=== PATIENT | female | born 1940 | race Caucasian/White ===

== ENCOUNTER → 2018-12-05 18:00 | Outpatient (REF) | payer MEDICARE, SELFPAY ==
[2018-12-05 18:22] LABS: Hematocrit 47.4 % (37-47); Hemoglobin 15.3 g/dL (12.0-15.0); Mean Corp Hgb Conc 32.3 g/dL (32-36); Mean Corpuscular Hgb 28.2 pg (27.0-32.0); Mean Corpuscular Volume 87.5 fL (81-99); Mean Platelet Vol. 11.1 fl (6.2-12.0); Platelet Count 320 K/mm3 (150-450); RBC Distribution Width CV 12.8 % (11.6-14.6); RBC Distribution Width SD 41.1 fl (35.1-43.9); Red Blood Count 5.42 M/mm3 (4.2-5.4); White Blood Count 11.7 K/mm3 (4.4-11.0)
[2018-12-05 18:39] LABS: ALB/GLOB Ratio 0.6 RATIO (0.9-2.4); AST(SGOT) 14 U/L (15-37); Alanine Aminotransfer ALT/SGPT 14 U/L (13-56); Albumin, Serum 3.1 g/dL (3.2-5.0); Alkaline Phosphatase 92 U/L (45-117); Anion Gap 7 (5-15); BUN 12 mg/dL (7-18); BUN/Creat Ratio 14.2 RATIO (10-20); Calcium,Total 9.2 mg/dL (8.5-10.1); Chloride 107 mmol/L (98-107); Creatinine, Serum 0.85 mg/dL (0.55-1.02); EST Glomerular Filtration Rate 69 mL/min (>60); Est Glom Filt Rate - Afr Amer 84 mL/min (>60); Glucose 133 mg/dL (74-106); Potassium 3.6 mmol/L (3.5-5.1); Protein, Total 8.1 g/dL (6.4-8.2); Sodium Level 139 mmol/L (136-145)
[2018-12-11 11:59] VITALS: BMI 29.3
== END ==
LOC: OLS.BROOKB 18:00
PROVIDERS: Visit Provider Family Medicine
DX: I10 Essential (primary) hypertension (principal); E78.5 Hyperlipidemia, unspecified; T14.8XXA Other injury of unspecified body region, initial encounter; E46 Unspecified protein-calorie malnutrition; Z79.899 Other long term (current) drug therapy
CPT/HCPCS: 36415; 80053; 85027

== ENCOUNTER → 2018-12-06 06:50 | Outpatient (REF) | payer MEDICARE, SELFPAY ==
[2018-12-11 11:59] VITALS: BMI 29.3
== END ==
PROVIDERS: Visit Provider Family Medicine
DX: I10 Essential (primary) hypertension (principal); E78.5 Hyperlipidemia, unspecified; T14.8XXA Other injury of unspecified body region, initial encounter; E46 Unspecified protein-calorie malnutrition; Z79.899 Other long term (current) drug therapy
CPT/HCPCS: 87070; 87077; 87186; 87205

== ENCOUNTER 2018-12-11 11:55 | Emergency (ER) | payer MEDICARE, SELFPAY ==
[2018-12-11] VITALS (7 sets, daily range): BP systolic 95–134; BP diastolic 45–113; PULSE 68–94; RESP 16–20; TEMP 36.7–37.2; O2SAT 95–99; BMI 29.3
--- NOTE | 2018-12-11 12:27 | ED.DCSUM_ITS ---
- ER Visit Summary Date of Service: 12/11/18 Chief Complaint: Bilateral lower extremity swelling and redness History of Present Illness: The patient is a 78 F currently resides in a local [facility]. Reportedly was sent in today due to redness swelling of her lower extremities bilaterally. She herself has dementia and is a poor informant. She denies having any fever or chills. She denies nausea or vomiting. Physical Examination: Elderly female no acute distress. Vital signs are stable afebrile. HEENT exam unremarkable. Neck nontender no lymphadenopathy. Lungs clear to auscultation bilaterally. Heart regular rhythm no murmur. Abdomen soft nontender normal bowel sounds no peritoneal signs. Extremities moves all 4. She has mild swelling of the lower extremities there is redness and warmth consistent with cellulitis or venous stasis. The redness is over her mid lower legs. She is awake and alert. Test Results: CBC shows shows no acute abnormality. Chemistries are unremarkable. Normal creatinine and gap. Emergency Department Course and Treatment: Patient reportedly had an anaphylactic reaction to penicillin so treated her with a dose of IV clindamycin. Treatment Plan: I spoke the patient's assisted living facility. They cannot provide IV antibiotics and requested patient be admitted. I have the hospitalist on page. Disposition: admission Impression: Bilateral lower extremity cellulitis This note was generated with [employer] dictation software. It may contain incorrect words, spelling, and punctuation that were not noted in review of the chart prior to signing ED Disposition - Plan for ED Patient: Referrals: Cary Bill MD [Primary Care Provider] -
--- NOTE | 2018-12-11 14:31 | ED.RN ---
THIS RN ATTEMPTED TO CALL SON-PAULINA AT 1430, SON HAD VOICEMAIL BOX NOT SET UP YET. ATTEMPTED TO CALL BROTHER-ANDREAS, WENT TO A [facility] OF A [facility] SO NO MESSAGE WAS LEFT DUE TO THE DIFFERENCE IN NAME
[2018-12-11 15:57] LABS: Absolute Lymphocyte Count 0.85 X10^3/uL (0.83-4.51); Basophil# 0.03 X10^3/uL; Basophil% 0.3 % (0-1); Eosinophil# 0.34 X10^3/uL; Eosinophils% 3.9 % (0-5); Hematocrit 44.1 % (37-47); Hemoglobin 14.6 g/dL (12.0-15.0); Lymphocyte # 0.85 X10^3/ul (4.0); Lymphocyte % 9.7 % (19-41); Mean Corp Hgb Conc 33.1 g/dL (32-36); Mean Corpuscular Hgb 28.5 pg (27.0-32.0); Mean Corpuscular Volume 86.1 fL (81-99); Mean Platelet Vol. 10.7 fl (6.2-12.0); Monocyte# 0.39 X10^3/uL; Monocyte% 4.5 % (0-10); NRBC Flagged by Analyzer 0 % (0-5); Neutrophil # 7.01 X10^3/uL (2.7-7.7); Neutrophil % 80.3 % (47-70); Platelet Count 206 K/mm3 (150-450); RBC Distribution Width CV 13.6 % (11.6-14.6); RBC Distribution Width SD 42.8 fl (35.1-43.9); Red Blood Count 5.12 M/mm3 (4.2-5.4); White Blood Count 8.7 K/mm3 (4.4-11.0)
[2018-12-11 16:16] LABS: Anion Gap 7 (5-15); BUN 15 mg/dL (7-18); BUN/Creat Ratio 18.2 RATIO (10-20); Calcium,Total 8.4 mg/dL (8.5-10.1); Chloride 105 mmol/L (98-107); Creatinine, Serum 0.82 mg/dL (0.55-1.02); EST Glomerular Filtration Rate 72 mL/min (>60); Est Glom Filt Rate - Afr Amer 87 mL/min (>60); Estimated Creatinine Clearance 54.64 ml/min; Glucose 132 mg/dL (74-106); Potassium 4.4 mmol/L (3.5-5.1); Sodium Level 135 mmol/L (136-145)
--- NOTE | 2018-12-11 16:33 | HP.PCM_ITS ---
History of Present Illness Date of Admission: 12/11/18 Chief Complaint: bilateral LE redness and swelling The patient is a 78 year old F with a past medical history as outlined. She was admitted through the ED on 12/11/2018 with a complaint of bilateral lower extremity redness and swelling which have been going on for a few days. Patient denied any trauma to her lower extremities though she admits to falling. She denied any scratching of her lower extremities. She denied any fever or chills, any nausea vomiting or diarrhea. Review of systems otherwise negative. She is never had cellulitis of her lower extremities before. Vitals were significant for respiratory rate of 20 but was otherwise normal. Chemistry showed sodium of 135 and CBC showed white cell count of 8.7 but was otherwise normal. She has been admitted to be managed for cellulitis of the lower extremities bilaterally. Patient was resistant to admission and stated that she did not see where she should be admitted when she knew of other people in her assisted living facility who had similar redness and swelling and one oral antibiotics. Patient was counseled that ED doctor had called assisted-living facility to see if they would be comfortable taking her while she was receiving antibiotics IV. As the living facility stated they were not comfortable accepting her if she was on IV antibiotics hence the need for her to be admitted. Patient was counseled that it was within her rights to refuse admission though from the appearance of her lower extremities, hospitalist's prudent medical decision was that she would benefit from IV antibiotics. Patient says she is waiting for her son to help her decide. 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 history Lives: - - assisted living facility Smoking Status: Former smoker Tobacco Use: Non-smoker Drugs: None - *Family History Sibling History Items: Diabetes Maternal History Items: No pertinent history Paternal History Items: No pertinent history Review of Systems Constitutional: Denies: Chills, Fever, Malaise, Weakness, Weight Change Eyes: Denies: Blurred vision HEENT: Denies: Head Aches, Sinus Congestion, Sinus Drainage Cardiovascular: Denies: Chest Pain, Palpitations Respiratory: Denies: Cough, Shortness of Breath, Shortness of breath at rest, Shortness of breath upon exertion, Sputum production Gastrointestinal: Denies: Abdominal Pain, Nausea, Vomiting Genitourinary: Denies: Dysuria Musculoskeletal: Denies: Joint Pain, Joint Tenderness Skin: Reports: - - redness and swelling of LEs Neurological: Denies: Numbness, Tingling, Focal weakness Psychiatric: Denies: Anxiety, Depression, Homicidal Ideations, Suicidal Ideations Hematologic/ Lymphatic: Denies: Easy Bruising, Easy Bleeding VTE Information - Inpt Only VTE Present on Admission: No VTE Pharm Prophylaxis ordered?: Yes Patient Problems: Active and Suspected Problems Cellulitis (Acute) - Physical Exam Vitals/I&O's: Vital Signs Temp Pulse Resp BP Pulse Ox 98.8 F 83 20 H 134/113 H 96 12/11/18 15:00 12/11/18 15:00 12/11/18 15:00 12/11/18 15:00 12/11/18 15:00 Oxygen Delivery Method Room Air Weight: 181 lb 14.102 oz Body Mass Index (BMI) 29.3 Intake and Output for Last 24 Hours 12/09/18 12/10/18 12/11/18 23:59 23:59 23:59 Intake Total 106 / 106 Balance 106 / 106 General: Alert, Oriented x3, Cooperative, No apparent distress HEENT: Atraumatic, PERRLA, EOMI, Normocephalic Oral: Moist Mucosa Neck: Supple, No JVD, Negative Carotid Bruits Lungs: Clear to auscultation, Normal air movement Cardiovascular: Regular rate, Regular Rhythm, Normal S1, Normal S2, No murmurs Abdomen: Bowel Sounds Present, Soft, Non Tender, Non-Distended, No Hepato- splenomegaly Extremities: No clubbing, No cyanosis, No edema, Capillary Refill Less than 3 Seconds Skin: - - erythema and mild swelling of LEs bilaterally, up to midshin. Skin is also shinya and hairless. Toenails are very overgrown, and left 4th toenail appears broken, with dried blood at base. Webbed spaces between toenails appear macerated Musculoskeletal: No Tenderness to Palpation of Joints or Extremities Lymphatic: No Cervical, Supraclavicular, or Inguinal Adenopathy Neurological: Cranial nerves II-XII grossly intact, Neuro grossly intact, Motor Exam 5/5 strength throughout Psych/Mental Status: Normal Affect, Appropriate, Alert and oriented to time, place, person, mood and affect Laboratory Results 12/11/18 12:40: WBC Cancelled, Corrected WBC Cancelled, RBC Cancelled, Hgb Cancelled, Hct Cancelled, MCV Cancelled, MCH Cancelled, MCHC Cancelled, RDW Std Deviation Cancelled, RDW Coeff of Ricardo Cancelled, Plt Count Cancelled, MPV Cancelled, Immature Gran % (Auto) Cancelled, Neut % (Auto) Cancelled, Lymph % (Auto) Cancelled, [place] % (Auto) Cancelled, Eos % (Auto) Cancelled, Baso % (Auto) Cancelled, Absolute Neuts (auto) Cancelled, Absolute Lymphs (auto) Cancelled, Total Counted Cancelled, Neutrophils % (Manual) Cancelled, Band Neutrophils % Cancelled, Lymphocytes % (Manual) Cancelled, Monocytes % (Manual) Cancelled, Eosinophils % (Manual) Cancelled, Basophils % (Manual) Cancelled, Metamyelocytes % Cancelled, Myelocytes % Cancelled, Promyelocytes % Cancelled, Blast Cells % Cancelled, Plasma Cell % (Manual) Cancelled, Other Cells % Cancelled, Nucleated RBC % Cancelled, Nucleated RBCs/100 WBC Cancelled, Differential Comment Cancelled, Diff Path Review Cancelled, Hypersegmented Neuts Cancelled, Atypical Lymphocytes Cancelled, Reactive Lymphocytes Cancelled, Smudge Cells Cancelled, Toxic Granulation Cancelled, Toxic Vacuolation Cancelled, Dohle Bodies Cancelled, Will Rods Cancelled, Platelet Estimate Cancelled, Plt Morphology Comment Cancelled, RBC Morphology Cancelled, Polychromasia Cancelled, Hypochromasia Cancelled, Poikilocytosis Cancelled, Basophilic Stippling Cancelled, Anisocytosis Cancelled, Microcytosis Cancelled, Macrocytosis Cancelled, Spherocytes Cancelled, Sickle Cells Cancelled, Target Cells Cancelled, Tear Drop Cells Cancelled, Ovalocytes Cancelled, Stomatocytes Cancelled, Crane-[place] Bodies Cancelled, Danyelle Cells Cancelled, Bite Cells Cancelled, Crenated Cell Cancelled, Acanthocytes (Spur) Cancelled, Rouleaux Cancelled, Schistocytes Cancelled 12/11/18 12:40: Sodium Cancelled, Potassium Cancelled, Chloride Cancelled, Carbon Dioxide Cancelled, Anion Gap Cancelled, BUN Cancelled, Creatinine Cancelled, Estim Creat Clear Calc Cancelled, Est GFR (MDRD) Af Amer Cancelled, Est GFR (MDRD) Non-Af Cancelled, BUN/Creatinine Ratio Cancelled, Glucose Cancelled, Calcium Cancelled 12/11/18 14:25: Sodium Cancelled, Potassium Cancelled, Chloride Cancelled, Carbon Dioxide Cancelled, Anion Gap Cancelled, BUN Cancelled, Creatinine Cancelled, Estim Creat Clear Calc Cancelled, Est GFR (MDRD) Af Amer Cancelled, Est GFR (MDRD) Non-Af Cancelled, BUN/Creatinine Ratio Cancelled, Glucose Cancelled, Calcium Cancelled 12/11/18 14:25: WBC Cancelled, Corrected WBC Cancelled, RBC Cancelled, Hgb Cancelled, Hct Cancelled, MCV Cancelled, MCH Cancelled, MCHC Cancelled, RDW Std Deviation Cancelled, RDW Coeff of Ricardo Cancelled, Plt Count Cancelled, MPV Canc elled, Immature Gran % (Auto) Cancelled, Neut % (Auto) Cancelled, Lymph % (Auto) Cancelled, [place] % (Auto) Cancelled, Eos % (Auto) Cancelled, Baso % (Auto) Cancelled, Absolute Neuts (auto) Cancelled, Absolute Lymphs (auto) Cancelled, Total Counted Cancelled, Neutrophils % (Manual) Cancelled, Band Neutrophils % Cancelled, Lymphocytes % (Manual) Cancelled, Monocytes % (Manual) Cancelled, Eosinophils % (Manual) Cancelled, Basophils % (Manual) Cancelled, Metamyelocytes % Cancelled, Myelocytes % Cancelled, Promyelocytes % Cancelled, Blast Cells % Cancelled, Plasma Cell % (Manual) Cancelled, Other Cells % Cancelled, Nucleated RBC % Cancelled, Nucleated RBCs/100 WBC Cancelled, Differential Comment Cancelled, Diff Path Review Cancelled, Hypersegmented Neuts Cancelled, Atypical Lymphocytes Cancelled, Reactive Lymphocytes Cancelled, Smudge Cells Cancelled, Toxic Granulation Cancelled, Toxic Vacuolation Cancelled, Dohle Bodies Cancelled, Will Rods Cancelled, Platelet Estimate Cancelled, Plt Morphology Comment Cancelled, RBC Morphology Cancelled, Polychromasia Cancelled, Hypochromasia Cancelled, Poikilocytosis Cancelled, Basophilic Stippling Cancelled, Anisocytosis Cancelled, Microcytosis Cancelled, Macrocytosis Cancelled, Spherocytes Cancelled, Sickle Cells Cancelled, Target Cells Cancelled, Tear Drop Cells Cancelled, Ovalocytes Cancelled, Stomatocytes Cancelled, Crane-[place] Bodies Cancelled, [place] Cells Cancelled, Bite Cells Cancelled, Crenated Cell Cancelled, Acanthocytes (Spur) Cancelled, Rouleaux Cancelled, Schistocytes Cancelled 12/11/18 15:30: WBC 8.7, RBC 5.12, Hgb 14.6, Hct 44.1, MCV 86.1, MCH 28.5, MCHC 33.1, RDW Std Deviation 42.8, RDW Coeff of Ricardo 13.6, Plt Count 206, MPV 10.7, Immature Gran % (Auto) 1.300 H, Neut % (Auto) 80.3 H, Lymph % (Auto) 9.7 L, [place] % (Auto) 4.5, Eos % (Auto) 3.9, Baso % (Auto) 0.3, Absolute Neuts (auto) 7.0, Absolute Lymphs (auto) 0.85, Nucleated RBC % 0 12/11/18 15:30: Sodium 135 L, Potassium 4.4, Chloride 105, Carbon Dioxide 23.0, Anion Gap 7, BUN 15, Creatinine 0.82, Estim Creat Clear Calc 54.64, Est GFR (MDRD) Af Amer 87, Est GFR (MDRD) Non-Af 72, BUN/Creatinine Ratio 18.2, Glucose 132 H, Calcium 8.4 L Assessment/Plan All Active Problems Cellulitis (Acute) 78 y/o admitted with a complaint of bilateral LE redness and swelling 1. Bilateral LE cellulitis * Admit to [facility] * Started on IV clindamycin. Will continue. Patient is allergic to penicillins. * Has normal white cell count * Cellulitic area demarcated with body marker to assess for progression or resolution of erythema. * Order blood cultures. * Consult podiatry on account of overgrown and broken toenails as this could be source of infection. * VT prophylaxis: Lovenox Code Visit OBSV E&M: [id number] Initial observation care L2
--- NOTE | 2018-12-11 17:17 | ED.RN ---
ATTEMPTED TO CONTACT SON -PAULINA AGAIN. WENT STRAIGHT TO VOICEMAIL WITH A VOICEMAIL BOX THAT IS FULL. NOTIFIED. PATIENT STATES THAT SHE IS UNWILLING TO BE ADMITTED UNTIL SHE IS ABLE TO SPEAK TO SON. SHE WAS INFORMED THAT HER SON WAS NOT ABLE TO BE REACHED. SHE STATES SHE WANTS TO GO BACK TO [place] AND NOT GET ADMITTED
--- NOTE | 2018-12-11 17:38 | ED.DEP ---
ED Disposition - Plan for ED Patient: Disposition: Home or Assisted Living Diagnosis: Cellulitis Instructions: Cellulitis Prescriptions: Clindamycin [Cleocin] 300 mg PO 4X/DAY #80 capsule Referrals: Cary Bill MD [Primary Care Provider] - As soon as possible Additional Instructions: Stop Bactrim - take Clindamycin instead
--- NOTE | 2018-12-11 17:51 | ED.RN ---
SPOKE WITH LATRICE RALPH AT [facility] AND GAVE REPORT. RN VERBALIZED UNDERSTANDING. NO FURTHER QUESTIONS
--- NOTE | 2018-12-11 18:52 | ED.RN ---
SON PAULINA ARRIVES TO ED. THIS RN SPOKE TO SON. SON STATES HIS MOTHER WOULD GET TOO WORKED UP STAYING IN THE HOSPITAL AND WOULD LIKE TO SEE HER RETURN TO [place] WITH THE UNDERSTANDING THAT THE PATIENT AGREES TO TAKE HER ORAL ANTIBIOTICS. THIS RN ALONG WITH SON PAULINA SPOKE WITH PATIENT AND PATIENT AGREED TO DO SO.
== END 2018-12-11 19:38 | disposition home or self-care (01) ==
PROVIDERS: Emergency Provider Emergency Medicine; Family Provider Family Medicine; PCP Family Medicine; Referring Provider Student in an Organized Health Care Education/Training Program
DX: L03.115 Cellulitis of right lower limb (principal); L03.116 Cellulitis of left lower limb; F03.90 Unspecified dementia, unspecified severity, without behavioral disturbance, psychotic disturbance, mood disturbance, and anxiety; Z88.0 Allergy status to penicillin; Z79.899 Other long term (current) drug therapy; Z87.891 Personal history of nicotine dependence; Z90.49 Acquired absence of other specified parts of digestive tract
CPT/HCPCS: 36415; 80048; 85025; 96365; 96366; 99285; J7030; A4216

== ENCOUNTER → 2019-01-23 12:30 | Outpatient (REF) | payer MEDICARE, SELFPAY ==
[2018-12-11 11:59] VITALS: BMI 29.3
[2019-01-23 13:02] LABS: Absolute Lymphocyte Count 2.11 X10^3/uL (0.83-4.51); Absolute Neutrophil Count 6.2 X10^3/uL (2.0-7.7); Basophil# 0.07 X10^3/uL; Basophil% 0.7 % (0-1); Eosinophil# 0.39 X10^3/uL; Hematocrit 44.9 % (37-47); Hemoglobin 14.2 g/dL (12.0-15.0); Lymphocyte # 2.11 X10^3/ul (4.0); Lymphocyte % 21.8 % (19-41); Mean Corp Hgb Conc 31.6 g/dL (32-36); Mean Corpuscular Volume 88.6 fL (81-99); Mean Platelet Vol. 11.2 fl (6.2-12.0); Monocyte# 0.85 X10^3/uL; Monocyte% 8.8 % (0-10); NRBC Flagged by Analyzer 0 % (0-5); Neutrophil # 6.22 X10^3/uL (2.7-7.7); Neutrophil % 64.2 % (47-70); Platelet Count 237 K/mm3 (150-450); RBC Distribution Width CV 14.5 % (11.6-14.6); RBC Distribution Width SD 46.2 fl (35.1-43.9); Red Blood Count 5.07 M/mm3 (4.2-5.4); White Blood Count 9.7 K/mm3 (4.4-11.0)
[2019-01-23 13:09] LABS: Anion Gap 3 (5-15); BUN 11 mg/dL (7-18); BUN/Creat Ratio 15.1 RATIO (10-20); Chloride 107 mmol/L (98-107); Creatinine, Serum 0.73 mg/dL (0.55-1.02); EST Glomerular Filtration Rate 83 mL/min (>60); Est Glom Filt Rate - Afr Amer 100 mL/min (>60); Glucose 112 mg/dL (74-106); Potassium 3.9 mmol/L (3.5-5.1); Sodium Level 139 mmol/L (136-145)
== END ==
LOC: OLS.BROOKB 12:30
PROVIDERS: Visit Provider Family Medicine
DX: R60.0 Localized edema (principal); Z79.899 Other long term (current) drug therapy
CPT/HCPCS: 36415; 80048; 85025

== ENCOUNTER → 2019-02-24 05:00 | Outpatient (REF) | payer MEDICARE, SELFPAY ==
[2018-12-11 11:59] VITALS: BMI 29.3
[2019-02-24 07:52] LABS: Hematocrit 38.5 % (37-47); Hemoglobin 12.3 g/dL (12.0-15.0); Mean Corp Hgb Conc 31.9 g/dL (32-36); Mean Corpuscular Hgb 27.5 pg (27.0-32.0); Mean Corpuscular Volume 85.9 fL (81-99); Mean Platelet Vol. 11.1 fl (6.2-12.0); Platelet Count 218 K/mm3 (150-450); RBC Distribution Width CV 14.2 % (11.6-14.6); RBC Distribution Width SD 44.2 fl (35.1-43.9); Red Blood Count 4.48 M/mm3 (4.2-5.4); White Blood Count 9.6 K/mm3 (4.4-11.0)
[2019-02-24 08:12] LABS: ALB/GLOB Ratio 0.7 RATIO (0.9-2.4); AST(SGOT) 10 U/L (15-37); Alanine Aminotransfer ALT/SGPT 14 U/L (13-56); Albumin, Serum 2.8 g/dL (3.2-5.0); Alkaline Phosphatase 78 U/L (45-117); Anion Gap 6 (5-15); BUN 12 mg/dL (7-18); BUN/Creat Ratio 17.8 RATIO (10-20); Calcium,Total 8.4 mg/dL (8.5-10.1); Chloride 108 mmol/L (98-107); Creatinine, Serum 0.67 mg/dL (0.55-1.02); EST Glomerular Filtration Rate 90 mL/min (>60); Est Glom Filt Rate - Afr Amer 109 mL/min (>60); Globulin 4.2 g/dL (2.2-4.2); Glucose 98 mg/dL (74-106); Potassium 3.4 mmol/L (3.5-5.1); Sodium Level 142 mmol/L (136-145); Thyroid Stim Hormone (TSH) 2.43 uIU/mL (0.358-3.74)
== END ==
LOC: OLS.BROOKB 05:00
PROVIDERS: Family Provider Family Medicine; PCP Family Medicine; Visit Provider Family Medicine
DX: R60.9 Edema, unspecified (principal)
CPT/HCPCS: 36415; 80053; 84443; 85027

== ENCOUNTER 2020-06-17 10:04 | Inpatient (IN) | payer MEDICARE, MEDICAID, SELFPAY ==
[2018-12-11 11:59] VITALS: BMI 29.3
[2020-06-17] VITALS (8 sets, daily range): BP systolic 92–110; BP diastolic 39–78; PULSE 64–88; RESP 16–19; TEMP 36.1–37.2; O2SAT 94–97; BMI 34.0; BMI 33.2
--- NOTE | 2020-06-17 10:16 | EKG12_ITS ---
Test Reason : ALT LOC Blood Pressure : / mmHG Vent. Rate : 074 BPM Atrial Rate : 074 BPM P-R Int : 162 ms QRS Dur : 082 ms QT Int : 372 ms P-R-T Axes : 061 049 020 degrees QTc Int : 412 ms Sinus rhythm with Premature atrial complexes Nonspecific T wave abnormality Abnormal ECG Confirmed by GOSIA DOUGLAS, ANNEMARIE ([id number]), dictionary editor RAFAELA CHONG ([id number]) on 06/20/2020 11:12:04 AM Referred By: [email or web address] Confirmed By:ANNEMARIE ELISE MD
--- NOTE | 2020-06-17 10:18 | CT_ITS ---
STUDY: CT BRAIN WITHOUT CONTRAST REASON FOR EXAM: Female, 79 years old. Confusion RADIATION DOSAGE (If Supplied By Facility): CTDIvol = ( 38.43 ) mGy, DLP = ( 727.10 ) mGycm TECHNIQUE: Transaxial CT imaging of the brain was performed without administration of intravenous contrast material. Individualized dose optimization techniques were used for this CT. COMPARISON: 04/02/2013 FINDINGS: Normal soft tissue structures. Normal calvarium. There is mild cerebral atrophy with widening of the extra-axial spaces and ventricular dilatation. There are areas of decreased attenuation within the white matter tracts of the supratentorial brain, consistent with microvascular disease changes. Normal basal ganglia and thalami. Normal brainstem. Normal cerebellum. There is no intracranial hemorrhage. There are no findings of an acute ischemic infarction. Normal visualized paranasal sinuses. CT/Brain/Head without Contrast IMPRESSION: 1. No acute intracranial hemorrhage or mass effect. 2. Central parenchymal volume loss. White matter changes that are nonspecific but most commonly associated with chronic small vessel ischemic disease. Electronically Signed: Martin St MD (Bro[place]) at 12:17 EDT , Service support ,
--- NOTE | 2020-06-17 10:32 | RAD_ITS ---
STUDY: X-RAY CHEST REASON FOR EXAM: Female, 79 years old. Weakness TECHNIQUE: AP COMPARISON: 04/02/2013 FINDINGS: 1.5 cm nodule in the right mid lung is overall similar since 2013. No airspace consolidation. There is no demonstrated pleural abnormality. Normal size heart. Normal mediastinum and eh. Normal visualized pulmonary arteries. There is atherosclerotic tortuosity of the aortic arch and descending thoracic aorta. There are diffuse degenerative changes of the visualized thoracic spine. Normal visualized ribs, clavicles, and shoulders. There is no demonstrated abnormality of the visualized soft tissue structures of the upper abdomen. RAD/Chest 1 View (Portable) IMPRESSION: Stable, nonacute portable x-ray examination of the chest. Electronically Signed: Martin St MD ([place]) at 10:46 EDT , Service support ,
[2020-06-17] MEDS: 0.9% Normal Saline 1,000 ML 999 ML IV (11:00)
[2020-06-17 11:05] LABS: Bacteria 0 SEEN /hpf (None Seen); Mucous, Urine 0 SEEN /hpf (<or=2+); Squamous Epithelial Cells - UA 0 SEEN /hpf (5-10)
[2020-06-17 11:12] LABS: Color, Urine Yellow (Yellow); Glucose, Dipstick 50 mg/dl (Normal); Ketone-Dipstick 5 mg/dl (Negative); Leukocyte Esterase-Dipstick 500 /ul (Negative); Nitrite-Dipstick Negative (Negative); Occult Blood-Urine 250 /ul (Negative); Protein-Dipstick 100 mg/dl (Negative); Urine Bilirubin Dipstick Negative (Negative); Urine Clarity Cloudy (Clear); Urine Urobilinogen Normal (Normal)
[2020-06-17 11:23] LABS: Absolute Lymphocyte Count 2.08 X10^3/uL (0.83-4.51); Absolute Neutrophil Count 10.2 X10^3/uL (2.0-7.7); Basophil# 0.15 X10^3/uL; Basophil% 1.1 % (0-1); Eosinophil# 0.17 X10^3/uL; Eosinophils% 1.2 % (0-5); Hematocrit 42.3 % (37-47); Hemoglobin 13.2 g/dL (12.0-15.0); Lymphocyte # 2.08 X10^3/ul (0.83-4.51); Mean Corp Hgb Conc 31.2 g/dL (32-36); Mean Corpuscular Hgb 27.4 pg (27.0-32.0); Mean Corpuscular Volume 87.8 fL (81-99); Mean Platelet Vol. 11.1 fl (6.2-12.0); Monocyte# 1.24 X10^3/uL; Monocyte% 8.9 % (0-10); NRBC Flagged by Analyzer 0 % (0-5); Neutrophil # 10.16 X10^3/uL (2.7-7.7); Neutrophil % 73.2 % (47-70); Platelet Count 216 K/mm3 (150-450); RBC Distribution Width CV 13.7 % (11.6-14.6); Red Blood Count 4.82 M/mm3 (4.2-5.4); White Blood Count 13.9 K/mm3 (4.4-11.0)
[2020-06-17 11:24] LABS: Red Blood Cells-Urine > 100 SEEN /hpf (0-5); White Blood Cells >100 SEEN /hpf (0-5)
[2020-06-17 11:25] LABS: Uric Acid Crystals Ur 2+ /hpf (<or=1+)
[2020-06-17 11:33] LABS: International Normalized Ratio 1.3; Partial Thromboplast Time 22.2 Seconds (24.1-36.2); Prothrombin Time (Protime)PT. 15.4 SECONDS (11.7-14.9)
[2020-06-17 11:41] LABS: ALB/GLOB Ratio 0.5 RATIO (0.9-2.4); AST(SGOT) 19 U/L (15-37); Alanine Aminotransfer ALT/SGPT 11 U/L (13-56); Albumin, Serum 2.4 g/dL (3.2-5.0); Alkaline Phosphatase 74 U/L (45-117); Anion Gap 6 (5-15); BUN 19 mg/dL (7-18); BUN/Creat Ratio 16.7 RATIO (10-20); Calcium,Total 8.6 mg/dL (8.5-10.1); Chloride 107 mmol/L (98-107); Creatinine, Serum 1.14 mg/dL (0.55-1.02); EST Glomerular Filtration Rate 49 mL/min (>60); Est Glom Filt Rate - Afr Amer 59 mL/min (>60); Estimated Creatinine Clearance 32.69 ml/min; Globulin 4.8 g/dL (2.2-4.2); Glucose 292 mg/dL (74-106); Potassium 3.8 mmol/L (3.5-5.1); Protein, Total 7.2 g/dL (6.4-8.2); Sodium Level 144 mmol/L (136-145)
[2020-06-17 12:00] LABS: Lactic Acid 1.8 mmol/L (0.4-1.9)
--- NOTE | 2020-06-17 12:22 | EX.ED.DYSGE1 ---
HPI History of Present Illness Chief Complaint: Alt LOC Narrative Narrative: Patient typically is oriented x3. Per the [place] [facility] the patient is oriented x1 today. They state that she had a steady decline for the past 3 days and that her blood pressure was low this morning as well. Patient is not able to contribute any useful history or review of systems as she is very confused and answering minimal questions at this time. [facility] Medical History (Updated 06/17/20 @ 13:[address] Benjamin Rodriguez MD) Chronic indwelling Zapata catheter COPD (chronic obstructive pulmonary disease) Decubitus ulcer of buttock, stage 3 Dementia Depression Failure to thrive Hypertension Hypotension Insomnia Lymphedema Mood disorder Spondylosis of lumbar spine Wound cellulitis Home Medications clindamycin HCl 300 mg PO 4X/DAY #80 cap 12/11/18 [Rx Last Taken Unknown] fluconazole 100 mg PO DAILY 12/11/18 [History Last Taken 12/11/18] nystatin 1 applic TOPICAL BID 12/11/18 [History Last Taken 12/11/18] sulfamethoxazole-trimethoprim 2 tab PO BID 12/11/18 [History Last Taken 12/11/18] albuterol sulfate [ProAir HFA] 90 mcg INHALATION Q4H PRN PRN 06/17/20 [History Last Taken Unknown] furosemide 40 mg PO BID 06/17/20 [History Last Taken Unknown] insulin glargine [Lantus Solostar U-100 Insulin] 10 unit SUBCUT QHS 06/17/20 [History Last Taken Unknown] insulin lispro [Humalog KwikPen Insulin] 0 - 100 unit SUBCUT TID 06/17/20 [History Last Taken Unknown] nystatin 1 applic TOPICAL BID 06/17/20 [History Last Taken Unknown] potassium chloride 40 meq PO DAILY 06/17/20 [History Last Taken Unknown] Allergy/AdvReac Type Severity Reaction Status Date / Time amoxicillin Allergy Unknown Verified 12/11/18 11:58 Penicillins Allergy Anaphylaxis Verified 12/11/18 11:57 MUSHROOMS Allergy Unknown Uncoded 12/11/18 11:57 Social History Smoking Status: Unknown if ever smoked ROS ROS ED Review of Systems ROS Unobtainable: due to mental status EXAM Physical Exam Const Vital Signs: 06/17/20 10:05 06/17/20 10:16 06/17/20 11:16 Temperature 99.0 F Temperature Source Oral Pulse Rate 88 65 Respiratory Rate 17 18 Blood Pressure 92/78 96/57 L Blood Pressure Mean 82 70 Pulse Ox 94 94 Oxygen Delivery Method Nasal Cannula Nasal Cannula Nasal Cannula Oxygen Flow Rate (L/min) 2 2 2 06/17/20 12:24 06/17/20 12:28 Temperature 98.4 F 98.4 F Temperature Source Oral Oral Pulse Rate 69 Respiratory Rate 19 H Blood Pressure 94/44 L Blood Pressure Mean 60 Pulse Ox 97 Oxygen Delivery Method Nasal Cannula Oxygen Flow Rate (L/min) 2 Positive well nourished and well developed General Appearance ED: well developed HEENT Reports normocephalic and head/scalp atraumatic Eyes PERRL Neck no lymphadenopathy, supple and no JVD General: Negative for tenderness Resp normal respiratory effort and clear to auscultation bilaterally Cardio regular rate and regular rhythm Heart Sounds: murmur GI normal to inspection, nondistended, normoactive bowel sounds and non-tender GI Narrative: No guarding, rebound, or peritoneal signs. Palpation: soft Back/Spine no CVA tenderness Back/Spine Narrative: Nontender. Extremity Extremity Narrative: Right great toe has approximately 1.5 cm ulcer on the top of it with a large amount of purulent drainage. There is surrounding erythema. She also has skin breakdown to the proximal inner thighs bilaterally. General Extremety ED: Yes tenderness; Negative for edema General Extremity: Negative for edema Neuro CN's II-XII intact bilaterally and no sensory deficits noted Neuro Narrative: Oriented x1. Sensorium / Orientation: alert Motor Exam: strength 5/5 throughout Psych mental status grossly normal Skin Skin Narrative: Superficial ulcer to buttocks bilaterally. Minimal surrounding erythema. There is also skin breakdown to the inner thighs bilaterally. MDM MDM MDM Narrative Medical decision making narrative: Emergency department course: Patient had an IV placed. She was given a liter normal saline. She has a penicillin allergy so was given meropenem and vancomycin IV. Treatment plan: Patient be discussed with the hospitalist and will be admitted for further evaluation and treatment. She also be discussed with Dr. Alanis. Lab Data Labs: Laboratory Results - last 24 hr 06/17/20 06/17/20 06/17/20 11:00 11:06 11:06 WBC 13.9 H RBC 4.82 Hgb 13.2 Hct 42.3 MCV 87.8 MCH 27.4 MCHC 31.2 L RDW Std Deviation 44.0 H RDW Coeff of Ricardo 13.7 Plt Count 216 MPV 11.1 Immature Gran % (Auto) 0.600 Neut % (Auto) 73.2 H Lymph % (Auto) 15.0 L [place] % (Auto) 8.9 Eos % (Auto) 1.2 Baso % (Auto) 1.1 H Absolute Neuts (auto) 10.2 H Absolute Lymphs (auto) 2.08 Nucleated RBC % 0 ESR PT 15.4 H INR 1.3 APTT 22.2 L Sodium Potassium Chloride Carbon Dioxide Anion Gap BUN Creatinine Estim Creat Clear Calc Est GFR (MDRD) Af Amer Est GFR (MDRD) Non-Af BUN/Creatinine Ratio Glucose Lactic Acid Calcium Total Bilirubin AST ALT Alkaline Phosphatase C-React Prot Ext Range Total Protein Albumin Globulin Albumin/Globulin Ratio Urine Color Yellow Urine Clarity Cloudy Urine pH 5.0 Ur Specific Gans 1.020 Urine Protein 100 H Urine Glucose (UA) 50 H Urine Ketones 5 H Urine Occult Blood 250 H Urine Nitrite Negative Urine Bilirubin Negative Urine Urobilinogen Normal Ur Leukocyte Esterase 500 H Urine RBC > 100 SEEN Urine WBC >100 SEEN Ur Squamous Epith Cells 0 SEEN Uric Acid Crystals 2+ Urine Bacteria 0 SEEN Urine Mucus 0 SEEN 06/17/20 06/17/20 06/17/20 11:06 11:06 11:06 WBC RBC Hgb Hct MCV MCH MCHC RDW Std Deviation RDW Coeff of Ricardo Plt Count MPV Immature Gran % (Auto) Neut % (Auto) Lymph % (Auto) [place] % (Auto) Eos % (Auto) Baso % (Auto) Absolute Neuts (auto) Absolute Lymphs (auto) Nucleated RBC % ESR 65 H PT INR APTT Sodium 144 Potassium 3.8 Chloride 107 Carbon Dioxide 31.0 Anion Gap 6 BUN 19 H Creatinine 1.14 H Estim Creat Clear Calc 32.69 Est GFR (MDRD) Af Amer 59 L Est GFR (MDRD) Non-Af 49 L BUN/Creatinine Ratio 16.7 Glucose 292 H Lactic Acid 1.8 Calcium 8.6 Total Bilirubin 0.60 AST 19 ALT 11 L Alkaline Phosphatase 74 C-React Prot Ext Range Total Protein 7.2 Albumin 2.4 L Globulin 4.8 H Albumin/Globulin Ratio 0.5 L Urine Color Urine Clarity Urine pH Ur Specific Gans Urine Protein Urine Glucose (UA) Urine Ketones Urine Occult Blood Urine Nitrite Urine Bilirubin Urine Urobilinogen Ur Leukocyte Esterase Urine RBC Urine WBC Ur Squamous Epith Cells Uric Acid Crystals Urine Bacteria Urine Mucus 06/17/20 11:06 WBC RBC Hgb Hct MCV MCH MCHC RDW Std Deviation RDW Coeff of Ricardo Plt Count MPV Immature Gran % (Auto) Neut % (Auto) Lymph % (Auto) [place] % (Auto) Eos % (Auto) Baso % (Auto) Absolute Neuts (auto) Absolute Lymphs (auto) Nucleated RBC % ESR PT INR APTT Sodium Potassium Chloride Carbon Dioxide Anion Gap BUN Creatinine Estim Creat Clear Calc Est GFR (MDRD) Af Amer Est GFR (MDRD) Non-Af BUN/Creatinine Ratio Glucose Lactic Acid Calcium Total Bilirubin AST ALT Alkaline Phosphatase C-React Prot Ext Range 51.60 H Total Protein Albumin Globulin Albumin/Globulin Ratio Urine Color Urine Clarity Urine pH Ur Specific Gans Urine Protein Urine Glucose (UA) Urine Ketones Urine Occult Blood Urine Nitrite Urine Bilirubin Urine Urobilinogen Ur Leukocyte Esterase Urine RBC Urine WBC Ur Squamous Epith Cells Uric Acid Crystals Urine Bacteria Urine Mucus Radiography Diagnostic Testing: Radiology Impression Brain CT 06/17/20 10:18 IMPRESSION: 1. No acute intracranial hemorrhage or mass effect. 2. Central parenchymal volume loss. White matter changes that are nonspecific but most commonly associated with chronic small vessel ischemic disease. Electronically Signed: Martin St MD (Brooks) at 12:17 EDT , Service support , Chest X-Ray 06/17/20 10:32 IMPRESSION: Stable, nonacute portable x-ray examination of the chest. Electronically Signed: Martin St MD (Brooks) at 10:46 EDT , Service support , Foot X-Ray 06/17/20 12:28 IMPRESSION: 1. First digit soft tissue swelling with early erosive features of the first proximal and distal phalanges could suggest osteomyelitis in the setting of cellulitis/ulcer. Electronically Signed: Martin St MD (Brooks) at 12:58 EDT , Service support , EKG Initial EKG: Attestation: I personally reviewed and interpreted this EKG as follows: Interpretation: Sinus Rhythm and Non-Specific ST Changes Comments: 74 Discharge Plan Triage Chief Complaint: Alt LOC ED Provider: Benjamin Rodriguez Dx/Rx/DC Orders Clinical Impression: Diabetic foot ulcer, Delirium due to another medical condition, Sepsis Prescriptions: No Action fluconazole 100 MG tablet 100 mg PO DAILY RF: 0 sulfamethoxazole-trimethoprim 1 TABLET tablet 2 tab PO BID RF: 0 nystatin 1 APPLIC bottle 1 applic topical BID RF: 0 clindamycin HCl 150 MG capsule 300 mg PO 4X/DAY Qty: 80 RF: 0 furosemide 40 mg Tablet 40 mg PO BID RF: 0 potassium chloride 40 mEq/15 mL Liquid 40 meq PO DAILY RF: 0 nystatin 100,000 unit/gram Powder 1 applic TOPICAL BID RF: 0 albuterol sulfate [ProAir HFA] 90 mcg/actuation HFA aerosol inhaler 90 mcg INHALATION Q4H PRN PRN (Reason: Shortness Of Breath) RF: 0 insulin lispro [Humalog KwikPen Insulin] 100 unit/mL Insulin Pen 0 - 100 unit SUBCUT TID RF: 0 Lantus Solostar U-100 Insulin 100 unit/mL (3 mL) Insulin Pen 10 unit SUBCUT QHS RF: 0 Primary Care Provider: Cary Bill Referrals: Cary Bill MD [Primary Care Provider] -
--- NOTE | 2020-06-17 12:28 | RAD_ITS ---
STUDY: X-RAY - RIGHT FOOT CLINICAL: Female, 79 years old. Ulcer great toe TECHNIQUE: 3 view(s) of the foot. COMPARISON: None. FINDINGS: There is a plantar calcaneal spur. Normal visualized subtalar, talonavicular, calcaneocuboid, tarsal and tarsometatarsal articulations. Normal metatarsi. There is diffuse osteopenia. Normal metatarsophalangeal joint of the great toe. Normal tibial and fibular sesamoid bones. Diffuse soft tissue swelling of the first digit. Heterogeneous utilization of the proximal and distal phalanges (adjacent to the IP joint) with indistinct cortical margin along the medial aspect. Normal second through fifth metatarsophalangeal joints. Normal interphalangeal joints and phalanges of the lesser toes. The soft tissue structures are otherwise unremarkable. RAD/Foot min 3 Views IMPRESSION: 1. First digit soft tissue swelling with early erosive features of the first proximal and distal phalanges could suggest osteomyelitis in the setting of cellulitis/ulcer. Electronically Signed: Martin St MD (Brooks) at 12:58 EDT , Service support ,
[2020-06-17 13:04] LABS: Erythrocyte Sedimentation Rate 65 mm/hr (0-30)
--- NOTE | 2020-06-17 13:14 | ED.RN ---
pt incon large amt liq stool again and attends placed. pt very painful with wiping. coccyx drsg remmoved d/t large fecal contamination. open areas b/l coccyx and bleeding.
--- NOTE | 2020-06-17 15:14 | PCM.RX.CS ---
Consult Pharmacy has been consulted to manage selected antiobiotic: Vancomycin Type of Consult: New start Suspected Infection: Skin/Soft tissue - DIABETIC FOOT ULCER Labs: Sodium 144 mmol/L (136-145) 06/17/20 11:06 Potassium 3.8 mmol/L (3.5-5.1) 06/17/20 11:06 Chloride 107 mmol/L (98-107) 06/17/20 11:06 Carbon Dioxide 31.0 mmol/L (21.0-32.0) 06/17/20 11:06 Anion Gap 6 (5-15) 06/17/20 11:06 BUN 19 mg/dL (7-18) H 06/17/20 11:06 Creatinine 1.14 mg/dL (0.55-1.02) H 06/17/20 11:06 Est GFR (MDRD) Af Amer 59 mL/min (>60) L 06/17/20 11:06 Est GFR (MDRD) Non-Af 49 mL/min (>60) L 06/17/20 11:06 BUN/Creatinine Ratio 16.7 RATIO (10-20) 06/17/20 11:06 Glucose 292 mg/dL (74-106) H 06/17/20 11:06 Goal Trough: 15-20 mcg/mL Pharmacy Plan for Drug Dosing: NEW START IV VANCOMYCIN Consulting Physician: SKINNY Indication: DIABETIC FOOT ULCER Goal Trough: 15-20 SrCr: 1.14 CrCl: 41.6 ML/MIN (USING ADJ BW OF 63.7KG) Comments: PT RECEIVED ER DOSE OF 1250MG 06/17 @ 1410 Vancomycin Dose: START 500MG Q12H 06/18 @ 0200. TROUGH PRIOR TO 4TH TOTAL DOSE. Pending Level: 06/19 @ 0130 Pharmacy Service will continue to monitor and adjust dosing as required.
[2020-06-17 16:25] LABS: Bedside Glucose 199 mg/dL (70-110)
[2020-06-17] MEDS: 0.9% Normal Saline 1,000 ML 100 ML IV (16:52)
[2020-06-17] MEDS: Insulin Lispro 100 UNIT/ML INSULN.PEN SC ×2 (16:55→21:22)
--- NOTE | 2020-06-17 18:06 | PCM.CONS.GEN ---
Assessment & Plan Assessment/Plan (1) Ulcer of right foot with fat layer exposed: Status: Acute Code(s): L97.512 - Non-pressure chronic ulcer of other part of right foot with fat layer exposed (2) Pressure ulcer of right heel, stage 1: Status: Acute Code(s): L89.611 - Pressure ulcer of right heel, stage 1 (3) Pressure ulcer of left heel, stage 1: Status: Acute Code(s): L89.621 - Pressure ulcer of left heel, stage 1 (4) Cellulitis of right lower extremity: Status: Acute Code(s): L03.115 - Cellulitis of right lower limb (5) Ulcer of right lower extremity with fat layer exposed: Status: Acute Code(s): L97.912 - Non-pressure chronic ulcer of unspecified part of right lower leg with fat layer exposed (6) Venous insufficiency: Status: Acute Code(s): I87.2 - Venous insufficiency (chronic) (peripheral) (7) Edema, lower extremity: Status: Acute Code(s): R60.0 - Localized edema Plan: I reviewed her case; understanding is not likely due to her confusion. She is afebrile at this time with leukocytosis (WBC 13.9), elevated esr (65), lactic acid 1.8, and crp (51.6). She has clinical signs of both cellulitis and stasis changes to the lower extremity with hallux ulcer. No purulence, jenna necrosis, odor, or deep tissue exposure is noted. Right foot x-rays were reviewed with degenerative joint changes at the hallux interphalangeal joint. Report suggests osteomyelitis is possible. There is erosive bone changes at the proximal phalanx head and adjacent distal phalanx. These findings are also noted to the adjacent lesser toes as well. There is no soft tissue emphysema, foreign body, fracture or dislocations noted. Small vessel calcification is noted. Debridement selective performed with 15 blade to remove biofilm, rinsed with saline, and aerobic, anaerobic, and mrsa pcr culture was obtained. She tolerated this brief procedure and was stopped due to pain response. Pressure was applied to control hemostasis and this occurred immediately. Betadine gauze dressing was applied to right hallux and adaptic betadine to proximal lateral right leg, covered with gauze and susan wrap. She was started on meropenem and vancomycin. Wound cultures pending. Blood cultures pending. PCN allergy per chart review noted. I do not anticipate surgery at this time. I recommend wound care and IV antibiotics. Will monitor for clinical stability tomorrow. To offload by avoid shoe contact to dorsal hallux. To also offload bilateral heels by hanging heels over a pillow while in bed to prevent direct contact. No wound or infection is noted at either heel site. Her feet are warm to touch and I do not suspect critical limb ischemia. Vessel calcificiation noted on xrays. I recommend non invasive vascular studies when this service is available to assess for perfusion and healing capabilities. Ok to apply florinda wraps bilateral. Medical management, DVT prophylaxis and confusion work up per hospitalist. I also recommend nutritional supplementation to optimize healing. Thank you for the consultation. Please call if questions. Elaine Alanis DPM, [facility] [phone] HPI Consult Data Date of Consult: 06/17/20 HPI Narrative HPI Narrative: MAIKEL DANIEL, is a 79 F with multiple comorbidities who presents to the ER earlier today for confusion and altered mental status. [facility] was [facility]. Upon right lower extremity dressing removal it is noted she has a great toe ulcer and discoloration of the lower extremity. She is only able to participate in a minimal manner during the exam. She agrees her ulcerative toe has pain. [facility] Medical History Chronic indwelling Zapata catheter COPD (chronic obstructive pulmonary disease) Decubitus ulcer of buttock, stage 3 Dementia Depression Failure to thrive Hypertension Hypotension Insomnia Lymphedema Mood disorder Spondylosis of lumbar spine Wound cellulitis Home Medications clindamycin HCl 300 mg PO 4X/DAY #80 cap 12/11/18 [Rx Last Taken Unknown] fluconazole 100 mg PO DAILY 12/11/18 [History Last Taken 12/11/18] nystatin 1 applic TOPICAL BID 12/11/18 [History Last Taken 12/11/18] sulfamethoxazole-trimethoprim 2 tab PO BID 12/11/18 [History Last Taken 12/11/18] albuterol sulfate [ProAir HFA] 90 mcg INHALATION Q4H PRN PRN 06/17/20 [History Last Taken Unknown] furosemide 40 mg PO BID 06/17/20 [History Last Taken Unknown] insulin glargine [Lantus Solostar U-100 Insulin] 10 unit SUBCUT QHS 06/17/20 [History Last Taken Unknown] insulin lispro [Humalog KwikPen Insulin] 0 - 100 unit SUBCUT TID 06/17/20 [History Last Taken Unknown] nystatin 1 applic TOPICAL BID 06/17/20 [History Last Taken Unknown] potassium chloride 40 meq PO DAILY 06/17/20 [History Last Taken Unknown] Allergy/AdvReac Type Severity Reaction Status Date / Time amoxicillin Allergy Unknown Verified 12/11/18 11:58 Penicillins Allergy Anaphylaxis Verified 12/11/18 11:57 MUSHROOMS Allergy Unknown Uncoded 12/11/18 11:57 Social History Smoking Status: Unknown if ever smoked ROS ROS Narrative unable to obtain from patient Physical Exam Const Constitutional Narrative: General Appearance: cooperative and lethargic Orientation / Consciousness: awake and confused Exam Limitations: altered mental status HEENT normocephalic Cardio Cardio Narrative: capillary fill time less than 3 seconds to all digits. feet are warm to touch bilateral lower extremities Extremity Extremity Narrative: No calf tenderness Diminished pulses Muscle wasting noted bilateral lower extremity edema with hyperpigmentation to distal 1/2 of legs AROM all digits bilateral feet compartments remain soft to palpate bilateral lower extremities General Extremity: edema and no tenderness to palpation of joints or extremities; Negative for cyanosis Skin Skin Narrative: pain to palpate hallux ulcer without fluctuance, bogginess, or crepitus. ulcer dorsal right hallux 1.2 x 1.8 x 0.1 cm granular base without deep tissue exposure or necrosis. Skin discontinuity to lateral proximal leg w/ subhemorrhagic and fibrous tissue 3.0 x 2.0 x < 0.1 cm. faint erythema / hyperpigmenation more notable right mid and lower leg. no erythema to foot or toe. no streaking noted. non blanchable skin to posterior lateral heel, right and posterior medial left heel. bilateral lower limbs have atrophic skin without hair. She has skin peeling and maceration to webspaces consistent with stasis changes and poor hygiene General Skin Exam: Negative for erythema Neuro Neuro Narrative: She responds to touch to bilateral feet and it appears her epicritic sensation is intact Psych cooperative Lab / Micro Data Result Diagrams: 06/17/20 11:06 06/17/20 11:06 Labs: Laboratory Results - last 24 hr 06/17/20 06/17/20 06/17/20 11:00 11:06 11:06 WBC 13.9 H RBC 4.82 Hgb 13.2 Hct 42.3 MCV 87.8 MCH 27.4 MCHC 31.2 L RDW Std Deviation 44.0 H RDW Coeff of Ricardo 13.7 Plt Count 216 MPV 11.1 Immature Gran % (Auto) 0.600 Neut % (Auto) 73.2 H Lymph % (Auto) 15.0 L Adams % (Auto) 8.9 Eos % (Auto) 1.2 Baso % (Auto) 1.1 H Absolute Neuts (auto) 10.2 H Absolute Lymphs (auto) 2.08 Nucleated RBC % 0 ESR PT 15.4 H INR 1.3 APTT 22.2 L Sodium Potassium Chloride Carbon Dioxide Anion Gap BUN Creatinine Estim Creat Clear Calc Est GFR (MDRD) Af Amer Est GFR (MDRD) Non-Af BUN/Creatinine Ratio Glucose Lactic Acid Calcium Total Bilirubin AST ALT Alkaline Phosphatase C-React Prot Ext Range Total Protein Albumin Globulin Albumin/Globulin Ratio Urine Color Yellow Urine Clarity Cloudy Urine pH 5.0 Ur Specific [place] 1.020 Urine Protein 100 H Urine Glucose (UA) 50 H Urine Ketones 5 H Urine Occult Blood 250 H Urine Nitrite Negative Urine Bilirubin Negative Urine Urobilinogen Normal Ur Leukocyte Esterase 500 H Urine RBC > 100 SEEN Urine WBC >100 SEEN Ur Squamous Epith Cells 0 SEEN Uric Acid Crystals 2+ Urine Bacteria 0 SEEN Urine Mucus 0 SEEN POC Glucose 06/17/20 06/17/20 06/17/20 11:06 11:06 11:06 WBC RBC Hgb Hct MCV MCH MCHC RDW Std Deviation RDW Coeff of Ricardo Plt Count MPV Immature Gran % (Auto) Neut % (Auto) Lymph % (Auto) Adams % (Auto) Eos % (Auto) Baso % (Auto) Absolute Neuts (auto) Absolute Lymphs (auto) Nucleated RBC % ESR 65 H PT INR APTT Sodium 144 Potassium 3.8 Chloride 107 Carbon Dioxide 31.0 Anion Gap 6 BUN 19 H Creatinine 1.14 H Estim Creat Clear Calc 32.69 Est GFR (MDRD) Af Amer 59 L Est GFR (MDRD) Non-Af 49 L BUN/Creatinine Ratio 16.7 Glucose 292 H Lactic Acid 1.8 Calcium 8.6 Total Bilirubin 0.60 AST 19 ALT 11 L Alkaline Phosphatase 74 C-React Prot Ext Range Total Protein 7.2 Albumin 2.4 L Globulin 4.8 H Albumin/Globulin Ratio 0.5 L Urine Color Urine Clarity Urine pH Ur Specific [place] Urine Protein Urine Glucose (UA) Urine Ketones Urine Occult Blood Urine Nitrite Urine Bilirubin Urine Urobilinogen Ur Leukocyte Esterase Urine RBC Urine WBC Ur Squamous Epith Cells Uric Acid Crystals Urine Bacteria Urine Mucus POC Glucose 06/17/20 06/17/20 11:06 16:12 WBC RBC Hgb Hct MCV MCH MCHC RDW Std Deviation RDW Coeff of Ricardo Plt Count MPV Immature Gran % (Auto) Neut % (Auto) Lymph % (Auto) Adams % (Auto) Eos % (Auto) Baso % (Auto) Absolute Neuts (auto) Absolute Lymphs (auto) Nucleated RBC % ESR PT INR APTT Sodium Potassium Chloride Carbon Dioxide Anion Gap BUN Creatinine Estim Creat Clear Calc Est GFR (MDRD) Af Amer Est GFR (MDRD) Non-Af BUN/Creatinine Ratio Glucose Lactic Acid Calcium Total Bilirubin AST ALT Alkaline Phosphatase C-React Prot Ext Range 51.60 H Total Protein Albumin Globulin Albumin/Globulin Ratio Urine Color Urine Clarity Urine pH Ur Specific [place] Urine Protein Urine Glucose (UA) Urine Ketones Urine Occult Blood Urine Nitrite Urine Bilirubin Urine Urobilinogen Ur Leukocyte Esterase Urine RBC Urine WBC Ur Squamous Epith Cells Uric Acid Crystals Urine Bacteria Urine Mucus POC Glucose 199 H Radiology Impression Brain CT 06/17/20 10:18 IMPRESSION: 1. No acute intracranial hemorrhage or mass effect. 2. Central parenchymal volume loss. White matter changes that are nonspecific but most commonly associated with chronic small vessel ischemic disease. Electronically Signed: Martin St MD (Brooks) at 12:17 EDT , Service support , Chest X-Ray 06/17/20 10:32 IMPRESSION: Stable, nonacute portable x-ray examination of the chest. Electronically Signed: Martin St MD (Brooks) at 10:46 EDT , Service support , Foot X-Ray 06/17/20 12:28 IMPRESSION: 1. First digit soft tissue swelling with early erosive features of the first proximal and distal phalanges could suggest osteomyelitis in the setting of cellulitis/ulcer. Electronically Signed: Martin St MD (Brooks) at 12:58 EDT , Service support ,
[2020-06-17] MEDS: Menthol/Lanolin/Calamine/Znox 113 GM Tube 1 APPLIC TOPICAL ×2 (18:43→21:16)
--- NOTE | 2020-06-17 21:06 | PCM.HP.STD ---
HPI - General General Date of Admission: 06/17/20 HPI Narrative MAIKEL DANIEL, is a 79 F who presents with altered mental status. [facility] the [facility] she is normally oriented x3 however today she was only oriented x1. They have noticed that she has been having a steady decline for the past 3 days and that her blood pressure was dropping as well. They sent her into the hospital and it was found that she has a potential UTI as well as right lower extremity cellulitis with an ulcer over her right great toe. A foot x-ray was obtained which demonstrates possible bony destruction and osteomyelitis. She was started on vancomycin and meropenem secondary to anaphylactic allergy to penicillin. She is unfortunately a poor historian so most of the history was obtained from the medical record and discussions with the ED physician and podiatry. [facility] Medical History Chronic indwelling Zapata catheter COPD (chronic obstructive pulmonary disease) Decubitus ulcer of buttock, stage 3 Dementia Depression Failure to thrive Hypertension Hypotension Insomnia Lymphedema Mood disorder Spondylosis of lumbar spine Wound cellulitis Home Medications clindamycin HCl 300 mg PO 4X/DAY #80 cap 12/11/18 [Rx Last Taken Unknown] fluconazole 100 mg PO DAILY 12/11/18 [History Last Taken 12/11/18] nystatin 1 applic TOPICAL BID 12/11/18 [History Last Taken 12/11/18] sulfamethoxazole-trimethoprim 2 tab PO BID 12/11/18 [History Last Taken 12/11/18] albuterol sulfate [ProAir HFA] 90 mcg INHALATION Q4H PRN PRN 06/17/20 [History Last Taken Unknown] furosemide 40 mg PO BID 06/17/20 [History Last Taken Unknown] insulin glargine [Lantus Solostar U-100 Insulin] 10 unit SUBCUT QHS 06/17/20 [History Last Taken Unknown] insulin lispro [Humalog KwikPen Insulin] 0 - 100 unit SUBCUT TID 06/17/20 [History Last Taken Unknown] nystatin 1 applic TOPICAL BID 06/17/20 [History Last Taken Unknown] potassium chloride 40 meq PO DAILY 06/17/20 [History Last Taken Unknown] Allergy/AdvReac Type Severity Reaction Status Date / Time amoxicillin Allergy Unknown Verified 12/11/18 11:58 Penicillins Allergy Anaphylaxis Verified 12/11/18 11:57 MUSHROOMS Allergy Unknown Uncoded 12/11/18 11:57 Social History Smoking Status: Unknown if ever smoked ROS Review of Systems ROS Unobtainable: due to mental status Vital Signs Vital Signs Vital Signs: 06/17/20 10:05 06/17/20 10:16 06/17/20 11:16 Temperature 99.0 F Temperature Source Oral Pulse Rate 88 65 Respiratory Rate 17 18 Blood Pressure 92/78 96/57 L Blood Pressure Mean 82 70 Blood Pressure Source Blood Pressure Position Blood Pressure Location Pulse Ox 94 94 Oxygen Delivery Method Nasal Cannula Nasal Cannula Nasal Cannula Oxygen Flow Rate (L/min) 2 2 2 06/17/20 12:24 06/17/20 12:28 06/17/20 14:03 Temperature 98.4 F 98.4 F 96.9 F L Temperature Source Oral Oral Temporal Pulse Rate 69 68 Respiratory Rate 19 H 19 H Blood Pressure 94/44 L 96/39 L Blood Pressure Mean 60 58 Blood Pressure Source Blood Pressure Position Blood Pressure Location Pulse Ox 97 97 Oxygen Delivery Method Nasal Cannula Nasal Cannula Oxygen Flow Rate (L/min) 2 2 06/17/20 14:05 06/17/20 15:00 06/17/20 20:39 Temperature 96.9 F L 98.1 F 97.9 F Temperature Source Temporal Temporal Oral Pulse Rate 64 70 73 Respiratory Rate 16 18 16 Blood Pressure 96/39 L 108/60 110/50 L Blood Pressure Mean 58 76 70 Blood Pressure Source Monitor Monitor Blood Pressure Position Semi-Fowlers Semi-Fowlers Blood Pressure Location Right Arm Right Arm Pulse Ox 97 96 95 Oxygen Delivery Method Nasal Cannula Room Air Room Air Oxygen Flow Rate (L/min) 2 Physical Exam Const Orientation / Consciousness: confused and disoriented HEENT normocephalic and moist oral mucous membranes Eyes PERRL and conjunctivae normal Neck no lymphadenopathy, supple and no JVD Resp normal respiratory effort and no retractions Auscultation: Negative for crackles, rales, rhonchi or wheezes Cardio regular rate, regular rhythm, S1 normal heart sound, S2 normal heart sound and no murmurs GI soft to palpation, non-tender and non-distended; Negative for hepatosplenomegaly Extremity no clubbing, cyanosis or edema Skin General Skin Exam: venous stasis and dermatitis Wounds: wounds noted size Size: 2 cm and surrounding erythema Neuro moves all extremities Sensorium / Orientation: confused Psych Negative for mental status grossly normal Appearance: appropriate Lab / Micro Data Result Diagrams: 06/18/20 06:07 06/18/20 06:07 Labs: Laboratory Results - last 24 hr 06/17/20 06/17/20 06/17/20 11:00 11:06 11:06 WBC 13.9 H RBC 4.82 Hgb 13.2 Hct 42.3 MCV 87.8 MCH 27.4 MCHC 31.2 L RDW Std Deviation 44.0 H RDW Coeff of Ricardo 13.7 Plt Count 216 MPV 11.1 Immature Gran % (Auto) 0.600 Neut % (Auto) 73.2 H Lymph % (Auto) 15.0 L [place] % (Auto) 8.9 Eos % (Auto) 1.2 Baso % (Auto) 1.1 H Absolute Neuts (auto) 10.2 H Absolute Lymphs (auto) 2.08 Nucleated RBC % 0 ESR PT 15.4 H INR 1.3 APTT 22.2 L Sodium Potassium Chloride Carbon Dioxide Anion Gap BUN Creatinine Estim Creat Clear Calc Est GFR (MDRD) Af Amer Est GFR (MDRD) Non-Af BUN/Creatinine Ratio Glucose Lactic Acid Calcium Total Bilirubin AST ALT Alkaline Phosphatase C-React Prot Ext Range Total Protein Albumin Globulin Albumin/Globulin Ratio Urine Color Yellow Urine Clarity Cloudy Urine pH 5.0 Ur Specific Hunters 1.020 Urine Protein 100 H Urine Glucose (UA) 50 H Urine Ketones 5 H Urine Occult Blood 250 H Urine Nitrite Negative Urine Bilirubin Negative Urine Urobilinogen Normal Ur Leukocyte Esterase 500 H Urine RBC > 100 SEEN Urine WBC >100 SEEN Ur Squamous Epith Cells 0 SEEN Uric Acid Crystals 2+ Urine Bacteria 0 SEEN Urine Mucus 0 SEEN POC Glucose 06/17/20 06/17/20 06/17/20 11:06 11:06 11:06 WBC RBC Hgb Hct MCV MCH MCHC RDW Std Deviation RDW Coeff of Ricardo Plt Count MPV Immature Gran % (Auto) Neut % (Auto) Lymph % (Auto) [place] % (Auto) Eos % (Auto) Baso % (Auto) Absolute Neuts (auto) Absolute Lymphs (auto) Nucleated RBC % ESR 65 H PT INR APTT Sodium 144 Potassium 3.8 Chloride 107 Carbon Dioxide 31.0 Anion Gap 6 BUN 19 H Creatinine 1.14 H Estim Creat Clear Calc 32.69 Est GFR (MDRD) Af Amer 59 L Est GFR (MDRD) Non-Af 49 L BUN/Creatinine Ratio 16.7 Glucose 292 H Lactic Acid 1.8 Calcium 8.6 Total Bilirubin 0.60 AST 19 ALT 11 L Alkaline Phosphatase 74 C-React Prot Ext Range Total Protein 7.2 Albumin 2.4 L Globulin 4.8 H Albumin/Globulin Ratio 0.5 L Urine Color Urine Clarity Urine pH Ur Specific Hunters Urine Protein Urine Glucose (UA) Urine Ketones Urine Occult Blood Urine Nitrite Urine Bilirubin Urine Urobilinogen Ur Leukocyte Esterase Urine RBC Urine WBC Ur Squamous Epith Cells Uric Acid Crystals Urine Bacteria Urine Mucus POC Glucose 06/17/20 06/17/20 11:06 16:12 WBC RBC Hgb Hct MCV MCH MCHC RDW Std Deviation RDW Coeff of Ricardo Plt Count MPV Immature Gran % (Auto) Neut % (Auto) Lymph % (Auto) [place] % (Auto) Eos % (Auto) Baso % (Auto) Absolute Neuts (auto) Absolute Lymphs (auto) Nucleated RBC % ESR PT INR APTT Sodium Potassium Chloride Carbon Dioxide Anion Gap BUN Creatinine Estim Creat Clear Calc Est GFR (MDRD) Af Amer Est GFR (MDRD) Non-Af BUN/Creatinine Ratio Glucose Lactic Acid Calcium Total Bilirubin AST ALT Alkaline Phosphatase C-React Prot Ext Range 51.60 H Total Protein Albumin Globulin Albumin/Globulin Ratio Urine Color Urine Clarity Urine pH Ur Specific Hunters Urine Protein Urine Glucose (UA) Urine Ketones Urine Occult Blood Urine Nitrite Urine Bilirubin Urine Urobilinogen Ur Leukocyte Esterase Urine RBC Urine WBC Ur Squamous Epith Cells Uric Acid Crystals Urine Bacteria Urine Mucus POC Glucose 199 H Micro: Microbiology 06/17/20 12:50 Gram Stain - Final Interface Orders 06/17/20 15:50 Enteric Bacteriology - Final Stool Radiology Impression Brain CT 06/17/20 10:18 IMPRESSION: 1. No acute intracranial hemorrhage or mass effect. 2. Central parenchymal volume loss. White matter changes that are nonspecific but most commonly associated with chronic small vessel ischemic disease. Electronically Signed: Martin St MD (Brooks) at 12:17 EDT , Service support , Chest X-Ray 06/17/20 10:32 IMPRESSION: Stable, nonacute portable x-ray examination of the chest. Electronically Signed: Martin St MD (Bro[place]) at 10:46 EDT , Service support , Foot X-Ray 06/17/20 12:28 IMPRESSION: 1. First digit soft tissue swelling with early erosive features of the first proximal and distal phalanges could suggest osteomyelitis in the setting of cellulitis/ulcer. Electronically Signed: Martin St MD ([place]) at 12:58 EDT , Service support , Assessment & Plan Assessment/Plan (1) Cellulitis of right lower extremity: Status: Acute Code(s): L03.115 - Cellulitis of right lower limb (2) Ulcer of right foot with fat layer exposed: Status: Acute Code(s): L97.512 - Non-pressure chronic ulcer of other part of right foot with fat layer exposed (3) Pressure ulcer of left heel, stage 1: Status: Acute Code(s): L89.621 - Pressure ulcer of left heel, stage 1 (4) Pressure ulcer of right heel, stage 1: Status: Acute Code(s): L89.611 - Pressure ulcer of right heel, stage 1 (5) Diabetic foot ulcer: Status: Acute Code(s): E11.621 - Type 2 diabetes mellitus with foot ulcer; L97.509 - Non-pressure chronic ulcer of other part of unspecified foot with unspecified severity Qualifiers: Diabetes mellitus type: type 2 Diabetic foot ulcer location: toe Laterality: right Non-pressure ulcer stage: with bone involvement without evidence of necrosis Qualified Code(s): E11.621 - Type 2 diabetes mellitus with foot ulcer; L97.516 - Non-pressure chronic ulcer of other part of right foot with bone involvement without evidence of necrosis (6) Encephalopathy due to infection: Status: Acute Code(s): G93.49 - Other encephalopathy; B99.9 - Unspecified infectious disease (7) Diabetes mellitus, type 2: Status: Acute Code(s): E11.9 - Type 2 diabetes mellitus without complications Qualifiers: Diabetes mellitus complication detail: with foot ulcer Diabetes mellitus complication status: with skin complications Diabetes mellitus group home insulin use: with exterminator termite use Qualified Code(s): E11.621 - Type 2 diabetes mellitus with foot ulcer; L97.509 - Non-pressure chronic ulcer of other part of unspecified foot with unspecified severity; Z79.4 - correction (current) use of insulin Plan: Still altered, urine cultures pending as are blood cultures Continue with IV fluids Continue with meropenem and vancomycin Per discussions with podiatry, there does not appear to be a need for amputation at this time therefore may need to elect for a prolonged course of antibiotics assuming that the source and the cause of her encephalopathy is secondary to her toe and not a urinary tract infection. Podiatry does not feel that there is a significant infection in the ulcer Continue with insulin and adjust as necessary. COPD, hypertension, hyperlipidemia, her chronic medical conditions which complicate her care. Her home medications were continued where appropriate Visit Charges Inpatient E&M: 25761 Init Hosp L3
[2020-06-17] MEDS: Nystatin Powder 15gm Bottle 1 APPLIC TOPICAL (21:15)
[2020-06-17] MEDS: Insulin NPH Human 100 UNITS/ML PEN 10 UNITS SC (21:23)
[2020-06-17 21:50] LABS: Bedside Glucose 187 mg/dL (70-110)
[2020-06-17 22:12] LABS: M R Staph aureus DNA By PCR Negative (Negative); Probe Check PASS; Specimen Processing Control PASS; Staph aureus DNA By PCR NEGATIVE (Negative)
[2020-06-18] MEDS: Vancomycin IV 500 MG/100 ML BAG 100 MG IV ×2 (02:09→13:43)
[2020-06-18 02:36] VITALS: BP 118/56; PULSE 71; RESP 16; TEMP 36.6; O2SAT 95
[2020-06-18] MEDS: 0.9% Normal Saline 1,000 ML 100 ML IV ×3 (05:24→15:24)
[2020-06-18 06:31] LABS: Absolute Lymphocyte Count 2.22 X10^3/uL (0.83-4.51); Absolute Neutrophil Count 5.9 X10^3/uL (2.0-7.7); Basophil# 0.15 X10^3/uL; Basophil% 1.5 % (0-1); Hematocrit 36.8 % (37-47); Hemoglobin 11.6 g/dL (12.0-15.0); Lymphocyte # 2.22 X10^3/ul (0.83-4.51); Lymphocyte % 22.3 % (19-41); Mean Corp Hgb Conc 31.5 g/dL (32-36); Mean Corpuscular Hgb 28.4 pg (27.0-32.0); Mean Platelet Vol. 11.1 fl (6.2-12.0); Monocyte# 0.76 X10^3/uL; Monocyte% 7.6 % (0-10); NRBC Flagged by Analyzer 0 % (0-5); Neutrophil # 5.94 X10^3/uL (2.7-7.7); Neutrophil % 59.9 % (47-70); Platelet Count 176 K/mm3 (150-450); RBC Distribution Width CV 13.9 % (11.6-14.6); RBC Distribution Width SD 45.5 fl (35.1-43.9); Red Blood Count 4.09 M/mm3 (4.2-5.4); White Blood Count 9.9 K/mm3 (4.4-11.0)
[2020-06-18 06:41] LABS: Bedside Glucose 138 mg/dL (70-110)
[2020-06-18 07:00] LABS: Anion Gap 5 (5-15); BUN 10 mg/dL (7-18); BUN/Creat Ratio 15.1 RATIO (10-20); Calcium,Total 7.4 mg/dL (8.5-10.1); Chloride 116 mmol/L (98-107); Creatinine, Serum 0.66 mg/dL (0.55-1.02); EST Glomerular Filtration Rate 92 mL/min (>60); Est Glom Filt Rate - Afr Amer 111 mL/min (>60); Estimated Creatinine Clearance 35.55 ml/min; Glucose 139 mg/dL (74-106); Potassium 3.1 mmol/L (3.5-5.1); Sodium Level 148 mmol/L (136-145)
[2020-06-18 09:00] VITALS: BP 111/56; PULSE 70; RESP 18; TEMP 36.6; O2SAT 94
--- NOTE | 2020-06-18 09:19 | PN.PCM_ITS ---
History of Present Illness Date of Service: 06/18/20 Objective Data Objective Data Vital Signs: Vital Signs Temp Pulse Resp BP Pulse Ox 98 F 71 16 118/56 L 95 06/18/20 02:36 06/18/20 02:36 06/18/20 02:36 06/18/20 02:36 06/18/20 02:36 Oxygen Flow Rate (L/min) 2 Oxygen Delivery Method Room Air Weight: 180 lb 7 oz Body Mass Index (BMI) 33.2 Intake & Output: Intake and Output for Last 24 Hours 06/16/20 06/17/20 06/18/20 23:59 23:59 23:59 Intake Total 2338.33 / 2338.33 730 / 730 Output Total 450 / 700 500 / 500 Balance 1888.33 / 1638.33 230 / 230 Lab / Micro Data Result Diagrams: 06/18/20 06:07 06/18/20 06:07 Labs: Laboratory Results - last 24 hr 06/17/20 06/17/20 06/17/20 11:00 11:06 11:06 WBC 13.9 H RBC 4.82 Hgb 13.2 Hct 42.3 MCV 87.8 MCH 27.4 MCHC 31.2 L RDW Std Deviation 44.0 H RDW Coeff of Ricardo 13.7 Plt Count 216 MPV 11.1 Immature Gran % (Auto) 0.600 Neut % (Auto) 73.2 H Lymph % (Auto) 15.0 L [place] % (Auto) 8.9 Eos % (Auto) 1.2 Baso % (Auto) 1.1 H Absolute Neuts (auto) 10.2 H Absolute Lymphs (auto) 2.08 Nucleated RBC % 0 ESR PT 15.4 H INR 1.3 APTT 22.2 L Sodium Potassium Chloride Carbon Dioxide Anion Gap BUN Creatinine Estim Creat Clear Calc Est GFR (MDRD) Af Amer Est GFR (MDRD) Non-Af BUN/Creatinine Ratio Glucose Lactic Acid Calcium Total Bilirubin AST ALT Alkaline Phosphatase C-React Prot Ext Range Total Protein Albumin Globulin Albumin/Globulin Ratio Urine Color Yellow Urine Clarity Cloudy Urine pH 5.0 Ur Specific Clarissa 1.020 Urine Protein 100 H Urine Glucose (UA) 50 H Urine Ketones 5 H Urine Occult Blood 250 H Urine Nitrite Negative Urine Bilirubin Negative Urine Urobilinogen Normal Ur Leukocyte Esterase 500 H Urine RBC > 100 SEEN Urine WBC >100 SEEN Ur Squamous Epith Cells 0 SEEN Uric Acid Crystals 2+ Urine Bacteria 0 SEEN Urine Mucus 0 SEEN S.aureus Protein A PCR MRSA (PCR) POC Glucose 06/17/20 06/17/20 06/17/20 11:06 11:06 11:06 WBC RBC Hgb Hct MCV MCH MCHC RDW Std Deviation RDW Coeff of Ricardo Plt Count MPV Immature Gran % (Auto) Neut % (Auto) Lymph % (Auto) [place] % (Auto) Eos % (Auto) Baso % (Auto) Absolute Neuts (auto) Absolute Lymphs (auto) Nucleated RBC % ESR 65 H PT INR APTT Sodium 144 Potassium 3.8 Chloride 107 Carbon Dioxide 31.0 Anion Gap 6 BUN 19 H Creatinine 1.14 H Estim Creat Clear Calc 32.69 Est GFR (MDRD) Af Amer 59 L Est GFR (MDRD) Non-Af 49 L BUN/Creatinine Ratio 16.7 Glucose 292 H Lactic Acid 1.8 Calcium 8.6 Total Bilirubin 0.60 AST 19 ALT 11 L Alkaline Phosphatase 74 C-React Prot Ext Range Total Protein 7.2 Albumin 2.4 L Globulin 4.8 H Albumin/Globulin Ratio 0.5 L Urine Color Urine Clarity Urine pH Ur Specific Clarissa Urine Protein Urine Glucose (UA) Urine Ketones Urine Occult Blood Urine Nitrite Urine Bilirubin Urine Urobilinogen Ur Leukocyte Esterase Urine RBC Urine WBC Ur Squamous Epith Cells Uric Acid Crystals Urine Bacteria Urine Mucus S.aureus Protein A PCR MRSA (PCR) POC Glucose 06/17/20 06/17/20 06/17/20 11:06 16:12 19:30 WBC RBC Hgb Hct MCV MCH MCHC RDW Std Deviation RDW Coeff of Ricardo Plt Count MPV Immature Gran % (Auto) Neut % (Auto) Lymph % (Auto) [place] % (Auto) Eos % (Auto) Baso % (Auto) Absolute Neuts (auto) Absolute Lymphs (auto) Nucleated RBC % ESR PT INR APTT Sodium Potassium Chloride Carbon Dioxide Anion Gap BUN Creatinine Estim Creat Clear Calc Est GFR (MDRD) Af Amer Est GFR (MDRD) Non-Af BUN/Creatinine Ratio Glucose Lactic Acid Calcium Total Bilirubin AST ALT Alkaline Phosphatase C-React Prot Ext Range 51.60 H Total Protein Albumin Globulin Albumin/Globulin Ratio Urine Color Urine Clarity Urine pH Ur Specific [place]issa Urine Protein Urine Glucose (UA) Urine Ketones Urine Occult Blood Urine Nitrite Urine Bilirubin Urine Urobilinogen Ur Leukocyte Esterase Urine RBC Urine WBC Ur Squamous Epith Cells Uric Acid Crystals Urine Bacteria Urine Mucus S.aureus Protein A PCR NEGATIVE MRSA (PCR) Negative POC Glucose 199 H 06/17/20 06/18/20 06/18/20 21:21 06:07 06:07 WBC 9.9 RBC 4.09 L Hgb 11.6 L Hct 36.8 L MCV 90.0 MCH 28.4 MCHC 31.5 L RDW Std Deviation 45.5 H RDW Coeff of Ricardo 13.9 Plt Count 176 MPV 11.1 Immature Gran % (Auto) 0.700 Neut % (Auto) 59.9 Lymph % (Auto) 22.3 [place] % (Auto) 7.6 Eos % (Auto) 8.0 H Baso % (Auto) 1.5 H Absolute Neuts (auto) 5.9 Absolute Lymphs (auto) 2.22 Nucleated RBC % 0 ESR PT INR APTT Sodium 148 H Potassium 3.1 L Chloride 116 H Carbon Dioxide 27.0 Anion Gap 5 BUN 10 Creatinine 0.66 Estim Creat Clear Calc 35.55 Est GFR (MDRD) Af Amer 111 Est GFR (MDRD) Non-Af 92 BUN/Creatinine Ratio 15.1 Glucose 139 H Lactic Acid Calcium 7.4 L Total Bilirubin AST ALT Alkaline Phosphatase C-React Prot Ext Range Total Protein Albumin Globulin Albumin/Globulin Ratio Urine Color Urine Clarity Urine pH Ur Specific Clarissa Urine Protein Urine Glucose (UA) Urine Ketones Urine Occult Blood Urine Nitrite Urine Bilirubin Urine Urobilinogen Ur Leukocyte Esterase Urine RBC Urine WBC Ur Squamous Epith Cells Uric Acid Crystals Urine Bacteria Urine Mucus S.aureus Protein A PCR MRSA (PCR) POC Glucose 187 H 06/18/20 06:24 WBC RBC Hgb Hct MCV MCH MCHC RDW Std Deviation RDW Coeff of Ricardo Plt Count MPV Immature Gran % (Auto) Neut % (Auto) Lymph % (Auto) [place] % (Auto) Eos % (Auto) Baso % (Auto) Absolute Neuts (auto) Absolute Lymphs (auto) Nucleated RBC % ESR PT INR APTT Sodium Potassium Chloride Carbon Dioxide Anion Gap BUN Creatinine Estim Creat Clear Calc Est GFR (MDRD) Af Amer Est GFR (MDRD) Non-Af BUN/Creatinine Ratio Glucose Lactic Acid Calcium Total Bilirubin AST ALT Alkaline Phosphatase C-React Prot Ext Range Total Protein Albumin Globulin Albumin/Globulin Ratio Urine Color Urine Clarity Urine pH Ur Specific Clarissa Urine Protein Urine Glucose (UA) Urine Ketones Urine Occult Blood Urine Nitrite Urine Bilirubin Urine Urobilinogen Ur Leukocyte Esterase Urine RBC Urine WBC Ur Squamous Epith Cells Uric Acid Crystals Urine Bacteria Urine Mucus S.aureus Protein A PCR MRSA (PCR) POC Glucose 138 H Micro: Microbiology 06/17/20 12:50 Interface Orders Gram Stain - Final 06/17/20 15:50 Stool Enteric Bacteriology - Final Radiography Diagnostic Testing: Radiology Impression Brain CT 06/17/20 10:18 IMPRESSION: 1. No acute intracranial hemorrhage or mass effect. 2. Central parenchymal volume loss. White matter changes that are nonspecific but most commonly associated with chronic small vessel ischemic disease. Electronically Signed: Martin St MD ([place]) at 12:17 EDT , Service support , Chest X-Ray 06/17/20 10:32 IMPRESSION: Stable, nonacute portable x-ray examination of the chest. Electronically Signed: Martin St MD (Bro[place]) at 10:46 EDT , Service support , Foot X-Ray 06/17/20 12:28 IMPRESSION: 1. First digit soft tissue swelling with early erosive features of the first proximal and distal phalanges could suggest osteomyelitis in the setting of cellulitis/ulcer. Electronically Signed: Martin St MD ([place]) at 12:58 EDT , Service support ,
[2020-06-18] MEDS: Potassium Chloride Oral Tablet 20 MEQ 60 MEQ PO (09:47)
[2020-06-18] MEDS: Menthol/Lanolin/Calamine/Znox 113 GM Tube 1 APPLIC TOPICAL ×4 (09:48→21:01)
[2020-06-18] MEDS: Enoxaparin 40 MG/0.4 ML Syringe SC (09:48)
[2020-06-18] MEDS: Nystatin Powder 15gm Bottle 1 APPLIC TOPICAL ×2 (09:49→21:01)
--- NOTE | 2020-06-18 10:02 | PN_ITS ---
Subjective Subjective: This 79 year old female was seen bedside this morning for right hallux ulcer and cellulitis. She is more alert this morning and relates she just [facility] to [facility] to [facility] so she can be with her friend Cecilia. She denies foot pain, fever, chills, nausea, vomiting, calf pain. Objective Data Objective Data Vital Signs: Vital Signs Temp Pulse Resp BP Pulse Ox 98 F 71 16 118/56 L 95 06/18/20 02:36 06/18/20 02:36 06/18/20 02:36 06/18/20 02:36 06/18/20 02:36 Oxygen Flow Rate (L/min) 2 Oxygen Delivery Method Room Air Weight: 180 lb 7 oz Body Mass Index (BMI) 33.2 Intake & Output: Intake and Output for Last 24 Hours 06/16/20 06/17/20 06/18/20 23:59 23:59 23:59 Intake Total 2338.33 / 2338.33 730 / 730 Output Total 450 / 700 500 / 500 Balance 1888.33 / 1638.33 230 / 230 Lab / Micro Data Result Diagrams: 06/18/20 06:07 06/18/20 06:07 Labs: Laboratory Results - last 24 hr 06/17/20 06/17/20 06/17/20 11:00 11:06 11:06 WBC 13.9 H RBC 4.82 Hgb 13.2 Hct 42.3 MCV 87.8 MCH 27.4 MCHC 31.2 L RDW Std Deviation 44.0 H RDW Coeff of Ricardo 13.7 Plt Count 216 MPV 11.1 Immature Gran % (Auto) 0.600 Neut % (Auto) 73.2 H Lymph % (Auto) 15.0 L [place] % (Auto) 8.9 Eos % (Auto) 1.2 Baso % (Auto) 1.1 H Absolute Neuts (auto) 10.2 H Absolute Lymphs (auto) 2.08 Nucleated RBC % 0 ESR PT 15.4 H INR 1.3 APTT 22.2 L Sodium Potassium Chloride Carbon Dioxide Anion Gap BUN Creatinine Estim Creat Clear Calc Est GFR (MDRD) Af Amer Est GFR (MDRD) Non-Af BUN/Creatinine Ratio Glucose Lactic Acid Calcium Total Bilirubin AST ALT Alkaline Phosphatase C-React Prot Ext Range Total Protein Albumin Globulin Albumin/Globulin Ratio Urine Color Yellow Urine Clarity Cloudy Urine pH 5.0 Ur Specific Clark 1.020 Urine Protein 100 H Urine Glucose (UA) 50 H Urine Ketones 5 H Urine Occult Blood 250 H Urine Nitrite Negative Urine Bilirubin Negative Urine Urobilinogen Normal Ur Leukocyte Esterase 500 H Urine RBC > 100 SEEN Urine WBC >100 SEEN Ur Squamous Epith Cells 0 SEEN Uric Acid Crystals 2+ Urine Bacteria 0 SEEN Urine Mucus 0 SEEN S.aureus Protein A PCR MRSA (PCR) POC Glucose 06/17/20 06/17/20 06/17/20 11:06 11:06 11:06 WBC RBC Hgb Hct MCV MCH MCHC RDW Std Deviation RDW Coeff of Ricardo Plt Count MPV Immature Gran % (Auto) Neut % (Auto) Lymph % (Auto) [place] % (Auto) Eos % (Auto) Baso % (Auto) Absolute Neuts (auto) Absolute Lymphs (auto) Nucleated RBC % ESR 65 H PT INR APTT Sodium 144 Potassium 3.8 Chloride 107 Carbon Dioxide 31.0 Anion Gap 6 BUN 19 H Creatinine 1.14 H Estim Creat Clear Calc 32.69 Est GFR (MDRD) Af Amer 59 L Est GFR (MDRD) Non-Af 49 L BUN/Creatinine Ratio 16.7 Glucose 292 H Lactic Acid 1.8 Calcium 8.6 Total Bilirubin 0.60 AST 19 ALT 11 L Alkaline Phosphatase 74 C-React Prot Ext Range Total Protein 7.2 Albumin 2.4 L Globulin 4.8 H Albumin/Globulin Ratio 0.5 L Urine Color Urine Clarity Urine pH Ur Specific [place] Urine Protein Urine Glucose (UA) Urine Ketones Urine Occult Blood Urine Nitrite Urine Bilirubin Urine Urobilinogen Ur Leukocyte Esterase Urine RBC Urine WBC Ur Squamous Epith Cells Uric Acid Crystals Urine Bacteria Urine Mucus S.aureus Protein A PCR MRSA (PCR) POC Glucose 06/17/20 06/17/20 06/17/20 11:06 16:12 19:30 WBC RBC Hgb Hct MCV MCH MCHC RDW Std Deviation RDW Coeff of Ricardo Plt Count MPV Immature Gran % (Auto) Neut % (Auto) Lymph % (Auto) [place] % (Auto) Eos % (Auto) Baso % (Auto) Absolute Neuts (auto) Absolute Lymphs (auto) Nucleated RBC % ESR PT INR APTT Sodium Potassium Chloride Carbon Dioxide Anion Gap BUN Creatinine Estim Creat Clear Calc Est GFR (MDRD) Af Amer Est GFR (MDRD) Non-Af BUN/Creatinine Ratio Glucose Lactic Acid Calcium Total Bilirubin AST ALT Alkaline Phosphatase C-React Prot Ext Range 51.60 H Total Protein Albumin Globulin Albumin/Globulin Ratio Urine Color Urine Clarity Urine pH Ur Specific [place] Urine Protein Urine Glucose (UA) Urine Ketones Urine Occult Blood Urine Nitrite Urine Bilirubin Urine Urobilinogen Ur Leukocyte Esterase Urine RBC Urine WBC Ur Squamous Epith Cells Uric Acid Crystals Urine Bacteria Urine Mucus S.aureus Protein A PCR NEGATIVE MRSA (PCR) Negative POC Glucose 199 H 06/17/20 06/18/20 06/18/20 21:21 06:07 06:07 WBC 9.9 RBC 4.09 L Hgb 11.6 L Hct 36.8 L MCV 90.0 MCH 28.4 MCHC 31.5 L RDW Std Deviation 45.5 H RDW Coeff of Ricardo 13.9 Plt Count 176 MPV 11.1 Immature Gran % (Auto) 0.700 Neut % (Auto) 59.9 Lymph % (Auto) 22.3 [place] % (Auto) 7.6 Eos % (Auto) 8.0 H Baso % (Auto) 1.5 H Absolute Neuts (auto) 5.9 Absolute Lymphs (auto) 2.22 Nucleated RBC % 0 ESR PT INR APTT Sodium 148 H Potassium 3.1 L Chloride 116 H Carbon Dioxide 27.0 Anion Gap 5 BUN 10 Creatinine 0.66 Estim Creat Clear Calc 35.55 Est GFR (MDRD) Af Amer 111 Est GFR (MDRD) Non-Af 92 BUN/Creatinine Ratio 15.1 Glucose 139 H Lactic Acid Calcium 7.4 L Total Bilirubin AST ALT Alkaline Phosphatase C-React Prot Ext Range Total Protein Albumin Globulin Albumin/Globulin Ratio Urine Color Urine Clarity Urine pH Ur Specific Clark Urine Protein Urine Glucose (UA) Urine Ketones Urine Occult Blood Urine Nitrite Urine Bilirubin Urine Urobilinogen Ur Leukocyte Esterase Urine RBC Urine WBC Ur Squamous Epith Cells Uric Acid Crystals Urine Bacteria Urine Mucus S.aureus Protein A PCR MRSA (PCR) POC Glucose 187 H 06/18/20 06:24 WBC RBC Hgb Hct MCV MCH MCHC RDW Std Deviation RDW Coeff of Ricardo Plt Count MPV Immature Gran % (Auto) Neut % (Auto) Lymph % (Auto) [place] % (Auto) Eos % (Auto) Baso % (Auto) Absolute Neuts (auto) Absolute Lymphs (auto) Nucleated RBC % ESR PT INR APTT Sodium Potassium Chloride Carbon Dioxide Anion Gap BUN Creatinine Estim Creat Clear Calc Est GFR (MDRD) Af Amer Est GFR (MDRD) Non-Af BUN/Creatinine Ratio Glucose Lactic Acid Calcium Total Bilirubin AST ALT Alkaline Phosphatase C-React Prot Ext Range Total Protein Albumin Globulin Albumin/Globulin Ratio Urine Color Urine Clarity Urine pH Ur Specific Clark Urine Protein Urine Glucose (UA) Urine Ketones Urine Occult Blood Urine Nitrite Urine Bilirubin Urine Urobilinogen Ur Leukocyte Esterase Urine RBC Urine WBC Ur Squamous Epith Cells Uric Acid Crystals Urine Bacteria Urine Mucus S.aureus Protein A PCR MRSA (PCR) POC Glucose 138 H Micro: Microbiology 06/17/20 12:50 Interface Orders Gram Stain - Final 06/17/20 15:50 Stool Enteric Bacteriology - Final Radiography Diagnostic Testing: Radiology Impression Brain CT 06/17/20 10:18 IMPRESSION: 1. No acute intracranial hemorrhage or mass effect. 2. Central parenchymal volume loss. White matter changes that are nonspecific but most commonly associated with chronic small vessel ischemic disease. Electronically Signed: Martin St MD (Brooks) at 12:17 EDT , Service support , Chest X-Ray 06/17/20 10:32 IMPRESSION: Stable, nonacute portable x-ray examination of the chest. Electronically Signed: Martin St MD (Bro[facility]) at 10:46 EDT , Service support , Foot X-Ray 06/17/20 12:28 IMPRESSION: 1. First digit soft tissue swelling with early erosive features of the first proximal and distal phalanges could suggest osteomyelitis in the setting of cellulitis/ulcer. Electronically Signed: Martin St MD ([place]) at 12:58 EDT , Service support , Physical Exam Const General Appearance: cooperative Orientation / Consciousness: awake and confused HEENT normocephalic Extremity General Extremity: edema and no tenderness to palpation of joints or extremities; Negative for cyanosis Skin Skin Narrative: superficial skin discontinuity to lateral right proximal leg w/ decreased drainage and no erythema or infection signs. Dorsal hallux ulcer is also superficial with 100% healthy granular base and no erythema, purulence, odor or necrosis. Adjacent skin is atrophic and hairless. There is no limb erythema, exposed deeper tissue, streaking, bogginess or fluctuance noted. Leg and foot skin is dry with hyperpigmentation that is consistent with the contralateral left lower extremity General Skin Exam: Negative for erythema Neuro moves all extremities Neuro Narrative: epicritic sensation is intact via light touch bilateral lower extremities Psych cooperative Assessment & Plan Assessment/Plan (1) Ulcer of right foot with fat layer exposed: Status: Acute Code(s): L97.512 - Non-pressure chronic ulcer of other part of right foot with fat layer exposed (2) Pressure ulcer of right heel, stage 1: Status: Acute Code(s): L89.611 - Pressure ulcer of right heel, stage 1 (3) Pressure ulcer of left heel, stage 1: Status: Acute Code(s): L89.621 - Pressure ulcer of left heel, stage 1 (4) Cellulitis of right lower extremity: Status: Acute Code(s): L03.115 - Cellulitis of right lower limb (5) Ulcer of right lower extremity with fat layer exposed: Status: Acute Code(s): L97.912 - Non-pressure chronic ulcer of unspecified part of right lower leg with fat layer exposed (6) Venous insufficiency: Status: Acute Code(s): I87.2 - Venous insufficiency (chronic) (peripheral) (7) Edema, lower extremity: Status: Acute Code(s): R60.0 - Localized edema Plan: I reviewed and discussed her case. She participate more today in the exam. She remains afebrile and her leukocytosis has resolved; WBC 9.9. There is no purulence, jenna necrosis, odor, or deep tissue exposure noted. Right foot x- rays were reviewed with degenerative joint changes at the hallux interphalangeal joint. Report suggests osteomyelitis is possible. Per report there is erosive bone changes at the proximal phalanx head and adjacent distal phalanx. These findings are also noted to the adjacent lesser toes as well with increased visualization of primary trabecular patterns consistent with bone density reduction likely related to age and disuse. Contraction of all toes is also noted. There is no soft tissue emphysema, foreign body, fracture or dislocations noted. Small vessel calcification is noted. She was started on meropenem and vancomycin. Toe wound cultures pending with no gram stain growth identified so far. MRSA PCR negative. Blood cultures pending. Urine cultures pending. Her limb and wound are not very impressive. The onset of this ulcer is also unknown. I do not recommend surgery at this time. Her wound and foot look very stable. If there is not a separate clear source of infection this open wound could certainly be the nidus of infection. There is not clear evidence of osteo. 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 If there is another clear focal point of infection, I recommend proceeding with local foot wound care, improved hygiene, and edema management. To offload by avoid shoe contact to dorsal hallux. To also offload bilateral h eels by hanging heels over a pillow while in bed to prevent direct contact. No wound or infection is noted at either heel site. Her feet are warm to touch and I do not suspect critical limb ischemia. Vessel calcificiation noted on xrays. I recommend non invasive vascular studies when this service is available to assess for perfusion and healing capabilities. Ok to apply florinda wraps bilateral. Lotion ordered to improve adjacent skin integrity. Medical management, DVT prophylaxis, and confusion work up per hospitalist. I also recommend nutritional supplementation to optimize healing. Please call if questions. Elaine Alanis DPM, [facility] [phone]
[2020-06-18] MEDS: Insulin Lispro 100 UNIT/ML INSULN.PEN SC ×3 (11:25→21:26)
[2020-06-18 11:40] LABS: Bedside Glucose 189 mg/dL (70-110)
--- NOTE | 2020-06-18 11:51 | PCM.PN.HOSP ---
Subjective Subjective: Seems little bit more alert today but still confused and disoriented. No issues overnight. Objective Data Objective Data Vital Signs: Vital Signs Temp Pulse Resp BP Pulse Ox 97.9 F 70 18 111/56 L 94 06/18/20 09:00 06/18/20 09:00 06/18/20 09:00 06/18/20 09:00 06/18/20 09:00 Oxygen Flow Rate (L/min) 2 Oxygen Delivery Method Room Air Weight: 180 lb 7 oz Body Mass Index (BMI) 33.2 Intake & Output: Intake and Output for Last 24 Hours 06/17/20 06/18/20 06/19/20 03:59 03:59 03:59 Intake Total 2558.33 / 2558.33 510 / 510 Output Total 700 / 700 250 / 250 Balance 1858.33 / 1858.33 260 / 260 Lab / Micro Data Result Diagrams: 06/18/20 06:07 06/18/20 06:07 Labs: Laboratory Results - last 24 hr 06/17/20 06/17/20 06/17/20 11:06 11:06 11:06 WBC RBC Hgb Hct MCV MCH MCHC RDW Std Deviation RDW Coeff of Ricardo Plt Count MPV Immature Gran % (Auto) Neut % (Auto) Lymph % (Auto) [place] % (Auto) Eos % (Auto) Baso % (Auto) Absolute Neuts (auto) Absolute Lymphs (auto) Nucleated RBC % ESR 65 H Sodium Potassium Chloride Carbon Dioxide Anion Gap BUN Creatinine Estim Creat Clear Calc Est GFR (MDRD) Af Amer Est GFR (MDRD) Non-Af BUN/Creatinine Ratio Glucose Lactic Acid 1.8 Calcium C-React Prot Ext Range 51.60 H S.aureus Protein A PCR MRSA (PCR) POC Glucose 06/17/20 06/17/20 06/17/20 16:12 19:30 21:21 WBC RBC Hgb Hct MCV MCH MCHC RDW Std Deviation RDW Coeff of Ricardo Plt Count MPV Immature Gran % (Auto) Neut % (Auto) Lymph % (Auto) [place] % (Auto) Eos % (Auto) Baso % (Auto) Absolute Neuts (auto) Absolute Lymphs (auto) Nucleated RBC % ESR Sodium Potassium Chloride Carbon Dioxide Anion Gap BUN Creatinine Estim Creat Clear Calc Est GFR (MDRD) Af Amer Est GFR (MDRD) Non-Af BUN/Creatinine Ratio Glucose Lactic Acid Calcium C-React Prot Ext Range S.aureus Protein A PCR NEGATIVE MRSA (PCR) Negative POC Glucose 199 H 187 H 06/18/20 06/18/20 06/18/20 06:07 06:07 06:24 WBC 9.9 RBC 4.09 L Hgb 11.6 L Hct 36.8 L MCV 90.0 MCH 28.4 MCHC 31.5 L RDW Std Deviation 45.5 H RDW Coeff of Ricardo 13.9 Plt Count 176 MPV 11.1 Immature Gran % (Auto) 0.700 Neut % (Auto) 59.9 Lymph % (Auto) 22.3 [place] % (Auto) 7.6 Eos % (Auto) 8.0 H Baso % (Auto) 1.5 H Absolute Neuts (auto) 5.9 Absolute Lymphs (auto) 2.22 Nucleated RBC % 0 ESR Sodium 148 H Potassium 3.1 L Chloride 116 H Carbon Dioxide 27.0 Anion Gap 5 BUN 10 Creatinine 0.66 Estim Creat Clear Calc 35.55 Est GFR (MDRD) Af Amer 111 Est GFR (MDRD) Non-Af 92 BUN/Creatinine Ratio 15.1 Glucose 139 H Lactic Acid Calcium 7.4 L C-React Prot Ext Range S.aureus Protein A PCR MRSA (PCR) POC Glucose 138 H 06/18/20 11:23 WBC RBC Hgb Hct MCV MCH MCHC RDW Std Deviation RDW Coeff of Ricardo Plt Count MPV Immature Gran % (Auto) Neut % (Auto) Lymph % (Auto) [place] % (Auto) Eos % (Auto) Baso % (Auto) Absolute Neuts (auto) Absolute Lymphs (auto) Nucleated RBC % ESR Sodium Potassium Chloride Carbon Dioxide Anion Gap BUN Creatinine Estim Creat Clear Calc Est GFR (MDRD) Af Amer Est GFR (MDRD) Non-Af BUN/Creatinine Ratio Glucose Lactic Acid Calcium C-React Prot Ext Range S.aureus Protein A PCR MRSA (PCR) POC Glucose 189 H Micro: Microbiology 06/17/20 15:50 Stool C. difficile DNA Amplification - Final 06/17/20 12:50 Interface Orders Gram Stain - Final 06/17/20 15:50 Stool Enteric Bacteriology - Final Radiography Diagnostic Testing: Radiology Impression Brain CT 06/17/20 10:18 IMPRESSION: 1. No acute intracranial hemorrhage or mass effect. 2. Central parenchymal volume loss. White matter changes that are nonspecific but most commonly associated with chronic small vessel ischemic disease. Electronically Signed: Martin St MD (Bro[facility]) at 12:17 EDT , Service support , Foot X-Ray 06/17/20 12:28 IMPRESSION: 1. First digit soft tissue swelling with early erosive features of the first proximal and distal phalanges could suggest osteomyelitis in the setting of cellulitis/ulcer. Electronically Signed: Martin St MD ([place]) at 12:58 EDT , Service support , Physical Exam Const alert Orientation / Consciousness: confused and disoriented HEENT normocephalic and moist oral mucous membranes Eyes PERRL and conjunctivae normal Neck no lymphadenopathy, supple and no JVD Resp normal respiratory effort and no retractions Auscultation: Negative for crackles, rales, rhonchi or wheezes Cardio regular rate, regular rhythm, S1 normal heart sound, S2 normal heart sound and no murmurs GI soft to palpation, non-tender and non-distended; Negative for hepatosplenomegaly Extremity no clubbing, cyanosis or edema Skin General Skin Exam: venous stasis and dermatitis Wounds: wounds noted size Size: 2 cm and surrounding erythema Neuro moves all extremities Sensorium / Orientation: confused Psych Negative for mental status grossly normal Appearance: appropriate Assessment & Plan Assessment/Plan (1) Cellulitis of right lower extremity: Status: Acute Code(s): L03.115 - Cellulitis of right lower limb (2) Ulcer of right foot with fat layer exposed: Status: Acute Code(s): L97.512 - Non-pressure chronic ulcer of other part of right foot with fat layer exposed (3) Pressure ulcer of left heel, stage 1: Status: Acute Code(s): L89.621 - Pressure ulcer of left heel, stage 1 (4) Pressure ulcer of right heel, stage 1: Status: Acute Code(s): L89.611 - Pressure ulcer of right heel, stage 1 (5) Diabetic foot ulcer: Status: Acute Code(s): E11.621 - Type 2 diabetes mellitus with foot ulcer; L97.509 - Non-pressure chronic ulcer of other part of unspecified foot with unspecified severity Qualifiers: Diabetic foot ulcer location: toe Diabetes mellitus type: type 2 Laterality: right Non-pressure ulcer stage: with bone involvement without evidence of necrosis Qualified Code(s): E11.621 - Type 2 diabetes mellitus with foot ulcer; L97.516 - Non-pressure chronic ulcer of other part of right foot with bone involvement without evidence of necrosis (6) Encephalopathy due to infection: Status: Acute Code(s): G93.49 - Other encephalopathy; B99.9 - Unspecified infectious disease (7) Diabetes mellitus, type 2: Status: Acute Code(s): E11.9 - Type 2 diabetes mellitus without complications Qualifiers: Diabetes mellitus shelter insulin use: with shelter use Diabetes mellitus complication status: with skin complications Diabetes mellitus complication detail: with foot ulcer Qualified Code(s): E11.621 - Type 2 diabetes mellitus with foot ulcer; L97.509 - Non-pressure chronic ulcer of other part of unspecified foot with unspecified severity; 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 Podiatry does not feel that there is a significant infection in the ulcer Wound cultures are pending Continue with insulin and adjust as necessary. COPD, hypertension, hyperlipidemia, her chronic medical conditions which complicate her care. Her home medications were continued where appropriate Visit Charges Inpatient E&M: 37665 Subs Hosp L2
[2020-06-18] MEDS: Ammonium Lactate 225 gm Bottle 1 APPLIC TOPICAL (13:42)
[2020-06-18 15:24] VITALS: BP 123/42; PULSE 72; RESP 18; TEMP 36.6; O2SAT 95
[2020-06-18 16:41] LABS: Bedside Glucose 169 mg/dL (70-110)
[2020-06-18 20:57] VITALS: BP 108/49; PULSE 73; RESP 16; TEMP 36.9; O2SAT 95
[2020-06-18] MEDS: Insulin NPH Human 100 UNITS/ML PEN 10 UNITS SC (21:27)
[2020-06-18 21:35] LABS: Bedside Glucose 246 mg/dL (70-110)
[2020-06-19 01:37] LABS: Absolute Neutrophil Count 5.9 X10^3/uL (2.0-7.7); Basophil# 0.14 X10^3/uL; Basophil% 1.4 % (0-1); Eosinophil# 0.83 X10^3/uL; Eosinophils% 8.1 % (0-5); Hematocrit 36.4 % (37-47); Hemoglobin 11.5 g/dL (12.0-15.0); Lymphocyte % 23.5 % (19-41); Mean Corp Hgb Conc 31.6 g/dL (32-36); Mean Corpuscular Hgb 28.5 pg (27.0-32.0); Mean Corpuscular Volume 90.3 fL (81-99); Monocyte# 0.87 X10^3/uL; Monocyte% 8.5 % (0-10); NRBC Flagged by Analyzer 0 % (0-5); Neutrophil # 5.93 X10^3/uL (2.7-7.7); Neutrophil % 57.9 % (47-70); Platelet Count 177 K/mm3 (150-450); RBC Distribution Width CV 13.9 % (11.6-14.6); RBC Distribution Width SD 45.5 fl (35.1-43.9); Red Blood Count 4.03 M/mm3 (4.2-5.4); White Blood Count 10.2 K/mm3 (4.4-11.0)
[2020-06-19] MEDS: 0.9% Normal Saline 1,000 ML 100 ML IV ×3 (01:41→22:10)
[2020-06-19 02:33] LABS: Anion Gap 5 (5-15); BUN 9 mg/dL (7-18); BUN/Creat Ratio 13.6 RATIO (10-20); Calcium,Total 7.2 mg/dL (8.5-10.1); Chloride 117 mmol/L (98-107); Creatinine, Serum 0.66 mg/dL (0.55-1.02); EST Glomerular Filtration Rate 92 mL/min (>60); Est Glom Filt Rate - Afr Amer 111 mL/min (>60); Estimated Creatinine Clearance 35.55 ml/min; Glucose 149 mg/dL (74-106); Potassium 3.1 mmol/L (3.5-5.1); Sodium Level 147 mmol/L (136-145)
[2020-06-19] MEDS: Vancomycin IV 500 MG/100 ML BAG 100 MG IV (02:38)
--- NOTE | 2020-06-19 02:46 | PCM.RX.CS ---
Consult Pharmacy has been consulted to manage selected antiobiotic: Vancomycin Type of Consult: Follow-up Suspected Infection: Skin/Soft tissue Prior Doses of Antibiotics Received/Current Regimen: Medications Vancomycin HCl 750 mg/ Sodium (Chloride) 265 mls @ 250 mls/hr IV Q12H MARY Vancomycin HCl () 500 mg in 100 mls @ 100 mls/hr IV Q12H MARY Stop: 06/19/20 04:00 Last Admin: 06/19/20 02:38 Dose: 100 mls/hr Labs: Sodium 147 mmol/L (136-145) H 06/19/20 01:27 Potassium 3.1 mmol/L (3.5-5.1) L 06/19/20 01:27 Chloride 117 mmol/L (98-107) H 06/19/20 01:27 Carbon Dioxide 25.0 mmol/L (21.0-32.0) 06/19/20 01:27 Anion Gap 5 (5-15) 06/19/20 01:27 BUN 9 mg/dL (7-18) 06/19/20 01:27 Creatinine 0.66 mg/dL (0.55-1.02) 06/19/20 01:27 Est GFR (MDRD) Af Amer 111 mL/min (>60) 06/19/20 01:27 Est GFR (MDRD) Non-Af 92 mL/min (>60) 06/19/20 01:27 BUN/Creatinine Ratio 13.6 RATIO (10-20) 06/19/20 01:27 Glucose 149 mg/dL (74-106) H 06/19/20 01:27 Vancomycin Trough 11.0 ug/mL (5.0-15.0) 06/19/20 01:27 Microbiology: Microbiology 06/17/20 19:30 Wound - Left Foot Gram Stain - Final 06/17/20 19:30 Wound - Left Foot Wound Culture - Preliminary No growth-Final to follow 06/17/20 12:50 Interface Orders Gram Stain - Final 06/17/20 12:50 Interface Orders Wound Culture - Preliminary Staphylococcus species 06/17/20 11:00 Urine, Random Urine Culture - Preliminary Mixed Gram Positive Organisms 06/17/20 15:50 Stool C. difficile DNA Amplification - Final 06/17/20 15:50 Stool Enteric Bacteriology - Final Weight used for dosin lb 10.067 oz Estimated Creatinine Clearance: 35.6 Goal Trough: 15-20 mcg/mL Pharmacy Plan for Drug Dosing: Vancomycin trough level of 11.0 was below the target range of 15-20. Will increase dose to 750mg q12h, and re-draw trough prior to 4th dose of new regimen. Pharmacy Service will continue to monitor and adjust dosing as required. Follow-Up Labs: Trough Vancomycin Labs to be done on [date and time ordered]: 06/21/20 @0209
[2020-06-19 03:00] VITALS: BP 105/48; PULSE 68; RESP 16; TEMP 36.6; O2SAT 94
--- NOTE | 2020-06-19 07:26 | PCM.PROGNOTE ---
Subjective Subjective: Patient seen and examined resting comfortably. Patient denies any new pedal complaints. Patient denies any nausea, fever, chills, chest pain, shortness of breath, cough, streaking, purulence, vomiting. Objective Data Objective Data Vital Signs: Vital Signs Temp Pulse Resp BP Pulse Ox 98 F 68 16 105/48 L 94 06/19/20 03:00 06/19/20 03:00 06/19/20 03:00 06/19/20 03:00 06/19/20 03:00 Oxygen Flow Rate (L/min) 2 Oxygen Delivery Method Room Air Weight: 180 lb 7 oz Body Mass Index (BMI) 33.2 Intake & Output: Intake and Output for Last 24 Hours 06/17/20 06/18/20 06/19/20 23:59 23:59 23:59 Intake Total 2338.33 / 2338.33 3850 / 3850 1220 / 1220 Output Total 450 / 700 1100 / 1350 500 / 500 Balance 1888.33 / 1638.33 2750 / 2500 720 / 720 Lab / Micro Data Result Diagrams: 06/19/20 01:27 06/19/20 01:27 Labs: Laboratory Results - last 24 hr 06/18/20 06/18/20 06/18/20 11:23 16:35 21:26 WBC RBC Hgb Hct MCV MCH MCHC RDW Std Deviation RDW Coeff of Ricardo Plt Count MPV Immature Gran % (Auto) Neut % (Auto) Lymph % (Auto) [place] % (Auto) Eos % (Auto) Baso % (Auto) Absolute Neuts (auto) Absolute Lymphs (auto) Nucleated RBC % Sodium Potassium Chloride Carbon Dioxide Anion Gap BUN Creatinine Estim Creat Clear Calc Est GFR (MDRD) Af Amer Est GFR (MDRD) Non-Af BUN/Creatinine Ratio Glucose Calcium Vancomycin Trough POC Glucose 189 H 169 H 246 H 06/19/20 06/19/20 06/19/20 01:27 01:27 01:27 WBC 10.2 RBC 4.03 L Hgb 11.5 L Hct 36.4 L MCV 90.3 MCH 28.5 MCHC 31.6 L RDW Std Deviation 45.5 H RDW Coeff of Ricardo 13.9 Plt Count 177 MPV 11.0 Immature Gran % (Auto) 0.600 Neut % (Auto) 57.9 Lymph % (Auto) 23.5 [place] % (Auto) 8.5 Eos % (Auto) 8.1 H Baso % (Auto) 1.4 H Absolute Neuts (auto) 5.9 Absolute Lymphs (auto) 2.40 Nucleated RBC % 0 Sodium 147 H Potassium 3.1 L Chloride 117 H Carbon Dioxide 25.0 Anion Gap 5 BUN 9 Creatinine 0.66 Estim Creat Clear Calc 35.55 Est GFR (MDRD) Af Amer 111 Est GFR (MDRD) Non-Af 92 BUN/Creatinine Ratio 13.6 Glucose 149 H Calcium 7.2 L Vancomycin Trough 11.0 POC Glucose Micro: Microbiology 06/17/20 19:30 Wound - Left Foot Gram Stain - Final 06/17/20 19:30 Wound - Left Foot Wound Culture - Preliminary No growth-Final to follow 06/17/20 12:50 Interface Orders Gram Stain - Final 06/17/20 12:50 Interface Orders Wound Culture - Preliminary Staphylococcus species 06/17/20 11:00 Urine, Random Urine Culture - Preliminary Mixed Gram Positive Organisms 06/17/20 15:50 Stool C. difficile DNA Amplification - Final 06/17/20 15:50 Stool Enteric Bacteriology - Final Physical Exam Const alert and no apparent distress General Appearance: cooperative and comfortable HEENT Head and Scalp: atraumatic Resp normal respiratory effort Extremity normal capillary refill and no calf tenderness General Extremity: edema bilateral lower extremity and no tenderness to palpation of joints or extremities; Negative for clubbing or cyanosis Peripheral Pulses: Yes posterior tibial pulses present bilateral diminished and dorsalis pedis pulses present bilateral (nonpalpable) Skin General Skin Exam: dry skin; Negative for ecchymosis, erythema, eschar, pallor or dermatitis Rashes: no rashes Wounds: wounds noted Wound Narrative: ulcers noted to right dorsal hallux No malodor, erythema, purulence, probing to bone, streaking, fluctuation, crepitus, or other signs of infection. Skin is atrophic and hairless. Granular base 100%. This is superficial. There are pressure ulcers noted to left and right posterior plantar heel with left being worse than right. There is no open wound at this time these are stage I. Right lateral proximal lower leg wound site is noted to have healed Dry flaky skin remains. Leg and foot skin is overall dry with some hyperpigmentation bilaterally Neuro Sensory Exam: extremities light-touch: normal Motor Exam: strength 5/5 throughout Psych Appearance: appropriate Attitude: calm Assessment & Plan Assessment/Plan (1) Ulcer of right foot with fat layer exposed: Status: Acute Code(s): L97.512 - Non-pressure chronic ulcer of other part of right foot with fat layer exposed (2) Pressure ulcer of left heel, stage 1: Status: Acute Code(s): L89.621 - Pressure ulcer of left heel, stage 1 (3) Pressure ulcer of right heel, stage 1: Status: Acute Code(s): L89.611 - Pressure ulcer of right heel, stage 1 (4) Diabetes mellitus, type 2: Status: Acute Code(s): E11.9 - Type 2 diabetes mellitus without complications Qualifiers: Diabetes mellitus penitentiary insulin use: with penitentiary use Diabetes mellitus complication status: with skin complications Diabetes mellitus complication detail: with foot ulcer Qualified Code(s): E11.621 - Type 2 diabetes mellitus with foot ulcer; L97.509 - Non-pressure chronic ulcer of other part of unspecified foot with unspecified severity; Z79.4 - salvage determiner (current) use of insulin (5) Cellulitis of right lower extremity: Status: Acute Code(s): L03.115 - Cellulitis of right lower limb (6) Venous insufficiency: Status: Acute Code(s): I87.2 - Venous insufficiency (chronic) (peripheral) (7) Edema, lower extremity: Status: Acute Code(s): R60.0 - Localized edema Plan: Patient seen and examined bedside. I reviewed and discussed her case. She remains afebrile and her leukocytosis has resolved; WBC 10.2. There is no purulence, jenna necrosis, odor, or deep tissue exposure noted. Right proximal lateral lower extremity ulcerations noted to have healed. Right foot x-rays were reviewed with degenerative joint changes at the hallux interphalangeal joint. Report suggests osteomyelitis is possible. Per report there is erosive bone changes at the proximal phalanx head and adjacent distal phalanx. These findings are also noted to the adjacent lesser toes as well with increased visualization of primary trabecular patterns consistent with bone density reduction likely related to age and disuse. Contraction of all toes is also noted. There is no soft tissue emphysema, foreign body, fracture or dislocations noted. Small vessel calcification is noted. She was started on meropenem and vancomycin. Toe wound cultures pending with no gram stain growth identified so far. MRSA PCR negative. Blood cultures pending. Urine cultures pending. Her limb and wound are not very impressive. The onset of this ulcer is also unknown. I do not recommend surgery at this time. Her wound and foot look very stable. If there is not a separate clear source of infection this open wound could certainly be the nidus of infection. There is not clear evidence of osteo. If long term acute care registered nurse antibiotics are considered for toe osteo, an MRI would be helpful to see if this is necessary given the benefits vs risks of penitentiary antibiotics. If there is another clear focal point of infection, I recommend proceeding with local foot wound care, improved hygiene, and edema management. To offload by avoid shoe contact to dorsal hallux. To also offload bilateral heels by hanging heels over a pillow while in bed to prevent direct contact. This can also be accomplished with offloading boots. No wound or infection is noted at either heel site. Her feet are warm to touch and I do not suspect critical limb ischemia. Vessel calcificiation noted on xrays. I recommend non invasive vascular studies when this service is available to assess for perfusion and healing capabilities. These were orders. Will follow results. Ok to apply florinda wraps bilateral. Lotion ordered to improve adjacent skin integrity. Medical management, DVT prophylaxis, and confusion work up per hospitalist. I also recommend nutritional supplementation to optimize healing. Please call if questions. Patient is also noted to have elongated thickened toenails. These will be trimmed tomorrow. Please contact if any questions or concerns Isabel Gil DPM [facility] [phone]
--- NOTE | 2020-06-19 08:05 | ART_ITS ---
Reason For Study: ULCER Procedure A bilateral lower extremity continuous wave Doppler with analog waveform analysis,segmental pressures,and ankle brachial indexes without exercise. Technically difficult study due to body habitus and thickened, callus skin at ankles/feet. Left Segmental Pressures Left brachial= NOT TAKEN DUE TO IV LOCATION.mmHg. Left posterior tibial artery = 182mmHg. Left dorsalis pedis artery = 173mmHg. Left digit = 79 mmHg. Right Segmental Pressures Right brachial= 110mmHg. Right posterior tibial artery = 185mmHg. Right dorsalis pedis artery = 177mmHg. Right digit = 152 mmHg. The right dorsalis pedis waveforms are triphasic. The right posterior tibial artery waveforms are monophasic. Indices The right ankle brachial index by the dorsalis pedis is 1.61. The right ankle brachial index by the posterior tibial artery is 1.68. The left ankle brachial index by the dorsalis pedis is 1.57. The left ankle brachial index by the posterior tibial artery is 1.65. The left digital-brachial index is 0.72. VL/Lower Ext Art Exam w/o Exercis Interpretation Summary Monophasic and triphasic Doppler waveforms are noted at ankle level on the righ t. Triphasic Doppler waveforms are noted at ankle level on the left. Pulse-volume recordings appear satisfactory at all levels bilaterally, including low-thigh, calf, ankle, and digital levels. Resti ng ankle-brachial indices are supra-normal bilaterally. The right digital-brachial index is supra -normal. The left digital-brachial index is normal. There is evidence of arterial calcification at ankle level bilaterally, and at digital level on the right. There is no evidence of significant arterial occlusive disease in the lo wer extremities bilaterally. Ordering Physician: Elaine Alanis Referring Physician: Cary Bill Performed By: Ting Silverman RVT, RDCS
--- NOTE | 2020-06-19 08:25 | NURSING ---
wound photo: left heel
--- NOTE | 2020-06-19 08:26 | NURSING ---
wound photo: right great toe
--- NOTE | 2020-06-19 08:27 | NURSING ---
wound photo: right lateral foot/heel
--- NOTE | 2020-06-19 08:27 | NURSING ---
wound photo: bilateral buttocks
--- NOTE | 2020-06-19 10:30 | PCM.PN.HOSP ---
Subjective Subjective: Patient is a 79-year-old lady resident of an [facility] presented with cellulitis involving the right lower extremity. Imaging studies obtained on admission demonstrated First digit soft tissue swelling with early erosive features of the first proximal and distal phalanges could suggest osteomyelitis in the setting of cellulitis/ulcer. Subsequently admitted to regular nursing for further management Objective Data Objective Data Vital Signs: Vital Signs Temp Pulse Resp BP Pulse Ox 98 F 68 16 105/48 L 94 06/19/20 03:00 06/19/20 03:00 06/19/20 03:00 06/19/20 03:00 06/19/20 03:00 Oxygen Flow Rate (L/min) 2 Oxygen Delivery Method Room Air Weight: 180 lb 7 oz Body Mass Index (BMI) 33.2 Intake & Output: Intake and Output for Last 24 Hours 06/17/20 06/18/20 06/19/20 23:59 23:59 23:59 Intake Total 2338.33 / 2338.33 3850 / 3850 1220 / 1220 Output Total 450 / 700 1100 / 1350 500 / 500 Balance 1888.33 / 1638.33 2750 / 2500 720 / 720 Lab / Micro Data Result Diagrams: 06/19/20 01:27 06/19/20 01:27 Labs: Laboratory Results - last 24 hr 06/18/20 06/18/20 06/18/20 11:23 16:35 21:26 WBC RBC Hgb Hct MCV MCH MCHC RDW Std Deviation RDW Coeff of Ricardo Plt Count MPV Immature Gran % (Auto) Neut % (Auto) Lymph % (Auto) [place] % (Auto) Eos % (Auto) Baso % (Auto) Absolute Neuts (auto) Absolute Lymphs (auto) Nucleated RBC % Sodium Potassium Chloride Carbon Dioxide Anion Gap BUN Creatinine Estim Creat Clear Calc Est GFR (MDRD) Af Amer Est GFR (MDRD) Non-Af BUN/Creatinine Ratio Glucose Calcium Vancomycin Trough POC Glucose 189 H 169 H 246 H 06/19/20 06/19/20 06/19/20 01:27 01:27 01:27 WBC 10.2 RBC 4.03 L Hgb 11.5 L Hct 36.4 L MCV 90.3 MCH 28.5 MCHC 31.6 L RDW Std Deviation 45.5 H RDW Coeff of Ricardo 13.9 Plt Count 177 MPV 11.0 Immature Gran % (Auto) 0.600 Neut % (Auto) 57.9 Lymph % (Auto) 23.5 [place] % (Auto) 8.5 Eos % (Auto) 8.1 H Baso % (Auto) 1.4 H Absolute Neuts (auto) 5.9 Absolute Lymphs (auto) 2.40 Nucleated RBC % 0 Sodium 147 H Potassium 3.1 L Chloride 117 H Carbon Dioxide 25.0 Anion Gap 5 BUN 9 Creatinine 0.66 Estim Creat Clear Calc 35.55 Est GFR (MDRD) Af Amer 111 Est GFR (MDRD) Non-Af 92 BUN/Creatinine Ratio 13.6 Glucose 149 H Calcium 7.2 L Vancomycin Trough 11.0 POC Glucose Micro: Microbiology 06/17/20 11:00 Urine, Random Urine Culture - Final Mixed Gram Positive Organisms 06/17/20 19:30 Wound - Left Foot Gram Stain - Final 06/17/20 19:30 Wound - Left Foot Wound Culture - Preliminary No growth-Final to follow 06/17/20 12:50 Interface Orders Gram Stain - Final 06/17/20 12:50 Interface Orders Wound Culture - Preliminary Staphylococcus species 06/17/20 15:50 Stool C. difficile DNA Amplification - Final 06/17/20 15:50 Stool Enteric Bacteriology - Final Assessment & Plan Assessment/Plan (1) Pressure ulcer of right heel, stage 1: Status: Acute Code(s): L89.611 - Pressure ulcer of right heel, stage 1 (2) Pressure ulcer of left heel, stage 1: Status: Acute Code(s): L89.621 - Pressure ulcer of left heel, stage 1 (3) Ulcer of right lower extremity with fat layer exposed: Status: Acute Code(s): L97.912 - Non-pressure chronic ulcer of unspecified part of right lower leg with fat layer exposed (4) Diabetes mellitus, type 2: Status: Acute Code(s): E11.9 - Type 2 diabetes mellitus without complications Qualifiers: Diabetes mellitus complication detail: with foot ulcer Diabetes mellitus complication status: with skin complications Diabetes mellitus mine supervisor insulin use: with mine supervisor use Qualified Code(s): E11.621 - Type 2 diabetes mellitus with foot ulcer; L97.509 - Non-pressure chronic ulcer of other part of unspecified foot with unspecified severity; Z79.4 - shelter (current) use of insulin (5) Cellulitis of right lower extremity: Status: Acute Code(s): L03.115 - Cellulitis of right lower limb (6) Ulcer of right foot with fat layer exposed: Status: Acute Code(s): L97.512 - Non-pressure chronic ulcer of other part of right foot with fat layer exposed (7) Diabetic foot ulcer: Status: Acute Code(s): E11.621 - Type 2 diabetes mellitus with foot ulcer; L97.509 - Non-pressure chronic ulcer of other part of unspecified foot with unspecified severity Qualifiers: Diabetes mellitus type: type 2 Diabetic foot ulcer location: toe Laterality: right Non-pressure ulcer stage: with bone involvement without evidence of necrosis Qualified Code(s): E11.621 - Type 2 diabetes mellitus with foot ulcer; L97.516 - Non-pressure chronic ulcer of other part of right foot with bone involvement without evidence of necrosis Plan: Patient is a 79-year-old lady resident of an [facility] presented with cellulitis involving the right lower extremity. Imaging studies obtained on admission demonstrated First digit soft tissue swelling with early erosive features of the first proximal and distal phalanges could suggest osteomyelitis in the setting of cellulitis/ulcer. Subsequently admitted to regular nursing for further management 1. Right lower extremity cellulitis ?Initial imaging studies was suggestive of osteomyelitis. Patient was managed with broad-spectrum antibiotic therapy with consultation placed to podiatry. Podiatry recommended MRI of the right toe for further evaluation prior to committing to long-term antibiotic therapy 2. Diabetes mellitus type II -patient's oral hypoglycemics held. Placed on long acting insulin, Accu-Cheks a.c. and at bedtime and covered with sliding scale insulin 3. Suspected vaginal candidiasis ?Patient was given 1 dose of Diflucan 200 mg x 1 4. COPD -Patient not in exacerbation 5. DVT prophylaxis - On enoxaparin 6. Physical deconditioning - Requested for PT OT eval and social service agency director to assist with discharge planning Visit Charges Inpatient E&M: 68923 Subs Hosp L2
[2020-06-19 10:34] VITALS: BP 109/49; PULSE 66; RESP 16; TEMP 36.8; O2SAT 97
--- NOTE | 2020-06-19 10:46 | CASEMGMT ---
Addendum entered by Michelle Farnsworth 06/19/20 10:59: SW received Medicaid Number for pt. Pt's Medicaid Number is [id number]. SW will fax referral to [facility]. Per conversation with David, David had told this worker that if [facility] is not able to accept pt he is fine with pt going to any other SNF in [place]. Original Note: Social Work Note SW reviewed chart. Pt is listed as being from [facility]. Per Handoff's, pt's son is wanting pt to discharge to a different SNF. SW in to speak with pt. Pt is alert and orientated x1 (person). Pt knew she was somewhere in [place]. Pt also knew that it was June but stated the year was 2011. Pt confirms she came from [facility]. SW spoke with pt about how pt's son would like pt to discharge to a different SNF. Pt states she is aware of this, but is not sure which SNF her son wants her to go to. Pt confirms that her son's name is David and gives this worker permission to call David to discuss discharge plans. DEAN placed a call to pt's son David. DEAN introduced self and role at [facility]. David spent much time talking about his concerns with the care pt was getting at [facility]. David states he has been horrified on what he has learned within the last 24 hours regarding pt's health (wounds). DEAN encouraged David to reach out to [facility] to inform them of his concerns. DEAN also educated David on [facility] and encouraged David to make a report to the [facility] regarding pt's care at [facility]. DEAN provided David with the number for the Ombudsman. David states he would like pt to discharge to [facility]. DEAN informed pt that [facility] doesn't take pt's insurance ([employer] Medicare) so pt would be all private pay at [facility]. David states pt has straight Medicaid. DEAN informed David that Medicaid is not showing up for [facility]. David states pt was approved the beginning of the year and provided Engraver Letter's name and Number. Pt's Medicaid Engraver Letter is Denita and her number is [phone]. DEAN placed a call to [facility] and left message for Perla in admissions and asked if they have pt's Medicaid Number. SW will fax referral to [facility] once Medicaid Number is obtained. Plan: New SNF pending acceptance and pre-cert Michelle Farnsworth MSW, MAINTENANCE GROUNDMAN
[2020-06-19] MEDS: Menthol/Lanolin/Calamine/Znox 113 GM Tube 1 APPLIC TOPICAL ×4 (10:48→22:03)
[2020-06-19] MEDS: Ammonium Lactate 225 gm Bottle 1 APPLIC TOPICAL (10:49)
[2020-06-19] MEDS: Enoxaparin 40 MG/0.4 ML Syringe SC (10:50)
[2020-06-19] MEDS: Nystatin Powder 15gm Bottle 1 APPLIC TOPICAL ×2 (10:52→22:03)
[2020-06-19] MEDS: Insulin Lispro 100 UNIT/ML INSULN.PEN SC ×2 (11:02→17:36)
[2020-06-19 11:10] LABS: Bedside Glucose 176 mg/dL (70-110)
--- NOTE | 2020-06-19 11:55 | CASEMGMT ---
Addendum entered by Michelle Farnsworth 06/19/20 15:32: [facility] and will submit for pre-cert. DEAN placed a call to pt's son David and updated him on [facility]. David states understanding. [facility]-cert Michelle PALM, HORSE TREKKING GUIDE Original Note: Social Work Note DEAN placed a call to Nanda at [facility] and provided new referral. Nanda states they can still try and get authorization from [employer] pt would just have a copay and she would have to explain this to the family. DEAN asked Nanda if pt's Medicaid would cover that copay and Nanda states it should. DEAN faxed referral. Plan: [facility] pending acceptance and pre-cert Michelle PALM, HORSE TREKKING GUIDE
--- NOTE | 2020-06-19 12:16 | MRI_ITS ---
STUDY: MRI RIGHT FOREFOOT WITH AND WITHOUT CONTRAST REASON FOR EXAM: Ulcer at the dorsal aspect of the great toe, evaluate osteomyelitis. TECHNIQUE: Standardized fat and water weighted pulse sequences were obtained in all 3 orthogonal planes, post contrast administration. Dotarem 15ml iv was administered for the contrast portion of the examination. COMPARISON: Radiographs 06/17/2020. FINDINGS: Normal metatarsophalangeal joint of the hallux. Normal tibial and fibular sesamoids, with normal sesamoids-first metatarsal articulations. There is effusion/synovitis of the interphalangeal joint of the hallux with bone edema of the first proximal and distal phalanges, erosive changes adjacent to the interphalangeal joint (inversion recovery sagittal images 5-8) and corresponding decreased T1 bone marrow signal of the head of the first proximal phalanx and base of the first distal phalanx (T1 sagittal image 8) consistent with septic arthritis/osteomyelitis. There is contrast enhancement of the synovitis of the interphalangeal joint of the great toe as well as the adjacent proximal and distal phalanges (postcontrast T1 sagittal images 7-9). Normal medial and lateral heads of the flexor hallucis brevis tendons. Normal flexor and extensor hallucis longus tendons. Normal second through fifth metatarsophalangeal (MTP) joints. Normal interphalangeal joints of the second through fifth toes. Normal proximal, middle and distal phalanges of the second through fifth toes. Normal flexor and extensor tendons of the second through fifth toes. Normal first through fourth intermetatarsal spaces. Normal metatarsals. There is atrophy of the abductor digiti minimi muscle with partial fat replacement (T1 sagittal images 19, 20). There is edema in the subcutis adipose space of the great toe with contrast enhancement (postcontrast T1 sagittal images 5-9) consistent with cellulitis. There is no discrete fluid collection to indicate soft tissue abscess. 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 Cellulitis of the great toe. Atrophy of the abductor digiti minimi muscle. Electronically Signed: Johnathon Castelan MD at 7:24 EDT Tel , Service support ,
[2020-06-19 15:05] VITALS: BP 116/45; PULSE 63; RESP 16; TEMP 37.4; O2SAT 95
[2020-06-19 17:35] LABS: Bedside Glucose 139 mg/dL (70-110)
[2020-06-19 17:50] LABS: Bedside Glucose 166 mg/dL (70-110)
[2020-06-19] MEDS: 0.9% Saline Lock 10 ML Syringe IV (20:08)
[2020-06-19] MEDS: Insulin NPH Human 100 UNITS/ML PEN 10 UNITS SC (22:04)
[2020-06-19 22:12] VITALS: BP 115/50; PULSE 68; RESP 16; TEMP 36.7; O2SAT 93
[2020-06-19 22:35] LABS: Bedside Glucose 124 mg/dL (70-110)
[2020-06-20 02:25] VITALS: BP 96/39; PULSE 75; RESP 18; TEMP 36.8; O2SAT 94
[2020-06-20 06:41] LABS: Bedside Glucose 99 mg/dL (70-110)
[2020-06-20 06:54] LABS: Absolute Lymphocyte Count 1.82 X10^3/uL (0.83-4.51); Absolute Neutrophil Count 4.9 X10^3/uL (2.0-7.7); Basophil# 0.15 X10^3/uL; Basophil% 1.7 % (0-1); Eosinophil# 0.82 X10^3/uL; Eosinophils% 9.6 % (0-5); Hematocrit 37.6 % (37-47); Hemoglobin 11.8 g/dL (12.0-15.0); Lymphocyte # 1.82 X10^3/ul (0.83-4.51); Lymphocyte % 21.2 % (19-41); Mean Corp Hgb Conc 31.4 g/dL (32-36); Mean Corpuscular Hgb 28.6 pg (27.0-32.0); Mean Platelet Vol. 11.3 fl (6.2-12.0); Monocyte# 0.82 X10^3/uL; Monocyte% 9.6 % (0-10); NRBC Flagged by Analyzer 0 % (0-5); Neutrophil # 4.91 X10^3/uL (2.7-7.7); Neutrophil % 57.2 % (47-70); Platelet Count 177 K/mm3 (150-450); RBC Distribution Width SD 46.8 fl (35.1-43.9); Red Blood Count 4.13 M/mm3 (4.2-5.4); White Blood Count 8.6 K/mm3 (4.4-11.0)
[2020-06-20 07:16] LABS: Anion Gap 6 (5-15); BUN 6 mg/dL (7-18); BUN/Creat Ratio 12.4 RATIO (10-20); Calcium,Total 6.8 mg/dL (8.5-10.1); Chloride 119 mmol/L (98-107); Creatinine, Serum 0.48 mg/dL (0.55-1.02); EST Glomerular Filtration Rate 132 mL/min (>60); Est Glom Filt Rate - Afr Amer 160 mL/min (>60); Estimated Creatinine Clearance 35.55 ml/min; Glucose 98 mg/dL (74-106); Magnesium 1.3 mg/dL (1.6-2.6); Sodium Level 149 mmol/L (136-145)
--- NOTE | 2020-06-20 07:21 | PN_ITS ---
Subjective Subjective: Patient seen and examined resting comfortably. Patient denies any new pedal complaints. Patient denies any nausea, fever, chills, chest pain, shortness of breath, cough, streaking, purulence, vomiting. Patient was sleeping upon arrival this morning comfortably. Objective Data Objective Data Vital Signs: Vital Signs Temp Pulse Resp BP Pulse Ox 98.2 F 75 18 96/39 L 94 06/20/20 02:25 06/20/20 02:25 06/20/20 02:25 06/20/20 02:25 06/20/20 02:25 Oxygen Flow Rate (L/min) 2 Oxygen Delivery Method Room Air Weight: 180 lb 7 oz Body Mass Index (BMI) 33.2 Intake & Output: Intake and Output for Last 24 Hours 06/18/20 06/19/20 06/20/20 23:59 23:59 23:59 Intake Total 3850 / 3850 3521.67 / 3521.67 485 / 485 Output Total 1100 / 1350 500 / 725 475 / 475 Balance 2750 / 2500 3021.67 / 2796.67 Lab / Micro Data Result Diagrams: 06/20/20 06:10 06/20/20 06:10 Labs: Laboratory Results - last 24 hr 06/19/20 06/19/20 06/19/20 06:40 11:01 17:34 WBC RBC Hgb Hct MCV MCH MCHC RDW Std Deviation RDW Coeff of Ricardo Plt Count MPV Immature Gran % (Auto) Neut % (Auto) Lymph % (Auto) [place] % (Auto) Eos % (Auto) Baso % (Auto) Absolute Neuts (auto) Absolute Lymphs (auto) Nucleated RBC % Sodium Potassium Chloride Carbon Dioxide Anion Gap BUN Creatinine Estim Creat Clear Calc Est GFR (MDRD) Af Amer Est GFR (MDRD) Non-Af BUN/Creatinine Ratio Glucose Calcium Magnesium POC Glucose 139 H 176 H 166 H 06/19/20 06/20/20 06/20/20 22:03 06:10 06:10 WBC 8.6 RBC 4.13 L Hgb 11.8 L Hct 37.6 MCV 91.0 MCH 28.6 MCHC 31.4 L RDW Std Deviation 46.8 H RDW Coeff of Ricardo 14.0 Plt Count 177 MPV 11.3 Immature Gran % (Auto) 0.700 Neut % (Auto) 57.2 Lymph % (Auto) 21.2 [place] % (Auto) 9.6 Eos % (Auto) 9.6 H Baso % (Auto) 1.7 H Absolute Neuts (auto) 4.9 Absolute Lymphs (auto) 1.82 Nucleated RBC % 0 Sodium 149 H Potassium 3.0 L Chloride 119 H Carbon Dioxide 24.0 Anion Gap 6 BUN 6 L Creatinine 0.48 L Estim Creat Clear Calc 35.55 Est GFR (MDRD) Af Amer 160 Est GFR (MDRD) Non-Af 132 BUN/Creatinine Ratio 12.4 Glucose 98 Calcium 6.8 L Magnesium 1.3 L POC Glucose 124 H 06/20/20 06:35 WBC RBC Hgb Hct MCV MCH MCHC RDW Std Deviation RDW Coeff of Ricardo Plt Count MPV Immature Gran % (Auto) Neut % (Auto) Lymph % (Auto) [place] % (Auto) Eos % (Auto) Baso % (Auto) Absolute Neuts (auto) Absolute Lymphs (auto) Nucleated RBC % Sodium Potassium Chloride Carbon Dioxide Anion Gap BUN Creatinine Estim Creat Clear Calc Est GFR (MDRD) Af Amer Est GFR (MDRD) Non-Af BUN/Creatinine Ratio Glucose Calcium Magnesium POC Glucose 99 Micro: Microbiology 06/17/20 19:30 Wound - Left Foot Gram Stain - Final 06/17/20 19:30 Wound - Left Foot Wound Culture - Final Corynebacterium striatum 06/17/20 12:50 Interface Orders Gram Stain - Final 06/17/20 12:50 Interface Orders Wound Culture - Final Corynebacterium striatum 06/17/20 12:37 Blood Culture (Wb) - Right Hand Blood Culture - Preliminary No growth in 48 hours. 06/17/20 11:06 Blood Culture (Wb) - Left Hand Blood Culture - Preliminary No growth in 48 hours. 06/17/20 11:00 Urine, Random Urine Culture - Final Mixed Gram Positive Organisms 06/17/20 15:50 Stool C. difficile DNA Amplification - Final 06/17/20 15:50 Stool Enteric Bacteriology - Final Radiography Diagnostic Testing: Radiology Impression Extremity Arterial Study 06/19/20 08:05 Interpretation Summary Monophasic and triphasic Doppler waveforms are noted at ankle level on the rig ht. Triphasic Doppler waveforms are noted at ankle level on the left. Pulse-volume recordings appear satisfactory at all levels bilaterally, including low-thigh, calf, ankle, and digital levels. Resting ankle-brachial indices are supra-normal bilaterally. The right digital-brachial index is supra- normal. The left digital-brachial index is normal. There is evidence of arterial calcification at ankle level bilaterally, and at digital level on the right. There is no evidence of significant arterial occlusive disease in the lower extremities bilaterally. Ordering Physician: Elaine Alanis Referring Physician: Cary Bill Performed By: Ting Silverman RVT, RDCS Physical Exam Const alert and no apparent distress General Appearance: cooperative and comfortable Orientation / Consciousness: awake and confused Exam Limitations: altered mental status HEENT normocephalic Resp normal respiratory effort Extremity normal capillary refill and no calf tenderness General Extremity: edema bilateral lower extremity and no tenderness to palpation of joints or extremities; Negative for clubbing or cyanosis Skin Skin Narrative: General Skin Exam: dry skin; Negative for ecchymosis, erythema, eschar, pallor or dermatitis Rashes: no rashes Wounds: wounds noted Wound Narrative: ulcers noted to right dorsal hallux No malodor, erythema, purulence, probing to bone, streaking, fluctuation, crepitus, or other signs of infection. Skin is atrophic and hairless. Granular base 100%. This is superficial. There are pressure ulcers noted to left and right posterior plantar heel with left being worse than right. There is no open wound at this time these are stage I. No fluctuance noted Right lateral proximal lower leg wound site is noted to have healed Dry flaky skin remains, but improved. Leg and foot skin is overall dry with some hyperpigmentation bilaterally Nails 60[address] bilateral are thickened, discolored, yellowed, pain to palpation, elongated, dystrophic, and has subungal debris Neuro moves all extremities Neuro Narrative: epicritic sensation is intact via light touch bilateral lower extremities Sensory Exam: extremities light-touch: normal Motor Exam: strength 5/5 throughout Psych cooperative Appearance: appropriate Attitude: calm Assessment & Plan Assessment/Plan (1) Ulcer of right foot with fat layer exposed: Status: Acute Code(s): L97.512 - Non-pressure chronic ulcer of other part of right foot with fat layer exposed (2) Pressure ulcer of left heel, stage 1: Status: Acute Code(s): L89.621 - Pressure ulcer of left heel, stage 1 (3) Pressure ulcer of right heel, stage 1: Status: Acute Code(s): L89.611 - Pressure ulcer of right heel, stage 1 (4) Diabetes mellitus, type 2: Status: Acute Code(s): E11.9 - Type 2 diabetes mellitus without complications Qualifiers: Diabetes mellitus complication detail: with foot ulcer Diabetes mellitus complication status: with skin complications Diabetes mellitus group home insulin use: with group home use Qualified Code(s): E11.621 - Type 2 diabetes mellitus with foot ulcer; L97.509 - Non-pressure chronic ulcer of other part of unspecified foot with unspecified severity; Z79.4 - long term care pharmacist (current) use of insulin (5) Cellulitis of right lower extremity: Status: Acute Code(s): L03.115 - Cellulitis of right lower limb (6) Venous insufficiency: Status: Acute Code(s): I87.2 - Venous insufficiency (chronic) (peripheral) (7) Edema, lower extremity: Status: Acute Code(s): R60.0 - Localized edema (8) Tinea unguium: Status: Acute Code(s): B35.1 - Tinea unguium (9) Pain in right toe(s): Status: Acute Code(s): M79.674 - Pain in right toe(s) (10) Pain in left toe(s): Status: Acute Code(s): M79.675 - Pain in left toe(s) Plan: Patient seen and examined bedside. I reviewed and discussed her case. She remains afebrile and her leukocytosis has resolved; WBC 8.6. There is no purulence, jenna necrosis, odor, or deep tissue exposure noted. Right proximal lateral lower extremity ulcerations noted to have healed. Right hallux ulceration continues to look healthy and uninfected Right foot x-rays were reviewed with degenerative joint changes at the hallux interphalangeal joint. Report suggests osteomyelitis is possible. Per report there is erosive bone changes at the proximal phalanx head and adjacent distal phalanx. These findings are also noted to the adjacent lesser toes as well with increased visualization of primary trabecular patterns consistent with bone density reduction likely related to age and disuse. Contraction of all toes is also noted. There is no soft tissue emphysema, foreign body, fracture or dislocations noted. Small vessel calcification is noted. 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 Cellulitis of the great toe. Atrophy of the abductor digiti minimi muscle. I reviewed the MRI results with the patient. Discussed various treatment options for the bone infection including surgical and conservative options such as exterminator termite antibiotics. Discussed all risks, benefits, alternatives, and complications of each option. Discussed debridement vs amputation as well. All questions answered. Patient elects to proceed with conservative care at this time. Patient would like to avoid surgery. She would like to move forward with antibiotic option. I think this is appropriate given the overall clinical appearance of the hallux. I would recommend following ID recommendations for management of group home PO vs IV antibiotics. Arterial studies showed Right PT monophasic, DP triphasic and left PT and DP triphasic. Right MARÍA ELENA 1.68 by PT and TBI 1.38. Left MARÍA ELENA 1.65 and TBI 0.72. There is evidence of arterial calcification at ankle level bilaterally, and at digital level on the right. There is no evidence of significant arterial occlusive disease in the lower extremities bilaterally. She was started on meropenem and vancomycin. Toe wound cultures show Cor ynebacterium striatum. MRSA PCR negative. Blood cultures pending. Urine cultures show mixed gram positive organisms Her toe wound are not very impressive. The onset of this ulcer is also unknown. Her wound and foot look very stable. To offload by avoid shoe contact to dorsal hallux. To also offload bilateral heels by hanging heels over a pillow while in bed to prevent direct contact. This can also be accomplished with offloading boots. No wound or infection is noted at either heel site. Her feet are warm to touch and I do not suspect critical limb ischemia. Vessel calcificiation noted on xrays. Ok to apply florinda wraps bilateral. Lotion ordered to improve adjacent skin integrity. There is some blueish discoloration noted to right medial ankle which is unchanged Medical management, DVT prophylaxis, and confusion work up per hospitalist. I also recommend nutritional supplementation to optimize healing. Patient is also noted to have elongated thickened toenails. We will proceed with palliative care, as well as monitoring. Foot care and footgear has been discussed[place] [id number] bilateral[place] toenails, with a nail nipper and both length and thickness by angling nail nippers. This was done without incident. Please contact if any questions or concerns Isabel Gil DPM [facility] [phone]
--- NOTE | 2020-06-20 08:04 | PCM.PN.HOSP ---
Subjective Subjective: Patient seen MRI obtained the day prior demonstrated features consistent with septic arthritis. Her diagnostic data this a.m. is significant for hypokalemia as well as hypomagnesemia Objective Data Objective Data Vital Signs: Vital Signs Temp Pulse Resp BP Pulse Ox 98.2 F 75 18 96/39 L 94 06/20/20 02:25 06/20/20 02:25 06/20/20 02:25 06/20/20 02:25 06/20/20 02:25 Oxygen Flow Rate (L/min) 2 Oxygen Delivery Method Room Air Weight: 180 lb 7 oz Body Mass Index (BMI) 33.2 Intake & Output: Intake and Output for Last 24 Hours 06/18/20 06/19/20 06/20/20 23:59 23:59 23:59 Intake Total 3850 / 3850 3521.67 / 3521.67 485 / 485 Output Total 1100 / 1350 500 / 725 475 / 475 Balance 2750 / 2500 3021.67 / 2796.67 Lab / Micro Data Result Diagrams: 06/20/20 06:10 06/20/20 06:10 Labs: Laboratory Results - last 24 hr 06/19/20 06/19/20 06/19/20 06:40 11:01 17:34 WBC RBC Hgb Hct MCV MCH MCHC RDW Std Deviation RDW Coeff of Ricardo Plt Count MPV Immature Gran % (Auto) Neut % (Auto) Lymph % (Auto) [place] % (Auto) Eos % (Auto) Baso % (Auto) Absolute Neuts (auto) Absolute Lymphs (auto) Nucleated RBC % Sodium Potassium Chloride Carbon Dioxide Anion Gap BUN Creatinine Estim Creat Clear Calc Est GFR (MDRD) Af Amer Est GFR (MDRD) Non-Af BUN/Creatinine Ratio Glucose Calcium Magnesium POC Glucose 139 H 176 H 166 H 06/19/20 06/20/20 06/20/20 22:03 06:10 06:10 WBC 8.6 RBC 4.13 L Hgb 11.8 L Hct 37.6 MCV 91.0 MCH 28.6 MCHC 31.4 L RDW Std Deviation 46.8 H RDW Coeff of Ricardo 14.0 Plt Count 177 MPV 11.3 Immature Gran % (Auto) 0.700 Neut % (Auto) 57.2 Lymph % (Auto) 21.2 [place] % (Auto) 9.6 Eos % (Auto) 9.6 H Baso % (Auto) 1.7 H Absolute Neuts (auto) 4.9 Absolute Lymphs (auto) 1.82 Nucleated RBC % 0 Sodium 149 H Potassium 3.0 L Chloride 119 H Carbon Dioxide 24.0 Anion Gap 6 BUN 6 L Creatinine 0.48 L Estim Creat Clear Calc 35.55 Est GFR (MDRD) Af Amer 160 Est GFR (MDRD) Non-Af 132 BUN/Creatinine Ratio 12.4 Glucose 98 Calcium 6.8 L Magnesium 1.3 L POC Glucose 124 H 06/20/20 06:35 WBC RBC Hgb Hct MCV MCH MCHC RDW Std Deviation RDW Coeff of Ricardo Plt Count MPV Immature Gran % (Auto) Neut % (Auto) Lymph % (Auto) [place] % (Auto) Eos % (Auto) Baso % (Auto) Absolute Neuts (auto) Absolute Lymphs (auto) Nucleated RBC % Sodium Potassium Chloride Carbon Dioxide Anion Gap BUN Creatinine Estim Creat Clear Calc Est GFR (MDRD) Af Amer Est GFR (MDRD) Non-Af BUN/Creatinine Ratio Glucose Calcium Magnesium POC Glucose 99 Micro: Microbiology 06/17/20 19:30 Wound - Left Foot Gram Stain - Final 06/17/20 19:30 Wound - Left Foot Wound Culture - Final Corynebacterium striatum 06/17/20 12:50 Interface Orders Gram Stain - Final 06/17/20 12:50 Interface Orders Wound Culture - Final Corynebacterium striatum 06/17/20 12:37 Blood Culture (Wb) - Right Hand Blood Culture - Preliminary No growth in 48 hours. 06/17/20 11:06 Blood Culture (Wb) - Left Hand Blood Culture - Preliminary No growth in 48 hours. 06/17/20 11:00 Urine, Random Urine Culture - Final Mixed Gram Positive Organisms 06/17/20 15:50 Stool C. difficile DNA Amplification - Final 06/17/20 15:50 Stool Enteric Bacteriology - Final Radiography Diagnostic Testing: Radiology Impression Extremity Arterial Study 06/19/20 08:05 Interpretation Summary Monophasic and triphasic Doppler waveforms are noted at ankle level on the right. Triphasic Doppler waveforms are noted at ankle level on the left. Pulse-volume recordings appear satisfactory at all levels bilaterally, including low-thigh, calf, ankle, and digital levels. Resting ankle-brachial indices are supra-normal bilaterally. The right digital-brachial index is supra-normal. The left digital-brachial index is normal. There is evidence of arterial calcification at ankle level bilaterally, and at digital level on the right. There is no evidence of significant arterial occlusive disease in the lower extremities bilaterally. 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 Cellulitis of the great toe. Atrophy of the abductor digiti minimi muscle. Electronically Signed: Johnathon Castelan MD at 7:24 EDT Tel , Service support , Physical Exam Const alert Orientation / Consciousness: confused and disoriented HEENT normocephalic and moist oral mucous membranes Eyes PERRL and conjunctivae normal Neck no lymphadenopathy, supple and no JVD Resp normal respiratory effort and no retractions Auscultation: Negative for crackles, rales, rhonchi or wheezes Cardio regular rate, regular rhythm, S1 normal heart sound, S2 normal heart sound and no murmurs GI soft to palpation, non-tender and non-distended; Negative for hepatosplenomegaly Extremity no clubbing, cyanosis or edema Skin General Skin Exam: venous stasis and dermatitis Wounds: wounds noted size Size: 2 cm and surrounding erythema Neuro moves all extremities Sensorium / Orientation: confused Psych Negative for mental status grossly normal Appearance: appropriate Assessment & Plan Assessment/Plan (1) Pressure ulcer of right heel, stage 1: Status: Acute Code(s): L89.611 - Pressure ulcer of right heel, stage 1 (2) Pressure ulcer of left heel, stage 1: Status: Acute Code(s): L89.621 - Pressure ulcer of left heel, stage 1 (3) Ulcer of right lower extremity with fat layer exposed: Status: Acute Code(s): L97.912 - Non-pressure chronic ulcer of unspecified part of right lower leg with fat layer exposed (4) Diabetes mellitus, type 2: Status: Acute Code(s): E11.9 - Type 2 diabetes mellitus without complications Qualifiers: Diabetes mellitus complication detail: with foot ulcer Diabetes mellitus complication status: with skin complications Diabetes mellitus [facility] use: with [facility] use Qualified Code(s): E11.621 - Type 2 diabetes mellitus with foot ulcer; L97.509 - Non-pressure chronic ulcer of other part of unspecified foot with unspecified severity; Z79.4 - assisted (current) use of insulin (5) Cellulitis of right lower extremity: Status: Acute Code(s): L03.115 - Cellulitis of right lower limb (6) Ulcer of right foot with fat layer exposed: Status: Acute Code(s): L97.512 - Non-pressure chronic ulcer of other part of right foot with fat layer exposed (7) Diabetic foot ulcer: Status: Acute Code(s): E11.621 - Type 2 diabetes mellitus with foot ulcer; L97.509 - Non-pressure chronic ulcer of other part of unspecified foot with unspecified severity Qualifiers: Diabetes mellitus type: type 2 Diabetic foot ulcer location: toe Laterality: right Non-pressure ulcer stage: with bone involvement without evidence of necrosis Qualified Code(s): E11.621 - Type 2 diabetes mellitus with foot ulcer; L97.516 - Non-pressure chronic ulcer of other part of right foot with bone involvement without evidence of necrosis (8) Hypokalemia: Status: Acute Code(s): E87.6 - Hypokalemia (9) Hypomagnesemia: Status: Acute Code(s): E83.42 - Hypomagnesemia Plan: Patient is a 79-year-old lady resident of an [facility] presented with cellulitis involving the right lower extremity. Imaging studies obtained on admission demonstrated First digit soft tissue swelling with early erosive features of the first proximal and distal phalanges could suggest osteomyelitis in the setting of cellulitis/ulcer. Subsequently admitted to regular nursing for further management 1. Right lower extremity cellulitis ?Initial imaging studies was suggestive of osteomyelitis. Patient was managed with broad-spectrum antibiotic therapy with consultation placed to podiatry. 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 Cellulitis of the great toe. Patient on broad-spectrum antibiotic therapy consultation placed to infectious disease 2. Diabetes mellitus type II -patient's oral hypoglycemics held. Placed on long acting insulin, Accu-Cheks a.c. and at bedtime and covered with sliding scale insulin 3. Suspected vaginal candidiasis ?Patient was given 1 dose of Diflucan 200 mg x 1 4. COPD -Patient not in exacerbation 5. DVT prophylaxis - On enoxaparin 6. Physical deconditioning - Requested for PT OT eval and social service agency director to assist with discharge planning 7. Hypomagnesemia -Corrected for protocol 8. Hypokalemia -Corrected per protocol Radiology Impression Extremity Arterial Study 06/19/20 08:05 Interpretation Summary Monophasic and triphasic Doppler waveforms are noted at ankle level on the right. Triphasic Doppler waveforms are noted at ankle level on the left. Pulse-volume recordings appear satisfactory at all levels bilaterally, including low-thigh, calf, ankle, and digital levels. Resting ankle-brachial indices are supra-normal bilaterally. The right digital-brachial index is supra-normal. The left digital-brachial index is normal. There is evidence of arterial calcification at ankle level bilaterally, and at digital level on the right. There is no evidence of significant arterial occlusive disease in the lower extremities bilaterally. 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 Cellulitis of the great toe. Atrophy of the abductor digiti minimi muscle. Electronically Signed: Johnathon Castelan MD at 7:24 EDT Tel , Service support , Visit Charges Inpatient E&M: 88160 Subs Hosp L2
[2020-06-20] MEDS: 0.9% Normal Saline 1,000 ML 100 ML IV ×2 (08:20→19:58)
[2020-06-20] MEDS: Nystatin Powder 15gm Bottle 1 APPLIC TOPICAL ×2 (08:24→21:46)
[2020-06-20 08:25] VITALS: BP 104/44; PULSE 64; RESP 16; TEMP 36.7; O2SAT 94
[2020-06-20] MEDS: Ammonium Lactate 225 gm Bottle 1 APPLIC TOPICAL (08:27)
[2020-06-20] MEDS: Menthol/Lanolin/Calamine/Znox 113 GM Tube 1 APPLIC TOPICAL ×3 (08:28→21:45)
--- NOTE | 2020-06-20 10:22 | CASEMGMT ---
Addendum entered by Michelle Farnsworth 06/20/20 13:53: DEAN received message from Nanda at [facility] asking if pt will getting Midline or peroipheal line for IV. DEAN checked with Charge Nurse, ID ordered PICC line for pt. DEAN placed a call back to Mobile at [facility] and updated her that pt will be getting a PICC line, waiting for it to be inserted. Mobile states she will update staff. Original Note: Social Work Note Pt will need IV antibiotics at discharge. DAEN placed a call to Mobile at [facility] and updated her. DEAN faxed updated clinicals. Plan: [facility] pending pre-cert Michelle Farnsworth [employer], [employer]
[2020-06-20] MEDS: Enoxaparin 40 MG/0.4 ML Syringe SC (11:43)
[2020-06-20] MEDS: Potassium Chloride Oral Tablet 20 MEQ 40 MEQ PO (11:48)
[2020-06-20 12:06] LABS: Bedside Glucose 133 mg/dL (70-110)
[2020-06-20 14:00] VITALS: BP 108/45; PULSE 65; RESP 16; TEMP 36.9; O2SAT 93
--- NOTE | 2020-06-20 14:04 | PCM.CONS.GEN ---
Assessment & Plan Assessment/Plan (1) Toe osteomyelitis: Status: Acute Code(s): M86.9 - Osteomyelitis, unspecified Plan: Wound cx with corynebacteria. No plans for surgery. Will order picc and 6 week course of vanc and gabriela, stop date 07/29/20, weekly bmp/cbc/LFT/ESR/vanc trough. ID followup in 2 weeks. Will follow, thank you, wrote rx, d/w lining caser HPI Consult Data Date of Consult: 06/20/20 HPI Narrative HPI Narrative: MAIKEL DANIEL, is a 79 F who presented with several days of worsening confusion. Found to have foot ulcers, she is unable to provide history as to how long they have been there. Denies fever, chills, pain in feet, n/v/d, chest pain. Denies receiving covid vaccine. Seen by podiatry. MRI done which showed osteo. On vanc/gabriela. H/o anaphylaxis with PCN. Full ROS performed and neg except as noted above. [facility] Medical History Chronic indwelling Zapata catheter COPD (chronic obstructive pulmonary disease) Decubitus ulcer of buttock, stage 3 Dementia Depression Failure to thrive Hypertension Hypotension Insomnia Lymphedema Mood disorder Spondylosis of lumbar spine Wound cellulitis Home Medications clindamycin HCl 300 mg PO 4X/DAY #80 cap 12/11/18 [Rx Last Taken Unknown] fluconazole 100 mg PO DAILY 12/11/18 [History Last Taken 12/11/18] nystatin 1 applic TOPICAL BID 12/11/18 [History Last Taken 12/11/18] sulfamethoxazole-trimethoprim 2 tab PO BID 12/11/18 [History Last Taken 12/11/18] albuterol sulfate [ProAir HFA] 90 mcg INHALATION Q4H PRN PRN 06/17/20 [History Last Taken Unknown] furosemide 40 mg PO BID 06/17/20 [History Last Taken Unknown] insulin glargine [Lantus Solostar U-100 Insulin] 10 unit SUBCUT QHS 06/17/20 [History Last Taken Unknown] insulin lispro [Humalog KwikPen Insulin] 0 - 100 unit SUBCUT TID 06/17/20 [History Last Taken Unknown] nystatin 1 applic TOPICAL BID 06/17/20 [History Last Taken Unknown] potassium chloride 40 meq PO DAILY 06/17/20 [History Last Taken Unknown] Allergy/AdvReac Type Severity Reaction Status Date / Time amoxicillin Allergy Unknown Verified 12/11/18 11:58 Penicillins Allergy Anaphylaxis Verified 12/11/18 11:57 MUSHROOMS Allergy Unknown Uncoded 12/11/18 11:57 Social History Smoking Status: Unknown if ever smoked Physical Exam Const alert Constitutional Narrative: oriented x2 General Appearance: cooperative HEENT normocephalic and head/scalp atraumatic Eyes PERRL and EOMs intact bilaterally Neck supple and No nodes Lymph Lymphatic: no lymphadenopathy noted Resp normal air movement and clear to auscultation bilaterally Cardio regular rate and regular rhythm GI normal to inspection, nondistended, normoactive bowel sounds Extremity no clubbing, cyanosis or edema Skin Skin Narrative: reviewed photos of wounds Neuro CN's II-XII intact bilaterally Lab / Micro Data Result Diagrams: 06/20/20 06:10 06/20/20 06:10 Labs: Laboratory Results - last 24 hr 06/19/20 06/19/20 06/19/20 06:40 17:34 22:03 WBC RBC Hgb Hct MCV MCH MCHC RDW Std Deviation RDW Coeff of Ricardo Plt Count MPV Immature Gran % (Auto) Neut % (Auto) Lymph % (Auto) [place] % (Auto) Eos % (Auto) Baso % (Auto) Absolute Neuts (auto) Absolute Lymphs (auto) Nucleated RBC % Sodium Potassium Chloride Carbon Dioxide Anion Gap BUN Creatinine Estim Creat Clear Calc Est GFR (MDRD) Af Amer Est GFR (MDRD) Non-Af BUN/Creatinine Ratio Glucose Calcium Magnesium POC Glucose 139 H 166 H 124 H 06/20/20 06/20/20 06/20/20 06:10 06:10 06:35 WBC 8.6 RBC 4.13 L Hgb 11.8 L Hct 37.6 MCV 91.0 MCH 28.6 MCHC 31.4 L RDW Std Deviation 46.8 H RDW Coeff of Ricardo 14.0 Plt Count 177 MPV 11.3 Immature Gran % (Auto) 0.700 Neut % (Auto) 57.2 Lymph % (Auto) 21.2 [place] % (Auto) 9.6 Eos % (Auto) 9.6 H Baso % (Auto) 1.7 H Absolute Neuts (auto) 4.9 Absolute Lymphs (auto) 1.82 Nucleated RBC % 0 Sodium 149 H Potassium 3.0 L Chloride 119 H Carbon Dioxide 24.0 Anion Gap 6 BUN 6 L Creatinine 0.48 L Estim Creat Clear Calc 35.55 Est GFR (MDRD) Af Amer 160 Est GFR (MDRD) Non-Af 132 BUN/Creatinine Ratio 12.4 Glucose 98 Calcium 6.8 L Magnesium 1.3 L POC Glucose 99 06/20/20 11:53 WBC RBC Hgb Hct MCV MCH MCHC RDW Std Deviation RDW Coeff of Ricardo Plt Count MPV Immature Gran % (Auto) Neut % (Auto) Lymph % (Auto) [place] % (Auto) Eos % (Auto) Baso % (Auto) Absolute Neuts (auto) Absolute Lymphs (auto) Nucleated RBC % Sodium Potassium Chloride Carbon Dioxide Anion Gap BUN Creatinine Estim Creat Clear Calc Est GFR (MDRD) Af Amer Est GFR (MDRD) Non-Af BUN/Creatinine Ratio Glucose Calcium Magnesium POC Glucose 133 H Micro: Microbiology 06/17/20 12:50 Gram Stain - Final Interface Orders Wound Culture - Final Corynebacterium striatum Anaerobic Culture - Preliminary No anaerobic bacteria isolated. 06/17/20 19:30 Gram Stain - Final Wound - Left Foot Wound Culture - Final Corynebacterium striatum Anaerobic Culture - Preliminary No anaerobic bacteria isolated. 06/17/20 12:37 Blood Culture - Preliminary Blood Culture (Wb) - Right Hand No growth in 48 hours. 06/17/20 11:06 Blood Culture - Preliminary Blood Culture (Wb) - Left Hand No growth in 48 hours. Radiology Impression Extremity Arterial Study 06/19/20 08:05 Interpretation Summary Monophasic and triphasic Doppler waveforms are noted at ankle level on the right. Triphasic Doppler waveforms are noted at ankle level on the left. Pulse-volume recordings appear satisfactory at all levels bilaterally, including low-thigh, calf, ankle, and digital levels. Resting ankle-brachial indices are supra-normal bilaterally. The right digital-brachial index is supra-normal. The left digital-brachial index is normal. There is evidence of arterial calcification at ankle level bilaterally, and at digital level on the right. There is no evidence of significant arterial occlusive disease in the lower extremities bilaterally. Ordering Physician: Elaine Alanis Referring Physician: Cary Bill Performed By: Ting Silverman Anupam, RD Lower Extremity MRI 06/19/20 12:16 IMPRESSION: Septic arthritis of the interphalangeal joint of the great toe with osteomyelitis of the proximal and distal phalanges. Cellulitis of the great toe. Atrophy of the abductor digiti minimi muscle. Electronically Signed: Johnathon Castelan MD at 7:24 EDT Tel , Service support ,
--- NOTE | 2020-06-20 14:39 | CASEMGMT ---
Social Work Note DEAN received message from pt's son David requesting call back. DEAN placed a call back to David. David wanted to confirm that pt was going to [facility]. DEAN informed David that pt has been accepted to [facility] pending pre-cert. David asked if [facility] takes Medicaid as pt has no money. DEAN informed David that [facility] does take Medicaid. David asked if [facility] will go and get pt's belongings from [facility]. DEAN informed David that family will likely be responsible for getting pt's belongings from [facility]. David states when pt went from [place] to [place], [facility] went and go pt's belongings. DEAN informed David that once [facility] calls him to go over admissions paperwork, he can ask them if they will get pt's belongings from [facility]. David states understanding. Plan: [facility] pending pre-cert Michelle Farnsworth PANEL RAISER OPERATOR, SOFTWARE APPLICATIONS DEVELOPER
[2020-06-20 18:00] LABS: Bedside Glucose 135 mg/dL (70-110)
[2020-06-20] MEDS: 0.9% Saline Lock 10 ML Syringe IV ×3 (19:51→22:33)
[2020-06-20 21:32] VITALS: BP 117/51; PULSE 68; RESP 18; TEMP 37.3; O2SAT 93
[2020-06-20 22:00] LABS: Bedside Glucose 110 mg/dL (70-110)
[2020-06-20] MEDS: Furosemide 40 MG/4 ML Vial IV (22:33)
--- NOTE | 2020-06-20 23:55 | NURSING ---
[facility] called in for update on pt.
[2020-06-21 02:38] LABS: Absolute Lymphocyte Count 1.43 X10^3/uL (0.83-4.51); Basophil# 0.12 X10^3/uL; Basophil% 1.5 % (0-1); Eosinophil# 0.77 X10^3/uL; Eosinophils% 9.5 % (0-5); Hematocrit 39.5 % (37-47); Hemoglobin 12.6 g/dL (12.0-15.0); Lymphocyte # 1.43 X10^3/ul (0.83-4.51); Lymphocyte % 17.7 % (19-41); Mean Corp Hgb Conc 31.9 g/dL (32-36); Mean Corpuscular Hgb 28.6 pg (27.0-32.0); Mean Corpuscular Volume 89.6 fL (81-99); Monocyte# 0.76 X10^3/uL; Monocyte% 9.4 % (0-10); NRBC Flagged by Analyzer 0 % (0-5); Neutrophil # 4.96 X10^3/uL (2.7-7.7); Neutrophil % 61.3 % (47-70); Platelet Count 169 K/mm3 (150-450); RBC Distribution Width CV 13.9 % (11.6-14.6); RBC Distribution Width SD 45.1 fl (35.1-43.9); Red Blood Count 4.41 M/mm3 (4.2-5.4); White Blood Count 8.1 K/mm3 (4.4-11.0)
[2020-06-21 02:59] LABS: Vancomycin, Trough Level 16.3 ug/mL (5.0-15.0)
[2020-06-21 03:11] LABS: Anion Gap 6 (5-15); BUN 11 mg/dL (7-18); BUN/Creat Ratio 23.5 RATIO (10-20); Calcium,Total 6.9 mg/dL (8.5-10.1); Chloride 119 mmol/L (98-107); Creatinine, Serum 0.47 mg/dL (0.55-1.02); EST Glomerular Filtration Rate 137 mL/min (>60); Est Glom Filt Rate - Afr Amer 166 mL/min (>60); Estimated Creatinine Clearance 35.55 ml/min; Glucose 109 mg/dL (74-106); Potassium 3.5 mmol/L (3.5-5.1); Sodium Level 148 mmol/L (136-145)
[2020-06-21 03:53] VITALS: BP 102/47; PULSE 69; RESP 18; TEMP 37.1; O2SAT 92
--- NOTE | 2020-06-21 04:17 | PCM.RX.CS ---
Consult Pharmacy has been consulted to manage selected antiobiotic: Vancomycin Type of Consult: Follow-up Suspected Infection: Skin/Soft tissue Prior Doses of Antibiotics Received/Current Regimen: Medications Vancomycin HCl 750 mg/ Sodium (Chloride) 265 mls @ 250 mls/hr IV Q12H MARY Last Admin: 06/21/20 03:39 Dose: Infused Labs: Sodium 148 mmol/L (136-145) H 06/21/20 02:30 Potassium 3.5 mmol/L (3.5-5.1) 06/21/20 02:30 Chloride 119 mmol/L (98-107) H 06/21/20 02:30 Carbon Dioxide 23.0 mmol/L (21.0-32.0) 06/21/20 02:30 Anion Gap 6 (5-15) 06/21/20 02:30 BUN 11 mg/dL (7-18) 06/21/20 02:30 Creatinine 0.47 mg/dL (0.55-1.02) L 06/21/20 02:30 Est GFR (MDRD) Af Amer 166 mL/min (>60) 06/21/20 02:30 Est GFR (MDRD) Non-Af 137 mL/min (>60) 06/21/20 02:30 BUN/Creatinine Ratio 23.5 RATIO (10-20) H 06/21/20 02:30 Glucose 109 mg/dL (74-106) H 06/21/20 02:30 Vancomycin Trough 16.3 ug/mL (5.0-15.0) H 06/21/20 02:30 Microbiology: Microbiology 06/17/20 12:50 Interface Orders Gram Stain - Final 06/17/20 12:50 Interface Orders Wound Culture - Final Corynebacterium striatum 06/17/20 12:50 Interface Orders Anaerobic Culture - Preliminary No anaerobic bacteria isolated. 06/17/20 19:30 Wound - Left Foot Gram Stain - Final 06/17/20 19:30 Wound - Left Foot Wound Culture - Final Corynebacterium striatum 06/17/20 19:30 Wound - Left Foot Anaerobic Culture - Preliminary No anaerobic bacteria isolated. 06/17/20 12:37 Blood Culture (Wb) - Right Hand Blood Culture - Preliminary No growth in 48 hours. 06/17/20 11:06 Blood Culture (Wb) - Left Hand Blood Culture - Preliminary No growth in 48 hours. 06/17/20 11:00 Urine, Random Urine Culture - Final Mixed Gram Positive Organisms 06/17/20 15:50 Stool C. difficile DNA Amplification - Final 06/17/20 15:50 Stool Enteric Bacteriology - Final Weight used for dosin.8 kg Estimated Creatinine Clearance: 36 Goal Trough: 15-20 mcg/mL Pharmacy Plan for Drug Dosing: Vancomycin trough level of 16.3 was within target range. Will continue current dosing and re-draw trough in 4 days. Pharmacy Service will continue to monitor and adjust dosing as required. Follow-Up Labs: Trough Vancomycin Labs to be done on [date and time ordered]: 06/25/20 @1400
[2020-06-21] MEDS: 0.9% Saline Lock 10 ML Syringe IV (05:52)
[2020-06-21 06:30] LABS: Bedside Glucose 108 mg/dL (70-110)
--- NOTE | 2020-06-21 07:13 | PCM.PROGNOTE ---
Subjective Subjective: Patient seen and examined resting comfortably. Patient denies any new pedal complaints. Patient denies any nausea, fever, chills, chest pain, shortness of breath, cough, streaking, purulence, vomiting. Objective Data Objective Data Vital Signs: Vital Signs Temp Pulse Resp BP Pulse Ox 98.8 F 69 18 102/47 L 92 06/21/20 03:53 06/21/20 03:53 06/21/20 03:53 06/21/20 03:53 06/21/20 03:53 Oxygen Flow Rate (L/min) 2 Oxygen Delivery Method Room Air Weight: 81.845 kg Body Mass Index (BMI) 33.2 Intake & Output: Intake and Output for Last 24 Hours 06/19/20 06/20/20 06/21/20 23:59 23:59 23:59 Intake Total 3521.67 / 3521.67 3130.67 / 3250.67 755 / 755 Output Total 500 / 725 1075 / 2225 4300 / 4300 Balance 3021.67 / 2796.67 2055.67 / 1025.67 -3545 / -3545 Lab / Micro Data Result Diagrams: 06/21/20 02:30 06/21/20 02:30 Labs: Laboratory Results - last 24 hr 06/20/20 06/20/20 06/20/20 06:10 11:53 16:42 WBC RBC Hgb Hct MCV MCH MCHC RDW Std Deviation RDW Coeff of Ricardo Plt Count MPV Immature Gran % (Auto) Neut % (Auto) Lymph % (Auto) [place] % (Auto) Eos % (Auto) Baso % (Auto) Absolute Neuts (auto) Absolute Lymphs (auto) Nucleated RBC % Sodium 149 H Potassium 3.0 L Chloride 119 H Carbon Dioxide 24.0 Anion Gap 6 BUN 6 L Creatinine 0.48 L Estim Creat Clear Calc 35.55 Est GFR (MDRD) Af Amer 160 Est GFR (MDRD) Non-Af 132 BUN/Creatinine Ratio 12.4 Glucose 98 Calcium 6.8 L Magnesium 1.3 L Vancomycin Trough POC Glucose 133 H 135 H 06/20/20 06/21/20 06/21/20 21:52 02:30 02:30 WBC 8.1 RBC 4.41 Hgb 12.6 Hct 39.5 MCV 89.6 MCH 28.6 MCHC 31.9 L RDW Std Deviation 45.1 H RDW Coeff of Ricardo 13.9 Plt Count 169 MPV 11.0 Immature Gran % (Auto) 0.600 Neut % (Auto) 61.3 Lymph % (Auto) 17.7 L [place] % (Auto) 9.4 Eos % (Auto) 9.5 H Baso % (Auto) 1.5 H Absolute Neuts (auto) 5.0 Absolute Lymphs (auto) 1.43 Nucleated RBC % 0 Sodium Potassium Chloride Carbon Dioxide Anion Gap BUN Creatinine Estim Creat Clear Calc Est GFR (MDRD) Af Amer Est GFR (MDRD) Non-Af BUN/Creatinine Ratio Glucose Calcium Magnesium Vancomycin Trough 16.3 H POC Glucose 110 06/21/20 06/21/20 02:30 06:25 WBC RBC Hgb Hct MCV MCH MCHC RDW Std Deviation RDW Coeff of Ricardo Plt Count MPV Immature Gran % (Auto) Neut % (Auto) Lymph % (Auto) [place] % (Auto) Eos % (Auto) Baso % (Auto) Absolute Neuts (auto) Absolute Lymphs (auto) Nucleated RBC % Sodium 148 H Potassium 3.5 Chloride 119 H Carbon Dioxide 23.0 Anion Gap 6 BUN 11 Creatinine 0.47 L Estim Creat Clear Calc 35.55 Est GFR (MDRD) Af Amer 166 Est GFR (MDRD) Non-Af 137 BUN/Creatinine Ratio 23.5 H Glucose 109 H Calcium 6.9 L Magnesium Vancomycin Trough POC Glucose 108 Micro: Microbiology 06/17/20 12:50 Interface Orders Gram Stain - Final 06/17/20 12:50 Interface Orders Wound Culture - Final Corynebacterium striatum 06/17/20 12:50 Interface Orders Anaerobic Culture - Preliminary No anaerobic bacteria isolated. 06/17/20 19:30 Wound - Left Foot Gram Stain - Final 06/17/20 19:30 Wound - Left Foot Wound Culture - Final Corynebacterium striatum 06/17/20 19:30 Wound - Left Foot Anaerobic Culture - Preliminary No anaerobic bacteria isolated. 06/17/20 12:37 Blood Culture (Wb) - Right Hand Blood Culture - Preliminary No growth in 48 hours. 06/17/20 11:06 Blood Culture (Wb) - Left Hand Blood Culture - Preliminary No growth in 48 hours. 06/17/20 11:00 Urine, Random Urine Culture - Final Mixed Gram Positive Organisms 06/17/20 15:50 Stool C. difficile DNA Amplification - Final 06/17/20 15:50 Stool Enteric Bacteriology - Final Radiography Diagnostic Testing: Radiology Impression Lower Extremity MRI 06/19/20 12:16 IMPRESSION: Septic arthritis of the interphalangeal joint of the great toe with osteomyelitis of the proximal and distal phalanges. Cellulitis of the great toe. Atrophy of the abductor digiti minimi muscle. Electronically Signed: Johnathon Castelan MD at 7:24 EDT Tel , Service support , Physical Exam Const no apparent distress General Appearance: cooperative and comfortable Orientation / Consciousness: awake HEENT normocephalic Resp normal respiratory effort Extremity normal capillary refill and no calf tenderness General Extremity: edema bilateral lower extremity and no tenderness to palpation of joints or extremities; Negative for clubbing Skin Skin Narrative: General Skin Exam: dry skin; Negative for ecchymosis, eschar or pallor Rashes: no rashes Wounds: wounds noted Wound Narrative: ulcers noted to right dorsal hallux No malodor, erythema, purulence, probing to bone, streaking, fluctuation, crepitus, or other signs of infection. Skin is atrophic and hairless. Granular base 100%. This is superficial. There are pressure ulcers noted to left and right posterior plantar heel with left being worse than right. There is no open wound at this time these are stage I. No fluctuance noted. Remain stable Right lateral proximal lower leg wound site is noted to have healed Dry flaky skin remains, but improved. Leg and foot skin is overall dry with some hyperpigmentation bilaterally There is area to medial right ankle with slight bluish discoloration. This remains stable, unchanged, and warm without wounds Neuro moves all extremities Neuro Narrative: epicritic sensation is intact via light touch bilateral lower extremities Motor Exam: strength 5/5 throughout Psych cooperative Attitude: calm Assessment & Plan Assessment/Plan (1) Toe osteomyelitis: Status: Acute Code(s): M86.9 - Osteomyelitis, unspecified (2) Ulcer of right foot with fat layer exposed: Status: Acute Code(s): L97.512 - Non-pressure chronic ulcer of other part of right foot with fat layer exposed (3) Pressure ulcer of left heel, stage 1: Status: Acute Code(s): L89.621 - Pressure ulcer of left heel, stage 1 (4) Pressure ulcer of right heel, stage 1: Status: Acute Code(s): L89.611 - Pressure ulcer of right heel, stage 1 (5) Diabetes mellitus, type 2: Status: Acute Code(s): E11.9 - Type 2 diabetes mellitus without complications Qualifiers: Diabetes mellitus usp insulin use: with intermodal dispatcher use Diabetes mellitus complication status: with skin complications Diabetes mellitus complication detail: with foot ulcer Qualified Code(s): E11.621 - Type 2 diabetes mellitus with foot ulcer; L97.509 - Non-pressure chronic ulcer of other part of unspecified foot with unspecified severity; Z79.4 - correction (current) use of insulin (6) Cellulitis of right lower extremity: Status: Acute Code(s): L03.115 - Cellulitis of right lower limb (7) Venous insufficiency: Status: Acute Code(s): I87.2 - Venous insufficiency (chronic) (peripheral) (8) Edema, lower extremity: Status: Acute Code(s): R60.0 - Localized edema (9) Tinea unguium: Status: Acute Code(s): B35.1 - Tinea unguium (10) Pain in right toe(s): Status: Acute Code(s): M79.674 - Pain in right toe(s) (11) Pain in left toe(s): Status: Acute Code(s): M79.675 - Pain in left toe(s) Plan: Patient seen and examined bedside with nursing. I reviewed and discussed her case. She remains afebrile and her leukocytosis has resolved; WBC 8.1. There is no purulence, jenna necrosis, odor, or deep tissue exposure noted. Right proximal lateral lower extremity ulcerations noted to have healed. Right hallux ulceration continues to look healthy and uninfected. Heel pressure ulcers are stable Right foot x-rays were reviewed with degenerative joint changes at the hallux interphalangeal joint. Report suggests osteomyelitis is possible. Per report there is erosive bone changes at the proximal phalanx head and adjacent distal phalanx. These findings are also noted to the adjacent lesser toes as well with increased visualization of primary trabecular patterns consistent with bone density reduction likely related to age and disuse. Contraction of all toes is also noted. There is no soft tissue emphysema, foreign body, fracture or dislocations noted. Small vessel calcification is noted. 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 Cellulitis of the great toe. Atrophy of the abductor digiti minimi muscle. Arterial studies showed Right PT monophasic, DP triphasic and left PT and DP triphasic. Right MARÍA ELENA 1.68 by PT and TBI 1.38. Left MARÍA ELENA 1.65 and TBI 0.72. There is evidence of arterial calcification at ankle level bilaterally, and at digital level on the right. There is no evidence of significant arterial occlusive disease in the lower extremities bilaterally. She was started on meropenem and vancomycin. Toe wound cultures show Corynebacterium striatum. MRSA PCR negative. Blood cultures pending. Urine cultures show mixed gram positive organisms To offload by avoid shoe contact to dorsal hallux. To also offload bilateral heels by hanging heels over a pillow while in bed to prevent direct contact. This can also be accomplished with offloading boots. These offloading boots should go with the patient at [place]. No wound or infection is noted at either heel site. Her feet are warm to touch and I do not suspect critical limb ischemia. Vessel calcificiation noted on xrays. Lac hydrin lotion ordered to improve adjacent skin integrity. There is some blueish discoloration noted to right medial ankle which is unchanged. To continue daily dressing changes with aquacel to right hallux ulceration. To pad heels well with ABD, kerlix, florinda wrap toes to knee bilaterally. Plan to treat toe OM via antibiotics. Follow ID recs. Medical management, DVT prophylaxis, and confusion work up per hospitalist. I also recommend nutritional supplementation to optimize healing. Please contact if any questions or concerns. [facility] 1 week. Isabel Gil DPM [facility] [place] [phone]
[2020-06-21 10:22] VITALS: BP 121/53; PULSE 75; RESP 18; TEMP 37.1; O2SAT 94
[2020-06-21] MEDS: Nystatin Powder 15gm Bottle 1 APPLIC TOPICAL ×2 (10:24→21:53)
[2020-06-21] MEDS: Enoxaparin 40 MG/0.4 ML Syringe SC (10:25)
[2020-06-21] MEDS: Menthol/Lanolin/Calamine/Znox 113 GM Tube 1 APPLIC TOPICAL ×3 (10:25→21:54)
[2020-06-21] MEDS: Ammonium Lactate 225 gm Bottle 1 APPLIC TOPICAL (10:25)
[2020-06-21 11:51] LABS: Bedside Glucose 132 mg/dL (70-110)
--- NOTE | 2020-06-21 12:40 | CASEMGMT ---
Palliative screening tool completed for L[facility]/Str[facility] 3. Patient meets criteria for palliative consult. Hospitalist updated and agreeable for consult. RAMO FRANCIS called and faxed palliative consult to [facility].
--- NOTE | 2020-06-21 13:16 | CASEMGMT ---
Addendum entered by Michelle Farnsworth 06/21/20 15:09: DEAN faxed updated clinicals to Nanda at [facility]. Original Note: Social Work Note DEAN placed a call to Nanda at [facility] and left message asking about pt's pre-cert. Plan: [facility] pending pre-cert Michelle Farnsworth COMBAT INFORMATION CENTER OFFICER, REVENUE FIELD AUDITOR
--- NOTE | 2020-06-21 14:39 | NURSING ---
Pharmacy called d/t vanc not being here for 1430 dose.
[2020-06-21 15:08] VITALS: BP 112/52; PULSE 66; RESP 16; TEMP 36.8; O2SAT 94
[2020-06-21] MEDS: Magnesium Chloride 64 MG Delay Rel.Tablet 128 MG PO (15:29)
[2020-06-21] MEDS: Potassium Chloride Oral Tablet 20 MEQ PO (15:29)
--- NOTE | 2020-06-21 17:01 | PN.HOSP_ITS ---
Subjective Subjective: Her son is power of deputy attorney general for health..Patient is hard of hearing. Denies any specific complaint. Right arm PICC line. Objective Data Objective Data Vital Signs: Vital Signs Temp Pulse Resp BP Pulse Ox 98.3 F 66 16 112/52 L 94 06/21/20 15:08 06/21/20 15:08 06/21/20 15:08 06/21/20 15:08 06/21/20 15:08 Oxygen Flow Rate (L/min) 2 Oxygen Delivery Method Room Air Weight: 180 lb 7 oz Body Mass Index (BMI) 33.2 Intake & Output: Intake and Output for Last 24 Hours 06/19/20 06/20/20 06/21/20 23:59 23:59 23:59 Intake Total 3521.67 / 3521.67 3130.67 / 3250.67 1215 / 1215 Output Total 500 / 725 1075 / 2225 4700 / 4700 Balance 3021.67 / 2796.67 2055.67 / 1025.67 -3485 / -3485 Lab / Micro Data Result Diagrams: 06/21/20 02:30 06/21/20 02:30 Labs: Laboratory Results - last 24 hr 06/20/20 06/20/20 06/21/20 16:42 21:52 02:30 WBC RBC Hgb Hct MCV MCH MCHC RDW Std Deviation RDW Coeff of Ricardo Plt Count MPV Immature Gran % (Auto) Neut % (Auto) Lymph % (Auto) Dickey % (Auto) Eos % (Auto) Baso % (Auto) Absolute Neuts (auto) Absolute Lymphs (auto) Nucleated RBC % Sodium Potassium Chloride Carbon Dioxide Anion Gap BUN Creatinine Estim Creat Clear Calc Est GFR (MDRD) Af Amer Est GFR (MDRD) Non-Af BUN/Creatinine Ratio Glucose Calcium Vancomycin Trough 16.3 H POC Glucose 135 H 110 06/21/20 06/21/20 06/21/20 02:30 02:30 06:25 WBC 8.1 RBC 4.41 Hgb 12.6 Hct 39.5 MCV 89.6 MCH 28.6 MCHC 31.9 L RDW Std Deviation 45.1 H RDW Coeff of Ricardo 13.9 Plt Count 169 MPV 11.0 Immature Gran % (Auto) 0.600 Neut % (Auto) 61.3 Lymph % (Auto) 17.7 L Dickey % (Auto) 9.4 Eos % (Auto) 9.5 H Baso % (Auto) 1.5 H Absolute Neuts (auto) 5.0 Absolute Lymphs (auto) 1.43 Nucleated RBC % 0 Sodium 148 H Potassium 3.5 Chloride 119 H Carbon Dioxide 23.0 Anion Gap 6 BUN 11 Creatinine 0.47 L Estim Creat Clear Calc 35.55 Est GFR (MDRD) Af Amer 166 Est GFR (MDRD) Non-Af 137 BUN/Creatinine Ratio 23.5 H Glucose 109 H Calcium 6.9 L Vancomycin Trough POC Glucose 108 06/21/20 11:47 WBC RBC Hgb Hct MCV MCH MCHC RDW Std Deviation RDW Coeff of Ricardo Plt Count MPV Immature Gran % (Auto) Neut % (Auto) Lymph % (Auto) Dickey % (Auto) Eos % (Auto) Baso % (Auto) Absolute Neuts (auto) Absolute Lymphs (auto) Nucleated RBC % Sodium Potassium Chloride Carbon Dioxide Anion Gap BUN Creatinine Estim Creat Clear Calc Est GFR (MDRD) Af Amer Est GFR (MDRD) Non-Af BUN/Creatinine Ratio Glucose Calcium Vancomycin Trough POC Glucose 132 H Micro: Microbiology 06/17/20 19:30 Wound - Left Foot Gram Stain - Final 06/17/20 19:30 Wound - Left Foot Wound Culture - Final Corynebacterium striatum 06/17/20 19:30 Wound - Left Foot Anaerobic Culture - Final No anaerobic bacteria isolated. 06/17/20 12:50 Interface Orders Gram Stain - Final 06/17/20 12:50 Interface Orders Wound Culture - Final Corynebacterium striatum 06/17/20 12:50 Interface Orders Anaerobic Culture - Preliminary No anaerobic bacteria isolated. 06/17/20 12:37 Blood Culture (Wb) - Right Hand Blood Culture - Preliminary No growth in 48 hours. 06/17/20 11:06 Blood Culture (Wb) - Left Hand Blood Culture - Preliminary No growth in 48 hours. 06/17/20 11:00 Urine, Random Urine Culture - Final Mixed Gram Positive Organisms 06/17/20 15:50 Stool C. difficile DNA Amplification - Final 06/17/20 15:50 Stool Enteric Bacteriology - Final Physical Exam Const alert Orientation / Consciousness: confused and disoriented HEENT normocephalic and moist oral mucous membranes Eyes PERRL and conjunctivae normal Neck supple and no JVD Resp normal respiratory effort and no retractions Auscultation: Negative for crackles, rales, rhonchi or wheezes Cardio regular rate, regular rhythm, S1 normal heart sound, S2 normal heart sound and no murmurs GI soft to palpation, non-tender and non-distended; Negative for hepatosplenomegaly Extremity no clubbing, cyanosis or edema Skin General Skin Exam: venous stasis and dermatitis Wounds: wounds noted size Size: 2 cm and surrounding erythema Neuro moves all extremities Sensorium / Orientation: confused Psych Negative for mental status grossly normal Appearance: appropriate Assessment & Plan Assessment/Plan (1) Pressure ulcer of right heel, stage 1: (2) Pressure ulcer of left heel, stage 1: (3) Ulcer of right lower extremity with fat layer exposed: (4) Diabetes mellitus, type 2: QUALIFIERS: 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 use: with truck terminal manager use Diabetes mellitus complication status: with skin complications Diabetes mellitus complication detail: with foot ulcer Qualified Code(s): E11.621 - Type 2 diabetes mellitus with foot ulcer; L97.509 - Non-pressure chronic ulcer of other part of unspecified foot with unspecified severity; Z79.4 - custodial (current) use of insulin (5) Cellulitis of right lower extremity: (6) Ulcer of right foot with fat layer exposed: (7) Diabetic foot ulcer: QUALIFIERS: Diabetic foot ulcer location: toe Diabetes mellitus type: type 2 Laterality: right Non-pressure ulcer stage: with bone involvement without evidence of necrosis Qualified Code(s): E11.621 - Type 2 diabetes mellitus with foot ulcer; L97.516 - Non-pressure chronic ulcer of other part of right foot with bone involvement without evidence of necrosis (8) Hypokalemia: (9) Hypomagnesemia: PLAN: Patient is a 79-year-old lady resident of an [facility] presented with cellulitis involving the right lower extremity. Imaging studies obtained on admission demonstrated First digit soft tissue swelling with early erosive features of the first proximal and distal phalanges consistent with osteomyelitis in the setting of cellulitis/ulcer. Subsequently admitted to regular nursing for further management 1. Right lower extremity cellulitis: First proximal and distal phalanx assisted with osteomyelitis. 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 Cellulitis of the great toe. Patient on broad-spectrum antibiotic therapy. ID recommended 6 weeks of vancomycin and meropenem, stop date 07/29/2020. Weekly BMP, CBC, liver chemistry, ESR, Vanco trough. ID follow-up in 2 weeks. 2. Diabetes mellitus type II -patient's oral hypoglycemics held. Placed on long acting insulin, Accu-Cheks a.c. and at bedtime and covered with sliding scale insulin 3. Suspected vaginal candidiasis ?Patient was given 1 dose of Diflucan 200 mg x 1 4. COPD -Patient not in exacerbation 5. DVT prophylaxis - On enoxaparin 6. Physical deconditioning - Requested for PT OT eval and public health social worker to assist with discharge planning 7. Hypomagnesemia -Corrected for protocol 8. Hypokalemia -Corrected per protocol Radiology Impression Extremity Arterial Study 06/19/20 08:05 Interpretation Summary Monophasic and triphasic Doppler waveforms are noted at ankle level on the right. Triphasic Doppler waveforms are noted at ankle level on the left. Pulse-volume recordings appear satisfactory at all levels bilaterally, including low-thigh, calf, ankle, and digital levels. Resting ankle-brachial indices are supra-normal bilaterally. The right digital-brachial index is supra- normal. The left digital-brachial index is normal. There is evidence of arterial calcification at ankle level bilaterally, and at digital level on the right. There is no evidence of significant arterial occlusive disease in the lower extremities bilaterally. 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 Cellulitis of the great toe. Atrophy of the abductor digiti minimi muscle. Electronically Signed: Johnathon Castelan MD at 7:24 EDT Tel , Service support , Visit Charges Inpatient E&M: 24743 Subs Hosp L2
--- NOTE | 2020-06-21 17:54 | NURSING ---
pt refused 1800 meds and dinner. also refusing turn at this time.
[2020-06-21 18:06] LABS: Bedside Glucose 117 mg/dL (70-110)
[2020-06-21 20:59] VITALS: BP 113/41; PULSE 67; RESP 18; TEMP 37; O2SAT 93
[2020-06-21 21:50] LABS: Bedside Glucose 121 mg/dL (70-110)
[2020-06-22 02:19] VITALS: BP 118/46; PULSE 66; RESP 18; TEMP 36.9; O2SAT 93
[2020-06-22 06:25] LABS: Bedside Glucose 101 mg/dL (70-110)
[2020-06-22 06:38] LABS: Absolute Lymphocyte Count 1.41 X10^3/uL (0.83-4.51); Basophil% 1.4 % (0-1); Eosinophil# 0.73 X10^3/uL; Eosinophils% 10.4 % (0-5); Hematocrit 38.1 % (37-47); Lymphocyte # 1.41 X10^3/ul (0.83-4.51); Lymphocyte % 20.1 % (19-41); Mean Corp Hgb Conc 31.5 g/dL (32-36); Mean Platelet Vol. 11.4 fl (6.2-12.0); Monocyte# 0.76 X10^3/uL; Monocyte% 10.8 % (0-10); NRBC Flagged by Analyzer 0 % (0-5); Neutrophil # 3.96 X10^3/uL (2.7-7.7); Neutrophil % 56.6 % (47-70); Platelet Count 170 K/mm3 (150-450); RBC Distribution Width CV 13.9 % (11.6-14.6); RBC Distribution Width SD 45.1 fl (35.1-43.9); Red Blood Count 4.28 M/mm3 (4.2-5.4)
[2020-06-22 07:02] LABS: Anion Gap 3 (5-15); BUN 11 mg/dL (7-18); BUN/Creat Ratio 27.4 RATIO (10-20); Calcium,Total 7.6 mg/dL (8.5-10.1); Chloride 116 mmol/L (98-107); EST Glomerular Filtration Rate 163 mL/min (>60); Est Glom Filt Rate - Afr Amer 198 mL/min (>60); Estimated Creatinine Clearance 35.55 ml/min; Glucose 98 mg/dL (74-106); Potassium 3.6 mmol/L (3.5-5.1); Sodium Level 142 mmol/L (136-145)
[2020-06-22 07:54] VITALS: BP 123/53; PULSE 69; RESP 18; TEMP 37; O2SAT 93
--- NOTE | 2020-06-22 10:20 | CASEMGMT ---
Addendum entered by Michelle Farnsworth 06/22/20 16:30: SW in to speak with pt. DEAN informed pt that pt's son David wants pt to admit to [facility] and they are able to accept pt pending pre-cert. Pt asked why she can't stay at [facility]. SW informed pt that pt cannot stay at [facility], there is no medical reason to keep pt. Pt asked well if there's no medical reason to keep me, why are you sending me to another hospital? SW informed pt that she will going to a senior care facility not another hospital. DEAN placed a call to pt's son David and updated him that pre-cert is still pending. DEAN informed David that pt is medically ready for discharge but pt cannot discharge until pre-cert is obtained. David asked if pt will be staying at [facility] permanently. DEAN informed pt that once pt is close to running out of skilled time, [facility] will speak to him about detention plans. David asked for medical update on pt. DEAN informed David that this worker cannot provide a medical update but can ask RN to call him. David states understanding, would like RN to call him. David states his cell phone that is listed is the preferred number for RN to call. DEAN updated RN. Plan: [facility] pending pre-cert Addendum entered by Michelle Farnsworth 06/22/20 15:54: DEAN received call from Nanda at [facility] stating pre-cert is still pending. Addendum entered by Michelle Farnsworth 06/22/20 14:34: DEAN placed call to Nanda at [facility] and left message inquiring about pre-cert. DEAN waiting for call back. Addendum entered by Michelle Farnsworth 06/22/20 11:08: DEAN received message from Nanda at [facility] stating pre-cert is still pending. Nanda asked for updated clinicals. DEAN faxed updated clinicals. Original Note: Social Work Note Pt is medically ready for discharge once pre-cert is obtained. DEAN placed a call to Nanda at [facility] and left message updating her pt is ready once pre-cert is obtained. DEAN waiting for call back. Plan: [facility] pending pre-cert Michelle Farnsworth PROPERTY INSURANCE AGENT, EMPLOYEE COMMUNICATIONS SPECIALIST
[2020-06-22] MEDS: Menthol/Lanolin/Calamine/Znox 113 GM Tube 1 APPLIC TOPICAL ×4 (10:59→21:57)
[2020-06-22] MEDS: Ammonium Lactate 225 gm Bottle 1 APPLIC TOPICAL (10:59)
[2020-06-22] MEDS: Enoxaparin 40 MG/0.4 ML Syringe SC (11:00)
[2020-06-22] MEDS: Nystatin Powder 15gm Bottle 1 APPLIC TOPICAL ×2 (11:01→21:57)
[2020-06-22 12:20] LABS: Bedside Glucose 101 mg/dL (70-110)
--- NOTE | 2020-06-22 13:28 | PCM.PN.HOSP ---
Subjective Subjective: No acute change. Blood pressure normal range. Awaiting pre-CERT. Objective Data Objective Data Vital Signs: Vital Signs Temp Pulse Resp BP Pulse Ox 98.6 F 69 18 123/53 H 93 06/22/20 07:54 06/22/20 07:54 06/22/20 07:54 06/22/20 07:54 06/22/20 07:54 Oxygen Flow Rate (L/min) 2 Oxygen Delivery Method Room Air Weight: 180 lb 7 oz Body Mass Index (BMI) 33.2 Intake & Output: Intake and Output for Last 24 Hours 06/20/20 06/21/20 06/22/20 23:59 23:59 23:59 Intake Total 3130.67 / 3250.67 2029 / 2029 855 / 855 Output Total 1075 / 2225 5255 / 5255 780 / 780 Balance 2055.67 / 1025.67 -3225 / -3225 75 / 75 Lab / Micro Data Result Diagrams: 06/22/20 06:12 06/22/20 06:12 Labs: Laboratory Results - last 24 hr 06/21/20 06/21/20 06/22/20 17:51 21:44 06:12 WBC 7.0 RBC 4.28 Hgb 12.0 Hct 38.1 MCV 89.0 MCH 28.0 MCHC 31.5 L RDW Std Deviation 45.1 H RDW Coeff of Ricardo 13.9 Plt Count 170 MPV 11.4 Immature Gran % (Auto) 0.700 Neut % (Auto) 56.6 Lymph % (Auto) 20.1 Cook % (Auto) 10.8 H Eos % (Auto) 10.4 H Baso % (Auto) 1.4 H Absolute Neuts (auto) 4.0 Absolute Lymphs (auto) 1.41 Nucleated RBC % 0 Sodium Potassium Chloride Carbon Dioxide Anion Gap BUN Creatinine Estim Creat Clear Calc Est GFR (MDRD) Af Amer Est GFR (MDRD) Non-Af BUN/Creatinine Ratio Glucose Calcium POC Glucose 117 H 121 H 06/22/20 06/22/20 06/22/20 06:12 06:16 12:16 WBC RBC Hgb Hct MCV MCH MCHC RDW Std Deviation RDW Coeff of Ricardo Plt Count MPV Immature Gran % (Auto) Neut % (Auto) Lymph % (Auto) Cook % (Auto) Eos % (Auto) Baso % (Auto) Absolute Neuts (auto) Absolute Lymphs (auto) Nucleated RBC % Sodium 142 Potassium 3.6 Chloride 116 H Carbon Dioxide 23.0 Anion Gap 3 L BUN 11 Creatinine 0.40 L Estim Creat Clear Calc 35.55 Est GFR (MDRD) Af Amer 198 Est GFR (MDRD) Non-Af 163 BUN/Creatinine Ratio 27.4 H Glucose 98 Calcium 7.6 L POC Glucose 101 101 Micro: Microbiology 06/17/20 11:06 Blood Culture (Wb) - Left Hand Blood Culture - Final No growth in 5 days. 06/17/20 12:50 Interface Orders Gram Stain - Final 06/17/20 12:50 Interface Orders Wound Culture - Final Corynebacterium striatum 06/17/20 12:50 Interface Orders Anaerobic Culture - Final No anaerobic bacteria isolated. 06/17/20 19:30 Wound - Left Foot Gram Stain - Final 06/17/20 19:30 Wound - Left Foot Wound Culture - Final Corynebacterium striatum 06/17/20 19:30 Wound - Left Foot Anaerobic Culture - Final No anaerobic bacteria isolated. 06/17/20 12:37 Blood Culture (Wb) - Right Hand Blood Culture - Preliminary No growth in 48 hours. 06/17/20 11:00 Urine, Random Urine Culture - Final Mixed Gram Positive Organisms 06/17/20 15:50 Stool C. difficile DNA Amplification - Final 06/17/20 15:50 Stool Enteric Bacteriology - Final Physical Exam Const alert Orientation / Consciousness: awake and oriented to place HEENT normocephalic and moist oral mucous membranes Eyes PERRL and conjunctivae normal Neck supple and no JVD Resp normal respiratory effort and no retractions Auscultation: Negative for crackles, rales, rhonchi or wheezes Cardio regular rate, regular rhythm, S1 normal heart sound, S2 normal heart sound and no murmurs GI soft to palpation, non-tender and non-distended; Negative for hepatosplenomegaly Extremity no clubbing, cyanosis or edema Skin General Skin Exam: venous stasis and dermatitis Wounds: wounds noted size Size: 2 cm and surrounding erythema Neuro moves all extremities Sensorium / Orientation: confused Psych Negative for mental status grossly normal Appearance: appropriate Assessment & Plan Assessment/Plan (1) Pressure ulcer of right heel, stage 1: (2) Pressure ulcer of left heel, stage 1: (3) Ulcer of right lower extremity with fat layer exposed: (4) Diabetes mellitus, type 2: QUALIFIERS: Diabetes mellitus superintendent container terminal insulin use: with superintendent container terminal use Diabetes mellitus complication status: with skin complications Diabetes mellitus complication detail: with foot ulcer Qualified Code(s): E11.621 - Type 2 diabetes mellitus with foot ulcer; L97.509 - Non-pressure chronic ulcer of other part of unspecified foot with unspecified severity; Z79.4 - USP (current) use of insulin (5) Cellulitis of right lower extremity: (6) Ulcer of right foot with fat layer exposed: (7) Diabetic foot ulcer: QUALIFIERS: Diabetic foot ulcer location: toe Diabetes mellitus type: type 2 Laterality: right Non-pressure ulcer stage: with bone involvement without evidence of necrosis Qualified Code(s): E11.621 - Type 2 diabetes mellitus with foot ulcer; L97.516 - Non-pressure chronic ulcer of other part of right foot with bone involvement without evidence of necrosis (8) Hypokalemia: (9) Hypomagnesemia: PLAN: Patient is a 79-year-old lady resident of an [facility] presented with cellulitis involving the right lower extremity. Imaging studies obtained on admission demonstrated First digit soft tissue swelling with early erosive features of the first proximal and distal phalanges consistent with osteomyelitis in the setting of cellulitis/ulcer. Subsequently admitted to regular nursing for further management 1. Right lower extremity cellulitis: First proximal and distal phalanx assisted with osteomyelitis. 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 Cellulitis of the great toe. Patient on broad-spectrum antibiotic therapy. ID recommended 6 weeks of vancomycin and meropenem, stop date 07/29/2020. Weekly BMP, CBC, liver chemistry, ESR, Vanco trough. ID follow-up in 2 weeks. 06/22: No acute change. Awaiting pre-CERT. wound culture is growing corynebacterium. 2. Diabetes mellitus type II -patient's oral hypoglycemics held. Placed on long acting insulin, Accu-Cheks a.c. and at bedtime and covered with sliding scale insulin Blood sugars are controlled. 3. Suspected vaginal candidiasis ?Patient was given 1 dose of Diflucan 200 mg x 1 4. COPD -Patient not in exacerbation 5. DVT prophylaxis - On enoxaparin 6. Physical deconditioning - Requested for PT OT eval and social media editor to assist with discharge planning 7. Hypomagnesemia -Corrected for protocol 8. Hypokalemia -Corrected per protocol Microbiology Past 72 Hours 06/17/20 11:06 Blood Culture (Wb) - Left Hand Blood Culture - Final No growth in 5 days. 06/17/20 12:50 Interface Orders Gram Stain - Final 06/17/20 12:50 Interface Orders Wound Culture - Final Corynebacterium striatum 06/17/20 12:50 Interface Orders Anaerobic Culture - Final No anaerobic bacteria isolated. 06/17/20 19:30 Wound - Left Foot Gram Stain - Final 06/17/20 19:30 Wound - Left Foot Wound Culture - Final Corynebacterium striatum 06/17/20 19:30 Wound - Left Foot Anaerobic Culture - Final No anaerobic bacteria isolated. 06/17/20 12:37 Blood Culture (Wb) - Right Hand Blood Culture - Preliminary No growth in 48 hours. Laboratory Results 06/21/20 17:51: POC Glucose 117 H 06/21/20 21:44: POC Glucose 121 H 06/22/20 06:12: WBC 7.0, RBC 4.28, Hgb 12.0, Hct 38.1, MCV 89.0, MCH 28.0, MCHC 31.5 L, RDW Std Deviation 45.1 H, RDW Coeff of Ricardo 13.9, Plt Count 170, MPV 11.4, Immature Gran % (Auto) 0.700, Neut % (Auto) 56.6, Lymph % (Auto) 20.1, Cook % (Auto) 10.8 H, Eos % (Auto) 10.4 H, Baso % (Auto) 1.4 H, Absolute Neuts (auto) 4.0, Absolute Lymphs (auto) 1.41, Nucleated RBC % 0 06/22/20 06:12: Sodium 142, Potassium 3.6, Chloride 116 H, Carbon Dioxide 23.0, Anion Gap 3 L, BUN 11, Creatinine 0.40 L, Estim Creat Clear Calc 35.55, Est GFR (MDRD) Af Amer 198, Est GFR (MDRD) Non-Af 163, BUN/Creatinine Ratio 27.4 H, Glucose 98, Calcium 7.6 L 06/22/20 06:16: POC Glucose 101 05/06/21 12:16: POC Glucose 101 Radiology Impression Extremity Arterial Study 06/19/20 08:05 Interpretation Summary Monophasic and triphasic Doppler waveforms are noted at ankle level on the right. Triphasic Doppler waveforms are noted at ankle level on the left. Pulse-volume recordings appear satisfactory at all levels bilaterally, including low-thigh, calf, ankle, and digital levels. Resting ankle-brachial indices are supra-normal bilaterally. The right digital-brachial index is supra-normal. The left digital-brachial index is normal. There is evidence of arterial calcification at ankle level bilaterally, and at digital level on the right. There is no evidence of significant arterial occlusive disease in the lower extremities bilaterally. Ordering Physician: Elaine Alanis Referring Physician: Cary Bill Performed By: Ting Silverman Anupam, RDCS Lower Extremity MRI 06/19/20 12:16 IMPRESSION: Septic arthritis of the interphalangeal joint of the great toe with osteomyelitis of the proximal and distal phalanges. Cellulitis of the great toe. Atrophy of the abductor digiti minimi muscle. Electronically Signed: Johnathon Castelan MD at 7:24 EDT Tel , Service support , Visit Charges Inpatient E&M: [id number] Subs Hosp L2
--- NOTE | 2020-06-22 13:32 | PCM.CONS.GEN ---
Assessment & Plan Assessment/Plan (1) Physical debility: (2) Edema, lower extremity: (3) Cellulitis of right lower extremity: (4) Delirium due to another medical condition: (5) Diabetes mellitus, type 2: QUALIFIERS: Diabetes mellitus public health representative insulin use: with mcc use Diabetes mellitus complication status: with skin complications Diabetes mellitus complication detail: with foot ulcer Qualified Code(s): E11.621 - Type 2 diabetes mellitus with foot ulcer; L97.509 - Non-pressure chronic ulcer of other part of unspecified foot with unspecified severity; Z79.4 - FPC (current) use of insulin (6) Ulcer of right foot with fat layer exposed: (7) Toe osteomyelitis: (8) Venous insufficiency: (9) Pressure ulcer of left heel, stage 1: (10) Pressure ulcer of right heel, stage 1: PLAN: 79-year-old female with advanced dementia, seen today for initial palliative care consultation secondary to dementia diagnosis and generalized weakness and debility. -Discussed palliative care services with patient. Called son David but no answer, could not leave as it was not set up. We will contact him prior to CHEMIST visit as outpatient to confirm they are interested in services. -Will be discharged to [facility] once pre-CERT is obtained, which could be today, we will follow-up with her at the facility ?Patient does had not have any specific symptoms to manage, such as shortness of breath, nausea or vomiting, or pain. However, with her dementia diagnosis it is difficult to assess her needs accurately Thank you for the opportunity to participate in this patient's care, please do not hesitate to contact [facility] with any further questions or concerns. Palliative direct line is [phone]. We will have RN follow up approximately 3 days after discharge to home and will discuss palliative services further at that time. Greater than 50% of F visit dedicated to education and counseling of palliative care services, medications, comorbid conditions and potential assistance with management, and plan of care moving forward. Start time: 1332 End time: 1408 HPI Consult Data Date of Consult: 06/22/20 HPI Narrative HPI Narrative: MAIKEL DANIEL, is a 79 F, PMH as below, who presented to [facility] from [facility] with altered mental status 06/17/2020. She is being seen today for initial palliative care consultation secondary to end-stage dementia, weight loss, and decrease in ability to perform ADLs. Staff at custodial reported progressive decline over the past 3 days or so with weakness, hypotension, and redness to the right foot. X-rays were obtained and showed possible osteomyelitis. She has been getting IV antibiotics for cellulitis to the right lower extremity and the osteomyelitis. Urine and blood cultures were sent. Podiatry was consulted and did not recommend amputation at this time, but will have prolonged course of antibiotics, stop date 07/29/2020 directed by infectious disease. Patient did have some hypoglycemia, meds adjusted. She also had suspected vaginal candidiasis and was given a x1 dose of Diflucan. She is significantly debilitated and deconditioned, therapy has been following her. She also had an arterial study that showed evidence of arterial calcification at the ankle level bilaterally, and at the digital level on the right. There was no evidence of significant arterial occlusive disease in the lower extremities bilaterally. Patient was seen by hospitalist today, 06/22 and is medically stable for discharge back to the custodial, however awaiting precertification. Patient's son is HC POA. She has significant cognitive deficits, so he does make all decisions regarding her care. Patient will be discharging to [facility] when precert is obtained. She was a resident at [facility], however son adamantly declines readmission to that facility. He does not feel she was given quality care, especially in light of her wounds. Maikel is very hard of hearing. Has a PICC line to the right upper arm. According to nursing, patient has been refusing turns often and does not want to eat. She also has been refusing meds at times. Maikel is worried about going somewhere she is not familiar with. States she does not like to eat the food here, she is picky. When asked if she is able to drink fluids throughout the day, she states yes, however when offered her water, she states she does not like the water here. She does not want to go to the custodial. Confused. Not tearful but visibly upset. Denies any pain or shortness of breath. [facility] Medical History Chronic indwelling Zapata catheter COPD (chronic obstructive pulmonary disease) Decubitus ulcer of buttock, stage 3 Dementia Depression Failure to thrive Hypertension Hypotension Insomnia Lymphedema Mood disorder Spondylosis of lumbar spine Wound cellulitis Home Medications clindamycin HCl 300 mg PO 4X/DAY #80 cap 12/11/18 [Rx Last Taken Unknown] fluconazole 100 mg PO DAILY 12/11/18 [History Last Taken 12/11/18] nystatin 1 applic TOPICAL BID 12/11/18 [History Last Taken 12/11/18] sulfamethoxazole-trimethoprim 2 tab PO BID 12/11/18 [History Last Taken 12/11/18] albuterol sulfate [ProAir HFA] 90 mcg INHALATION Q4H PRN PRN 06/17/20 [History Last Taken Unknown] furosemide 40 mg PO BID 06/17/20 [History Last Taken Unknown] insulin glargine [Lantus Solostar U-100 Insulin] 10 unit SUBCUT QHS 06/17/20 [History Last Taken Unknown] insulin lispro [Humalog KwikPen Insulin] 0 - 100 unit SUBCUT TID 06/17/20 [History Last Taken Unknown] nystatin 1 applic TOPICAL BID 06/17/20 [History Last Taken Unknown] potassium chloride 40 meq PO DAILY 06/17/20 [History Last Taken Unknown] Allergy/AdvReac Type Severity Reaction Status Date / Time amoxicillin Allergy Unknown Verified 12/11/18 11:58 Penicillins Allergy Anaphylaxis Verified 12/11/18 11:57 MUSHROOMS Allergy Unknown Uncoded 12/11/18 11:57 Social History Smoking Status: Unknown if ever smoked ROS Constitutional Constitutional: Reports anorexia, fatigue and weakness Eyes Eyes: Denies change in vision ENT HEENT: Reports hearing loss; Denies sore throat Gastrointestinal Gastrointestinal: Denies abdominal pain, constipation or nausea Genitourinary Genitourinary: Denies dysuria Musculoskeletal Musculoskeletal: Denies back pain or extremity pain Integumentary Integumentary: Reports wounds Neurologic Neurologic: Denies focal weakness or tremor(s) Psychiatric Psychiatric: Reports anxiety and depression Hematologic/Lymphatic Hematologic/Lymphatic: Denies anemia Physical Exam Const alert and no apparent distress General Appearance: cooperative Orientation / Consciousness: confused HEENT normocephalic and head/scalp atraumatic Eyes Eyes Narrative: Wearing glasses Neck supple General: trachea midline Resp normal respiratory effort and clear to auscultation bilaterally Auscultation: diminished lung sounds bilateral throughout Cardio regular rate, S1 normal heart sound and S2 normal heart sound GI normal to inspection, nondistended, normoactive bowel sounds GI Narrative: Obese Extremity General Extremity: edema Skin Skin Narrative: Skin very dry and flaky to arms and legs, face dry as well Lesions: lesion noted Neuro Speech: speech normal Motor Exam: general weakness Psych Mood & Affect: flat affect Lab / Micro Data Result Diagrams: 06/22/20 06:12 06/22/20 06:12 Labs: Laboratory Results - last 24 hr 06/21/20 06/21/20 06/22/20 17:51 21:44 06:12 WBC 7.0 RBC 4.28 Hgb 12.0 Hct 38.1 MCV 89.0 MCH 28.0 MCHC 31.5 L RDW Std Deviation 45.1 H RDW Coeff of Ricardo 13.9 Plt Count 170 MPV 11.4 Immature Gran % (Auto) 0.700 Neut % (Auto) 56.6 Lymph % (Auto) 20.1 Alexander % (Auto) 10.8 H Eos % (Auto) 10.4 H Baso % (Auto) 1.4 H Absolute Neuts (auto) 4.0 Absolute Lymphs (auto) 1.41 Nucleated RBC % 0 Sodium Potassium Chloride Carbon Dioxide Anion Gap BUN Creatinine Estim Creat Clear Calc Est GFR (MDRD) Af Amer Est GFR (MDRD) Non-Af BUN/Creatinine Ratio Glucose Calcium POC Glucose 117 H 121 H 06/22/20 06/22/20 06/22/20 06:12 06:16 12:16 WBC RBC Hgb Hct MCV MCH MCHC RDW Std Deviation RDW Coeff of Ricardo Plt Count MPV Immature Gran % (Auto) Neut % (Auto) Lymph % (Auto) Alexander % (Auto) Eos % (Auto) Baso % (Auto) Absolute Neuts (auto) Absolute Lymphs (auto) Nucleated RBC % Sodium 142 Potassium 3.6 Chloride 116 H Carbon Dioxide 23.0 Anion Gap 3 L BUN 11 Creatinine 0.40 L Estim Creat Clear Calc 35.55 Est GFR (MDRD) Af Amer 198 Est GFR (MDRD) Non-Af 163 BUN/Creatinine Ratio 27.4 H Glucose 98 Calcium 7.6 L POC Glucose 101 101 Micro: Microbiology 06/17/20 11:06 Blood Culture - Final Blood Culture (Wb) - Left Hand No growth in 5 days. 06/17/20 12:50 Gram Stain - Final Interface Orders Wound Culture - Final Corynebacterium striatum Anaerobic Culture - Final No anaerobic bacteria isolated.
[2020-06-22 14:00] VITALS: BP 117/46; PULSE 56; RESP 18; TEMP 36.8; O2SAT 95
--- NOTE | 2020-06-22 16:23 | PN_ITS ---
Subjective Subjective: Patient seen bedside. She has no new pedal complaints. She is resting comfortably. Denies N/F/V/C. Objective Data Objective Data Vital Signs: Vital Signs Temp Pulse Resp BP Pulse Ox 98.3 F 56 L 18 117/46 L 95 06/22/20 14:00 06/22/20 14:00 06/22/20 14:00 06/22/20 14:00 06/22/20 14:00 Oxygen Flow Rate (L/min) 2 Oxygen Delivery Method Room Air Weight: 81.845 kg Body Mass Index (BMI) 33.2 Intake & Output: Intake and Output for Last 24 Hours 06/20/20 06/21/20 06/22/20 23:59 23:59 23:59 Intake Total 3130.67 / 3250.67 2029 / 2029 855 / 855 Output Total 1075 / 2225 5255 / 5255 780 / 780 Balance 2055.67 / 1025.67 -3225 / -3225 75 / 75 Lab / Micro Data Result Diagrams: 06/22/20 06:12 06/22/20 06:12 Labs: Laboratory Results - last 24 hr 06/21/20 06/21/20 06/22/20 17:51 21:44 06:12 WBC 7.0 RBC 4.28 Hgb 12.0 Hct 38.1 MCV 89.0 MCH 28.0 MCHC 31.5 L RDW Std Deviation 45.1 H RDW Coeff of Ricardo 13.9 Plt Count 170 MPV 11.4 Immature Gran % (Auto) 0.700 Neut % (Auto) 56.6 Lymph % (Auto) 20.1 [place] % (Auto) 10.8 H Eos % (Auto) 10.4 H Baso % (Auto) 1.4 H Absolute Neuts (auto) 4.0 Absolute Lymphs (auto) 1.41 Nucleated RBC % 0 Sodium Potassium Chloride Carbon Dioxide Anion Gap BUN Creatinine Estim Creat Clear Calc Est GFR (MDRD) Af Amer Est GFR (MDRD) Non-Af BUN/Creatinine Ratio Glucose Calcium POC Glucose 117 H 121 H 06/22/20 06/22/20 06/22/20 06:12 06:16 12:16 WBC RBC Hgb Hct MCV MCH MCHC RDW Std Deviation RDW Coeff of Ricardo Plt Count MPV Immature Gran % (Auto) Neut % (Auto) Lymph % (Auto) [place] % (Auto) Eos % (Auto) Baso % (Auto) Absolute Neuts (auto) Absolute Lymphs (auto) Nucleated RBC % Sodium 142 Potassium 3.6 Chloride 116 H Carbon Dioxide 23.0 Anion Gap 3 L BUN 11 Creatinine 0.40 L Estim Creat Clear Calc 35.55 Est GFR (MDRD) Af Amer 198 Est GFR (MDRD) Non-Af 163 BUN/Creatinine Ratio 27.4 H Glucose 98 Calcium 7.6 L POC Glucose 101 101 Micro: Microbiology 06/17/20 12:37 Blood Culture (Wb) - Right Hand Blood Culture - Final No growth in 5 days. 06/17/20 11:06 Blood Culture (Wb) - Left Hand Blood Culture - Final No growth in 5 days. 06/17/20 12:50 Interface Orders Gram Stain - Final 06/17/20 12:50 Interface Orders Wound Culture - Final Corynebacterium striatum 06/17/20 12:50 Interface Orders Anaerobic Culture - Final No anaerobic bacteria isolated. 06/17/20 19:30 Wound - Left Foot Gram Stain - Final 06/17/20 19:30 Wound - Left Foot Wound Culture - Final Corynebacterium striatum 06/17/20 19:30 Wound - Left Foot Anaerobic Culture - Final No anaerobic bacteria isolated. 06/17/20 11:00 Urine, Random Urine Culture - Final Mixed Gram Positive Organisms 06/17/20 15:50 Stool C. difficile DNA Amplification - Final 06/17/20 15:50 Stool Enteric Bacteriology - Final Physical Exam Const alert and no apparent distress General Appearance: cooperative and comfortable Orientation / Consciousness: awake and confused Exam Limitations: altered mental status HEENT normocephalic Resp normal respiratory effort Extremity normal capillary refill and no calf tenderness General Extremity: edema bilateral lower extremity and no tenderness to palpation of joints or extremities; Negative for clubbing or cyanosis Skin Skin Narrative: General Skin Exam: dry skin; Negative for ecchymosis, erythema, eschar, pallor or dermatitis Rashes: no rashes Wounds: wounds noted Wound Narrative: ulcers noted to right dorsal hallux Dressing clean, dry, intact. Dressing changed per nursing. Neuro moves all extremities Neuro Narrative: epicritic sensation is intact via light touch bilateral lower extremities Sensory Exam: extremities light-touch: normal Motor Exam: strength 5/5 throughout Psych Attitude: calm Assessment & Plan Assessment/Plan (1) Toe osteomyelitis: (2) Ulcer of right foot with fat layer exposed: (3) Pressure ulcer of left heel, stage 1: (4) Pressure ulcer of right heel, stage 1: (5) Diabetes mellitus, type 2: QUALIFIERS: Diabetes mellitus shelter insulin use: with intermodal customer service use Diabetes mellitus complication status: with skin complications Diabetes mellitus complication detail: with foot ulcer Qualified Code(s): E11.621 - Type 2 diabetes mellitus with foot ulcer; L97.509 - Non-pressure chronic ulcer of other part of unspecified foot with unspecified severity; Z79.4 - terminal operator (current) use of insulin (6) Cellulitis of right lower extremity: (7) Venous insufficiency: (8) Edema, lower extremity: (9) Tinea unguium: (10) Pain in right toe(s): (11) Pain in left toe(s): PLAN: Patient seen and examined bedside. Dressing CDI with change from nursing today. I reviewed and discussed her case. Right foot x-rays were reviewed with degenerative joint changes at the hallux interphalangeal joint. Report suggests osteomyelitis is possible. Per report there is erosive bone changes at the proximal phalanx head and adjacent distal phalanx. These findings are also noted to the adjacent lesser toes as well with increased visualization of primary trabecular patterns consistent with bone density reduction likely related to age and disuse. Contraction of all toes is also noted. There is no soft tissue emphysema, foreign body, fracture or dislocations noted. Small vessel calcification is noted. 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 Cellulitis of the great toe. Atrophy of the abductor digiti minimi muscle. Arterial studies showed Right PT monophasic, DP triphasic and left PT and DP triphasic. Right MARÍA ELENA 1.68 by PT and TBI 1.38. Left MARÍA ELENA 1.65 and TBI 0.72. There is evidence of arterial calcification at ankle level bilaterally, and at digital level on the right. There is no evidence of significant arterial occlusive disease in the lower extremities bilaterally. Toe wound cultures show Corynebacterium striatum. MRSA PCR negative. Blood cultures pending. Urine cultures show mixed gram positive organisms To offload by avoid shoe contact to dorsal hallux. To also offload bilateral heels by hanging heels over a pillow while in bed to prevent direct contact. This can also be accomplished with offloading boots. These offloading boots should go with the patient at DC. No wound or infection is noted at either heel site. Her feet are warm to touch and I do not suspect critical limb ischemia. Vessel calcificiation noted on xrays. Lac hydrin lotion ordered to improve adjacent skin integrity. There is some blueish discoloration noted to right medial ankle which is unchanged. To continue daily dressing changes with aquacel to right hallux ulceration. To pad heels well with ABD, kerlix, florinda wrap toes to knee bilaterally. Plan to treat toe OM via antibiotics. Follow ID recs. Medical management, DVT prophylaxis, and confusion work up per hospitalist. I also recommend nutritional supplementation to optimize healing. Please contact if any questions or concerns. [facility] DC in 1 week. Isabel Gil DPM [facility] [phone]
--- NOTE | 2020-06-22 16:30 | CASEMGMT ---
Social Work Note DEAN received call from Nanda at [facility] stating pre-cert has been obtained. DEAN informed Nanda that this worker will check with physician to determine if pt will discharge today still. DEAN texted physician. Pt is able to discharge today. DEAN placed a call back to Nanda at [facility] and updated her pt will be discharged today still. Nanda states she spoke with the decision unit rn and they prefer for pt to discharge tomorrow morning. Nanda states [facility] will not have an RN available tonight for an admission and the decision unit rn could do the admission but he is leaving for an appointment, unable to complete admission. DEAN updated physician. Physicain agreeable to pt discharging tomorrow. DEAN updated RN. Plan: [facility] skilled tomorrow Michelle Farnsworth [employer]PUTER [employer] PROFESSIONAL, REPOSSESSION AGENT
[2020-06-22 16:36] LABS: Bedside Glucose 111 mg/dL (70-110)
--- NOTE | 2020-06-22 16:53 | PCM.TXEXTCAR ---
Diet 06/18/20 10:02 Diet: Cardiac: Calorie-Controlled Food consistency:: Regular Liquid Consistency:: Regular/Thin Type of Dietary Supplement:: Danilo Is pt able to select menu?: No Diet Comments: Danilo bid breakfast and lunch - mix w/ orange juice; soft foods per nsg How many daily calories?: 1800 calorie Routine Orders/Code Status Suppository Type: Dulcolax 10mg Suppository Frequency: Daily PRN Routine Lab Work: CBC, BMP and - (Weekly CBC, BMP, liver chemistry, ESR and Vanco trough.) Wound(s) right outer foot: Wound Type: blood blister/purple right great toe: Wound Type: Neuropathic/Diabetic Foot Ulcer Dressing Change: AntiMicrobial (Aquacel AG, etc) right calf: Wound Type: Pressure Injury right upper inner thigh: Wound Type: Pressure Injury right inner upper thigh: Wound Type: Pressure Injury BUTTOCKS/SACRUM: Wound Type: Pressure Injury pressure injury left heel: Wound Type: Pressure Injury right buttock: Wound Type: moisture associated skin damage (?pressure) Dressing Change: Mepilex bilateral buttocks/inner thighs: Wound Type: moisture associated skin damage left heel: Wound Type: Pressure Injury Dressing Change: Dry Sterile Dressing right lateral foot/heel: Wound Type: Pressure Injury Dressing Change: Dry Sterile Dressing Therapies Weight Bearing: Weight bearing as tolerated Extremity Affected:: Bilateral Lower Physical Therapy: Eval and Treat Occupational Therapy: Eval and Treat Speech Therapy: Eval and Treat Problem/Diagnosis (1) Toe osteomyelitis: Status: Acute (2) Ulcer of right foot with fat layer exposed: Status: Acute (3) Pressure ulcer of left heel, stage 1: Status: Acute (4) Pressure ulcer of right heel, stage 1: Status: Acute (5) Diabetes mellitus, type 2: Status: Acute (6) Cellulitis of right lower extremity: Status: Acute (7) Venous insufficiency: Status: Acute (8) Edema, lower extremity: Status: Acute (9) Tinea unguium: Status: Acute (10) Pain in right toe(s): Status: Acute (11) Pain in left toe(s): Status: Acute Allergies/Procedures Done in Hospital Allergies amoxicillin Allergy (Verified 12/11/18 11:58) Unknown Penicillins Allergy (Verified 12/11/18 11:57) Anaphylaxis MUSHROOMS Allergy (Uncoded 10/25/19 11:57) Unknown Type of Care/Length of Stay Estimated LOS: Convalescent Care Less Than 30 days Type of Care Needed: Skilled Rehab Potential: Fair Prognosis: Fair Additional Orders/Day of Discharge Additional Orders: Palliative Care Day of Discharge: 06/22/20 Dietary and Speech Recommendations Dietitian Recommendations/Changes: Will order Danilo bid Will change diet to 1800 rahul Cardiac Follow Up Care Please Follow Up With: Isabel Gil DPM When: In 1 week Please Follow Up With: Jose Juan Smith MD When: In 2 weeks Discharge Plan Admission Admit Date/Time: 06/17/20 14:12 Attending Provider: Bib Patterson Primary Care Provider: Cary Bill Consulting Providers: Elaine Alanis ; Jose Juan Smith Instructions Patient Instructions: Diabetes and Kidney Disease Additional Instructions / Restrictions: Daily dressing changes with lac hydrin lotion to bilateral lower extremities to improve adjacent skin integrity. To continue daily dressing changes with aquacel ag to right hallux ulceration. To pad heels well with ABD then apply kerlix, florinda wrap toes to knee bilaterally. If in bed or chair to place offloading boots on. Discharge Orders/Prescriptions Prescriptions: Continued nystatin 1 APPLIC bottle 1 applic topical BID RF: 0 furosemide 40 mg Tablet 40 mg PO BID RF: 0 potassium chloride 40 mEq/15 mL Liquid 40 meq PO DAILY RF: 0 albuterol sulfate [ProAir HFA] 90 mcg/actuation HFA aerosol inhaler 90 mcg INHALATION Q4H PRN PRN (Reason: Shortness Of Breath) RF: 0 insulin lispro [Humalog KwikPen Insulin] 100 unit/mL Insulin Pen 0 - 100 unit SUBCUT TID RF: 0 Lantus Solostar U-100 Insulin 100 unit/mL (3 mL) Insulin Pen 10 unit SUBCUT QHS RF: 0 Discontinued fluconazole 100 MG tablet 100 mg PO DAILY RF: 0 sulfamethoxazole-trimethoprim 1 TABLET tablet 2 tab PO BID RF: 0 clindamycin HCl 150 MG capsule 300 mg PO 4X/DAY Qty: 80 RF: 0 nystatin 100,000 unit/gram Powder 1 applic TOPICAL BID RF: 0 Referrals / Follow Up: Cary Bill MD [Primary Care Provider] - Isabel Gil DPM [STAFF PHYSICIAN] - In 1 Week (in office)
--- NOTE | 2020-06-22 18:43 | NURSING ---
PT'S SON, PAULINA UPDATED ON PT STATUS & TRANSFER TO [facility] IN AM
[2020-06-22 20:21] VITALS: BP 118/61; PULSE 59; RESP 18; TEMP 36.8; O2SAT 93
[2020-06-22 22:05] LABS: Bedside Glucose 111 mg/dL (70-110)
[2020-06-23 02:50] VITALS: BP 119/52; PULSE 61; RESP 18; TEMP 36.6; O2SAT 94
[2020-06-23 06:41] LABS: Bedside Glucose 94 mg/dL (70-110)
[2020-06-23 08:50] VITALS: BP 120/55; PULSE 60; RESP 18; TEMP 36.1; O2SAT 93
[2020-06-23] MEDS: Bisacodyl 5 MG Tablet PO (09:48)
[2020-06-23] MEDS: Senna/Docusate Sodium 1 Tablet 2 TABLET PO (09:48)
[2020-06-23] MEDS: Enoxaparin 40 MG/0.4 ML Syringe SC (09:49)
[2020-06-23] MEDS: Nystatin Powder 15gm Bottle 1 APPLIC TOPICAL (09:50)
[2020-06-23] MEDS: Menthol/Lanolin/Calamine/Znox 113 GM Tube 1 APPLIC TOPICAL ×2 (09:50→13:35)
[2020-06-23] MEDS: Ammonium Lactate 225 gm Bottle 1 APPLIC TOPICAL (09:51)
--- NOTE | 2020-06-23 09:53 | PHA.DC.MR ---
Pharmacy Service has performed discharge medication reconciliation for this patient upon transfer to [facility]. Home Medications nystatin 1 applic TOPICAL BID 12/11/18 Lantus Solostar U-100 Insulin 10 unit SUBCUT QHS 06/17/20 albuterol sulfate [ProAir HFA] 90 mcg INHALATION Q4H PRN PRN 06/17/20 furosemide 40 mg PO BID 06/17/20 insulin lispro [Humalog KwikPen Insulin] 0 - 100 unit SUBCUT TID 06/17/20 potassium chloride 40 meq PO DAILY 06/17/20 polyethylene glycol 3350 [Miralax] 17 g PO DAILY #238 g 06/23/20 sennosides-docusate sodium [Senna-S] 1 tab-cap PO BID PRN #60 tab 06/23/20 The patient's discharge medication list was reviewed for discrepancies and discrepancies were resolved.
--- NOTE | 2020-06-23 10:20 | CASEMGMT ---
Social Work Note Pt is able to discharge to [facility] today. DEAN faxed completed discharge paperwork to [facility] including transfer to extended care facility, signed medication list, any scripts, COVID gayla and COVID tool. Original in SNF folder and copy on pt's chart. SW completed convalescent 7000 in [facility]. Original in SNF Folder and copy on pt's chart. DEAN spoke with RN, requests transportation for around 3:30pm as pt has medications that need to be completed. DEAN accessed trip assist and arranged transportation via cot for 3:30pm. Transportation form completed and placed on SNF folder and copy on pt's chart. DEAN updated RN. DEAN placed a call to Nanda at [facility] and left message updating her on transportation time. DEAN placed a call to pt's son David and updated him on approval to [facility], discharge to [facility] and transportation time. David states understanding. SW updated pt and pt states understanding. Plan: [facility] skilled today with [facility] transporting pt via cot at 3:30pm Michelle Farnsworth MSW, CHECK VIEWER
[2020-06-23 11:20] LABS: Bedside Glucose 127 mg/dL (70-110)
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
[2020-06-23 13:58] VITALS: BP 114/52; PULSE 56; RESP 18; TEMP 36.8; O2SAT 94
--- NOTE | 2020-06-23 14:10 | NURSING ---
REPORT CALLED TO PJ @ [facility]
== END 2020-06-23 17:00 | disposition skilled nursing facility (03) | DRG 638 ==
LOC: ED 11:43 → MS3 15:19
PROVIDERS: Hospitalist; Internal Medicine; Podiatrist; Admitting Provider Family Medicine; Emergency Provider Emergency Medicine; PCP Family Medicine; Visit Provider Internal Medicine
DX: E11.69 Type 2 diabetes mellitus with other specified complication (principal); M86.171 Other acute osteomyelitis, right ankle and foot; M00.871 Arthritis due to other bacteria, right ankle and foot; L03.115 Cellulitis of right lower limb; G93.49 Other encephalopathy; F05 Delirium due to known physiological condition; E11.621 Type 2 diabetes mellitus with foot ulcer; F03.90 Unspecified dementia, unspecified severity, without behavioral disturbance, psychotic disturbance, mood disturbance, and anxiety; B96.89 Other specified bacterial agents as the cause of diseases classified elsewhere; L97.512 Non-pressure chronic ulcer of other part of right foot with fat layer exposed; I87.2 Venous insufficiency (chronic) (peripheral); I10 Essential (primary) hypertension; L89.621 Pressure ulcer of left heel, stage 1; L89.611 Pressure ulcer of right heel, stage 1; J44.9 Chronic obstructive pulmonary disease, unspecified; B37.3 Candidiasis of vulva and vagina; E83.42 Hypomagnesemia; E87.6 Hypokalemia; H91.90 Unspecified hearing loss, unspecified ear; B35.1 Tinea unguium; R62.7 Adult failure to thrive; R53.1 Weakness; Z88.0 Allergy status to penicillin; Z79.4 Long term (current) use of insulin; Z79.899 Other long term (current) drug therapy
CPT/HCPCS: 36415; 36569; 70450; 71045; 73630; 73720; 80048; 80053; 80202; 81001; 82962; 83605; 83735; 85025; 85610; 85652; 85730; 86140; 87040; 87070; 87075; 87077; 87086; 87088; 87205; 87426; 87493; 87506; 87640; 93005; 93923; 97110; 97162; 97166; 97530; 97535; 99285; A9575; J2185; J7030; J7040; J7050; A4216; J1940

== ENCOUNTER → 2020-06-26 04:45 | Outpatient (REF) | payer MEDICARE, MEDICAID, SELFPAY ==
[2020-06-17 15:00] VITALS: BMI 33.2
[2020-06-26 07:53] LABS: Vancomycin, Trough Level 17.8 ug/mL (5.0-15.0)
[2020-06-26 08:20] LABS: Erythrocyte Sedimentation Rate 57 mm/hr (0-30)
[2020-06-26 08:22] LABS: Absolute Lymphocyte Count 1.52 X10^3/uL (0.83-4.51); Absolute Neutrophil Count 2.6 X10^3/uL (2.0-7.7); Basophil# 0.04 X10^3/uL; Basophil% 0.7 % (0-1); Eosinophil# 0.72 X10^3/uL; Eosinophils% 13.3 % (0-5); Hematocrit 42.1 % (37-47); Hemoglobin 13.7 g/dL (12.0-15.0); Lymphocyte # 1.52 X10^3/ul (0.83-4.51); Lymphocyte % 28.1 % (19-41); Mean Corp Hgb Conc 32.5 g/dL (32-36); Mean Corpuscular Hgb 28.4 pg (27.0-32.0); Mean Corpuscular Volume 87.3 fL (81-99); Mean Platelet Vol. 12.8 fl (6.2-12.0); Monocyte% 9.2 % (0-10); NRBC Flagged by Analyzer 0 % (0-5); Neutrophil # 2.57 X10^3/uL (2.7-7.7); Neutrophil % 47.6 % (47-70); Platelet Count 148 K/mm3 (150-450); RBC Distribution Width CV 13.9 % (11.6-14.6); RBC Distribution Width SD 44.4 fl (35.1-43.9); Red Blood Count 4.82 M/mm3 (4.2-5.4); White Blood Count 5.4 K/mm3 (4.4-11.0)
[2020-06-26 08:30] LABS: AST(SGOT) 27 U/L (15-37); Alanine Aminotransfer ALT/SGPT 17 U/L (13-56); Alkaline Phosphatase 80 U/L (45-117); Anion Gap 7 (5-15); BUN 11 mg/dL (7-18); BUN/Creat Ratio 22.4 RATIO (10-20); Bilirubin, Direct 0.13 mg/dL (0.00-0.30); Calcium,Total 8.4 mg/dL (8.5-10.1); Chloride 105 mmol/L (98-107); Creatinine, Serum 0.49 mg/dL (0.55-1.02); EST Glomerular Filtration Rate 129 mL/min (>60); Est Glom Filt Rate - Afr Amer 157 mL/min (>60); Globulin 4.6 g/dL (2.2-4.2); Glucose 92 mg/dL (74-106); Potassium 3.1 mmol/L (3.5-5.1); Protein, Total 6.6 g/dL (6.4-8.2); Sodium Level 140 mmol/L (136-145)
== END ==
LOC: OLS.WHLTCC 04:45
PROVIDERS: PCP Family Medicine; Visit Provider Family Medicine
DX: G93.49 Other encephalopathy (principal); M86.9 Osteomyelitis, unspecified; L03.115 Cellulitis of right lower limb; E11.621 Type 2 diabetes mellitus with foot ulcer; L97.512 Non-pressure chronic ulcer of other part of right foot with fat layer exposed
CPT/HCPCS: 36415; 80048; 80076; 80202; 85025; 85652

== ENCOUNTER → 2020-07-17 04:10 | Outpatient (REF) | payer MEDICARE, MEDICAID, SELFPAY ==
[2020-06-17 15:00] VITALS: BMI 33.2
[2020-07-17 05:08] LABS: Absolute Lymphocyte Count 1.87 X10^3/uL (0.83-4.51); Absolute Neutrophil Count 9.9 X10^3/uL (2.0-7.7); Basophil# 0.11 X10^3/uL; Basophil% 0.8 % (0-1); Eosinophil# 1.38 X10^3/uL; Eosinophils% 9.5 % (0-5); Hematocrit 41.5 % (37-47); Hemoglobin 13.5 g/dL (12.0-15.0); Lymphocyte # 1.87 X10^3/ul (0.83-4.51); Lymphocyte % 12.9 % (19-41); Mean Corp Hgb Conc 32.5 g/dL (32-36); Mean Corpuscular Volume 86.1 fL (81-99); Mean Platelet Vol. 11.3 fl (6.2-12.0); Monocyte# 1.03 X10^3/uL; Monocyte% 7.1 % (0-10); NRBC Flagged by Analyzer 0 % (0-5); Neutrophil # 9.91 X10^3/uL (2.7-7.7); Neutrophil % 68.2 % (47-70); Platelet Count 259 K/mm3 (150-450); RBC Distribution Width CV 13.9 % (11.6-14.6); RBC Distribution Width SD 43.8 fl (35.1-43.9); Red Blood Count 4.82 M/mm3 (4.2-5.4); White Blood Count 14.5 K/mm3 (4.4-11.0)
[2020-07-17 05:14] LABS: Erythrocyte Sedimentation Rate 72 mm/hr (0-30)
[2020-07-17 05:42] LABS: AST(SGOT) 35 U/L (15-37); Alanine Aminotransfer ALT/SGPT 44 U/L (13-56); Albumin, Serum 2.5 g/dL (3.2-5.0); Alkaline Phosphatase 109 U/L (45-117); Anion Gap 8 (5-15); BUN 29 mg/dL (7-18); Bilirubin, Direct 0.16 mg/dL (0.00-0.30); Calcium,Total 9.2 mg/dL (8.5-10.1); Chloride 105 mmol/L (98-107); Creatinine, Serum 0.78 mg/dL (0.55-1.02); EST Glomerular Filtration Rate 76 mL/min (>60); Est Glom Filt Rate - Afr Amer 91 mL/min (>60); Globulin 5.2 g/dL (2.2-4.2); Glucose 178 mg/dL (74-106); Potassium 4.2 mmol/L (3.5-5.1); Protein, Total 7.7 g/dL (6.4-8.2); Sodium Level 140 mmol/L (136-145); Vancomycin, Trough Level 19.4 ug/mL (5.0-15.0)
== END ==
LOC: OLS.WHLEAS 04:10
PROVIDERS: PCP Family Medicine; Referring Provider Family Medicine; Visit Provider Family Medicine
DX: M86.9 Osteomyelitis, unspecified (principal); G93.49 Other encephalopathy; L03.115 Cellulitis of right lower limb; E11.621 Type 2 diabetes mellitus with foot ulcer; L97.512 Non-pressure chronic ulcer of other part of right foot with fat layer exposed
CPT/HCPCS: 36415; 80048; 80076; 80202; 85025; 85652

== ENCOUNTER → 2020-07-24 04:00 | Outpatient (REF) | payer MEDICARE, MEDICAID, SELFPAY ==
[2020-06-17 15:00] VITALS: BMI 33.2
[2020-07-24 07:19] LABS: Vancomycin, Trough Level 17.7 ug/mL (5.0-15.0)
[2020-07-24 07:23] LABS: AST(SGOT) 40 U/L (15-37); Alanine Aminotransfer ALT/SGPT 51 U/L (13-56); Albumin, Serum 2.8 g/dL (3.2-5.0); Alkaline Phosphatase 107 U/L (45-117); Anion Gap 9 (5-15); BUN 31 mg/dL (7-18); BUN/Creat Ratio 38.5 RATIO (10-20); Calcium,Total 9.1 mg/dL (8.5-10.1); Chloride 104 mmol/L (98-107); Creatinine, Serum 0.81 mg/dL (0.55-1.02); EST Glomerular Filtration Rate 73 mL/min (>60); Erythrocyte Sedimentation Rate 55 mm/hr (0-30); Est Glom Filt Rate - Afr Amer 89 mL/min (>60); Globulin 4.8 g/dL (2.2-4.2); Glucose 135 mg/dL (74-106); Potassium 3.8 mmol/L (3.5-5.1); Protein, Total 7.6 g/dL (6.4-8.2); Sodium Level 140 mmol/L (136-145)
== END ==
LOC: OLS.WHLEAS 04:00
PROVIDERS: PCP Family Medicine; Visit Provider Family Medicine
DX: M86.9 Osteomyelitis, unspecified (principal); G93.49 Other encephalopathy; L03.115 Cellulitis of right lower limb; E11.621 Type 2 diabetes mellitus with foot ulcer; L97.512 Non-pressure chronic ulcer of other part of right foot with fat layer exposed
CPT/HCPCS: 36415; 80048; 80076; 80202; 85652

== ENCOUNTER → 2020-07-31 04:00 | Outpatient (REF) | payer MEDICARE, MEDICAID, SELFPAY ==
[2020-06-17 15:00] VITALS: BMI 33.2
[2020-07-31 07:27] LABS: Absolute Lymphocyte Count 2.36 X10^3/uL (0.83-4.51); Absolute Neutrophil Count 7.3 X10^3/uL (2.0-7.7); Basophil# 0.07 X10^3/uL; Basophil% 0.6 % (0-1); Eosinophils% 10.8 % (0-5); Hematocrit 39.1 % (37-47); Hemoglobin 12.5 g/dL (12.0-15.0); Lymphocyte # 2.36 X10^3/ul (0.83-4.51); Lymphocyte % 19.7 % (19-41); Mean Corpuscular Hgb 27.7 pg (27.0-32.0); Mean Corpuscular Volume 86.7 fL (81-99); Mean Platelet Vol. 11.4 fl (6.2-12.0); Monocyte# 0.87 X10^3/uL; Monocyte% 7.2 % (0-10); NRBC Flagged by Analyzer 0 % (0-5); Neutrophil # 7.31 X10^3/uL (2.7-7.7); Neutrophil % 60.9 % (47-70); Platelet Count 286 K/mm3 (150-450); RBC Distribution Width CV 15.2 % (11.6-14.6); RBC Distribution Width SD 47.8 fl (35.1-43.9); Red Blood Count 4.51 M/mm3 (4.2-5.4)
[2020-07-31 07:35] LABS: Erythrocyte Sedimentation Rate 63 mm/hr (0-30)
[2020-07-31 07:42] LABS: Vancomycin, Trough Level 11.7 ug/mL (5.0-15.0)
[2020-07-31 07:43] LABS: AST(SGOT) 33 U/L (15-37); Alanine Aminotransfer ALT/SGPT 49 U/L (13-56); Alkaline Phosphatase 114 U/L (45-117); Anion Gap 6 (5-15); BUN 27 mg/dL (7-18); BUN/Creat Ratio 33.3 RATIO (10-20); Bilirubin, Direct 0.15 mg/dL (0.00-0.30); Calcium,Total 9.6 mg/dL (8.5-10.1); Chloride 105 mmol/L (98-107); Creatinine, Serum 0.81 mg/dL (0.55-1.02); EST Glomerular Filtration Rate 73 mL/min (>60); Est Glom Filt Rate - Afr Amer 88 mL/min (>60); Glucose 119 mg/dL (74-106); Potassium 3.8 mmol/L (3.5-5.1); Sodium Level 139 mmol/L (136-145)
== END ==
LOC: OLS.WHLEAS 04:00
PROVIDERS: PCP Family Medicine; Visit Provider Family Medicine
DX: M86.9 Osteomyelitis, unspecified (principal); G93.49 Other encephalopathy; L03.115 Cellulitis of right lower limb; E11.621 Type 2 diabetes mellitus with foot ulcer; L97.512 Non-pressure chronic ulcer of other part of right foot with fat layer exposed
CPT/HCPCS: 36415; 80048; 80076; 80202; 85025; 85652

== ENCOUNTER → 2020-08-07 04:00 | Outpatient (REF) | payer MEDICARE, MEDICAID, SELFPAY ==
[2020-06-17 15:00] VITALS: BMI 33.2
[2020-08-07 09:21] LABS: Vancomycin, Trough Level 1.6 ug/mL (5.0-15.0)
[2020-08-07 09:28] LABS: AST(SGOT) 18 U/L (15-37); Alanine Aminotransfer ALT/SGPT 29 U/L (13-56); Alkaline Phosphatase 113 U/L (45-117); Anion Gap 10 (5-15); BUN 34 mg/dL (7-18); BUN/Creat Ratio 35.4 RATIO (10-20); Calcium,Total 9.9 mg/dL (8.5-10.1); Chloride 104 mmol/L (98-107); Creatinine, Serum 0.96 mg/dL (0.55-1.02); EST Glomerular Filtration Rate 60 mL/min (>60); Est Glom Filt Rate - Afr Amer 72 mL/min (>60); Globulin 5.1 g/dL (2.2-4.2); Glucose 160 mg/dL (74-106); Protein, Total 8.1 g/dL (6.4-8.2); Sodium Level 138 mmol/L (136-145)
[2020-08-07 09:48] LABS: Erythrocyte Sedimentation Rate 64 mm/hr (0-30)
== END ==
LOC: OLS.WHLEAS 04:00
PROVIDERS: PCP Family Medicine; Visit Provider Family Medicine
DX: M86.9 Osteomyelitis, unspecified (principal); G93.49 Other encephalopathy; L03.115 Cellulitis of right lower limb; E11.621 Type 2 diabetes mellitus with foot ulcer; L97.512 Non-pressure chronic ulcer of other part of right foot with fat layer exposed
CPT/HCPCS: 36415; 80048; 80076; 80202; 85652

== ENCOUNTER → 2020-08-15 05:00 | Outpatient (REF) | payer MEDICARE, MEDICAID, SELFPAY ==
[2020-06-17 15:00] VITALS: BMI 33.2
[2020-08-15 07:20] LABS: Erythrocyte Sedimentation Rate 73 mm/hr (0-30)
[2020-08-15 07:22] LABS: Absolute Lymphocyte Count 2.58 X10^3/uL (0.83-4.51); Basophil# 0.15 X10^3/uL; Eosinophil# 0.73 X10^3/uL; Eosinophils% 4.7 % (0-5); Hematocrit 37.4 % (37-47); Hemoglobin 12.5 g/dL (12.0-15.0); Lymphocyte # 2.58 X10^3/ul (0.83-4.51); Lymphocyte % 16.5 % (19-41); Mean Corp Hgb Conc 33.4 g/dL (32-36); Mean Corpuscular Hgb 28.8 pg (27.0-32.0); Mean Corpuscular Volume 86.2 fL (81-99); Mean Platelet Vol. 11.1 fl (6.2-12.0); Monocyte% 5.8 % (0-10); NRBC Flagged by Analyzer 0 % (0-5); Neutrophil # 11.01 X10^3/uL (2.7-7.7); Neutrophil % 70.3 % (47-70); Platelet Count 232 K/mm3 (150-450); RBC Distribution Width CV 16.3 % (11.6-14.6); RBC Distribution Width SD 50.6 fl (35.1-43.9); Red Blood Count 4.34 M/mm3 (4.2-5.4); White Blood Count 15.6 K/mm3 (4.4-11.0)
[2020-08-15 07:39] LABS: AST(SGOT) 21 U/L (15-37); Alanine Aminotransfer ALT/SGPT 24 U/L (13-56); Albumin, Serum 2.9 g/dL (3.2-5.0); Alkaline Phosphatase 106 U/L (45-117); Anion Gap 7 (5-15); BUN 23 mg/dL (7-18); BUN/Creat Ratio 27.7 RATIO (10-20); Bilirubin, Direct 0.13 mg/dL (0.00-0.30); Calcium,Total 9.1 mg/dL (8.5-10.1); Chloride 104 mmol/L (98-107); Creatinine, Serum 0.83 mg/dL (0.55-1.02); EST Glomerular Filtration Rate 71 mL/min (>60); Est Glom Filt Rate - Afr Amer 86 mL/min (>60); Globulin 4.7 g/dL (2.2-4.2); Glucose 146 mg/dL (74-106); Potassium 3.7 mmol/L (3.5-5.1); Protein, Total 7.6 g/dL (6.4-8.2); Sodium Level 137 mmol/L (136-145)
== END ==
LOC: OLS.WHLEAS 05:00
PROVIDERS: PCP Family Medicine; Visit Provider Family Medicine
DX: M86.9 Osteomyelitis, unspecified (principal); G93.49 Other encephalopathy; L03.115 Cellulitis of right lower limb; E11.621 Type 2 diabetes mellitus with foot ulcer; L97.512 Non-pressure chronic ulcer of other part of right foot with fat layer exposed
CPT/HCPCS: 36415; 80048; 80076; 85025; 85652

== ENCOUNTER → 2020-08-22 05:00 | Outpatient (REF) | payer MEDICARE, MEDICAID, SELFPAY ==
[2020-06-17 15:00] VITALS: BMI 33.2
[2020-08-22 07:48] LABS: Absolute Lymphocyte Count 2.69 X10^3/uL (0.83-4.51); Absolute Neutrophil Count 11.2 X10^3/uL (2.0-7.7); Basophil# 0.16 X10^3/uL; Eosinophil# 0.78 X10^3/uL; Eosinophils% 4.8 % (0-5); Hematocrit 36.3 % (37-47); Lymphocyte # 2.69 X10^3/ul (0.83-4.51); Lymphocyte % 16.7 % (19-41); Mean Corp Hgb Conc 33.1 g/dL (32-36); Mean Corpuscular Hgb 28.8 pg (27.0-32.0); Mean Corpuscular Volume 87.3 fL (81-99); Mean Platelet Vol. 11.2 fl (6.2-12.0); Monocyte# 1.07 X10^3/uL; Monocyte% 6.6 % (0-10); NRBC Flagged by Analyzer 0 % (0-5); Neutrophil # 11.18 X10^3/uL (2.7-7.7); Neutrophil % 69.2 % (47-70); Platelet Count 252 K/mm3 (150-450); RBC Distribution Width CV 15.6 % (11.6-14.6); RBC Distribution Width SD 49.8 fl (35.1-43.9); Red Blood Count 4.16 M/mm3 (4.2-5.4); White Blood Count 16.2 K/mm3 (4.4-11.0)
[2020-08-22 07:58] LABS: Erythrocyte Sedimentation Rate 68 mm/hr (0-30)
[2020-08-22 08:08] LABS: AST(SGOT) 19 U/L (15-37); Alanine Aminotransfer ALT/SGPT 20 U/L (13-56); Alkaline Phosphatase 86 U/L (45-117); Anion Gap 5 (5-15); BUN 23 mg/dL (7-18); BUN/Creat Ratio 26.6 RATIO (10-20); Calcium,Total 9.2 mg/dL (8.5-10.1); Chloride 104 mmol/L (98-107); Creatinine, Serum 0.87 mg/dL (0.55-1.02); EST Glomerular Filtration Rate 67 mL/min (>60); Est Glom Filt Rate - Afr Amer 81 mL/min (>60); Globulin 4.8 g/dL (2.2-4.2); Glucose 143 mg/dL (74-106); Potassium 3.8 mmol/L (3.5-5.1); Protein, Total 7.8 g/dL (6.4-8.2); Sodium Level 135 mmol/L (136-145)
== END ==
LOC: OLS.WHLEAS 05:00
PROVIDERS: PCP Family Medicine; Visit Provider Family Medicine
DX: M86.9 Osteomyelitis, unspecified (principal); G93.49 Other encephalopathy; L03.115 Cellulitis of right lower limb; E11.621 Type 2 diabetes mellitus with foot ulcer; L97.512 Non-pressure chronic ulcer of other part of right foot with fat layer exposed
CPT/HCPCS: 36415; 80048; 80076; 85025; 85652

== ENCOUNTER → 2020-08-30 05:25 | Outpatient (REF) | payer MEDICARE, MEDICAID, SELFPAY ==
[2020-06-17 15:00] VITALS: BMI 33.2
[2020-08-30 08:45] LABS: Absolute Lymphocyte Count 2.69 X10^3/uL (0.83-4.51); Absolute Neutrophil Count 8.3 X10^3/uL (2.0-7.7); Basophil# 0.13 X10^3/uL; Eosinophil# 0.71 X10^3/uL; Eosinophils% 5.4 % (0-5); Hematocrit 36.7 % (37-47); Lymphocyte # 2.69 X10^3/ul (0.83-4.51); Lymphocyte % 20.6 % (19-41); Mean Corp Hgb Conc 32.7 g/dL (32-36); Mean Corpuscular Hgb 28.9 pg (27.0-32.0); Mean Corpuscular Volume 88.4 fL (81-99); Mean Platelet Vol. 11.4 fl (6.2-12.0); Monocyte# 0.95 X10^3/uL; Monocyte% 7.3 % (0-10); NRBC Flagged by Analyzer 0 % (0-5); Neutrophil # 8.32 X10^3/uL (2.7-7.7); Neutrophil % 63.9 % (47-70); Platelet Count 214 K/mm3 (150-450); RBC Distribution Width CV 15.1 % (11.6-14.6); RBC Distribution Width SD 49.1 fl (35.1-43.9); Red Blood Count 4.15 M/mm3 (4.2-5.4)
[2020-08-30 08:49] LABS: AST(SGOT) 23 U/L (15-37); Alanine Aminotransfer ALT/SGPT 28 U/L (13-56); Alkaline Phosphatase 89 U/L (45-117); Anion Gap 7 (5-15); BUN 25 mg/dL (7-18); BUN/Creat Ratio 32.7 RATIO (10-20); Bilirubin, Direct 0.11 mg/dL (0.00-0.30); Calcium,Total 9.4 mg/dL (8.5-10.1); Chloride 107 mmol/L (98-107); Creatinine, Serum 0.76 mg/dL (0.55-1.02); EST Glomerular Filtration Rate 78 mL/min (>60); Est Glom Filt Rate - Afr Amer 94 mL/min (>60); Globulin 4.6 g/dL (2.2-4.2); Glucose 126 mg/dL (74-106); Potassium 3.8 mmol/L (3.5-5.1); Protein, Total 7.6 g/dL (6.4-8.2); Sodium Level 138 mmol/L (136-145)
[2020-08-30 08:50] LABS: Erythrocyte Sedimentation Rate 69 mm/hr (0-30)
== END ==
LOC: OLS.WHLEAS 05:25
PROVIDERS: PCP Family Medicine; Visit Provider Family Medicine
DX: M86.9 Osteomyelitis, unspecified (principal); G93.49 Other encephalopathy; L03.115 Cellulitis of right lower limb; E11.621 Type 2 diabetes mellitus with foot ulcer; L97.512 Non-pressure chronic ulcer of other part of right foot with fat layer exposed
CPT/HCPCS: 36415; 80048; 80076; 85025; 85652

== ENCOUNTER → 2020-09-04 04:00 | Outpatient (REF) | payer MEDICARE, MEDICAID, SELFPAY ==
[2020-06-17 15:00] VITALS: BMI 33.2
[2020-09-04 08:08] LABS: AST(SGOT) 16 U/L (15-37); Alanine Aminotransfer ALT/SGPT 24 U/L (13-56); Alkaline Phosphatase 93 U/L (45-117); Anion Gap 6 (5-15); BUN 27 mg/dL (7-18); BUN/Creat Ratio 33.6 RATIO (10-20); Calcium,Total 9.3 mg/dL (8.5-10.1); Chloride 102 mmol/L (98-107); EST Glomerular Filtration Rate 73 mL/min (>60); Est Glom Filt Rate - Afr Amer 89 mL/min (>60); Globulin 4.7 g/dL (2.2-4.2); Glucose 152 mg/dL (74-106); Protein, Total 7.7 g/dL (6.4-8.2); Sodium Level 136 mmol/L (136-145)
[2020-09-04 08:12] LABS: Erythrocyte Sedimentation Rate 73 mm/hr (0-30)
[2020-09-04 08:14] LABS: Absolute Lymphocyte Count 2.34 X10^3/uL (0.83-4.51); Absolute Neutrophil Count 8.4 X10^3/uL (2.0-7.7); Basophil# 0.13 X10^3/uL; Eosinophil# 0.57 X10^3/uL; Eosinophils% 4.5 % (0-5); Hematocrit 38.4 % (37-47); Hemoglobin 12.4 g/dL (12.0-15.0); Lymphocyte # 2.34 X10^3/ul (0.83-4.51); Lymphocyte % 18.6 % (19-41); Mean Corp Hgb Conc 32.3 g/dL (32-36); Mean Corpuscular Hgb 28.8 pg (27.0-32.0); Mean Corpuscular Volume 89.3 fL (81-99); Mean Platelet Vol. 11.3 fl (6.2-12.0); Monocyte# 0.92 X10^3/uL; Monocyte% 7.3 % (0-10); NRBC Flagged by Analyzer 0 % (0-5); Neutrophil # 8.39 X10^3/uL (2.7-7.7); Neutrophil % 66.9 % (47-70); Platelet Count 235 K/mm3 (150-450); RBC Distribution Width CV 14.8 % (11.6-14.6); RBC Distribution Width SD 48.7 fl (35.1-43.9); White Blood Count 12.6 K/mm3 (4.4-11.0)
== END ==
LOC: OLS.WHLEAS 04:00
PROVIDERS: PCP Family Medicine; Referring Provider Family Medicine; Visit Provider Family Medicine
DX: M86.9 Osteomyelitis, unspecified (principal); G93.49 Other encephalopathy; L03.115 Cellulitis of right lower limb; E11.621 Type 2 diabetes mellitus with foot ulcer; L97.512 Non-pressure chronic ulcer of other part of right foot with fat layer exposed
CPT/HCPCS: 36415; 80048; 80076; 85025; 85652

== ENCOUNTER → 2020-09-11 04:00 | Outpatient (REF) | payer MEDICARE, MEDICAID, SELFPAY ==
[2020-06-17 15:00] VITALS: BMI 33.2
[2020-09-11 08:30] LABS: Erythrocyte Sedimentation Rate 60 mm/hr (0-30)
[2020-09-11 08:36] LABS: Absolute Lymphocyte Count 2.51 X10^3/uL (0.83-4.51); Absolute Neutrophil Count 8.1 X10^3/uL (2.0-7.7); Basophil# 0.15 X10^3/uL; Basophil% 1.2 % (0-1); Eosinophil# 0.56 X10^3/uL; Eosinophils% 4.5 % (0-5); Hematocrit 39.3 % (37-47); Hemoglobin 12.7 g/dL (12.0-15.0); Lymphocyte # 2.51 X10^3/ul (0.83-4.51); Mean Corp Hgb Conc 32.3 g/dL (32-36); Mean Corpuscular Hgb 28.9 pg (27.0-32.0); Mean Corpuscular Volume 89.5 fL (81-99); Mean Platelet Vol. 11.4 fl (6.2-12.0); Monocyte# 1.01 X10^3/uL; Monocyte% 8.1 % (0-10); NRBC Flagged by Analyzer 0 % (0-5); Neutrophil # 8.08 X10^3/uL (2.7-7.7); Neutrophil % 64.4 % (47-70); Platelet Count 213 K/mm3 (150-450); RBC Distribution Width CV 14.4 % (11.6-14.6); RBC Distribution Width SD 46.6 fl (35.1-43.9); Red Blood Count 4.39 M/mm3 (4.2-5.4); White Blood Count 12.5 K/mm3 (4.4-11.0)
[2020-09-11 09:04] LABS: AST(SGOT) 16 U/L (15-37); Alanine Aminotransfer ALT/SGPT 21 U/L (13-56); Alkaline Phosphatase 87 U/L (45-117); Anion Gap 5 (5-15); BUN 24 mg/dL (7-18); BUN/Creat Ratio 35.9 RATIO (10-20); Bilirubin, Direct 0.06 mg/dL (0.00-0.30); Calcium,Total 9.1 mg/dL (8.5-10.1); Chloride 103 mmol/L (98-107); Creatinine, Serum 0.67 mg/dL (0.55-1.02); EST Glomerular Filtration Rate 91 mL/min (>60); Est Glom Filt Rate - Afr Amer 110 mL/min (>60); Globulin 4.8 g/dL (2.2-4.2); Glucose 142 mg/dL (74-106); Potassium 4.2 mmol/L (3.5-5.1); Protein, Total 7.8 g/dL (6.4-8.2); Sodium Level 136 mmol/L (136-145)
== END ==
LOC: OLS.WHLEAS 04:00
PROVIDERS: PCP Family Medicine; Referring Provider Family Medicine; Visit Provider Family Medicine
DX: M86.9 Osteomyelitis, unspecified (principal); G93.49 Other encephalopathy; L03.115 Cellulitis of right lower limb; E11.621 Type 2 diabetes mellitus with foot ulcer; L97.512 Non-pressure chronic ulcer of other part of right foot with fat layer exposed
CPT/HCPCS: 36415; 80048; 80076; 85025; 85652

== ENCOUNTER → 2020-10-13 04:40 | Outpatient (REF) | payer MEDICARE, MEDICAID, SELFPAY ==
[2020-10-13 07:56] LABS: Hematocrit 43.3 % (37-47); Hemoglobin 13.3 g/dL (12.0-15.0); Mean Corp Hgb Conc 30.7 g/dL (32-36); Mean Corpuscular Hgb 27.4 pg (27.0-32.0); Mean Corpuscular Volume 89.3 fL (81-99); Mean Platelet Vol. 10.3 fl (6.2-12.0); Platelet Count 223 K/mm3 (150-450); RBC Distribution Width CV 13.9 % (11.6-14.6); RBC Distribution Width SD 45.2 fl (35.1-43.9); Red Blood Count 4.85 M/mm3 (4.2-5.4); White Blood Count 8.7 K/mm3 (4.4-11.0)
[2020-10-13 08:10] LABS: Anion Gap 0 (5-15); BUN 21 mg/dL (7-18); BUN/Creat Ratio 33.4 RATIO (10-20); Calcium,Total 8.1 mg/dL (8.5-10.1); Chloride 98 mmol/L (98-107); Creatinine, Serum 0.63 mg/dL (0.55-1.02); EST Glomerular Filtration Rate 97 mL/min (>60); Est Glom Filt Rate - Afr Amer 118 mL/min (>60); Glucose 59 mg/dL (74-106); Potassium 3.6 mmol/L (3.5-5.1); Sodium Level 139 mmol/L (136-145)
== END ==
LOC: OLS.WHLEAS 04:40
PROVIDERS: PCP Family Medicine; Visit Provider Family Medicine
DX: I10 Essential (primary) hypertension (principal); G93.49 Other encephalopathy; M86.9 Osteomyelitis, unspecified; L03.115 Cellulitis of right lower limb; E11.621 Type 2 diabetes mellitus with foot ulcer; L97.512 Non-pressure chronic ulcer of other part of right foot with fat layer exposed
CPT/HCPCS: 36415; 80048; 85027

== ENCOUNTER 2023-06-29 20:08 | Inpatient (IN) | payer MEDICARE, MEDICAID, SELFPAY ==
[2023-06-29] VITALS (25 sets, daily range): BP systolic 68–102; BP diastolic 31–57; PULSE 91–109; RESP 19–27; TEMP 37.1–37.4; O2SAT 94–98; BMI 25.3
--- NOTE | 2023-06-29 20:26 | CT_ITS ---
EXAM: CT HEAD WITHOUT INTRAVENOUS CONTRAST CLINICAL INDICATION: altered MS TECHNIQUE: Multiple axial images were obtained of the head without intravenous contrast. This CT exam was performed using one or more of the following dose reduction techniques: automated exposure control, adjustment of the mA and/or kV according to patient size, and/or use of iterative reconstruction technique. RADIATION DOSE: CTDIvol = 44.99 mGy, DLP = 897.35 mGy-cm COMPARISON: No relevant prior studies available. FINDINGS: BRAIN AND EXTRA-AXIAL SPACES: Unremarkable. No intra- or extra-axial hemorrhage. No evidence of acute infarct. No intracranial mass or mass effect. There is preservation of the petit/white matter interface. Posterior fossa structures are unremarkable. Ventricles are appropriate for age. No hydrocephalus. Basal cisterns are patent. BONES/JOINTS: Unremarkable. No discrete lytic or blastic abnormalities. SINUSES: Unremarkable as visualized. Clear. MASTOID AIR CELLS: Unremarkable. Clear. ORBITS: Visualized globes, extraocular muscles, optic nerves and retrobulbar fat appear unremarkable. CT/Brain/Head without Contrast IMPRESSION: Negative head/brain CT without intravenous contrast. Electronically Signed: Shay Dee MD at 21:07 EDT ,
--- NOTE | 2023-06-29 20:27 | EX.ED.DYSGE1 ---
HPI History of Present Illness Chief Complaint: Hypotension Informant: patient Narrative Narrative: 82-year-old female with a prison found to be altered/confused compared with her baseline although she has a history of dementia apparently she is alert and oriented x 3 at baseline, is a full code, and hypotensive 74 systolic this evening prior to sending her here to the ER. The patient states that she feels fine except for everyone who is bothering me and she admits to having nausea on ROS. According to prison staff through our nursing staff, she is a history of being noncompliant with care and not allowing certain things to be done. [facility] Medical History (Updated 06/30/23 @ 00:[address] Kong Flores MD) Chronic indwelling Zapata catheter COPD (chronic obstructive pulmonary disease) Decubitus ulcer of buttock, stage 3 Dementia Depression Failure to thrive Hypertension Hypotension Insomnia Lymphedema Mood disorder Spondylosis of lumbar spine Wound cellulitis Home Medications nystatin 100,000 unit/gram topical powder 1 applic topical BID fungal 12/11/18 [History Last Taken 12/11/18] albuterol sulfate 90 mcg/actuation aerosol inhaler (ProAir HFA) 90 mcg inhalation Q4H PRN PRN Shortness Of Breath 06/17/20 [History Last Taken Unknown] furosemide 40 mg tablet 40 mg PO BID constipation 06/17/20 [History Last Taken Unknown] insulin glargine 100 unit/mL (3 mL) subcutaneous pen (Lantus Solostar U-100 Insulin) 10 unit subcut QHS T2DM 06/17/20 [History Last Taken Unknown] insulin lispro 100 unit/mL subcutaneous pen (Humalog KwikPen (U-100) Insulin) 1 - 100 unit subcut TID T2DM 06/17/20 [History Last Taken Unknown] potassium chloride 40 mEq/15 mL oral liquid 40 meq PO DAILY low potassium 06/17/20 [History Last Taken Unknown] polyethylene glycol 3350 17 gram/dose oral powder (Miralax) 17 g PO DAILY constipation #238 grams 06/23/20 [Rx Last Taken Unknown] sennosides 8.6 mg-docusate sodium 50 mg tablet (Senna-S) 1 tab-cap PO BID PRN constipation #60 tabs 06/23/20 [Rx Last Taken Unknown] Allergy/AdvReac Type Severity Reaction Status Date / Time acetaminophen Allergy Unknown unknown Verified 06/29/23 20:51 [From Darvocet-N] propoxyphene Allergy Unknown unknown Verified 06/29/23 20:51 [From Darvocet-N] amoxicillin Allergy Unknown Verified 12/11/18 11:58 mushroom Allergy NEEDS Verified 12/29/21 16:23 FOLLOW-UP Penicillins Allergy Anaphylaxis Verified 12/11/18 11:57 Social History Smoking Status: Unknown if ever smoked ROS ROS ED Review of Systems ROS Unobtainable: due to mental status ENT ENT ED: Denies ear pain Cardiovascular Cardiovascular: Denies chest pain Respiratory/Chest Respiratory/Chest: Denies cough or dyspnea Gastrointestinal Gastrointestinal: Reports nausea; Denies abdominal pain, diarrhea or vomiting Musculoskeletal Musculoskeletal: Denies back pain or neck pain Neurologic Neurologic: Denies headache(s) EXAM Physical Exam Const Vital Signs: 06/29/23 20:09 06/29/23 20:15 06/29/23 20:15 Temperature 99 F 99 F Temperature Source Oral Oral Pulse Rate 101 H 100 100 Respiratory Rate 19 H 20 H 20 H Respiratory Effort Respiratory Pattern Blood Pressure 99/49 L 96/45 L 96/45 L Blood Pressure Mean 65 62 62 Blood Pressure Position Pulse Ox 97 97 97 Oxygen Delivery Method Room Air Room Air Room Air 06/29/23 20:32 06/29/23 21:51 06/29/23 20:23 Temperature 99.4 F H Temperature Source Oral Pulse Rate 98 97 Respiratory Rate 20 H 21 H Respiratory Effort Normal Non-Labored Respiratory Pattern Normal Blood Pressure 79/31 L Blood Pressure Mean 47 Blood Pressure Position Pulse Ox 94 96 Oxygen Delivery Method Room Air 06/29/23 20:30 06/29/23 20:45 06/29/23 20:46 Temperature Temperature Source Pulse Rate 96 98 102 H Respiratory Rate 20 H 23 H 22 H Respiratory Effort Respiratory Pattern Blood Pressure 102/42 L 86/44 L Blood Pressure Mean 60 55 Blood Pressure Position Pulse Ox 98 95 95 Oxygen Delivery Method 06/29/23 21:00 06/29/23 21:06 06/29/23 21:15 Temperature Temperature Source Pulse Rate 95 91 Respiratory Rate 25 H 19 H Respiratory Effort Respiratory Pattern Blood Pressure 71/57 L 89/46 L Blood Pressure Mean 61 59 Blood Pressure Position Pulse Ox 95 94 Oxygen Delivery Method 06/29/23 21:30 06/29/23 21:45 06/29/23 22:06 Temperature 98.7 F Temperature Source Oral Pulse Rate 92 95 94 Respiratory Rate 22 H 23 H 22 H Respiratory Effort Respiratory Pattern Blood Pressure 86/39 L 79/31 L 68/48 L Blood Pressure Mean 54 45 54 Blood Pressure Position Pulse Ox 94 95 96 Oxygen Delivery Method Room Air 06/29/23 20:26 06/29/23 23:31 06/29/23 22:00 Temperature Temperature Source Pulse Rate 102 H 109 H Respiratory Rate 24 H 27 H Respiratory Effort Respiratory Pattern Blood Pressure 97/45 L Blood Pressure Mean 62 Blood Pressure Position Semi-Fowlers Pulse Ox 96 96 Oxygen Delivery Method Room Air Room Air 06/29/23 22:15 06/29/23 22:30 06/29/23 22:45 Temperature Temperature Source Pulse Rate 94 91 Respiratory Rate 21 H 23 H Respiratory Effort Respiratory Pattern Blood Pressure 68/48 L 77/46 L 86/46 L Blood Pressure Mean 56 58 58 Blood Pressure Position Pulse Ox 97 96 Oxygen Delivery Method 06/29/23 23:00 06/29/23 23:15 06/29/23 23:21 Temperature Temperature Source Pulse Rate 100 98 101 H Respiratory Rate 21 H 22 H 26 H Respiratory Effort Respiratory Pattern Blood Pressure 91/52 L 83/47 L Blood Pressure Mean 65 58 Blood Pressure Position Pulse Ox 97 97 97 Oxygen Delivery Method 06/29/23 23:23 06/29/23 23:30 Temperature Temperature Source Pulse Rate 101 H 105 H Respiratory Rate 23 H 19 H Respiratory Effort Respiratory Pattern Blood Pressure 94/42 L 97/45 L Blood Pressure Mean 57 60 Blood Pressure Position Pulse Ox 96 Oxygen Delivery Method Positive well nourished and well developed General Appearance ED: well developed and NAD HEENT Reports dry mucous membranes normocephalic and atraumatic Mouth ED: Yes dry mucous membranes Mouth: dry mucous membranes Eyes PERRL and EOMs intact bilaterally Neck full ROM and supple Chest Wall inspection of chest normal and palpation of chest normal Resp normal respiratory effort and clear to auscultation bilaterally Cardio regular rate, regular rhythm and no murmurs GI non-tender and non-distended Auscultation: hypoactive bowel sounds Palpation: soft Extremity normal to inspection Extremity Narrative: Contusion medial aspect right lower leg above the ankle, nontender. General Extremety ED: Negative for edema, pulses abnormal or tenderness General Extremity: Negative for edema or pulses abnormal Neuro CN's II-XII intact bilaterally and no sensory deficits noted Neuro Narrative: Equal squeeze of online program coordinator both hands. Patient refuses to lift or move lower extremities because I do not want to. Alert and oriented to person, and state but not the city, place, or time at all. Sensorium / Orientation: awake, alert and orientation impaired Psych Psych Narrative: Frustrated Skin no rashes or lesions noted and no wounds Sepsis Attestation Sepsis Alert: Yes Sepsis Attestation: Agree w/Sepsis Date exam was performed: 06/29/23 Time exam was performed: 22:00 Possible Source of Sepsis: Pulmonary and Genitourinary Sepsis Organ Dysfunction Criteria Present: SBP < 90 mmHg or MAP < 65 mmHg, Lactic Acid > 2 mmol/L and New/Unexplained change in mental status Fluid Resuscitation Fluid resuscitation indicated?: Yes Fluid Resuscitation ordered: 30 ml/kg fluid bolus ordered Sepsis Note Date exam was performed: 06/29/23 Time exam was performed: 22:53 Sepsis Attestation: Sepsis re-evaluation was performed Response to fluids: Non Fluid responsive hypotension and Vasopressors started MDM MDM MDM Narrative Medical decision making narrative: Septic workup obtained given the patient's hypotension and altered mental status in addition to a CT head. I reviewed the CT images and report which I agree with it is negative for any acute. Her 1 view chest x-ray is also negative for pneumonia my interpretation radiology was in agreement. Took us a while to get to the point where we could do a catheterization for urine, prior to obtaining urine specimen, her white blood count came back at 32.4, lactate 7.7, troponin elevated in context of EKG that appears noninjurious. While we were waiting for the urine to come back, which ended up showing infection, we managed her blood pressure with IV fluid boluses. She received a total of 1000 cc IV fluid bolus by EMS prior to us starting any. Of note, the computer of the EKG machine read her as a long QTc. This is possible looking at her EKG, but since she has an anaphylactic reaction to penicillin, according to the protocol the next appropriate antibiotic is Levaquin. We will watch her monitor/rhythm closely for dysrhythmias. Counting the 1000 cc she received as a bolus prior to arrival by EMS, patient received more than 30 cc/kg, 2500 cc total with MAP still around 60. Therefore central line was placed and pressors were started via peripheral until line was deemed okay to use. History & Record Review Additional record(s) reviewed:: Prior labs (Prior urine cultures, no Pseudomonas or resistant organisms) Lab Data Attestation: I reviewed the patient's lab results. Labs: Laboratory Results - last 24 hr 06/29/23 06/29/23 20:43 22:03 WBC 32.4 H* RBC 4.66 Hgb 13.7 Hct 41.7 MCV 89.5 MCH 29.4 MCHC 32.9 RDW Std Deviation 50.4 H RDW Coeff of Ricardo 15.6 H Plt Count 145 L MPV 11.3 Immature Gran % (Auto) 0.700 Neut % (Auto) 96.7 H Lymph % (Auto) 1.6 L Owsley % (Auto) 0.8 Eos % (Auto) 0.0 Baso % (Auto) 0.2 Absolute Neuts (auto) 31.3 H Absolute Lymphs (auto) 0.51 L Nucleated RBC % 0 Differential Comment SEE COMMENTS Diff Path Review May foll Platelet Estimate ADEQUATE RBC Morphology N CHROM Anisocytosis RARE PT 22.9 H INR 2.0 APTT 34.7 Sodium 144 Potassium 2.2 L* Chloride 109 H Carbon Dioxide 21.0 Anion Gap 14 BUN 13 Creatinine 1.15 H Est GFR (MDRD) Af Amer 58 L Est GFR (MDRD) Non-Af 48 L BUN/Creatinine Ratio 11.3 Glucose 132 H Lactic Acid 7.7 H* Calcium 7.4 L Phosphorus 2.3 L Total Bilirubin 1.10 H AST 24 ALT 14 Alkaline Phosphatase 189 H Troponin I High Sens 677 H* Total Protein 5.8 L Albumin 1.8 L Globulin 4.0 Albumin/Globulin Ratio 0.4 L Urine Color Yellow Urine Clarity Cloudy Urine pH 5.0 Ur Specific [place] 1.020 Urine Protein 100 H Urine Glucose (UA) Normal Urine Ketones 5 H Urine Occult Blood 250 H Urine Nitrite Positive H Urine Bilirubin 1 H Urine Urobilinogen 1 H Ur Leukocyte Esterase 500 H Urine RBC 10-25 SEEN Urine WBC 50-100 SEEN Ur Squamous Epith Cells 0-5 SEEN Urine Bacteria 2+ Urine Mucus 0 SEEN Radiography Diagnostic Testing: Clinical Impression(s) from Imaging Studies Brain CT 06/29/23 20:26 IMPRESSION: Negative head/brain CT without intravenous contrast. Electronically Signed: Shay Dee MD at 21:07 EDT , Chest X-Ray 06/29/23 20:50 IMPRESSION: There are no acute findings. Electronically Signed: Shay Dee MD at 21:14 EDT , Rhythm Strip Rhythm Strip: Sinus Rhythm Rate: 100 Ectopy: PVC(s) EKG Initial EKG: Attestation: I personally reviewed and interpreted this EKG as follows: Interpretation: No Acute Injury Pattern and Sinus Arrythmia Management Discussion w/another healthcare provider: Hospitalist Procedures Other Procedures Procedure(s): Central line placement: Central line indicated due to persistent hypotension. Informed consent attempted but patient confused skin procedure emergent. Right subclavian vein site prepped and draped in a sterile fashion, full body sheath placed, locally anesthetized with a total of 5 cc of plain 1% lidocaine, found dark red nonpulsatile blood via finder needle. Initially, there was ventricular ectopy with wire placement, but catheter was not able to be fed over it, so it was all removed and the wire was kinked in multiple different directions, presumably due to calcified stiff vessels. Several other attempts were needed to find and dilate the vessel again; 16 cm triple-lumen catheter placed via modified Seldinger technique, all 3 ports charlie back dark red nonpulsatile blood and flushed easily. Chlorhexidine disc placed at the site of entry against the skin, sutured into place, and dressed with a Tegaderm. 1 view chest x-ray shows placement of catheter going up into the jugular but no sign of pneumothorax/complication on my interpretation. Therefore, the catheter was removed, pressure was placed on the insertion site for 2 minutes until good hemostasis was obtained, and the procedure was repeated as follows: Right internal jugular site prepped and draped in a sterile fashion, full body sheath placed, locally anesthetized with 2 cc of plain 1% lidocaine, found dark red nonpulsatile blood via finder needle under direct visualization using sterile vascular ultrasound with Doppler and visualizing needle entering the vein. 16 cm triple-lumen catheter placed via modified Seldinger technique, all 3 ports charlie back dark red nonpulsatile blood and flushed easily. Chlorhexidine disc placed at the site of entry against the skin, sutured into place, and dressed with a Tegaderm. 1 view chest x-ray confirms good placement and no sign of pneumothorax/complication on my interpretation. Tolerated well, no complications. Critical Care Time Critical Care Time: Yes Critical care time (excluding procedures): 30-74 minutes (42 min, not including procedure time), Including time spent:, Discussing w/Patient &/or Family/Trailer Chief, Discussing w/Consultants, Arranging Admission or Transfer and Performing Direct Patient Care at Bedside Discharge Plan Dx/Rx/DC Orders Clinical Impression: ROMI (acute kidney injury), Acute encephalopathy, Septic shock, Acute UTI, Acute hypokalemia, Subendocardial ischemia Disposition Disposition: [facility] Discharge Date/Time: 06/30/23 00:59
[2023-06-29] MEDS: 0.9% Normal Saline (500mL Bag) 500 ML 999 ML IV (20:49)
[2023-06-29] MEDS: Ondansetron 4 MG/2 ML Vial IV (20:49)
--- NOTE | 2023-06-29 20:50 | RAD_ITS ---
STUDY: XR Chest 1 View 06/29/2023 8:57 PM REASON FOR EXAM: Female, 82 years old. altered, low BP COMPARISON: None TECHNIQUE: XR Chest 1 View FINDINGS: There is no demonstrated pleural abnormality. Enlarged heart size. Normal mediastinum. Normal eh. Prominent appearing increased interstitial lung markings. Normal visualized pulmonary arteries. There is atherosclerotic calcification of the aortic arch with tortuosity. There are diffuse degenerative changes of the visualized thoracic spine. There is degenerative osteoarthritis of the bilateral shoulders. There are no acute findings of the upper abdomen. RAD/Chest 1 View (Portable) IMPRESSION: There are no acute findings. Electronically Signed: Shay Dee MD at 21:14 EDT ,
[2023-06-29 21:00] LABS: Absolute Lymphocyte Count 0.51 X10^3/uL (0.83-4.51); Absolute Neutrophil Count 31.3 X10^3/uL (2.0-7.7); Basophil# 0.06 X10^3/uL; Basophil% 0.2 % (0-1); Hematocrit 41.7 % (37-47); Hemoglobin 13.7 g/dL (12.0-15.0); Lymphocyte # 0.51 X10^3/ul (0.83-4.51); Lymphocyte % 1.6 % (19-41); Mean Corp Hgb Conc 32.9 g/dL (32-36); Mean Corpuscular Hgb 29.4 pg (27.0-32.0); Mean Corpuscular Volume 89.5 fL (81-99); Mean Platelet Vol. 11.3 fl (6.2-12.0); Monocyte# 0.25 X10^3/uL; Monocyte% 0.8 % (0-10); NRBC Flagged by Analyzer 0 % (0-5); Neutrophil # 31.29 X10^3/uL (2.7-7.7); Neutrophil % 96.7 % (47-70); POSITIVE COUNT YES; POSITIVE DIFFERENTIAL YES; Platelet Count 145 K/mm3 (150-450); RBC Distribution Width CV 15.6 % (11.6-14.6); RBC Distribution Width SD 50.4 fl (35.1-43.9); Red Blood Count 4.66 M/mm3 (4.2-5.4)
[2023-06-29 21:05] LABS: Differential Indicated SCAN CRITERIA MET; White Blood Count 32.4 K/mm3 (4.4-11.0)
[2023-06-29 21:09] LABS: Prothrombin Time (Protime)PT. 22.9 SECONDS (11.7-14.9)
[2023-06-29 21:10] LABS: Partial Thromboplast Time 34.7 Seconds (24.1-36.2)
[2023-06-29 21:26] LABS: Anisocytosis RARE; Differential Comment SEE COMMENTS; Platelet Estimate ADEQUATE (ADEQ); Red Cell Morphology N CHROM NORMAL (NORM C&C)
[2023-06-29 21:41] LABS: ALB/GLOB Ratio 0.4 RATIO (0.9-2.4); AST(SGOT) 24 U/L (15-37); Alanine Aminotransfer ALT/SGPT 14 U/L (13-56); Albumin, Serum 1.8 g/dL (3.2-5.0); Alkaline Phosphatase 189 U/L (45-117); Anion Gap 14 (5-15); BUN 13 mg/dL (7-18); BUN/Creat Ratio 11.3 RATIO (10-20); Calcium,Total 7.4 mg/dL (8.5-10.1); Chloride 109 mmol/L (98-107); Creatinine, Serum 1.15 mg/dL (0.55-1.02); EST Glomerular Filtration Rate 48 mL/min (>60); Est Glom Filt Rate - Afr Amer 58 mL/min (>60); Glucose 132 mg/dL (74-106); Potassium 2.2 mmol/L (3.5-5.1); Protein, Total 5.8 g/dL (6.4-8.2); Sodium Level 144 mmol/L (136-145); Troponin-I HS 677 pg/mL (3.0-54.0)
[2023-06-29 21:42] LABS: Lactic Acid 7.7 mmol/L (0.4-1.9)
[2023-06-29 22:08] LABS: Mucous, Urine 0 SEEN /hpf (<or=2+)
[2023-06-29] MEDS: 0.9% Normal Saline (1000mL) 1,000 ML 999 ML IV ×2 (22:10→23:30)
[2023-06-29 22:21] LABS: Color, Urine Yellow (Yellow); Glucose, Dipstick Normal (Normal); Ketone-Dipstick 5 mg/dl (Negative); Leukocyte Esterase-Dipstick 500 /ul (Negative); Nitrite-Dipstick Positive (Negative); Occult Blood-Urine 250 /ul (Negative); Protein-Dipstick 100 mg/dl (Negative); Urine Clarity Cloudy (Clear); Urine Urobilinogen 1 mg/dl (Normal)
[2023-06-29 22:28] LABS: Urine Bilirubin Dipstick 1 mg/dL (Negative); White Blood Cells 50-100 SEEN /hpf (0-5)
[2023-06-29 22:29] LABS: Bacteria 2+ /hpf (None Seen); Red Blood Cells-Urine 10-25 SEEN /hpf (0-5); Squamous Epithelial Cells - UA 0-5 SEEN /hpf (5-10)
--- NOTE | 2023-06-29 22:47 | PCM.HP.STD ---
[facility] - General General Date of Admission: 06/29/23 Date of Service: 06/29/23 Chief Complaint: Altered Mental Status and Hypotension. HPI Narrative MAIKEL POP, is a 82 F with a past medical history of essential hypertension, history of penicillin allergy; with anaphylaxis, DM-2; of unknown control, history of diabetic foot ulcers, history of stage III decubitus ulcer of buttock, history of osteomyelitis of the toe, history of right lower extremity cellulitis, history of bilateral lower extremity lymphedema, history of tobacco abuse; with subsequent COPD, history of urinary retention; with chronic indwelling Zapata catheter, history of failure to thrive, history of medical noncompliance, spondylosis of lumbar spine, osteoarthritis, depression and Full CODE STATUS who presents to [facility] ER complaining of altered mental status and hypotension. Ms. Pop is not a fully reliable historian at this time so information was gathered from chart, medical staff and computer. According to the record she is typically alert and oriented x 3 at baseline though she has a history of dementia. She was noted to be hypotensive with a blood pressure of 74 mmHg systolic prompting her being sent to the ER for further evaluation and treatment. The patient only initially complained of nausea but denied other pain or obvious source of infection. In the ER she was noted to have sepsis with septic shock; with a urinalysis positive for acute cystitis; with microscopic hematuria likely due to chronic indwelling Zapata with CT positive for ~4 mm Right UVJ stone with moderate obstruction and severe leukocytosis of 32.4 present on admission and lactic acidosis of 7.7 mmol/L present on admission compounded by clinical evidence of septic encephalopathy with critical hypokalemia of 2.2 mmol/L present on admission along with a highly elevated troponin of 677 pg/mL present on admission likely due to non-STEMI type II in addition to severe hypoalbuminemia of 1.8 g/dL present on admission suggestive of protein-calorie malnutrition and she was then admitted to the ICU for ongoing care under the sepsis protocol for stay that is expected to be greater than 2 midnights. [facility] Medical History (Updated 06/30/23 @ 03:[address] Joo Chan DO) Chronic indwelling Zapata catheter COPD (chronic obstructive pulmonary disease) Decubitus ulcer of buttock, stage 3 Dementia Depression Failure to thrive Hypertension Hypotension Insomnia Lymphedema Mood disorder Spondylosis of lumbar spine Wound cellulitis Home Medications nystatin 100,000 unit/gram topical powder 1 applic topical BID fungal 12/11/18 [History Last Taken 12/11/18] albuterol sulfate 90 mcg/actuation aerosol inhaler (ProAir HFA) 90 mcg inhalation Q4H PRN PRN Shortness Of Breath 06/17/20 [History Last Taken Unknown] furosemide 40 mg tablet 40 mg PO BID constipation 06/17/20 [History Last Taken Unknown] insulin glargine 100 unit/mL (3 mL) subcutaneous pen (Lantus Solostar U-100 Insulin) 10 unit subcut QHS T2DM 06/17/20 [History Last Taken Unknown] insulin lispro 100 unit/mL subcutaneous pen (Humalog KwikPen (U-100) Insulin) 1 - 100 unit subcut TID T2DM 06/17/20 [History Last Taken Unknown] potassium chloride 40 mEq/15 mL oral liquid 40 meq PO DAILY low potassium 06/17/20 [History Last Taken Unknown] polyethylene glycol 3350 17 gram/dose oral powder (Miralax) 17 g PO DAILY constipation #238 grams 06/23/20 [Rx Last Taken Unknown] sennosides 8.6 mg-docusate sodium 50 mg tablet (Senna-S) 1 tab-cap PO BID PRN constipation #60 tabs 06/23/20 [Rx Last Taken Unknown] Allergy/AdvReac Type Severity Reaction Status Date / Time acetaminophen Allergy Unknown unknown Verified 06/29/23 20:51 [From Darvocet-N] propoxyphene Allergy Unknown unknown Verified 06/29/23 20:51 [From Darvocet-N] amoxicillin Allergy Unknown Verified 12/11/18 11:58 mushroom Allergy NEEDS Verified 12/29/21 16:23 FOLLOW-UP Penicillins Allergy Anaphylaxis Verified 12/11/18 11:57 Social History Smoking Status: Unknown if ever smoked ROS ROS Narrative Review of systems was limited due to patient's confusion, acute illness and lack of cooperation. General: Patient was noted to have fever as per HPI. HENT: Denies headache, denies stuffy nose, denies sore throat EYES: Denies changes in vision or discharge from eyes. Resp: Denies cough, denies shortness of breath Cardiac: Denies chest pain, palpitations or heart racing. GI: Denies abdominal pain, denies changes in bowel, denies nausea or vomiting : Patient had Zapata in place at time of admission but her records do not show that she has a chronic Zapata in place Extremity: Denies swelling Musculoskeletal: Feels somewhat generally weak and unwell but she denies arthralgias or myalgias. Neuro: Patient has confusion but no obvious focal neurologic deficits. Heme: Denies any bleeding or bruising Skin: Denies rashes Psychiatric: No complaints voiced related to uncontrolled depression or anxiety Endocrine: No polyuria, polydipsia or polyphagia. The rest of the 14 point ROS was negative except for positives in HPI. Vital Signs Vital Signs Vital Signs: 06/29/23 20:09 06/29/23 20:15 06/29/23 20:15 Temperature 99 F 99 F Temperature Source Oral Oral Pulse Rate 101 H 100 100 Respiratory Rate 19 H 20 H 20 H Respiratory Effort Respiratory Pattern Blood Pressure 99/49 L 96/45 L 96/45 L Blood Pressure Mean 65 62 62 Pulse Ox 97 97 97 Oxygen Delivery Method Room Air Room Air Room Air 06/29/23 20:32 06/29/23 21:51 06/29/23 20:23 Temperature 99.4 F H Temperature Source Oral Pulse Rate 98 97 Respiratory Rate 20 H 21 H Respiratory Effort Normal Non-Labored Respiratory Pattern Normal Blood Pressure 79/31 L Blood Pressure Mean 47 Pulse Ox 94 96 Oxygen Delivery Method Room Air 06/29/23 20:30 06/29/23 20:45 06/29/23 20:46 Temperature Temperature Source Pulse Rate 96 98 102 H Respiratory Rate 20 H 23 H 22 H Respiratory Effort Respiratory Pattern Blood Pressure 102/42 L 86/44 L Blood Pressure Mean 60 55 Pulse Ox 98 95 95 Oxygen Delivery Method 06/29/23 21:00 06/29/23 21:06 06/29/23 21:15 Temperature Temperature Source Pulse Rate 95 91 Respiratory Rate 25 H 19 H Respiratory Effort Respiratory Pattern Blood Pressure 71/57 L 89/46 L Blood Pressure Mean 61 59 Pulse Ox 95 94 Oxygen Delivery Method 06/29/23 21:30 06/29/23 21:45 06/29/23 22:06 Temperature 98.7 F Temperature Source Oral Pulse Rate 92 95 94 Respiratory Rate 22 H 23 H 22 H Respiratory Effort Respiratory Pattern Blood Pressure 86/39 L 79/31 L 68/48 L Blood Pressure Mean 54 45 54 Pulse Ox 94 95 96 Oxygen Delivery Method Room Air 06/29/23 20:26 Temperature Temperature Source Pulse Rate Respiratory Rate Respiratory Effort Respiratory Pattern Blood Pressure Blood Pressure Mean Pulse Ox Oxygen Delivery Method Room Air Physical Exam Const alert, no apparent distress and average body habitus General Appearance: uncooperative Orientation / Consciousness: confused HEENT normocephalic, head/scalp atraumatic and hearing grossly normal bilaterally HEENT Narrative: Mucous membranes dry. Eyes PERRL and EOMs intact bilaterally Neck no lymphadenopathy and supple Resp normal respiratory effort, no retractions, no use of accessory muscles and clear to auscultation bilaterally Cardio regular rate and regular rhythm GI normal to inspection, nondistended, normoactive bowel sounds, soft to palpation, non-tender and non-distended Extremity normal to inspection and full ROM Skin Skin Narrative: Patient evidence of jaundice, abscess or rash. Neuro CN's II-XII intact bilaterally, moves all extremities and no focal motor deficits Sensorium / Orientation: awake, alert, oriented to person and oriented to place Speech: speech normal Psych affect normal Psych Narrative: Patient is uncooperative and refused to take her oral potassium supplements. Results Medical Records Data Attestation: I reviewed the patient's medical records Lab / Micro Data Attestation: I reviewed the patient's lab results. 06/30/23 03:45 06/30/23 03:45 Labs: Laboratory Results - last 24 hr 06/29/23 20:43: WBC 32.4 H*, RBC 4.66, Hgb 13.7, Hct 41.7, MCV 89.5, MCH 29.4, MCHC 32.9, RDW Std Deviation 50.4 H, RDW Coeff of Ricardo 15.6 H, Plt Count 145 L, MPV 11.3, Immature Gran % (Auto) 0.700, Neut % (Auto) 96.7 H, Lymph % (Auto) 1.6 L, [place] % (Auto) 0.8, Eos % (Auto) 0.0, Baso % (Auto) 0.2, Absolute Neuts (auto) 31.3 H, Absolute Lymphs (auto) 0.51 L, Nucleated RBC % 0, Differential Comment SEE COMMENTS, Diff Path Review May foll, Platelet Estimate ADEQUATE, RBC Morphology N CHROM, Anisocytosis RARE, PT 22.9 H, INR 2.0, APTT 34.7, Sodium 144, Potassium 2.2 L*, Chloride 109 H, Carbon Dioxide 21.0, Anion Gap 14, BUN 13, Creatinine 1.15 H, Est GFR (MDRD) Af Amer 58 L, Est GFR (MDRD) Non-Af 48 L, BUN/Creatinine Ratio 11.3, Glucose 132 H, Lactic Acid 7.7 H*, Calcium 7.4 L, Total Bilirubin 1.10 H, AST 24, ALT 14, Alkaline Phosphatase 189 H, Troponin I High Sens 677 H*, Total Protein 5.8 L, Albumin 1.8 L, Globulin 4.0, Albumin/Globulin Ratio 0.4 L 06/29/23 22:03: Urine Color Yellow, Urine Clarity Cloudy, Urine pH 5.0, Ur Specific [place] 1.020, Urine Protein 100 H, Urine Glucose (UA) Normal, Urine Ketones 5 H, Urine Occult Blood 250 H, Urine Nitrite Positive H, Urine Bilirubin 1 H, Urine Urobilinogen 1 H, Ur Leukocyte Esterase 500 H, Urine RBC 10-25 SEEN, Urine WBC 50-100 SEEN, Ur Squamous Epith Cells 0-5 SEEN, Urine Bacteria 2+, Urine Mucus 0 SEEN Micro: Microbiology 06/29/23 21:08 Mucosa - Nose SARS-CoV-2, Influenza & RSV (PCR) - Final Imaging Radiology Impression Brain CT 06/29/23 20:26 IMPRESSION: Negative head/brain CT without intravenous contrast. Electronically Signed: Shay Dee MD at 21:07 EDT , Chest X-Ray 06/29/23 20:50 IMPRESSION: There are no acute findings. Electronically Signed: Shay Dee MD at 21:14 EDT , [facility] Imaging Services [address] [place] [address] Abdomen/Pelvis without Cont MR#: [id number] Acct: [id number] Name: MAIKEL POP Rep #: [id number] : 1940 F 82 From: Shay Mendoza MD PCP: Dr. Scooter Siu MD Status: ADM IN Study: Abdomen/Pelvis without Cont Date of Exam: 06/30/23 Exam# [id number] Ordering Dr: Joo Chan DO EXAM: CT ABDOMEN AND PELVIS WITHOUT INTRAVENOUS CONTRAST CLINICAL INDICATION: Sepsis with Septic Shock due to UTI. TECHNIQUE: Helically acquired images were obtained of the abdomen and pelvis without intravenous contrast. This CT exam was performed using one or more of the following dose reduction techniques: automated exposure control, adjustment of the mA and/or kV according to patient size, and/or use of iterative reconstruction technique. RADIATION DOSE: CTDIvol = 9.67 mGy, DLP = 701.28 mGy-cm COMPARISON: No relevant prior studies available. FINDINGS: LOWER THORAX: Bibasilar dependent atelectasis. No cardiomegaly. No significant pericardial effusion. ABDOMEN: LIVER: Unremarkable. Homogeneous. GALLBLADDER AND BILE DUCTS: The gallbladder is not identified and may be surgically absent. No intra- or extrahepatic biliary ductal dilation. PANCREAS: Unremarkable. No focal cystic mass. SPLEEN: Unremarkable. Normal size without focal cystic or solid mass. ADRENALS: Unremarkable. No nodules. KIDNEYS AND URETERS: There is a 4 mm stone in the distal right ureter just proximal to the UVJ, causing mild obstructive changes. Multiple nonobstructing stones in the right intrarenal collecting system and right renal pelvis measuring up to 8 mm. The left kidney and ureter are unremarkable. Normal renal size and position. STOMACH AND BOWEL: Unremarkable. No stomach or bowel distention. No focal inflammatory change. PELVIS: APPENDIX: The appendix is normal. BLADDER: Unremarkable. REPRODUCTIVE: Unremarkable as visualized. No mass. ABDOMEN and PELVIS: INTRAPERITONEAL SPACE: Unremarkable. No ascites or other fluid collection. No free air. BONES/JOINTS: Degenerative changes of the spine. Diffuse degenerative changes of the spine. Prior surgical changes of the proximal left femur. No suspicious lytic or blastic abnormality. SOFT TISSUES: Unremarkable. No discrete abdominal or pelvic wall hernia. VASCULATURE: Unremarkable. Abdominal aorta is non-dilated. LYMPH NODES: Unremarkable. No enlarged lymph nodes. CT/Abdomen/Pelvis without Cont IMPRESSION: 1. There is a 4 mm stone in the distal right ureter just proximal to the UVJ, causing mild obstructive changes. 2. Multiple nonobstructing stones in the right intrarenal collecting system and right renal pelvis measuring up to 8 mm. Electronically Signed: Shay Mendoza MD at 2:00 EDT , CC: Dr. Joo Chan DO; Dr. Scooter Siu MD ~ Retail Sales Merchandiser: Signed Assessment & Plan Assessment/Plan (1) Septic shock: (2) Acute UTI: (3) Chronic indwelling Zapata catheter: (4) Calculus of ureterovesical junction (UVJ): (5) Acute hypokalemia: (6) Septic encephalopathy: (7) Subendocardial ischemia: PLAN: Plan 1. Sepsis with septic shock; with a urinalysis positive for acute cystitis; with microscopic hematuria likely due to chronic indwelling Zapata in addition to 4 mm Right UVJ stone with mild obstructive changes on CT present on admission with severe leukocytosis of 32.4 present on admission and lactic acidosis of 7.7 mmol/L present on admission with Full CODE STATUS - Admit to ICU for treatment under the sepsis protocol. Continue IV Levaquin began in the ER and await culture and sensitivity data with patient having noted anaphylaxis to penicillin. Serialize lactate. Give Tylenol as needed pain or fever. Finally, we will consult the urologist and steam pressure chamber operator to see this patient on-rounds in the AM for further recommendations with help appreciated in advance. 2. Septic encephalopathy arising from #1 in the setting of chronic dementia - Continue supportive care outlined above and monitor for improvement. 3. Critical hypokalemia of 2.2 mmol/L present on admission complicating #1 & #2 - Give supplemental KCl to recheck level in a.m. to ensure correction back into normal range. 4. Highly elevated troponin of 677 pg/mL present on admission likely due to non-STEMI type II from acute cardiac strain arising from #1 - #3 - Give ECASA plus statin and full-dose Lovenox. Serialize troponin. Check echocardiogram to evaluate LVEF. 5. Severe hypoalbuminemia of 1.8 g/dL present on admission suggestive of protein-calorie malnutrition in the setting of known previous adult failure to thrive - Check prealbumin to confirm suspicion. When patient is able we will add protein shake to meals as a nutritional supplement. 6. Essential hypertension - Hold scheduled antihypertensives until infection outlined in #1 has been controlled and neutralized. 7. DM-2; of unknown control - Keep NPO for now. Fingerstick blood sugars every 6 hours plus lowest intensity sliding scale insulin. Check hemoglobin A1c to objectively evaluate quality of diabetic control. 8. History of diabetic foot ulcers - Noted. 9. History of stage III decubitus ulcer of buttock - Noted. 10. History of osteomyelitis of the toe - Noted. 11. History of Right lower extremity cellulitis - Noted. 12. History of bilateral lower extremity lymphedema - Stable. 13. History of tobacco abuse; with subsequent COPD - Stable with no evidence of acute flare at this time. Continue as needed nebulizers. 14. History of urinary retention; with chronic indwelling Zapata catheter - Noted and linked to infection outlined in #1. 15. History of medical noncompliance - Noted. 16. Spondylosis of lumbar spine and osteoarthritis - Give Tylenol as needed. 17. Depression - Continue home regimen when patient is able to tolerate it. 18. DVT prophylaxis - Lovenox 40 mg sq daily plus SCD's. Total time: Approximately 85 minutes. Upate: An order was placed for a new Zapata catheter. Also her initial Right subclavian line was cranially malpositioned resulting in a Right IJ placement which is an excellent position. I also ordered a CT scan of her abdomen pelvis to evaluate her urinary tract and found a ~4 mm right UVJ stone with moderate obstruction noted with consult placed for urology evaluation in the a.m. without appreciated in advance. The ER physician's help with this complex case is greatly appreciated. Patient's blood pressure has stabilized on vasopressin and her lactate has dropped to 3.4 mmol/L on follow-up. Patient also refused to take her oral potassium supplements so IV were ordered instead. PIPE INSTALLER was updated with plan. Sepsis Attestation Sepsis Alert: Yes Sepsis Attestation: Agree w/Sepsis Date exam was performed: 06/29/23 Time exam was performed: 23:30 Possible Source of Sepsis: Genitourinary Sepsis Organ Dysfunction Criteria Present: SBP < 90 mmHg or MAP < 65 mmHg, Lactic Acid > 2 mmol/L and New/Unexplained change in mental status Fluid Resuscitation Fluid resuscitation indicated?: Yes Fluid Resuscitation ordered: 30 ml/kg fluid bolus ordered Amount of fluid ordered: 2 Sepsis Note Date exam was performed: 06/30/23 Time exam was performed: 03:30 Sepsis Attestation: Sepsis re-evaluation was performed Response to fluids: Non Fluid responsive hypotension and Vasopressors started Charges/Coding Visit Charges Inpatient E&M: 45327 Init Hosp L3
[2023-06-29] MEDS: Potassium Chloride 10mEq/100mL 10 MEQ/100 ML IV.SOLN. 100 MEQ IV BOLUS (23:30)
[2023-06-29] MEDS: Norepinephrine 8 MG in 0.9% Normal Saline (250mL Bag) 242 ML 9.4 MG CONT INF (23:31)
--- NOTE | 2023-06-29 23:45 | ECHOCS_ITS ---
Reason For Study: s/p DE Procedure This was a 2D Doppler, Color Flow transthoracic echocardiogram. Technically difficult study, patient unwilling to lay in proper position, patient was agitated/combative and confused. Patient refused subcostal and SSN images. Contrast injection was performed. Exam performed portable in ICU/CCU. Left Ventricle Normal LV size. Left ventricular systolic function is normal. The estimated ejection fraction is 65 %. Normal diastology for age. No regional wall motion abnormalities noted. Right Ventricle Normal RV size. Normal systolic function. Atria The left atrium is mildly enlarged. Normal right atrium. Mitral Valve The mitral valve is structurally normal. No prolapse or stenosis seen. Mild-Moderate (1-2+) mitral valve insufficiency. Tricuspid Valve Normal tricuspid valve. Mild (1+) tricuspid valve insufficiency. Pulmonary artery systolic pressure is 28 mmHg. Aortic Valve Mild focal aortic valve calcification. Trisinus/trileaflet aortic valve. Trivial aortic valve insufficiency. Pulmonic Valve The pulmonic valve is not well visualized. Great Vessels Normal aortic root. Pericardium/Pleural No pericardial effusion. Medication Diluted definity 2ml given slow IV push to enhance endocardial definition. MMode/2D Measurements & Calculations LVIDd: 3.8 cm IVSd: 0.70 cm Ao root diam: 3.2 cm LVIDs: 2.5 cm LVPWd: 0.80 cm LA dimension: 3.5 cm FS: 33.8 % LAV(MOD-bp): 51.0 ml LVAd ap4: 21.5 cm2 SV(MOD-sp4): 33.1 ml LAV(MOD-bp) Indexed: 32.6 ml/m2 LVLd ap4: 7.3 cm LAV(MOD-sp2): 46.5 ml EDV(MOD-sp4): 53.2 ml LAV(MOD-sp4): 44.3 ml EDV(sp4-el): 54.1 ml LVAs ap4: 11.2 cm2 LVLs ap4: 5.4 cm ESV(MOD-sp4): 20.0 ml ESV(sp4-el): 19.9 ml EF(MOD-sp4): 62.3 % EF(sp4-el): 63.2 % SV(sp4-el): 34.2 ml LA A4 area: 18.1 cm2 RA A4 area: 13.6 cm2 Time Measurements MV dec time: 0.19 sec Doppler Measurements & Calculations MV E max tomi: 98.5 cm/sec Lat Peak E' Tomi: 11.6 cm/sec Med Peak E' Tomi: 12.7 cm/sec MV A max tomi: 80.0 cm/sec E/E' lat: 8.5 E/E' med: 7.7 MV E/A: 1.2 MV V2 max: 140.8 cm/sec MV P1/2t max tomi: 141.8 cm/sec Ao V2 max: 136.1 cm/sec MV max P.9 mmHg MV P1/2t: 68.7 msec Ao max P.4 mmHg MV V2 mean: 66.6 cm/sec Ao V2 mean: 95.6 cm/sec MV mean P.3 mmHg MV dec slope: 604.2 cm/sec2 Ao mean P.0 mmHg MV V2 VTI: 23.1 cm MVA(P1/2t): 3.2 cm2 Ao V2 VTI: 26.2 cm AV (velocity ratio): 0.81 LV V1 max: 110.1 cm/sec MR max tomi: 533.8 cm/sec PA V2 max: 102.9 cm/sec LV V1 max P.9 mmHg MR max P.0 mmHg PA V2 mean: 66.3 cm/sec LV V1 mean P.5 mmHg LV V1 mean: 74.9 cm/sec LV V1 VTI: 21.3 cm TR max tomi: 250.5 cm/sec TR max P.1 mmHg ECHO/Echo Complete W/ Contrast Interpretation Summary The estimated ejection fraction is 65 %. The left atrium is mildly enlarged. Mild-Moderate (1-2+) mitral valve insufficiency. Mild (1+) tricuspid valve insufficiency. Mild focal aortic valve calcification. The study was technically difficult. Contrast injection was performed. Ordering Physician: Joo Chan Referring Physician: Scooter Siu Performed By: Jose Saeed RCS
[2023-06-30] VITALS (55 sets, daily range): BP systolic 60–139; BP diastolic 40–111; PULSE 67–113; RESP 16–29; TEMP 36.3–37.2; O2SAT 94–98; BMI 24.3
--- NOTE | 2023-06-30 | CT_ITS ---
EXAM: CT ABDOMEN AND PELVIS WITHOUT INTRAVENOUS CONTRAST CLINICAL INDICATION: Sepsis with Septic Shock due to UTI. TECHNIQUE: Helically acquired images were obtained of the abdomen and pelvis without intravenous contrast. This CT exam was performed using one or more of the following dose reduction techniques: automated exposure control, adjustment of the mA and/or kV according to patient size, and/or use of iterative reconstruction technique. RADIATION DOSE: CTDIvol = 9.67 mGy, DLP = 701.28 mGy-cm COMPARISON: No relevant prior studies available. FINDINGS: LOWER THORAX: Bibasilar dependent atelectasis. No cardiomegaly. No significant pericardial effusion. ABDOMEN: LIVER: Unremarkable. Homogeneous. GALLBLADDER AND BILE DUCTS: The gallbladder is not identified and may be surgically absent. No intra- or extrahepatic biliary ductal dilation. PANCREAS: Unremarkable. No focal cystic mass. SPLEEN: Unremarkable. Normal size without focal cystic or solid mass. ADRENALS: Unremarkable. No nodules. KIDNEYS AND URETERS: There is a 4 mm stone in the distal right ureter just proximal to the UVJ, causing mild obstructive changes. Multiple nonobstructing stones in the right intrarenal collecting system and right renal pelvis measuring up to 8 mm. The left kidney and ureter are unremarkable. Normal renal size and position. STOMACH AND BOWEL: Unremarkable. No stomach or bowel distention. No focal inflammatory change. PELVIS: APPENDIX: The appendix is normal. BLADDER: Unremarkable. REPRODUCTIVE: Unremarkable as visualized. No mass. ABDOMEN and PELVIS: INTRAPERITONEAL SPACE: Unremarkable. No ascites or other fluid collection. No free air. BONES/JOINTS: Degenerative changes of the spine. Diffuse degenerative changes of the spine. Prior surgical changes of the proximal left femur. No suspicious lytic or blastic abnormality. SOFT TISSUES: Unremarkable. No discrete abdominal or pelvic wall hernia. VASCULATURE: Unremarkable. Abdominal aorta is non-dilated. LYMPH NODES: Unremarkable. No enlarged lymph nodes. CT/Abdomen/Pelvis without Cont IMPRESSION: 1. There is a 4 mm stone in the distal right ureter just proximal to the UVJ, causing mild obstructive changes. 2. Multiple nonobstructing stones in the right intrarenal collecting system and right renal pelvis measuring up to 8 mm. Electronically Signed: Shay Mendoza MD at 2:00 EDT ,
[2023-06-30 00:39] LABS: Phosphorus 2.3 mg/dL (2.5-4.9)
--- NOTE | 2023-06-30 00:45 | RAD_ITS ---
ACR Level 3 findings have been noted. An addendum which confirms receipt of the report will follow. EXAM: XR CHEST, 1 VIEW CLINICAL INDICATION: line placement TECHNIQUE: Frontal view of the chest. COMPARISON: No relevant prior studies available. FINDINGS: LUNGS AND PLEURAL SPACES: Unremarkable. No consolidation or edema. No pneumothorax. No effusion. HEART: Unremarkable. Cardiac silhouette not enlarged. MEDIASTINUM: Central airways and mediastinal contour are unremarkable. BONES/JOINTS: Unremarkable. No acute fracture. SOFT TISSUES: Unremarkable. TUBES, LINES AND DEVICES: Right subclavian central line with the distal tip extending cranially within the right internal jugular vein. RAD/CXR for Line Placement IMPRESSION: Right subclavian central line with the distal tip extending cranially within the right internal jugular vein. Recommend repositioning and reimaging. Electronically Signed: Shay Mendoza MD at 2:00 EDT ,
[2023-06-30 00:55] LABS: Reflex Lactate? Y
[2023-06-30 01:07] LABS: Blood Gas Specimen Type VEN; O2 Delivery Device Cannula; SITE R Radial; VBG BASE EXCESS -6 mmol/L (-1.0-3.5); VBG Bicarbonate 22 mmol/L (22-26); VBG PO2 22 mmHg (25-40); VBG SO2 28 % (50-70); VBG TCO2 23 mmol/L (23-33); VBG pCO2 50.1 mmHg (41-51); VBG pH 7.24 (7.32-7.42)
[2023-06-30] MEDS: Midazolam 2 MG/2 ML Syringe IV (01:28)
--- NOTE | 2023-06-30 01:55 | RAD_ITS ---
EXAM: XR CHEST, 1 VIEW CLINICAL INDICATION: line placement TECHNIQUE: Frontal view of the chest. COMPARISON: No relevant prior studies available. FINDINGS: LUNGS AND PLEURAL SPACES: Nodular density in the right mid lung field measuring 1.5 cm. No pneumothorax. No effusion. HEART: Unremarkable. Cardiac silhouette not enlarged. MEDIASTINUM: Central airways and mediastinal contour are unremarkable. BONES/JOINTS: Unremarkable. No acute fracture. SOFT TISSUES: Unremarkable. TUBES, LINES AND DEVICES: Right jugular central line with tip at the cavoatrial junction. RAD/CXR for Line Placement IMPRESSION: 1. Right jugular central line with tip at the cavoatrial junction. No pneumothorax or other complication. 2. Nodular density in the right mid lung field measuring 1.5 cm. A follow-up chest CT is recommended for further assessment. Electronically Signed: Shay Mendoza MD at 2:20 EDT ,
--- NOTE | 2023-06-30 02:14 | ED.RN ---
This RN pulled versed due to the patient being agitated and grabbing at things when we attempted to do the first central line. The patient continued to state she doesn't want to be here and stating I am going to report this hospital because you guys are terrible. This RN educated the patient on central line positioning and the importance of it. The patient scoffed and rolled her eyes. This RN also received verbal orders from Dr Flores to hold off on the norepinephrine titration do to needing to place a central line.
--- NOTE | 2023-06-30 02:44 | CPS ---
Patient agitated and refusing bipap. On RA 95%. Dr. Armstrong aware.
[2023-06-30 02:49] LABS: Lactic Acid 3.4 mmol/L (0.4-1.9)
[2023-06-30] MEDS: levoFLOXacin IV 750 MG/150 ML BAG 100 MG IV (02:50)
[2023-06-30] MEDS: MethylPREDNISolone 125 MG/2 ML Vial IV (02:51)
[2023-06-30] MEDS: Enoxaparin 60 MG/0.6 ML Syringe SC ×2 (02:51→20:36)
[2023-06-30] MEDS: Albumin Human 25% (100 mL) 25 GM/100 ML BAG IV ×2 (02:51→05:14)
[2023-06-30] MEDS: Potassium Chloride 20mEq/100mL 20 MEQ/100 ML IV.SOLN. 100 MEQ IV BOLUS ×3 (02:53→05:19)
[2023-06-30 03:35] LABS: Allen Test Positive; Base Excess -7 mmol/L (-2 to +2); Bicarbonate 18.1 mmol/L (22-26); Blood Gas Specimen Type ART; Mode Not entered; O2 Delivery Device Room Air; PO2 72 mmHG (75-100); SITE R Radial; SO2 95 % (95-99); Total Carbon Dioxide 19 mmol/L; pCO2 28.8 mmHg (35-45); pH 7.41 (7.35-7.45)
[2023-06-30 03:57] LABS: Basophil# 0.07 X10^3/uL; Eosinophil# 13.08 X10^3/uL; Hematocrit 35.7 % (37-47); Hemoglobin 11.8 g/dL (12.0-15.0); Mean Corp Hgb Conc 33.1 g/dL (32-36); Mean Corpuscular Volume 87.7 fL (81-99); Mean Platelet Vol. 11.6 fl (6.2-12.0); Monocyte# 2.47 X10^3/uL; NRBC Flagged by Analyzer 0 % (0-5); POSITIVE COUNT YES; POSITIVE DIFFERENTIAL YES; POSITIVE MORPHOLOGY YES; Platelet Count 169 K/mm3 (150-450); RBC Distribution Width CV 15.4 % (11.6-14.6); RBC Distribution Width SD 49.6 fl (35.1-43.9); Red Blood Count 4.07 M/mm3 (4.2-5.4)
[2023-06-30 04:15] LABS: Differential Indicated SCAN CRITERIA MET; White Blood Count 72.3 K/mm3 (4.4-11.0)
[2023-06-30 04:33] LABS: ALB/GLOB Ratio 0.7 RATIO (0.9-2.4); AST(SGOT) 20 U/L (15-37); Alanine Aminotransfer ALT/SGPT 12 U/L (13-56); Albumin, Serum 2.3 g/dL (3.2-5.0); Alkaline Phosphatase 107 U/L (45-117); Anion Gap 10 (5-15); BUN 13 mg/dL (7-18); BUN/Creat Ratio 14.6 RATIO (10-20); Calcium,Total 7.1 mg/dL (8.5-10.1); Chloride 113 mmol/L (98-107); Creatinine, Serum 0.89 mg/dL (0.55-1.02); EST Glomerular Filtration Rate 65 mL/min (>60); Est Glom Filt Rate - Afr Amer 79 mL/min (>60); Estimated Creatinine Clearance 41.42 ml/min; Globulin 3.4 g/dL (2.2-4.2); Glucose 155 mg/dL (74-106); Protein, Total 5.7 g/dL (6.4-8.2); Sodium Level 143 mmol/L (136-145); Troponin-I HS 650 pg/mL (3.0-54.0)
[2023-06-30 04:39] LABS: Phosphorus 1.8 mg/dL (2.5-4.9)
[2023-06-30] MEDS: Magnesium Sulfate 4gm/100mL 4 GM/100 ML IV.SOLN. IV (05:16)
[2023-06-30 06:18] LABS: Reflex Lactate? Y
[2023-06-30] MEDS: Potassium Phosphate 40 MM in 0.9% Normal Saline (500mL Bag) 500 ML 62.5 MM IV (06:20)
[2023-06-30] MEDS: 0.9% Saline Lock 10 ML Syringe IV (06:26)
--- NOTE | 2023-06-30 06:50 | EX.PCM.CONCC ---
Assessment & Plan Assessment/Plan (1) Septic shock: PLAN: Plan RECOMMENDATIONS: 1. Continue broad-spectrum antimicrobials as ordered. 2. Continue Levophed to maintain a mean arterial pressure at or above 65 mmHg. 3. Urology consultation is pending. 4. Patient to remain n.p.o. for now. 5. Aggressive electrolyte repletion. 6. Continue PPI therapy. IMPRESSIONS: 1. Septic shock The patient presented with sepsis due to probable urinary tract source of infection with acute sepsis related organ dysfunction as evidenced by altered mental status, lactic acidemia and fluid nonresponsive hypotension, requiring vasopressor support. CT abdomen/pelvis demonstrated a stone in the distal right ureter with obstructive changes. Accordingly, urology consultation has been placed. The patient will be continued on empiric broad-spectrum antimicrobials. Levophed will be continued to maintain a mean arterial pressure at or above 65 mmHg. 2. Metabolic encephalopathy Most likely secondary to #1 coupled with underlying dementia. Continue current supportive measures. Avoid sedating medications. 3. Troponin elevation Most likely secondary to demand ischemia in the setting #1. Will obtain echocardiogram as ordered. 4. Hypokalemia/hypophosphatemia/hypomagnesemia Aggressive electrolyte repletion as indicated. Recheck levels tomorrow morning. 5. History of diabetes mellitus/hypertension/history of urinary retention/depression/advanced age Complicates care, management, recovery and prognosis. Continue supportive measures as noted above. TIME: 37 minutes of critical care time, independent of procedures, was spent addressing the patient's septic shock, metabolic encephalopathy, troponin elevation, review of all data and collaboration with the care team. HPI Consult Data Date of Consult: 06/30/23 HPI Narrative Reason for Consultation: Septic shock HPI Narrative: The patient is an 82-year-old female, with a history as outlined below, who presented to the emergency department via EMS on June 28 with altered mental status. 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 The patient is exceedingly confused this morning. No history pertinent to her hospitalization could be obtained from the patient herself. On presentation to the emergency department, the patient was noted have a temperature of 99 ?F. She was mildly tachycardic and tachypneic with a presenting blood pressure of 99/49 mmHg. The patient was otherwise maintaining appropriate oxygen saturations on room air. Initial laboratory evaluation revealed an elevated white blood cell count of 32,000. Platelet count was low at 145,000. Coagulation profile was notable for an INR of 2.0. Chemistry profile was notable for a potassium of 2.2, chloride of 109 and creatinine of 1.15. Lactate was elevated at 7.7. Troponin was increased at 677. Urine analysis was positive for nitrites, leukocyte esterase and 2+ urine bacteria. CT head was unremarkable. CT abdomen/pelvis demonstrated a 4 mm stone in the distal right ureter causing mild obstructive changes. Multiple other nonobstructing stones were noted in the right intrarenal collecting system. Blood and urine cultures were collected. COVID, influenza and RSV PCR's were negative. The patient received supplemental IV fluid hydration and was started on antimicrobial therapy. Central venous catheter was subsequently placed and the patient was initiated on Levophed to maintain hemodynamic stability. [facility] Medical History (Updated 06/30/23 @ 09:[address] Patti Moreira MD) Chronic indwelling Zapata catheter COPD (chronic obstructive pulmonary disease) Decubitus ulcer of buttock, stage 3 Dementia Depression Failure to thrive Hypertension Hypotension Insomnia Kidney stone on right side Lymphedema Mood disorder Spondylosis of lumbar spine Wound cellulitis Home Medications nystatin 100,000 unit/gram topical powder 1 applic topical BID fungal 12/11/18 [History Last Taken 12/11/18] albuterol sulfate 90 mcg/actuation aerosol inhaler (ProAir HFA) 90 mcg inhalation Q4H PRN PRN Shortness Of Breath 06/17/20 [History Last Taken Unknown] furosemide 40 mg tablet 40 mg PO BID constipation 06/17/20 [History Last Taken Unknown] insulin glargine 100 unit/mL (3 mL) subcutaneous pen (Lantus Solostar U-100 Insulin) 10 unit subcut QHS T2DM 06/17/20 [History Last Taken Unknown] insulin lispro 100 unit/mL subcutaneous pen (Humalog KwikPen (U-100) Insulin) 1 - 100 unit subcut TID T2DM 06/17/20 [History Last Taken Unknown] potassium chloride 40 mEq/15 mL oral liquid 40 meq PO DAILY low potassium 06/17/20 [History Last Taken Unknown] polyethylene glycol 3350 17 gram/dose oral powder (Miralax) 17 g PO DAILY constipation #238 grams 06/23/20 [Rx Last Taken Unknown] sennosides 8.6 mg-docusate sodium 50 mg tablet (Senna-S) 1 tab-cap PO BID PRN constipation #60 tabs 06/23/20 [Rx Last Taken Unknown] Allergy/AdvReac Type Severity Reaction Status Date / Time acetaminophen Allergy Unknown unknown Verified 06/29/23 20:51 [From Darvocet-N] propoxyphene Allergy Unknown unknown Verified 06/29/23 20:51 [From Darvocet-N] amoxicillin Allergy Unknown Verified 12/11/18 11:58 mushroom Allergy NEEDS Verified 12/29/21 16:23 FOLLOW-UP Penicillins Allergy Anaphylaxis Verified 12/11/18 11:57 Social History Smoking Status: Unknown if ever smoked ROS Review of Systems ROS Unobtainable: due to mental status Physical Exam Const alert and no apparent distress Constitutional Narrative: Confused and disoriented. Chronically ill-appearing. HEENT normocephalic and head/scalp atraumatic Eyes PERRL, EOMs intact bilaterally and conjunctivae normal Neck supple General: trachea midline Chest inspection of chest normal Resp normal respiratory effort Auscultation: diminished lung sounds Cardio regular rate and regular rhythm GI normal to inspection, nondistended, normoactive bowel sounds Extremity General Extremity: Negative for clubbing or edema Neuro CN's II-XII intact bilaterally and moves all extremities Psych Mood & Affect: flat affect Lab / Micro Data 06/30/23 03:45 06/30/23 03:45 Labs: Laboratory Results - last 24 hr 06/29/23 20:43: WBC 32.4 H*, RBC 4.66, Hgb 13.7, Hct 41.7, MCV 89.5, MCH 29.4, MCHC 32.9, RDW Std Deviation 50.4 H, RDW Coeff of Ricardo 15.6 H, Plt Count 145 L, MPV 11.3, Immature Gran % (Auto) 0.700, Neut % (Auto) 96.7 H, Lymph % (Auto) 1.6 L, [place] % (Auto) 0.8, Eos % (Auto) 0.0, Baso % (Auto) 0.2, Absolute Neuts (auto) 31.3 H, Absolute Lymphs (auto) 0.51 L, Nucleated RBC % 0, Differential Comment SEE COMMENTS, Diff Path Review June, Platelet Estimate ADEQUATE, RBC Morphology N CHROM, Anisocytosis RARE, PT 22.9 H, INR 2.0, APTT 34.7, Sodium 144, Potassium 2.2 L*, Chloride 109 H, Carbon Dioxide 21.0, Anion Gap 14, BUN 13, Creatinine 1.15 H, Est GFR (MDRD) Af Amer 58 L, Est GFR (MDRD) Non-Af 48 L, BUN/Creatinine Ratio 11.3, Glucose 132 H, Lactic Acid 7.7 H*, Calcium 7.4 L, Phosphorus 2.3 L, Total Bilirubin 1.10 H, AST 24, ALT 14, Alkaline Phosphatase 189 H, Troponin I High Sens 677 H*, Total Protein 5.8 L, Albumin 1.8 L, Globulin 4.0, Albumin/Globulin Ratio 0.4 L 06/29/23 22:03: Urine Color Yellow, Urine Clarity Cloudy, Urine pH 5.0, Ur Specific [place] 1.020, Urine Protein 100 H, Urine Glucose (UA) Normal, Urine Ketones 5 H, Urine Occult Blood 250 H, Urine Nitrite Positive H, Urine Bilirubin 1 H, Urine Urobilinogen 1 H, Ur Leukocyte Esterase 500 H, Urine RBC 10-25 SEEN, Urine WBC 50-100 SEEN, Ur Squamous Epith Cells 0-5 SEEN, Urine Bacteria 2+, Urine Mucus 0 SEEN 06/30/23 02:15: Lactic Acid 3.4 H* 06/30/23 03:45: WBC 72.3 H*, RBC 4.07 L, Hgb 11.8 L, Hct 35.7 L, MCV 87.7, MCH 29.0, MCHC 33.1, RDW Std Deviation 49.6 H, RDW Coeff of Ricardo 15.4 H, Plt Count 169, MPV 11.6, Immature Gran % (Auto) 4.200 H, Neut % (Auto) 72.7 H, Lymph % (Auto) 1.5 L, [place] % (Auto) 3.4, Eos % (Auto) 18.1 H, Baso % (Auto) 0.1, Absolute Neuts (auto) 52.6 H, Absolute Lymphs (auto) 1.08, Nucleated RBC % 0, Sodium 143, Potassium 3.0 L, Chloride 113 H, Carbon Dioxide 20.0 L, Anion Gap 10, BUN 13, Creatinine 0.89, Estim Creat Clear Calc 41.42, Est GFR (MDRD) Af Amer 79, Est GFR (MDRD) Non-Af 65, BUN/Creatinine Ratio 14.6, Glucose 155 H, Calcium 7.1 L, Phosphorus 1.8 L, Magnesium 1.0 L, Total Bilirubin 1.30 H, AST 20, ALT 12 L, Alkaline Phosphatase 107, Troponin I High Sens 650 H*, Total Protein 5.7 L, Albumin 2.3 L, Globulin 3.4, Albumin/Globulin Ratio 0.7 L, Prealbumin 4.0 L Micro: Microbiology 06/29/23 21:08 Mucosa - Nose SARS-CoV-2, Influenza & RSV (PCR) - Final ABG Data ABG results: ABG 06/30/23 06/30/23 01:03 03:30 Specimen Type DONNY ART Sample Site R Radial R Radial pH 7.41 Bicarbonate Actual 18.1 L Total CO2 19 Base Excess -7 L O2 Saturation 95 O2 % 2.0 ABG pCO2 28.8 L ABG pO2 72 L [place] Test Positive VBG pH 7.24 L VBG pO2 22 L VBG HCO3 22 VBG Total CO2 23 VBG O2 Sat (Calc) 28 L VBG Base Excess -6 L POC Mix VBG pCO2 Pt Tmp 50.1 O2 Delivery Device Cannula Room Air Vent Mode Not entered Rhythm Strip Rhythm Strip: Sinus Rhythm Rate: 100 Ectopy: PVC(s) Imaging Radiology Impression Brain CT 06/29/23 20:26 IMPRESSION: Negative head/brain CT without intravenous contrast. Electronically Signed: Shay Dee MD at 21:07 EDT , Chest X-Ray 06/29/23 20:50 IMPRESSION: There are no acute findings. Electronically Signed: Shay Dee MD at 21:14 EDT , Abdomen/Pelvis CT 06/30/23 00:00 IMPRESSION: 1. There is a 4 mm stone in the distal right ureter just proximal to the UVJ, causing mild obstructive changes. 2. Multiple nonobstructing stones in the right intrarenal collecting system and right renal pelvis measuring up to 8 mm. Electronically Signed: Shay Mendoza MD at 2:00 EDT Reading Location ID and State: [address] [place] [address] Tel , Service support , Chest X-Ray 06/30/23 00:45 IMPRESSION: Right subclavian central line with the distal tip extending cranially within the right internal jugular vein. Recommend repositioning and reimaging. Electronically Signed: Shay Mendoza MD at 2:00 EDT Reading Location ID and State: [address] [place] [address] Tel , Service support , ADDENDUM: 06/30/23 0220 IMPRESSION: Right subclavian central line with the distal tip extending cranially within the right internal jugular vein. Recommend repositioning and reimaging. N.B. : ANDREAS TORRES MD, confirmed on 06/30/2023 02:13:16 (ET) that the healthcare facility has received the radiology report. Electronically Signed: Shay Mendoza MD at 2:00 EDT Reading Location ID and State: [facility] / [employer] Tel , Service support , Chest X-Ray 06/30/23 01:55 IMPRESSION: 1. Right jugular central line with tip at the cavoatrial junction. No pneumothorax or other complication. 2. Nodular density in the right mid lung field measuring 1.5 cm. A follow-up chest CT is recommended for further assessment. Electronically Signed: Shay Mendoza MD at 2:20 EDT Reading [facility] [employer] Tel , Service support , Charges/Coding Procedures Hospitalists Procedures: [id number] Critical Care 1st Hr
[2023-06-30 06:59] LABS: International Normalized Ratio 2.5; Prothrombin Time (Protime)PT. 26.7 SECONDS (11.7-14.9)
[2023-06-30] MEDS: Norepinephrine 8 MG in 0.9% Normal Saline (250mL Bag) 242 ML 56.3 MG CONT INF (07:15)
--- NOTE | 2023-06-30 07:18 | PCM.PN.HOSP ---
Reason for Visit Reason for Visit: Diagnoses Sepsis, unspecified organism (06/29/23) Hypokalemia (06/29/23) Metabolic encephalopathy (06/29/23) Other forms of acute ischemic heart disease (06/29/23) Calculus of ureter (06/29/23) Urinary tract infection, site not specified (06/29/23) Severe sepsis with septic shock (06/29/23) Presence of other specified devices (06/29/23) Objective Data Objective Data Vital Signs: Vital Signs Temp Pulse Resp BP Pulse Ox O2 Del Method 97.5 F L 91 22 H 107/64 95 Room Air 06/30/23 06:00 06/30/23 07:00 06/30/23 07:00 06/30/23 07:00 06/30/23 07:00 06/30/23 07:00 Oxygen Delivery Method Room Air Weight: 128 lb 11.999 oz Body Mass Index (BMI) 24.3 Intake & Output: Intake and Output for Last 24 Hours 06/28/23 06/29/23 06/30/23 23:59 23:59 23:59 Intake Total 1700 / 1700 1886.86 / 1886.86 Output Total 300 / 300 Balance 1700 / 1700 1586.86 / 1586.86 Lab / Micro Data 06/30/23 03:45 06/30/23 03:45 Labs: Laboratory Results - last 24 hr 06/29/23 20:43: WBC 32.4 H*, RBC 4.66, Hgb 13.7, Hct 41.7, MCV 89.5, MCH 29.4, MCHC 32.9, RDW Std Deviation 50.4 H, RDW Coeff of Ricardo 15.6 H, Plt Count 145 L, MPV 11.3, Immature Gran % (Auto) 0.700, Neut % (Auto) 96.7 H, Lymph % (Auto) 1.6 L, [place] % (Auto) 0.8, Eos % (Auto) 0.0, Baso % (Auto) 0.2, Absolute Neuts (auto) 31.3 H, Absolute Lymphs (auto) 0.51 L, Nucleated RBC % 0, Differential Comment SEE COMMENTS, Diff Path Review May foll, Platelet Estimate ADEQUATE, RBC Morphology N CHROM, Anisocytosis RARE, PT 22.9 H, INR 2.0, APTT 34.7, Sodium 144, Potassium 2.2 L*, Chloride 109 H, Carbon Dioxide 21.0, Anion Gap 14, BUN 13, Creatinine 1.15 H, Est GFR (MDRD) Af Amer 58 L, Est GFR (MDRD) Non-Af 48 L, BUN/Creatinine Ratio 11.3, Glucose 132 H, Lactic Acid 7.7 H*, Calcium 7.4 L, Phosphorus 2.3 L, Total Bilirubin 1.10 H, AST 24, ALT 14, Alkaline Phosphatase 189 H, Troponin I High Sens 677 H*, Total Protein 5.8 L, Albumin 1.8 L, Globulin 4.0, Albumin/Globulin Ratio 0.4 L 06/29/23 22:03: Urine Color Yellow, Urine Clarity Cloudy, Urine pH 5.0, Ur Specific [place] 1.020, Urine Protein 100 H, Urine Glucose (UA) Normal, Urine Ketones 5 H, Urine Occult Blood 250 H, Urine Nitrite Positive H, Urine Bilirubin 1 H, Urine Urobilinogen 1 H, Ur Leukocyte Esterase 500 H, Urine RBC 10-25 SEEN, Urine WBC 50-100 SEEN, Ur Squamous Epith Cells 0-5 SEEN, Urine Bacteria 2+, Urine Mucus 0 SEEN 06/30/23 02:15: Lactic Acid 3.4 H* 06/30/23 03:45: WBC 72.3 H*, RBC 4.07 L, Hgb 11.8 L, Hct 35.7 L, MCV 87.7, MCH 29.0, MCHC 33.1, RDW Std Deviation 49.6 H, RDW Coeff of Ricardo 15.4 H, Plt Count 169, MPV 11.6, Immature Gran % (Auto) 4.200 H, Neut % (Auto) 72.7 H, Lymph % (Auto) 1.5 L, [place] % (Auto) 3.4, Eos % (Auto) 18.1 H, Baso % (Auto) 0.1, Absolute Neuts (auto) 52.6 H, Absolute Lymphs (auto) 1.08, Nucleated RBC % 0, Sodium 143, Potassium 3.0 L, Chloride 113 H, Carbon Dioxide 20.0 L, Anion Gap 10, BUN 13, Creatinine 0.89, Estim Creat Clear Calc 41.42, Est GFR (MDRD) Af Amer 79, Est GFR (MDRD) Non-Af 65, BUN/Creatinine Ratio 14.6, Glucose 155 H, Calcium 7.1 L, Phosphorus 1.8 L, Magnesium 1.0 L, Total Bilirubin 1.30 H, AST 20, ALT 12 L, Alkaline Phosphatase 107, Troponin I High Sens 650 H*, Total Protein 5.7 L, Albumin 2.3 L, Globulin 3.4, Albumin/Globulin Ratio 0.7 L, Prealbumin 4.0 L 06/30/23 06:20: PT 26.7 H, INR 2.5 Micro: Microbiology 06/29/23 21:08 Mucosa - Nose SARS-CoV-2, Influenza & RSV (PCR) - Final ABG Data ABG results: ABG 06/30/23 06/30/23 01:03 03:30 Specimen Type DONNY ART Sample Site R Radial R Radial pH 7.41 Bicarbonate Actual 18.1 L Total CO2 19 Base Excess -7 L O2 Saturation 95 O2 % 2.0 ABG pCO2 28.8 L ABG pO2 72 L [place] Test Positive VBG pH 7.24 L VBG pO2 22 L VBG HCO3 22 VBG Total CO2 23 VBG O2 Sat (Calc) 28 L VBG Base Excess -6 L POC Mix VBG pCO2 Pt Tmp 50.1 O2 Delivery Device Cannula Room Air Vent Mode Not entered Radiography Diagnostic Testing: Radiology Impression Brain CT 06/29/23 20:26 IMPRESSION: Negative head/brain CT without intravenous contrast. Electronically Signed: Shay Dee MD at 21:07 EDT , Chest X-Ray 06/29/23 20:50 IMPRESSION: There are no acute findings. Electronically Signed: Shay Dee MD at 21:14 EDT , Abdomen/Pelvis CT 06/30/23 00:00 IMPRESSION: 1. There is a 4 mm stone in the distal right ureter just proximal to the UVJ, causing mild obstructive changes. 2. Multiple nonobstructing stones in the right intrarenal collecting system and right renal pelvis measuring up to 8 mm. Electronically Signed: Shay Mendoza MD at 2:00 EDT Reading Location ID and State: [facility] / [place] Tel , Service support , Chest X-Ray 06/30/23 00:45 IMPRESSION: Right subclavian central line with the distal tip extending cranially within the right internal jugular vein. Recommend repositioning and reimaging. Electronically Signed: Shay Mendoza MD at 2:00 EDT Reading Location ID and State: [facility] / [place] Tel , Service support , ADDENDUM: 06/30/23 0220 IMPRESSION: Right subclavian central line with the distal tip extending cranially within the right internal jugular vein. Recommend repositioning and reimaging. N.B. : ANDREAS TORRES MD, confirmed on 06/30/2023 02:13:16 (ET) that the healthcare facility has received the radiology report. Electronically Signed: Shay Mendoza MD at 2:00 EDT Reading Location ID and State: [facility] / [place] Tel , Service support , Chest X-Ray 06/30/23 01:55 IMPRESSION: 1. Right jugular central line with tip at the cavoatrial junction. No pneumothorax or other complication. 2. Nodular density in the right mid lung field measuring 1.5 cm. A follow-up chest CT is recommended for further assessment. Electronically Signed: Shay Mendoza MD at 2:20 EDT Reading Location ID and State: [facility] / [place] Tel , Service support , Rhythm Strip Rhythm Strip: Sinus Rhythm Rate: 100 Ectopy: PVC(s) Physical Exam Narrative Seen and examined. Patient is confused disoriented. Irritable. History could not be obtained from patient. Physical exam: General: Awake, confused disoriented. Irritable HEENT: Atraumatic, PERRLA, EOMI, Normocephalic Oral: Oral mucosa moist. No Gingival or Mucosal Lesions/ Ulcerations Neck: Supple, No JVD, Negative Carotid Bruits Chest wall/Lungs: Air entry diminished in bilateral lung bases. No crepitation/rhonchi. On room air Cardiovascular: Regular rate, Regular Rhythm, Normal S1, Normal S2, No M/G/R Abdomen: Bowel Sounds Present, Soft, Non Tender, Non-Distended : Zapata catheter clear urine. No renal angle tenderness. No suprapubic tenderness. Extremities: No edema, Capillary Refill Less than 3 Seconds Skin: Take greenish-yellow crust over lower legs mandoline right lower leg. Musculoskeletal: Chronic weakness. Movement of legs causes pain and patient irritable. Neurological: Cranial nerves II-XII grossly intact, DTR 2+/4. No acute focal neurological deficit. Psych/Mental Status: flat affect. Assessment & Plan Assessment/Plan (1) Septic shock: (2) Acute UTI: (3) Chronic indwelling Zapata catheter: (4) Calculus of ureterovesical junction (UVJ): (5) Acute hypokalemia: (6) Septic encephalopathy: (7) Subendocardial ischemia: PLAN: Plan This is a 82-year-old female admitted with altered mental status and hypotension from custodial. She was found to be confused more than his baseline with history of dementia. BP was 74 systolic on the evening prior to admission. 1. Sepsis with septic shock; CAUTI, complicated UTI from chronic indwelling Zapata catheter and obstructing 4 mm Right UVJ stone: Patient is admitted in ICU. On vasopressor drip through right IJ. Chest x-ray initially reviewed and shows tip of right IJ in the right atrium. Previously x-ray showed right subclavian line going cranially to right IJ which has since been corrected. 06/29: UA positive of nitrite, LE, WBC 50?100 cells, microscopic hematuria 10-25 cells 2+ bacteria. The patient presented with septic shock with clinical indicators Altered mental status, tachycardia, tachypnea, hypotension, leukocytosis, acute encephalopathy of due to obstructive CAUTI with acute sepsis-related organ dysfunction as evidenced by hypotension requiring vasopressor, lactic acidosis, coagulopathy INR 2.0. Patient is admitted to ICU.Patient on IV meropenem and vancomycin. Patient has anaphylaxis allergic history to penicillin. [employer] consulted. Urologist consulted. CT scan individually reviewed shows 4 mm stone in the distal right ureter just proximal to the UVJ, causing mild obstructive changes and multiple nonobstructing stones in the right intrarenal collecting system and right renal pelvis measuring up to 8 mm. 2. Acute encephalopathy mainly due to sepsis/infection and metabolic encephalopathy on baseline chronic dementia - Continue supportive care outlined above and monitor for improvement. 3. Critical hypokalemia of 2.2 mmol/L present on admission, hypophosphatemia, and hypomagnesemia: On IV potassium phosphate and magnesium sulfate replacement. 4. Highly elevated troponin of 677 pg/mL present on admission likely due to demand ischemia type II [place]/acute myocardial necrosis: Patient has any creed cardiac demand resulting into ischemia from septic shock. Patient was given aspirin, atorvastatin and full-dose Lovenox. Troponins on decreasing trend check echocardiogram to evaluate LVEF. 5. Severe hypoalbuminemia of 1.8 g/dL present on admission suggestive of protein-calorie malnutrition in the setting of known previous adult failure to thrive -on IV albumin drip 6. Essential hypertension - Hold scheduled antihypertensives, currently patient on pressors 7. DM-2; of unknown control - Keep NPO for now. Fingerstick blood sugars every 6 hours plus lowest intensity sliding scale insulin. Check hemoglobin A1c to objectively evaluate quality of diabetic control. 8. History of diabetic foot ulcers - Noted. 9. History of stage III decubitus ulcer of buttock - Noted. 10. History of osteomyelitis of the toe - Noted. 11. History of Right lower extremity cellulitis - Noted. 12. History of bilateral lower extremity lymphedema - Stable. 13. History of tobacco abuse; with subsequent COPD - Stable with no evidence of acute flare at this time. Continue as needed nebulizers. 14. History of urinary retention; with chronic indwelling Zapata catheter - Noted and linked to infection outlined in #1. 15. History of medical noncompliance - Noted. 16. Spondylosis of lumbar spine and osteoarthritis - Give Tylenol as needed. 17. Depression - Continue home regimen when patient is able to tolerate it. 18. DVT prophylaxis -on therapeutic dose of Lovenox Charges/Coding Visit Charges Inpatient E&M: 03815 Subs Hosp L3
[2023-06-30 07:31] LABS: Lactic Acid 2.7 mmol/L (0.4-1.9)
[2023-06-30 07:36] LABS: Monocyte 3 % (0-10); Neutrophil-Band 11 % (0-5); Neutrophil-Segmented 86 % (47-70); Total Cells Counted 100 (MANUAL DIFF)
[2023-06-30 07:39] LABS: Platelet Estimate ADEQUATE (ADEQ); Red Cell Morphology NORM C+C NORMAL (NORM C&C)
[2023-06-30 07:46] LABS: Absolute Neutrophil Count 70.2 X10^3/uL (2.0-7.7); Neutrophil # 70.16 X10^3/uL (2.7-7.7)
[2023-06-30 07:47] LABS: Scan Smear per Review Criteria MANUAL DIFF
--- NOTE | 2023-06-30 09:26 | PCM.CONS.GEN ---
Assessment & Plan Assessment/Plan (1) Calculus of ureterovesical junction (UVJ): (2) Septic encephalopathy: (3) Chronic indwelling Burns catheter: (4) Kidney stone on right side: PLAN: Plan to OR for cystoscopy and right ureteral stent insertion await culture results, continue antibiotics continue ICU care stone management will be sometime this summer unable to reach son or brother, consent given by niece HPI Consult Data Date of Consult: 06/30/23 HPI Narrative Reason for Consultation: urosepsis with right renal and ureteral stones with obstruction HPI Narrative: MAIKEL DANIEL, is a 82 F who is admitted to the ICU, found to be septic and needing pressure support to maintain her blood pressure. She is confused. I have reached out to the son, there was no answer and voicemail is not yet set up. I will try calling later this morning. [facility] Medical History (Updated 06/30/23 @ 09:[address] Patti Moreira MD) Chronic indwelling Burns catheter COPD (chronic obstructive pulmonary disease) Decubitus ulcer of buttock, stage 3 Dementia Depression Failure to thrive Hypertension Hypotension Insomnia Kidney stone on right side Lymphedema Mood disorder Spondylosis of lumbar spine Wound cellulitis Home Medications nystatin 100,000 unit/gram topical powder 1 applic topical BID fungal 12/11/18 [History Last Taken 12/11/18] albuterol sulfate 90 mcg/actuation aerosol inhaler (ProAir HFA) 90 mcg inhalation Q4H PRN PRN Shortness Of Breath 06/17/20 [History Last Taken Unknown] furosemide 40 mg tablet 40 mg PO BID constipation 06/17/20 [History Last Taken Unknown] insulin glargine 100 unit/mL (3 mL) subcutaneous pen (Lantus Solostar U-100 Insulin) 10 unit subcut QHS T2DM 06/17/20 [History Last Taken Unknown] insulin lispro 100 unit/mL subcutaneous pen (Humalog KwikPen (U-100) Insulin) 1 - 100 unit subcut TID T2DM 06/17/20 [History Last Taken Unknown] potassium chloride 40 mEq/15 mL oral liquid 40 meq PO DAILY low potassium 06/17/20 [History Last Taken Unknown] polyethylene glycol 3350 17 gram/dose oral powder (Miralax) 17 g PO DAILY constipation #238 grams 06/23/20 [Rx Last Taken Unknown] sennosides 8.6 mg-docusate sodium 50 mg tablet (Senna-S) 1 tab-cap PO BID PRN constipation #60 tabs 06/23/20 [Rx Last Taken Unknown] Allergy/AdvReac Type Severity Reaction Status Date / Time acetaminophen Allergy Unknown unknown Verified 06/29/23 20:51 [From Darvocet-N] propoxyphene Allergy Unknown unknown Verified 06/29/23 20:51 [From Darvocet-N] amoxicillin Allergy Unknown Verified 12/11/18 11:58 mushroom Allergy NEEDS Verified 12/29/21 16:23 FOLLOW-UP Penicillins Allergy Anaphylaxis Verified 12/11/18 11:57 Social History Smoking Status: Unknown if ever smoked ROS Review of Systems ROS Unobtainable: due to encephalopathy and other Details: and baseline dementia Physical Exam Const alert; Negative for oriented x3 HEENT normocephalic and head/scalp atraumatic Eyes General Eye: normal appearance of both eyes Neck supple General: normal visual inspection and trachea midline Lymph Lymphatic: no lymphedema noted Chest inspection of chest normal Resp normal respiratory effort and normal air movement Cardio Rate: tachycardic GI soft to palpation and non-tender Narrative: denies pain burns draining cloudy yellow urine Extremity normal to inspection Skin no rashes or lesions noted Neuro CN's II-XII intact bilaterally and moves all extremities Lab / Micro Data 06/30/23 03:45 06/30/23 03:45 Labs: Laboratory Results - last 24 hr 06/29/23 20:43: WBC 32.4 H*, RBC 4.66, Hgb 13.7, Hct 41.7, MCV 89.5, MCH 29.4, MCHC 32.9, RDW Std Deviation 50.4 H, RDW Coeff of Ricardo 15.6 H, Plt Count 145 L, MPV 11.3, Immature Gran % (Auto) 0.700, Neut % (Auto) 96.7 H, Lymph % (Auto) 1.6 L, [place] % (Auto) 0.8, Eos % (Auto) 0.0, Baso % (Auto) 0.2, Absolute Neuts (auto) 31.3 H, Absolute Lymphs (auto) 0.51 L, Nucleated RBC % 0, Differential Comment SEE COMMENTS, Diff Path Review [place], Platelet Estimate ADEQUATE, RBC Morphology N CHROM, Anisocytosis RARE, PT 22.9 H, INR 2.0, APTT 34.7, Sodium 144, Potassium 2.2 L*, Chloride 109 H, Carbon Dioxide 21.0, Anion Gap 14, BUN 13, Creatinine 1.15 H, Est GFR (MDRD) Af Amer 58 L, Est GFR (MDRD) Non-Af 48 L, BUN/Creatinine Ratio 11.3, Glucose 132 H, Lactic Acid 7.7 H*, Calcium 7.4 L, Phosphorus 2.3 L, Total Bilirubin 1.10 H, AST 24, ALT 14, Alkaline Phosphatase 189 H, Troponin I High Sens 677 H*, Total Protein 5.8 L, Albumin 1.8 L, Globulin 4.0, Albumin/Globulin Ratio 0.4 L 06/29/23 22:03: Urine Color Yellow, Urine Clarity Cloudy, Urine pH 5.0, Ur Specific [place] 1.020, Urine Protein 100 H, Urine Glucose (UA) Normal, Urine Ketones 5 H, Urine Occult Blood 250 H, Urine Nitrite Positive H, Urine Bilirubin 1 H, Urine Urobilinogen 1 H, Ur Leukocyte Esterase 500 H, Urine RBC 10-25 SEEN, Urine WBC 50-100 SEEN, Ur Squamous Epith Cells 0-5 SEEN, Urine Bacteria 2+, Urine Mucus 0 SEEN 06/30/23 02:15: Lactic Acid 3.4 H* 06/30/23 03:45: WBC 72.3 H*, RBC 4.07 L, Hgb 11.8 L, Hct 35.7 L, MCV 87.7, MCH 29.0, MCHC 33.1, RDW Std Deviation 49.6 H, RDW Coeff of Ricardo 15.4 H, Plt Count 169, MPV 11.6, Immature Gran % (Auto) PRACTICAL NURSING INSTRUCTOR, Neut % (Auto) PRACTICAL NURSING INSTRUCTOR, Lymph % (Auto) PRACTICAL NURSING INSTRUCTOR, [place] % (Auto) PRACTICAL NURSING INSTRUCTOR, Eos % (Auto) PRACTICAL NURSING INSTRUCTOR, Baso % (Auto) PRACTICAL NURSING INSTRUCTOR, Absolute Neuts (auto) 70.2 H, Absolute Lymphs (auto) 0.00 L, Total Counted 100, Neutrophils % (Manual) 86 H, Band Neutrophils % 11 H, Monocytes % (Manual) 3, Nucleated RBC % 0, Diff Path Review [place], Platelet Estimate ADEQUATE, RBC Morphology NORM C+C, Sodium 143, Potassium 3.0 L, Chloride 113 H, Carbon Dioxide 20.0 L, Anion Gap 10, BUN 13, Creatinine 0.89, Estim Creat Clear Calc 41.42, Est GFR (MDRD) Af Amer 79, Est GFR (MDRD) Non-Af 65, BUN/Creatinine Ratio 14.6, Glucose 155 H, Calcium 7.1 L, Phosphorus 1.8 L, Magnesium 1.0 L, Total Bilirubin 1.30 H, AST 20, ALT 12 L, Alkaline Phosphatase 107, Troponin I High Sens 650 H*, Total Protein 5.7 L, Albumin 2.3 L, Globulin 3.4, Albumin/Globulin Ratio 0.7 L, Prealbumin 4.0 L 06/30/23 06:20: PT 26.7 H, INR 2.5 06/30/23 06:50: Lactic Acid 2.7 H* Micro: Microbiology 06/29/23 22:03 Urine Catheter - Catheter Urine Culture - Preliminary Presumptive E. coli 06/29/23 20:30 Blood Culture (Wb) - Left Hand Blood Culture - Preliminary 06/29/23 20:43 Blood Culture (Wb) - Right Wrist Blood Culture - Preliminary 06/29/23 21:08 Mucosa - Nose SARS-CoV-2, Influenza & RSV (PCR) - Final ABG Data ABG results: ABG 06/30/23 06/30/23 01:03 03:30 Specimen Type DONNY ART Sample Site R Radial R Radial pH 7.41 Bicarbonate Actual 18.1 L Total CO2 19 Base Excess -7 L O2 Saturation 95 O2 % 2.0 ABG pCO2 28.8 L ABG pO2 72 L [place] Test Positive VBG pH 7.24 L VBG pO2 22 L VBG HCO3 22 VBG Total CO2 23 VBG O2 Sat (Calc) 28 L VBG Base Excess -6 L POC Mix VBG pCO2 Pt Tmp 50.1 O2 Delivery Device Cannula Room Air Vent Mode Not entered Rhythm Strip Rhythm Strip: Sinus Rhythm Rate: 100 Ectopy: PVC(s) Imaging Radiology Impression Brain CT 06/29/23 20:26 IMPRESSION: Negative head/brain CT without intravenous contrast. Electronically Signed: Shay Dee MD at 21:07 EDT , Chest X-Ray 06/29/23 20:50 IMPRESSION: There are no acute findings. Electronically Signed: hSay Dee MD at 21:14 EDT , Abdomen/Pelvis CT 06/30/23 00:00 IMPRESSION: 1. There is a 4 mm stone in the distal right ureter just proximal to the UVJ, causing mild obstructive changes. 2. Multiple nonobstructing stones in the right intrarenal collecting system and right renal pelvis measuring up to 8 mm. Electronically Signed: Shay Mendoza MD at 2:00 EDT , Chest X-Ray 06/30/23 00:45 IMPRESSION: Right subclavian central line with the distal tip extending cranially within the right internal jugular vein. Recommend repositioning and reimaging. Electronically Signed: Shay Mendoza MD at 2:00 EDT Reading Location ID and State: [facility] / [place] Tel , Service support , ADDENDUM: 06/30/23 0220 IMPRESSION: Right subclavian central line with the distal tip extending cranially within the right internal jugular vein. Recommend repositioning and reimaging. N.B. : ANDREAS TORRES MD, confirmed on 06/30/2023 02:13:16 (ET) that the healthcare facility has received the radiology report. Electronically Signed: Shay Mendoza MD at 2:00 EDT , Chest X-Ray 06/30/23 01:55 IMPRESSION: 1. Right jugular central line with tip at the cavoatrial junction. No pneumothorax or other complication. 2. Nodular density in the right mid lung field measuring 1.5 cm. A follow-up chest CT is recommended for further assessment. Electronically Signed: Shay Mendoza MD at 2:20 EDT ,
[2023-06-30] MEDS: Vancomycin HCl 1,500 MG in 0.9% Normal Saline (500mL Bag) 500 ML 250 MG IV (09:27)
[2023-06-30] MEDS: Pantoprazole Sodium 40 MG in 0.9% Normal Saline (100mL MB+) 100 ML 330 MG IV (10:30)
--- NOTE | 2023-06-30 10:59 | CASEMGMT ---
Patient is from [place]. DEAN called patient's son and left him a voice mail asking if patient's d/c plan is to return to [facility] at discharge. Marielle PARK
--- NOTE | 2023-06-30 11:00 | NURSING ---
Patient off unit for surgery, report given.
--- NOTE | 2023-06-30 11:03 | CASEMGMT ---
DEAN received a return call from patient's son David. David confirmed the plan is for patient to return to [place]. Plan: d/c back to [place]. Marielle PARK
--- NOTE | 2023-06-30 11:13 | CASEMGMT ---
Discharge Planning Updates sent to [facility] Asked if precert is needed. Awaiting response. Gretchen Armstrong, Discharge Planning Asst.
--- NOTE | 2023-06-30 11:35 | PCM.RX.CS ---
Consult Antibiotic Management Pharmacy has been consulted to manage selected antibiotic: Vancomycin Type of Intervention Type of Consult: New start Suspected Infection Suspected Infection: Other Prior Doses of Antibiotics Prior Doses of Antibiotics Received/Current Regimen: 06/30/23 @ 0927 vANCOMYCIN 1500MG X1 GIVEN Labs Labs: Sodium 143 mmol/L (136-145) 06/30/23 03:45 Potassium 3.0 mmol/L (3.5-5.1) L 06/30/23 03:45 Chloride 113 mmol/L (98-107) H 06/30/23 03:45 Carbon Dioxide 20.0 mmol/L (21.0-32.0) L 06/30/23 03:45 Anion Gap 10 (5-15) 06/30/23 03:45 BUN 13 mg/dL (7-18) 06/30/23 03:45 Creatinine 0.89 mg/dL (0.55-1.02) 06/30/23 03:45 Est GFR (MDRD) Af Amer 79 mL/min (>60) 06/30/23 03:45 Est GFR (MDRD) Non-Af 65 mL/min (>60) 06/30/23 03:45 BUN/Creatinine Ratio 14.6 RATIO (10-20) 06/30/23 03:45 Glucose 155 mg/dL (74-106) H 06/30/23 03:45 Microbiology Microbiology: Microbiology 06/29/23 22:03 Urine Catheter - Catheter Urine Culture - Preliminary Presumptive E. coli 06/29/23 20:30 Blood Culture (Wb) - Left Hand Blood Culture - Preliminary 06/29/23 20:43 Blood Culture (Wb) - Right Wrist Blood Culture - Preliminary 06/29/23 21:08 Mucosa - Nose SARS-CoV-2, Influenza & RSV (PCR) - Final Dosing Weight Weight used for dosin.4 kg Estimated Creatinine Clearance Estimated Creatinine Clearance: 46 Goal Trough Goal Trough: 15-20 mcg/mL Pharmacy Plan for Drug Dosing Pharmacy Plan for Drug Dosin06/30/23 @ 2130 Start Vancomycin 500mg every 12 hours Pharmacy Service will continue to monitor and adjust dosing as required. Follow-Up Labs Follow-Up Labs: Trough: Vancomycin Date/Time Labs Ordered Labs to be done on [date and time ordered]: 07/01/23 @ 2100
[2023-06-30] MEDS: Meropenem 1 GM in 0.9% Normal Saline (100mL MB+) 100 ML IV ×2 (11:45→22:05)
--- NOTE | 2023-06-30 12:15 | PCM.OPRPT ---
Report of Operation Date of Procedure: 06/30/23 Pre-Operative Diagnosis: Right renal obstruction with ureteral and renal stones, urosepsis with encephalopathy Post-Operative Diagnosis: Same Surgery/Procedure Performed:: Cystoscopy with right ureteral stent insertion Surgeon: Patti Moreira Type of Anesthesia: MAC Description of Procedure: The patient is an 82-year-old female with an obstructing renal system and urosepsis who presents for insertion of a right ureteral stent. Consent was obtained from her niece Kaleigh. The patient was taken to the operating room and placed on the operating room table. Anesthesia monitored the head, neck, airway, IV access and vital signs throughout the case. Once anesthesia was appropriately administered, the patient was placed into dorsolithotomy position was prepped and draped in usual sterile fashion. The cystoscope was inserted through the urethra under direct visualization into the urinary bladder. The right ureteral orifice was identified and intubated with a 0.035 Glidewire. A 6 [place] 20 cm JJ stent was inserted over the Glidewire with good positioning in the renal pelvis as well as the urinary bladder. The cystoscope was then removed and the Zapata catheter was reinserted to straight drain with 10 cc in the balloon. There were no complications during the procedure. A repeat urine culture was sent at the conclusion of the case. Grafts/Implants Used: 6 Fr x 20cm JJ stent Complications none Admit VTE Documentation VTE Present on Admission: Yes VTE Mechan Device Prophylaxis: SCD's VTE Pharm Prophylaxis ordered?: Yes
[2023-06-30] MEDS: Norepinephrine 8 MG in 0.9% Normal Saline (250mL Bag) 242 ML 37.5 MG CONT INF (13:36)
--- NOTE | 2023-06-30 14:00 | NURSING ---
Patient returned to unit
[2023-06-30] MEDS: Nystatin Powder 15gm Bottle 1 APPLIC TOPICAL ×2 (14:22→20:42)
[2023-06-30] MEDS: Vancomycin IV 500 MG/100 ML BAG 100 MG IV (20:30)
[2023-06-30] MEDS: Insulin Glargine-YFGN 100 UNIT/ML Pen 6 UNIT SC (20:36)
[2023-07-01] VITALS (48 sets, daily range): BP systolic 83–162; BP diastolic 43–83; PULSE 58–99; RESP 12–25; TEMP 36.4–36.9; O2SAT 95–98; BMI 25.6
--- NOTE | 2023-07-01 06:53 | PN.CC_ITS ---
Assessment & Plan Assessment/Plan (1) Septic shock: PLAN: Plan RECOMMENDATIONS: 1. Continue broad-spectrum antimicrobials as ordered, pending finalized culture results. 2. Continue Levophed to maintain a mean arterial pressure at or above 65 mmHg. 3. Aggressive electrolyte repletion. 4. Continue PPI therapy. 5. Encourage incentive spirometer use and mobilize patient as tolerated. IMPRESSIONS: 1. Gram-negative septic shock The patient presented with sepsis due to probable urinary tract source of infection with acute sepsis related organ dysfunction as evidenced by altered mental status, lactic acidemia and fluid nonresponsive hypotension, requiring vasopressor support. CT abdomen/pelvis demonstrated a stone in the distal right ureter with obstructive changes. Accordingly, the patient was evaluated by urology and underwent cystoscopy with ureteral stent insertion. Overall, the patient is improving from a clinical perspective. Continue antibiotics, pending finalized culture results along vasopressor support to maintain a mean arterial pressure at or above 65 mmHg. 2. Metabolic encephalopathy Improved. Most likely secondary to #1 coupled with underlying dementia. Continue current supportive measures. Avoid sedating medications. 3. Troponin elevation Most likely secondary to demand ischemia in the setting #1. Echocardiogram was unrevealing. 4. Hypokalemia/hypophosphatemia Ongoing electrolyte repletion as ordered. Recheck levels tomorrow morning. 5. History of diabetes mellitus/hypertension/history of urinary retention/depression/advanced age Complicates care, management, recovery and prognosis. Continue supportive measures as noted above. Physical therapy to work with the patient. TIME: 33 minutes of critical care time, independent of procedures, was spent addressing the patient's septic shock, metabolic encephalopathy, troponin elevation, review of all data and collaboration with the care team. Subjective Subjective The patient was seen and examined at the bedside this morning. Events from the last 24 hours have been reviewed. The patient is currently afebrile and requiring Levophed at 4 mcg/min to maintain hemodynamic stability. Oxygenation status is stable on room air. The patient underwent successful cystoscopy with right ureteral stent insertion yesterday. Objective Data Objective Data The patient's most recent lab work, culture data and imaging studies have all been personally reviewed. Urine culture was positive for presumptive E. coli. Blood cultures dated June 28 are positive for gram-negative rods. Vital Signs: Vital Signs Temp Pulse Resp BP Pulse Ox O2 Del Method 97.6 F L 79 21 H 103/54 L 97 Room Air 07/01/23 03:00 07/01/23 06:00 07/01/23 06:00 07/01/23 06:00 07/01/23 06:00 07/01/23 06:00 Oxygen Delivery Method Room Air Weight: 135 lb 9.349 oz Body Mass Index (BMI) 25.6 Intake & Output: Intake and Output for Last 24 Hours 06/29/23 06/30/23 07/01/23 23:59 23:59 23:59 Intake Total 1700 / 1700 4050.3933 / 4174.5933 410.42 / 410.42 Output Total 1500 / 1500 550 / 550 Balance 1700 / 1700 2550.3933 / 2674.5933 -139.58 / -139.58 Lab / Micro Data Attestation: I reviewed the patient's lab results. 07/01/23 06:10 07/01/23 06:10 Labs: Laboratory Results - last 24 hr 06/30/23 03:45: Immature Gran % (Auto) YARD GENERAL CAR SUPERVISOR, Neut % (Auto) YARD GENERAL CAR SUPERVISOR, Lymph % (Auto) YARD GENERAL CAR SUPERVISOR, [place] % (Auto) YARD GENERAL CAR SUPERVISOR, Eos % (Auto) YARD GENERAL CAR SUPERVISOR, Baso % (Auto) YARD GENERAL CAR SUPERVISOR, Absolute Neuts (auto) 70.2 H, Absolute Lymphs (auto) 0.00 L, Total Counted 100, Neutrophils % (Manual) 86 H , Band Neutrophils % 11 H, Monocytes % (Manual) 3, Diff Path Review June, Platelet Estimate ADEQUATE, RBC Morphology NORM C+C 06/30/23 06:20: PT 26.7 H, INR 2.5 06/30/23 06:50: Lactic Acid 2.7 H* Micro: Microbiology 06/29/23 20:43 Blood Culture (Wb) - Right Wrist Blood Culture - Preliminary 06/29/23 22:03 Urine Catheter - Catheter Urine Culture - Preliminary Presumptive E. coli 06/29/23 20:30 Blood Culture (Wb) - Left Hand Blood Culture - Preliminary 06/29/23 21:08 Mucosa - Nose SARS-CoV-2, Influenza & RSV (PCR) - Final Radiography Diagnostic Testing: Radiology Impression Echocardiogram 06/29/23 23:45 Interpretation Summary The estimated ejection fraction is 65 %. The left atrium is mildly enlarged. Mild-Moderate (1-2+) mitral valve insufficiency. Mild (1+) tricuspid valve insufficiency. Mild focal aortic valve calcification. The study was technically difficult. Contrast injection was performed. Ordering Physician: Joo Chan Referring Physician: Scooter Siu Performed By: Jose Saeed RCS Rhythm Strip Rhythm Strip: Sinus Rhythm Rate: 100 Ectopy: PVC(s) Physical Exam Const alert and no apparent distress Constitutional Narrative: Chronically ill-appearing. HEENT normocephalic and head/scalp atraumatic Eyes PERRL, EOMs intact bilaterally and conjunctivae normal Neck supple General: trachea midline Chest inspection of chest normal Resp normal respiratory effort Auscultation: diminished lung sounds Cardio regular rate and regular rhythm GI normal to inspection, nondistended, normoactive bowel sounds Extremity General Extremity: Negative for clubbing or edema Neuro CN's II-XII intact bilaterally and moves all extremities Psych Mood & Affect: flat affect Charges/Coding Procedures Hospitalists Procedures: [id number] Critical Care 1st Hr
[2023-07-01 07:03] LABS: Absolute Lymphocyte Count 1.34 X10^3/uL (0.83-4.51); Absolute Neutrophil Count 40.7 X10^3/uL (2.0-7.7); Basophil# 0.17 X10^3/uL; Basophil% 0.3 % (0-1); Eosinophil# 4.93 X10^3/uL; Eosinophils% 9.8 % (0-5); Hematocrit 33.3 % (37-47); Hemoglobin 11.1 g/dL (12.0-15.0); Lymphocyte # 1.34 X10^3/ul (0.83-4.51); Lymphocyte % 2.7 % (19-41); Mean Corp Hgb Conc 33.3 g/dL (32-36); Mean Corpuscular Volume 86.9 fL (81-99); Mean Platelet Vol. 13.3 fl (6.2-12.0); Monocyte# 1.26 X10^3/uL; Monocyte% 2.5 % (0-10); NRBC Flagged by Analyzer 0 % (0-5); Neutrophil # 40.69 X10^3/uL (2.7-7.7); Neutrophil % 81.3 % (47-70); POSITIVE COUNT YES; POSITIVE DIFFERENTIAL YES; POSITIVE MORPHOLOGY YES; Platelet Count 91 K/mm3 (150-450); RBC Distribution Width CV 16.1 % (11.6-14.6); Red Blood Count 3.83 M/mm3 (4.2-5.4)
[2023-07-01 07:12] LABS: ALB/GLOB Ratio 0.8 RATIO (0.9-2.4); AST(SGOT) 25 U/L (15-37); Alanine Aminotransfer ALT/SGPT 15 U/L (13-56); Albumin, Serum 2.4 g/dL (3.2-5.0); Alkaline Phosphatase 107 U/L (45-117); Anion Gap 4 (5-15); BUN 11 mg/dL (7-18); Calcium,Total 7.6 mg/dL (8.5-10.1); Chloride 119 mmol/L (98-107); Creatinine, Serum 0.61 mg/dL (0.55-1.02); EST Glomerular Filtration Rate 100 mL/min (>60); Est Glom Filt Rate - Afr Amer 121 mL/min (>60); Estimated Creatinine Clearance 47.18 ml/min; Globulin 3.2 g/dL (2.2-4.2); Glucose 189 mg/dL (74-106); Magnesium 2.2 mg/dL (1.6-2.6); Potassium 3.2 mmol/L (3.5-5.1); Protein, Total 5.6 g/dL (6.4-8.2); Sodium Level 146 mmol/L (136-145)
[2023-07-01 07:24] LABS: Differential Indicated SCAN CRITERIA MET; White Blood Count 50.1 K/mm3 (4.4-11.0)
--- NOTE | 2023-07-01 08:05 | PN.HOSP_ITS ---
Reason for Visit Reason for Visit: Diagnoses Metabolic encephalopathy (06/29/23) Other forms of acute ischemic heart disease (06/29/23) Calculus of kidney (06/29/23) Calculus of ureter (06/29/23) Presence of other specified devices (06/29/23) Objective Data Objective Data Vital Signs: Vital Signs Temp Pulse Resp BP Pulse Ox O2 Del Method 97.6 F L 61 16 99/51 L 97 Room Air 07/01/23 03:00 07/01/23 07:00 07/01/23 07:00 07/01/23 07:00 07/01/23 07:00 07/01/23 07:00 Oxygen Delivery Method Room Air Weight: 135 lb 9.349 oz Body Mass Index (BMI) 25.6 Intake & Output: Intake and Output for Last 24 Hours 06/29/23 06/30/23 07/01/23 23:59 23:59 23:59 Intake Total 1700 / 1700 4050.3933 / 4174.5933 417.92 / 417.92 Output Total 1500 / 1500 550 / 550 Balance 1700 / 1700 2550.3933 / 2674.5933 -132.08 / -132.08 Lab / Micro Data 07/01/23 06:10 07/01/23 06:10 Labs: Laboratory Results - last 24 hr 07/01/23 06:10: WBC 50.1 H*, RBC 3.83 L, Hgb 11.1 L, Hct 33.3 L, MCV 86.9, MCH 29.0, MCHC 33.3, RDW Std Deviation 51.0 H, RDW Coeff of Ricardo 16.1 H, Plt Count 91 L, MPV 13.3 H, Immature Gran % (Auto) 3.400 H, Neut % (Auto) 81.3 H, Lymph % (Auto) 2.7 L, Elmore % (Auto) 2.5, Eos % (Auto) 9.8 H, Baso % (Auto) 0.3, Absolute Neuts (auto) 40.7 H, Absolute Lymphs (auto) 1.34, Nucleated RBC % 0, Differential Comment COMMENT, Diff Path Review May foll, Sodium 146 H, Potassium 3.2 L, Chloride 119 H, Carbon Dioxide 23.0, Anion Gap 4 L, BUN 11, Creatinine 0.61, Estim Creat Clear Calc 47.18, Est GFR (MDRD) Af Amer 121, Est GFR (MDRD) Non-Af 100, BUN/Creatinine Ratio 18.0, Glucose 189 H, C alcium 7.6 L, Phosphorus 2.0 L, Magnesium 2.2, Total Bilirubin 1.10 H, AST 25, ALT 15, Alkaline Phosphatase 107, Total Protein 5.6 L, Albumin 2.4 L, Globulin 3.2, Albumin/Globulin Ratio 0.8 L Micro: Microbiology 06/29/23 20:30 Blood Culture (Wb) - Left Hand Blood Culture - Preliminary GNR lactose retail chain store area supervisor 06/29/23 20:43 Blood Culture (Wb) - Right Wrist Blood Culture - Preliminary GNR lactose retail chain store area supervisor 06/29/23 22:03 Urine Catheter - Catheter Urine Culture - Preliminary ESBL Escherichia coli 06/29/23 21:08 Mucosa - Nose SARS-CoV-2, Influenza & RSV (PCR) - Final Radiography Diagnostic Testing: Radiology Impression Echocardiogram 06/29/23 23:45 Interpretation Summary The estimated ejection fraction is 65 %. The left atrium is mildly enlarged. Mild-Moderate (1-2+) mitral valve insufficiency. Mild (1+) tricuspid valve insufficiency. Mild focal aortic valve calcification. The study was technically difficult. Contrast injection was performed. Ordering Physician: Joo Chan Referring Physician: Scooter Siu Performed By: Jose Saeed RCS Rhythm Strip Rhythm Strip: Sinus Rhythm Rate: 100 Ectopy: PVC(s) Physical Exam Narrative Seen and examined. Eating breakfast. Patient looks more sober than yesterday. Still does not communicate normally Physical exam: General: Awake, looks better than yesterday. HEENT: Atraumatic, PERRLA, EOMI, Normocephalic Oral: Oral mucosa moist. No Gingival or Mucosal Lesions/ Ulcerations Neck: Supple, No JVD, Negative Carotid Bruits Chest wall/Lungs: Air entry diminished in bilateral lung bases. No crepitation/rhonchi. On room air Cardiovascular: Regular rate, Regular Rhythm, Normal S1, Normal S2, No M/G/R Abdomen: Bowel Sounds Present, Soft, Non Tender, Non-Distended : Zapata catheter clear urine. No renal angle tenderness. No suprapubic tenderness. Extremities: No edema, Capillary Refill Less than 3 Seconds Skin: Wound right lower extremity, left heel, right great toe and buttocks. greenish-yellow crust over lower legs. Musculoskeletal: Chronic weakness. Does not follow commands to fully examine ROM. Neurological: Cranial nerves II-XII grossly intact, DTR 2+/4. No acute focal neurological deficit. Psych/Mental Status: flat affect. Assessment & Plan Assessment/Plan (1) Septic shock: (2) Acute UTI: (3) Chronic indwelling Zapata catheter: (4) Calculus of ureterovesical junction (UVJ): (5) Acute hypokalemia: (6) Septic encephalopathy: (7) Subendocardial ischemia: PLAN: Plan This is a 82-year-old female admitted with altered mental status and hypotension from residential. She was found to be confused more than his baseline with history of dementia. BP was 74 systolic on the evening prior to admission. 1. Sepsis with septic shock; CAUTI, complicated UTI from chronic indwelling Zapata catheter and obstructing 4 mm Right UVJ stone: Patient is admitted in ICU. On vasopressor drip through right IJ. Chest x-ray initially reviewed and shows tip of right IJ in the right atrium. Previously x-ray showed right subclavian line going cranially to right IJ which has since been corrected. 06/29: UA positive of nitrite, LE, WBC 50?100 cells, microscopic hematuria 10-25 cells 2+ bacteria. The patient presented with septic shock with clinical indicators Altered mental status, tachycardia, tachypnea, hypotension, leukocytosis, acute encephalopathy of due to obstructive CAUTI with acute sepsis-related organ dysfunction as evidenced by hypotension requiring vasopressor, lactic acidosis, coagulopathy INR 2.0. Patient is admitted to ICU.Patient on IV meropenem and vancomycin. Patient has anaphylaxis allergic history to penicillin. Data Reporting Analyst consulted. Urologist consulted. CT scan individually reviewed shows 4 mm stone in the distal right ureter just proximal to the UVJ, causing mild obstructive changes and multiple nonobstructing stones in the right intrarenal collecting system and right renal pelvis measuring up to 8 mm. 06/30: Patient is still on Levophed drip. Patient has critically high WBC count 32,000, 72,010 today 50,000. Immature granulocyte 3.4% consistent with left shift mainly neutrophils, lymphopenia with bandemia 11% 2. Acute encephalopathy mainly due to sepsis/infection and metabolic encephalopathy on baseline chronic dementia - Continue supportive care outlined above and monitor for improvement. 06/30: Patient is still not very verbal or communicative. Does not seem very irritable 3. Critical hypokalemia of 2.2 mmol/L present on admission, hypophosphatemia, and hypomagnesemia: On IV potassium phosphate and magnesium sulfate replacement. 06/30: Hypokalemia. Hyponatremia. 4. Highly elevated troponin of 677 pg/mL present on admission likely due to demand ischemia type II HI/acute myocardial necrosis: Patient has any creed cardiac demand resulting into ischemia from septic shock. Patient was given aspirin, atorvastatin and full-dose Lovenox. Troponins on decreasing trend check echocardiogram to evaluate LVEF. 5. Severe hypoalbuminemia of 1.8 g/dL present on admission suggestive of chronic moderate protein calorie malnutrition: BMI 25.6 kg/m? but patient is severely debilitated with multiple conditions as mentioned in assessment and plan. 6. Essential hypertension - Hold scheduled antihypertensives, currently patient on pressors 7. DM-2; of unknown control - Keep NPO for now. Fingerstick blood sugars every 6 hours plus lowest intensity sliding scale insulin. Check hemoglobin A1c to objectively evaluate quality of diabetic control. 8. History of diabetic foot ulcers - Noted. 9. History of stage III decubitus ulcer of buttock - Noted. 10. History of osteomyelitis of the toe - Noted. 11. History of Right lower extremity cellulitis - Noted. 12. History of bilateral lower extremity lymphedema - Stable. 13. History of tobacco abuse; with subsequent COPD - Stable with no evidence of acute flare at this time. Continue as needed nebulizers. 14. History of urinary retention; with chronic indwelling Zapata catheter - Noted and linked to infection outlined in #1. 15. History of medical noncompliance - Noted. 16. Spondylosis of lumbar spine and osteoarthritis - Give Tylenol as needed. 17. Depression - Continue home regimen when patient is able to tolerate it. 18. DVT prophylaxis -on therapeutic dose of Lovenox Charges/Coding Visit Charges Inpatient E&M: 33054 Subs Hosp L3
[2023-07-01] MEDS: Aspirin 325 MG Tablet PO (08:14)
[2023-07-01] MEDS: Lactobacillis Acidophilus 2 CAP PO ×2 (08:14→20:38)
[2023-07-01] MEDS: Potassium Chloride Oral Soln 20 MEQ/15 ML UDC 40 MEQ PO (08:14)
[2023-07-01] MEDS: Enoxaparin 60 MG/0.6 ML Syringe SC ×2 (08:14→20:39)
[2023-07-01] MEDS: Nystatin Powder 15gm Bottle 1 APPLIC TOPICAL ×2 (08:15→20:39)
[2023-07-01] MEDS: Clopidogrel Bisulfate 75 MG Tablet PO (08:15)
[2023-07-01] MEDS: Potassium Chloride 20mEq/100mL 20 MEQ/100 ML IV.SOLN. 100 MEQ IV BOLUS ×2 (08:41→09:39)
[2023-07-01 09:07] LABS: Vancomycin, Trough Level 16.7 ug/mL (5.0-15.0)
[2023-07-01 09:14] LABS: Pathologist Review Reviewed
[2023-07-01 09:15] LABS: Pathologist Review Reviewed
[2023-07-01] MEDS: Potassium Phosphate 21 MM in 0.9% Normal Saline (250mL Bag) 250 ML 84 MM IV (09:39)
[2023-07-01] MEDS: Pantoprazole Sodium 40 MG in 0.9% Normal Saline (100mL MB+) 100 ML 330 MG IV (10:40)
[2023-07-01] MEDS: Meropenem 1 GM in 0.9% Normal Saline (100mL MB+) 100 ML IV ×2 (11:06→20:39)
[2023-07-01 13:24] LABS: Pathologist Review Reviewed
[2023-07-01] MEDS: Norepinephrine 8 MG in 0.9% Normal Saline (250mL Bag) 242 ML 11.3 MG CONT INF (14:35)
[2023-07-01] MEDS: Atorvastatin Calcium 20 MG Tablet PO (20:39)
[2023-07-01] MEDS: Insulin Glargine-YFGN 100 UNIT/ML Pen 6 UNIT SC (20:39)
[2023-07-01 21:03] LABS: Bedside Glucose 246 mg/dL (74-106)
[2023-07-02] VITALS (60 sets, daily range): BP systolic 74–151; BP diastolic 40–117; PULSE 65–107; RESP 16–24; TEMP 36.5–36.8; O2SAT 93–97; BMI 26.2
[2023-07-02 05:36] LABS: Absolute Lymphocyte Count 2.49 X10^3/uL (0.83-4.51); Basophil% 0.3 % (0-1); Eosinophil# 0.05 X10^3/uL; Eosinophils% 0.1 % (0-5); Hematocrit 36.1 % (37-47); Hemoglobin 11.8 g/dL (12.0-15.0); Lymphocyte # 2.49 X10^3/ul (0.83-4.51); Mean Corp Hgb Conc 32.7 g/dL (32-36); Mean Corpuscular Hgb 28.6 pg (27.0-32.0); Mean Corpuscular Volume 87.6 fL (81-99); Mean Platelet Vol. 12.8 fl (6.2-12.0); Monocyte# 1.36 X10^3/uL; Monocyte% 3.8 % (0-10); NRBC Flagged by Analyzer 0 % (0-5); Neutrophil # 30.98 X10^3/uL (2.7-7.7); POSITIVE COUNT YES; POSITIVE DIFFERENTIAL YES; Platelet Count 88 K/mm3 (150-450); RBC Distribution Width CV 16.3 % (11.6-14.6); RBC Distribution Width SD 52.3 fl (35.1-43.9); Red Blood Count 4.12 M/mm3 (4.2-5.4)
[2023-07-02 06:06] LABS: Anion Gap 4 (5-15); BUN 10 mg/dL (7-18); BUN/Creat Ratio 21.2 RATIO (10-20); Calcium,Total 7.9 mg/dL (8.5-10.1); Chloride 120 mmol/L (98-107); Creatinine, Serum 0.47 mg/dL (0.55-1.02); EST Glomerular Filtration Rate 135 mL/min (>60); Est Glom Filt Rate - Afr Amer 163 mL/min (>60); Estimated Creatinine Clearance 47.71 ml/min; Glucose 108 mg/dL (74-106); Potassium 3.7 mmol/L (3.5-5.1); Sodium Level 146 mmol/L (136-145)
--- NOTE | 2023-07-02 06:09 | PCM.PN.INT ---
Assessment & Plan Assessment/Plan (1) Septic shock: PLAN: Plan RECOMMENDATIONS: 1. Continue antimicrobials to address ESBL E. coli. 2. Continue Levophed to maintain a mean arterial pressure at or above 65 mmHg. Start scheduled midodrine today. 3. Continue PPI therapy. 4. Encourage incentive spirometer use and mobilize patient as tolerated. IMPRESSIONS: 1. Gram-negative septic shock The patient presented with sepsis due to ESBL E. coli urinary tract source of infection with acute sepsis related organ dysfunction as evidenced by altered mental status, lactic acidemia and fluid nonresponsive hypotension, requiring vasopressor support. CT abdomen/pelvis demonstrated a stone in the distal right ureter with obstructive changes. Accordingly, the patient was evaluated by urology and underwent cystoscopy with ureteral stent insertion. Overall, the patient is improving from a clinical perspective. Continue current antimicrobials along with vasopressor support to maintain mean arterial pressure at or above 65 mmHg. Scheduled midodrine will be initiated today. 2. Metabolic encephalopathy Improved. Most likely secondary to #1 coupled with underlying dementia. Continue current supportive measures. Avoid sedating medications. 3. Troponin elevation Most likely secondary to demand ischemia in the setting #1. Echocardiogram was unrevealing. 4. History of diabetes mellitus/hypertension/history of urinary retention/depression/advanced age Complicates care, management, recovery and prognosis. Continue supportive measures as noted above. Physical therapy to work with the patient. TIME: 32 minutes of critical care time, independent of procedures, was spent addressing the patient's septic shock, metabolic encephalopathy, troponin elevation, review of all data and collaboration with the care team. Subjective Subjective The patient was seen and examined at the bedside this morning. Events from the last 24 hours have been reviewed. The patient remains on low-dose Levophed at 3 mcg/min to maintain hemodynamic stability. She is otherwise clinically stable without any overnight events noted by the nursing staff. White count has improved this morning to 35,000. Platelet count remains low at 88,000. Objective Data Objective Data The patient's most recent lab work, culture data and imaging studies have all been personally reviewed. Urine culture was positive for presumptive E. coli. Blood cultures dated June 28 are positive for gram-negative rods. Vital Signs: Vital Signs Temp Pulse Resp BP Pulse Ox O2 Del Method 97.7 F L 101 H 19 H 97/63 96 Room Air 07/02/23 00:00 07/02/23 06:00 07/02/23 06:00 07/02/23 06:00 07/02/23 06:00 07/02/23 06:00 Oxygen Delivery Method Room Air Weight: 138 lb 14.259 oz Body Mass Index (BMI) 26.2 Intake & Output: Intake and Output for Last 24 Hours 06/30/23 07/01/23 07/02/23 23:59 23:59 23:59 Intake Total 4050.3933 / 4174.5933 1594.95 / 1604.35 158.53 / 158.53 Output Total 1500 / 1500 1400 / 1400 300 / 300 Balance 2550.3933 / 2674.5933 194.95 / 204.35 -141.47 / -141.47 Lab / Micro Data Attestation: I reviewed the patient's lab results. 07/02/23 05:25 07/02/23 05:25 Labs: Laboratory Results - last 24 hr 06/29/23 20:43: Diff Path Review Reviewed 06/30/23 03:45: Diff Path Review Reviewed 07/01/23 06:10: WBC 50.1 H*, RBC 3.83 L, Hgb 11.1 L, Hct 33.3 L, MCV 86.9, MCH 29.0, MCHC 33.3, RDW Std Deviation 51.0 H, RDW Coeff of Ricardo 16.1 H, Plt Count 91 L, MPV 13.3 H, Immature Gran % (Auto) 3.400 H, Neut % (Auto) 81.3 H, Lymph % (Auto) 2.7 L, Haakon % (Auto) 2.5, Eos % (Auto) 9.8 H, Baso % (Auto) 0.3, Absolute Neuts (auto) 40.7 H, Absolute Lymphs (auto) 1.34, Nucleated RBC % 0, Differential Comment COMMENT, Diff Path Review Reviewed, Sodium 146 H, Potassium 3.2 L, Chloride 119 H, Carbon Dioxide 23.0, Anion Gap 4 L, BUN 11, Creatinine 0.61, Estim Creat Clear Calc 47.18, Est GFR (MDRD) Af Amer 121, Est GFR (MDRD) Non-Af 100, BUN/Creatinine Ratio 18.0, Glucose 189 H, Calcium 7.6 L, Phosphorus 2.0 L, Magnesium 2.2, Total Bilirubin 1.10 H, AST 25, ALT 15, Alkaline Phosphatase 107, Total Protein 5.6 L, Albumin 2.4 L, Globulin 3.2, Albumin/Globulin Ratio 0.8 L 07/01/23 08:35: Vancomycin Trough 16.7 H 07/01/23 20:37: POC Glucose 246 H 07/02/23 05:25: Sodium 146 H, Potassium 3.7, Chloride 120 H, Carbon Dioxide 22.0, Anion Gap 4 L, BUN 10, Creatinine 0.47 L, Estim Creat Clear Calc 47.71, Est GFR (MDRD) Af Amer 163, Est GFR (MDRD) Non-Af 135, BUN/Creatinine Ratio 21.2 H, Glucose 108 H, Calcium 7.9 L Micro: Microbiology 06/30/23 13:00 Urine Catheter - Zapata Urine Culture - Preliminary Gram negative vikash 06/29/23 20:30 Blood Culture (Wb) - Left Hand Blood Culture - Preliminary GNR lactose postdoctoral research associate 06/29/23 20:43 Blood Culture (Wb) - Right Wrist Blood Culture - Preliminary GNR lactose postdoctoral research associate 06/29/23 22:03 Urine Catheter - Catheter Urine Culture - Preliminary ESBL Escherichia coli 06/29/23 21:08 Mucosa - Nose SARS-CoV-2, Influenza & RSV (PCR) - Final Radiography Diagnostic Testing: Radiology Impression Echocardiogram 06/29/23 23:45 Interpretation Summary The estimated ejection fraction is 65 %. The left atrium is mildly enlarged. Mild-Moderate (1-2+) mitral valve insufficiency. Mild (1+) tricuspid valve insufficiency. Mild focal aortic valve calcification. The study was technically difficult. Contrast injection was performed. Ordering Physician: Joo Chan Referring Physician: Scooter Siu Performed By: Jose Saeed RCS Rhythm Strip Rhythm Strip: Sinus Rhythm Rate: 100 Ectopy: PVC(s) Physical Exam Const alert and no apparent distress Constitutional Narrative: Chronically ill-appearing. HEENT normocephalic and head/scalp atraumatic Eyes PERRL, EOMs intact bilaterally and conjunctivae normal Neck supple General: trachea midline Chest inspection of chest normal Resp normal respiratory effort Auscultation: diminished lung sounds Cardio regular rate and regular rhythm GI normal to inspection, nondistended, normoactive bowel sounds Extremity General Extremity: Negative for clubbing or edema Neuro CN's II-XII intact bilaterally and moves all extremities Psych Mood & Affect: flat affect Charges/Coding Procedures Hospitalists Procedures: [id number] Critical Care 1st Hr
[2023-07-02 06:36] LABS: Differential Indicated SCAN CRITERIA MET; White Blood Count 35.6 K/mm3 (4.4-11.0)
[2023-07-02 06:54] LABS: Differential Comment SCANNED
[2023-07-02] MEDS: Clopidogrel Bisulfate 75 MG Tablet PO (07:33)
[2023-07-02] MEDS: Aspirin 325 MG Tablet PO (07:33)
[2023-07-02] MEDS: Lactobacillis Acidophilus 2 CAP PO ×2 (07:33→21:26)
[2023-07-02] MEDS: Midodrine HCl 5 MG Tablet 10 MG PO ×3 (07:33→16:40)
[2023-07-02] MEDS: Potassium Chloride Oral Soln 20 MEQ/15 ML UDC 40 MEQ PO (07:33)
[2023-07-02] MEDS: Enoxaparin 60 MG/0.6 ML Syringe SC ×2 (07:33→21:25)
[2023-07-02] MEDS: Nystatin Powder 15gm Bottle 1 APPLIC TOPICAL ×2 (07:34→21:24)
--- NOTE | 2023-07-02 09:13 | PN.HOSP_ITS ---
Reason for Visit Reason for Visit: Diagnoses Sepsis, unspecified organism (06/29/23) Hypokalemia (06/29/23) Metabolic encephalopathy (06/29/23) Other forms of acute ischemic heart disease (06/29/23) Calculus of kidney (06/29/23) Calculus of ureter (06/29/23) Urinary tract infection, site not specified (06/29/23) Severe sepsis with septic shock (06/29/23) Presence of other specified devices (06/29/23) Objective Data Objective Data Vital Signs: Vital Signs Temp Pulse Resp BP Pulse Ox O2 Del Method 97.7 F L 102 H 21 H 105/63 97 Room Air 07/02/23 00:00 07/02/23 09:00 07/02/23 09:00 07/02/23 09:00 07/02/23 09:00 07/02/23 09:00 Oxygen Delivery Method Room Air Weight: 138 lb 14.259 oz Body Mass Index (BMI) 26.2 Intake & Output: Intake and Output for Last 24 Hours 06/30/23 07/01/23 07/02/23 23:59 23:59 23:59 Intake Total 4050.3933 / 4174.5933 1594.95 / 1604.35 174.43 / 174.43 Output Total 1500 / 1500 1400 / 1400 300 / 300 Balance 2550.3933 / 2674.5933 194.95 / 204.35 -125.57 / -125.57 Lab / Micro Data 07/02/23 05:25 07/02/23 05:25 Labs: Laboratory Results - last 24 hr 06/29/23 20:43: Diff Path Review Reviewed 06/30/23 03:45: Diff Path Review Reviewed 07/01/23 06:10: Diff Path Review Reviewed 07/01/23 20:37: POC Glucose 246 H 07/02/23 05:25: WBC 35.6 H*, RBC 4.12 L, Hgb 11.8 L, Hct 36.1 L, MCV 87.6, MCH 28.6, MCHC 32.7, RDW Std Deviation 52.3 H, RDW Coeff of Ricardo 16.3 H, Plt Count 88 L, MPV 12.8 H, Immature Gran % (Auto) 1.800 H, Neut % (Auto) 87.0 H, Lymph % (Auto) 7.0 L, Weak[place] % (Auto) 3.8, Eos % (Auto) 0.1, Baso % (Auto) 0.3, Absolute Neuts (auto) 31.0 H, Absolute Lymphs (auto) 2.49, Nucleated RBC % 0, Differential Comment SCANNED, Diff Path Review June, Sodium 146 H, Potassium 3.7, Chloride 120 H, Carbon Dioxide 22.0, Anion Gap 4 L, BUN 10, Creatinine 0.47 L, Estim Creat Clear Calc 47.71, Est GFR (MDRD) Af Amer 163, Est GFR (MDRD) Non- Af 135, BUN/Creatinine Ratio 21.2 H, Glucose 108 H, Calcium 7.9 L Micro: Microbiology 06/29/23 20:30 Blood Culture (Wb) - Left Hand Blood Culture - Final GNR lactose practical nurse clinical coordinator 06/29/23 20:43 Blood Culture (Wb) - Right Wrist Blood Culture - Final Escherichia coli 06/30/23 13:00 Urine Catheter - Zapata Urine Culture - Final Escherichia coli 06/29/23 22:03 Urine Catheter - Catheter Urine Culture - Final ESBL Escherichia coli 06/29/23 21:08 Mucosa - Nose SARS-CoV-2, Influenza & RSV (PCR) - Final Rhythm Strip Rhythm Strip: Sinus Rhythm Rate: 100 Ectopy: PVC(s) Physical Exam Narrative Seen and examined. Patient is a long term she was not walking or moving much. She is more communicative today. Still on Levophed drip. Physical exam: General: Awake, alert and oriented HEENT: Atraumatic, PERRLA, EOMI, Normocephalic Oral: Oral mucosa moist. No Gingival or Mucosal Lesions/ Ulcerations Neck: Right neck TLC. Neck is bent on the right side. Supple, No JVD, Negative Carotid Bruits Chest wall/Lungs: Air entry diminished in bilateral lung bases. No crepitation/rhonchi. On room air Cardiovascular: Regular rate, Regular Rhythm, Normal S1, Normal S2, No M/G/R Abdomen: Bowel Sounds Present, Soft, Non Tender, Non-Distended : Zapata catheter clear urine. No renal angle tenderness. No suprapubic tenderness. Extremities: No edema, Capillary Refill Less than 3 Seconds Skin: Wound right lower extremity, left heel, right great toe and buttocks. Chronic thickening of his skin greenish-yellow crust over lower legs. Musculoskeletal: Chronic weakness. Both lower extremity knees and hip joints are very stiff with the skin thickening Neurological: Cranial nerves II-XII grossly intact, DTR 2+/4. No acute focal neurological deficit. Psych/Mental Status: flat affect. Assessment & Plan Assessment/Plan (1) Septic shock: (2) Acute UTI: (3) Chronic indwelling Zapata catheter: (4) Calculus of ureterovesical junction (UVJ): (5) Acute hypokalemia: (6) Septic encephalopathy: (7) Subendocardial ischemia: PLAN: Plan This is a 82-year-old female admitted with altered mental status and hypotension from long term. She was found to be confused more than his baseline with history of dementia. BP was 74 systolic on the evening prior to admission. 1. Sepsis with septic shock; she needs CAUTI ESBL E. coli with bacteremia, complicated UTI from chronic indwelling Zapata catheter and obstructing 4 mm Right UVJ stone: Patient is admitted in ICU. On vasopressor drip through right IJ. Chest x-ray initially reviewed and shows tip of right IJ in the right atrium. Previously x-ray showed right subclavian line going cranially to right IJ which has since been corrected. 06/29: UA positive of nitrite, LE, WBC 50?100 cells, microscopic hematuria 10-25 cells 2+ bacteria. The patient presented with septic shock with clinical indicators Altered mental status, tachycardia, tachypnea, hypotension, leukocytosis, acute encephalopathy of due to obstructive CAUTI with acute sepsis-related organ dysfunction as evidenced by hypotension requiring vasopressor, lactic acidosis, coagulopathy INR 2.0. Patient is admitted to ICU.Patient on IV meropenem and vancomycin. Patient has anaphylaxis allergic history to penicillin. Building Construction Teacher consulted. Urologist consulted. CT scan individually reviewed shows 4 mm stone in the distal right ureter just proximal to the UVJ, causing mild obstructive changes and multiple nonobstructing stones in the right intrarenal collecting system and right renal pelvis measuring up to 8 mm. 06/30: Patient is still on Levophed drip. Patient has critically high WBC count 32,000, 72,010 today 50,000. Immature granulocyte 3.4% consistent with left shift mainly neutrophils, lymphopenia with bandemia 11% 07/01: Patient is still on Levophed drip. Started on midodrine. Urine culture from 06/28 shows ESBL E. coli [id number] colonies. Blood culture from 06/28 also positive of E. coli, ESBL negative. Later on urine culture from 07/01 shows E. coli more than 1000 colonies, ESBL negative. With inconsistent reporting of urine culture and blood culture, ID is consulted for further opinion. L eukocytosis improving. Started on 2. Acute encephalopathy mainly due to sepsis/infection and metabolic encephalopathy on baseline chronic dementia - Continue supportive care outlined above and monitor for improvement. 06/30: Patient is still not very verbal or communicative. Does not seem very irritable 07/01: Patient is more verbal and communicative. She states he did not walk for long time. On wheelchair in long term. 3. Critical hypokalemia of 2.2 mmol/L present on admission, hypophosphatemia, and hypomagnesemia: On IV potassium phosphate and magnesium sulfate replacement. 06/30: Hypokalemia. Hyponatremia. 07/01: Sodium 146 normal. And potassium 4. Highly elevated troponin of 677 pg/mL present on admission likely due to demand ischemia/acute myocardial necrosis: Patient has any creed cardiac demand resulting into ischemia from septic shock. Patient was given aspirin, atorvastatin and full-dose Lovenox. Troponins on decreasing trend check echocardiogram to evaluate LVEF. 07/01: 2D echo was done: The estimated ejection fraction is 65 %. The left atrium is mildly enlarged. Mild-Moderate (1-2+) mitral valve insufficiency. Mild (1+) tricuspid valve insufficiency. Mild focal aortic valve calcification. The study was technically difficult. Contrast injection was performed. 5. Severe hypoalbuminemia of 1.8 g/dL present on admission suggestive of chronic moderate protein calorie malnutrition: BMI 25.6 kg/m? but patient is severely debilitated with multiple conditions as mentioned in assessment and plan. 6. Essential hypertension - Hold scheduled antihypertensives, currently patient on pressors 7. DM-2; of unknown control - Keep NPO for now. Fingerstick blood sugars every 6 hours plus lowest intensity sliding scale insulin. Check hemoglobin A1c to objectively evaluate quality of diabetic control. 8. History of diabetic foot ulcers - Noted. 9. History of stage III decubitus ulcer of buttock - Noted. 10. History of osteomyelitis of the toe - Noted. 11. History of Right lower extremity cellulitis - Noted. 12. History of bilateral lower extremity lymphedema - Stable. 13. History of tobacco abuse; with subsequent COPD - Stable with no evidence of acute flare at this time. Continue as needed nebulizers. 14. History of urinary retention; with chronic indwelling Zapata catheter - Noted and linked to infection outlined in #1. 15. History of medical noncompliance - Noted. 16. Spondylosis of lumbar spine and osteoarthritis - Give Tylenol as needed. 17. Depression - Continue home regimen when patient is able to tolerate it. 18. DVT prophylaxis -on therapeutic dose of Lovenox Clinical Impression(s) from Imaging Studies Brain CT 06/29/23 20:26 IMPRESSION: Negative head/brain CT without intravenous contrast. Electronically Signed: Shay Dee MD at 21:07 EDT , Chest X-Ray 06/29/23 20:50 IMPRESSION: There are no acute findings. Electronically Signed: Shay Dee MD at 21:14 EDT , Echocardiogram 06/29/23 23:45 Interpretation Summary The estimated ejection fraction is 65 %. The left atrium is mildly enlarged. Mild-Moderate (1-2+) mitral valve insufficiency. Mild (1+) tricuspid valve insufficiency. Mild focal aortic valve calcification. The study was technically difficult. Contrast injection was performed. Ordering Physician: Andreas Chan Referring Physician: Scooter Siu Performed By: Jose Saeed RCS Abdomen/Pelvis CT 06/30/23 00:00 IMPRESSION: 1. There is a 4 mm stone in the distal right ureter just proximal to the UVJ, causing mild obstructive changes. 2. Multiple nonobstructing stones in the right intrarenal collecting system and right renal pelvis measuring up to 8 mm. Electronically Signed: Shay Mendoza MD at 2:00 EDT Reading Location ID and State: [facility] / [place] Tel , Service support , Chest X-Ray 06/30/23 00:45 IMPRESSION: Right subclavian central line with the distal tip extending cranially within the right internal jugular vein. Recommend repositioning and reimaging. Electronically Signed: Shay Mendoza MD at 2:00 EDT Reading Location ID and State: [facility] / [place] Tel , Service support , ADDENDUM: 06/30/23 0220 IMPRESSION: Right subclavian central line with the distal tip extending cranially within the right internal jugular vein. Recommend repositioning and reimaging. N.B. : ANDREAS TORRES MD, confirmed on 06/30/2023 02:13:16 (ET) that the healthcare facility has received the radiology report. Electronically Signed: Shay Mendoza MD at 2:00 EDT Reading Location ID and State: [facility] / [place] Tel , Service support , Chest X-Ray 06/30/23 01:55 IMPRESSION: 1. Right jugular central line with tip at the cavoatrial junction. No pneumothorax or other complication. 2. Nodular density in the right mid lung field measuring 1.5 cm. A follow-up chest CT is recommended for further assessment. Electronically Signed: Shay Mendoza MD at 2:20 EDT Reading [facility] [employer] [facility] Tel , Service support , Charges/Coding Visit Charges Inpatient E&M: 93566 Subs Hosp L3
[2023-07-02] MEDS: Pantoprazole Sodium 40 MG in 0.9% Normal Saline (100mL MB+) 100 ML 330 MG IV (09:23)
--- NOTE | 2023-07-02 09:29 | CASEMGMT ---
Discharge Planning Updates sent to [facility] via [facility]. Gretchen Armstrong, Discharge Planning Asst.
[2023-07-02] MEDS: Meropenem 1 GM in 0.9% Normal Saline (100mL MB+) 100 ML IV ×2 (09:45→21:24)
--- NOTE | 2023-07-02 14:59 | PCM.CONS.GEN ---
Assessment & Plan Assessment/Plan (1) Septic shock: (2) Bacteremia due to Escherichia coli: PLAN: septic shock due to ESBL ecoli bacteremia from urinary source complicated by stone - remains on pressor. S/p OR 06/30/[address] Moreira for stent placement. Cont meropenem. Will follow, thank you HPI Consult Data Date of Consult: 07/02/23 HPI Narrative Reason for Consultation: bacteremia HPI Narrative: MAIKEL DANIEL, is a 82 F who presented with septic shock 06/29/23 from [facility] with new onset altered mental status. Admitted to icu, now on meropenem for ESBL infection. Taken to OR 06/30/[address] Moreira for R side stent placement for stone. Feeling ok today. No fever. Full ROS performed and neg except as noted above. [facility] Medical History Kidney stone on right side Insomnia Hypotension COPD (chronic obstructive pulmonary disease) Lymphedema Spondylosis of lumbar spine Failure to thrive Mood disorder Decubitus ulcer of buttock, stage 3 Wound cellulitis Depression Chronic indwelling Zapata catheter Hypertension Dementia Home Medications ?Medication ?Instructions ?Recorded ?Last Taken ?Type nystatin 100,000 unit/gram topical 1 applic topical BID fungal 12/11/18 12/11/18 History powder albuterol sulfate 90 mcg/actuation 90 mcg inhalation Q4H PRN PRN 06/17/20 Unknown History aerosol inhaler (ProAir HFA) Shortness Of Breath furosemide 40 mg tablet 40 mg PO BID constipation 06/17/20 Unknown History insulin glargine 100 unit/mL (3 10 unit subcut QHS T2DM 06/17/20 Unknown History mL) subcutaneous pen (Lantus Solostar U-100 Insulin) insulin lispro 100 unit/mL 1 - 100 unit subcut TID T2DM 06/17/20 Unknown History subcutaneous pen (Humalog KwikPen (U-100) Insulin) potassium chloride 40 mEq/15 mL 40 meq PO DAILY low potassium 06/17/20 Unknown History oral liquid polyethylene glycol 3350 17 17 g PO DAILY constipation #238 06/23/20 Unknown Rx gram/dose oral powder (Miralax) grams sennosides 8.6 mg-docusate sodium 1 tab-cap PO BID PRN constipation 06/23/20 Unknown Rx 50 mg tablet (Senna-S) #60 tabs Allergy/AdvReac Type Severity Reaction Status Date / Time acetaminophen (From Allergy Unknown unknown Verified 06/29/23 20:51 Darvocet-N) propoxyphene (From Allergy Unknown unknown Verified 06/29/23 20:51 Darvocet-N) amoxicillin Allergy Unknown Verified 12/11/18 11:58 mushroom Allergy NEEDS Verified 12/29/21 16:23 FOLLOW-UP Penicillins Allergy Anaphylaxis Verified 12/11/18 11:57 Social History Smoking Status: Unknown if ever smoked Physical Exam Const alert and no apparent distress General Appearance: cooperative Orientation / Consciousness: confused HEENT normocephalic and head/scalp atraumatic Eyes PERRL and EOMs intact bilaterally Neck supple and No nodes Resp normal air movement and clear to auscultation bilaterally Cardio regular rate and regular rhythm GI soft to palpation, non-tender and non-distended Extremity General Extremity: Negative for edema Skin no rashes or lesions noted Neuro CN's II-XII intact bilaterally Lab / Micro Data Attestation: I reviewed the patient's lab results. 07/02/23 05:25 07/02/23 05:25 Labs: Laboratory Results - last 24 hr 07/01/23 20:37: POC Glucose 246 H 07/02/23 05:25: WBC 35.6 H*, RBC 4.12 L, Hgb 11.8 L, Hct 36.1 L, MCV 87.6, MCH 28.6, MCHC 32.7, RDW Std Deviation 52.3 H, RDW Coeff of Ricardo 16.3 H, Plt Count 88 L, MPV 12.8 H, Immature Gran % (Auto) 1.800 H, Neut % (Auto) 87.0 H, Lymph % (Auto) 7.0 L, Mckenzie % (Auto) 3.8, Eos % (Auto) 0.1, Baso % (Auto) 0.3, Absolute Neuts (auto) 31.0 H, Absolute Lymphs (auto) 2.49, Nucleated RBC % 0, Differential Comment SCANNED, Diff Path Review June, Sodium 146 H, Potassium 3.7, Chloride 120 H, Carbon Dioxide 22.0, Anion Gap 4 L, BUN 10, Creatinine 0.47 L, Estim Creat Clear Calc 47.71, Est GFR (MDRD) Af Amer 163, Est GFR (MDRD) Non-Af 135, BUN/Creatinine Ratio 21.2 H, Glucose 108 H, Calcium 7.9 L Micro: Microbiology 06/29/23 20:30 Blood Culture (Wb) - Left Hand Blood Culture - Final GNR lactose credit assessment analyst 06/29/23 20:43 Blood Culture (Wb) - Right Wrist Blood Culture - Final Escherichia coli 06/30/23 13:00 Urine Catheter - Zapata Urine Culture - Final Escherichia coli 06/29/23 22:03 Urine Catheter - Catheter Urine Culture - Final ESBL Escherichia coli Rhythm Strip Rhythm Strip: Sinus Rhythm Rate: 100 Ectopy: PVC(s)
[2023-07-02] MEDS: Menthol/Lanolin/Calamine/Znox 113 GM Tube 1 APPLIC TOPICAL (21:24)
[2023-07-02] MEDS: Atorvastatin Calcium 20 MG Tablet PO (21:26)
[2023-07-02] MEDS: Insulin Glargine-YFGN 100 UNIT/ML Pen 6 UNIT SC (21:31)
--- NOTE | 2023-07-02 22:43 | CPS ---
[2215] Pt. refusing BiPAP. Pt.'s SpO2 was 96% at this time on room air. RN aware of pt.'s refusal to wear BiPAP.
[2023-07-03] VITALS (39 sets, daily range): BP systolic 88–144; BP diastolic 42–70; PULSE 47–102; RESP 16–24; TEMP 36–36.7; O2SAT 92–98; BMI 26.2
[2023-07-03 00:21] LABS: Bedside Glucose 157 mg/dL (74-106)
--- NOTE | 2023-07-03 07:35 | PCM.PN.HOSP ---
Reason for Visit Reason for Visit: Diagnoses Sepsis, unspecified organism (06/29/23) Unspecified Escherichia coli [E. coli] as the cause of diseases classified elsewhere (06/29/23) Hypokalemia (06/29/23) Metabolic encephalopathy (06/29/23) Other forms of acute ischemic heart disease (06/29/23) Calculus of kidney (06/29/23) Calculus of ureter (06/29/23) Urinary tract infection, site not specified (06/29/23) Severe sepsis with septic shock (06/29/23) Bacteremia (06/29/23) Presence of other specified devices (06/29/23) Objective Data Objective Data Vital Signs: Vital Signs Temp Pulse Resp BP Pulse Ox O2 Del Method 98.1 F 67 21 H 97/51 L 98 Room Air 07/03/23 00:00 07/03/23 07:00 07/03/23 07:00 07/03/23 07:00 07/03/23 07:00 07/03/23 07:00 Oxygen Delivery Method Room Air Weight: 138 lb 10.732 oz Body Mass Index (BMI) 26.2 Intake & Output: Intake and Output for Last 24 Hours 07/01/23 07/02/23 07/03/23 23:59 23:59 23:59 Intake Total 1594.95 / 1604.35 460.32 / 462.22 135.2 / 135.2 Output Total 1400 / 1400 650 / 650 1050 / 1050 Balance 194.95 / 204.35 -189.68 / -187.78 -914.8 / -914.8 Lab / Micro Data 07/02/23 05:25 07/02/23 05:25 Labs: Laboratory Results - last 24 hr 07/02/23 21:28: POC Glucose 157 H Micro: Microbiology 06/29/23 20:30 Blood Culture (Wb) - Left Hand Blood Culture - Final GNR lactose dice spotter 06/29/23 20:43 Blood Culture (Wb) - Right Wrist Blood Culture - Final Escherichia coli 06/30/23 13:00 Urine Catheter - Zapata Urine Culture - Final Escherichia coli 06/29/23 22:03 Urine Catheter - Catheter Urine Culture - Final ESBL Escherichia coli 06/29/23 21:08 Mucosa - Nose SARS-CoV-2, Influenza & RSV (PCR) - Final Rhythm Strip Rhythm Strip: Sinus Rhythm Rate: 100 Ectopy: PVC(s) Physical Exam Narrative Seen and examined. Patient is a pen[facility]entiary she was not walking or moving much. She is more communicative today. Still on Levophed drip. Physical exam: General: Awake, alert and oriented HEENT: Atraumatic, PERRLA, EOMI, Normocephalic Oral: Oral mucosa moist. No Gingival or Mucosal Lesions/ Ulcerations Neck: Right neck TLC. Neck is bent on the right side. Supple, No JVD, Negative Carotid Bruits Chest wall/Lungs: Air entry diminished in bilateral lung bases. No crepitation/rhonchi. On room air Cardiovascular: Regular rate, Regular Rhythm, Normal S1, Normal S2, No M/G/R Abdomen: Bowel Sounds Present, Soft, Non Tender, Non-Distended : Zapata catheter clear urine. No renal angle tenderness. No suprapubic tenderness. Extremities: No edema, Capillary Refill Less than 3 Seconds Skin: Some redness over coccyx area warm and moist stage I decubitus ulcer, present on admission. RLE scaly lesions dryness. Excoriation in the groin. Chronic thickening of his skin greenish-yellow crust over lower legs. Musculoskeletal: Chronic weakness. Both lower extremity knees and hip joints are very stiff with the skin thickening Neurological: Cranial nerves II-XII grossly intact, DTR 2+/4. No acute focal neurological deficit. Psych/Mental Status: flat affect. Assessment & Plan Assessment/Plan (1) Septic shock: (2) Acute UTI: (3) Chronic indwelling Zapata catheter: (4) Calculus of ureterovesical junction (UVJ): (5) Acute hypokalemia: (6) Septic encephalopathy: (7) Subendocardial ischemia: PLAN: Plan This is a 82-year-old female admitted with altered mental status and hypotension from [facility]. She was found to be confused more than his baseline with history of dementia. BP was 74 systolic on the evening prior to admission. 1. Sepsis with septic shock; she needs CAUTI ESBL E. coli with bacteremia, complicated UTI from chronic indwelling Zapata catheter and obstructing 4 mm Right UVJ stone: Patient is admitted in ICU. On vasopressor drip through right IJ. Chest x-ray initially reviewed and shows tip of right IJ in the right atrium. Previously x-ray showed right subclavian line going cranially to right IJ which has since been corrected. 06/29: UA positive of nitrite, LE, WBC 50?100 cells, microscopic hematuria 10-25 cells 2+ bacteria. The patient presented with septic shock with clinical indicators Altered mental status, tachycardia, tachypnea, hypotension, leukocytosis, acute encephalopathy of due to obstructive CAUTI with acute sepsis-related organ dysfunction as evidenced by hypotension requiring vasopressor, lactic acidosis, coagulopathy INR 2.0. Patient is admitted to ICU.Patient on IV meropenem and vancomycin. Patient has anaphylaxis allergic history to penicillin. Reading Recovery Teacher consulted. Urologist consulted. CT scan individually reviewed shows 4 mm stone in the distal right ureter just proximal to the UVJ, causing mild obstructive changes and multiple nonobstructing stones in the right intrarenal collecting system and right renal pelvis measuring up to 8 mm. 06/30: Patient is still on Levophed drip. Patient has critically high WBC count 32,000, 72,010 today 50,000. Immature granulocyte 3.4% consistent with left shift mainly neutrophils, lymphopenia with bandemia 11% 07/01: Patient is still on Levophed drip. Started on midodrine. Urine culture from 06/28 shows ESBL E. coli [id number] colonies. Blood culture from 06/28 also positive of E. coli, ESBL negative. Later on urine culture from 07/01 shows E. coli more than 1000 colonies, ESBL negative. With inconsistent reporting of urine culture and blood culture, ID is consulted for further opinion. Leukocytosis improving. 07/02: Patient is still on Levophed drip, although tapered down to 1 tom per minute 2. Acute encephalopathy mainly due to sepsis/infection and metabolic encephalopathy on baseline chronic dementia - Continue supportive care outlined above and monitor for improvement. 06/30: Patient is still not very verbal or communicative. Does not seem very irritable 07/01: Patient is more verbal and communicative. She states he did not walk for long time. On wheelchair in [facility]entiary. : It is improving but he still gets sometimes irritable in the morning. 3. Critical hypokalemia of 2.2 mmol/L present on admission, hypophosphatemia, and hypomagnesemia: On IV potassium phosphate and magnesium sulfate replacement. 06/30: Hypokalemia. Hyponatremia. 07/01: Sodium 146 normal. And potassium 4. Highly elevated troponin of 677 pg/mL present on admission likely due to demand ischemia/acute myocardial necrosis: Patient has any creed cardiac demand resulting into ischemia from septic shock. Patient was given aspirin, atorvastatin and full-dose Lovenox. Troponins on decreasing trend check echocardiogram to evaluate LVEF. 07/01: 2D echo was done: The estimated ejection fraction is 65 %. The left atrium is mildly enlarged. Mild-Moderate (1-2+) mitral valve insufficiency. Mild (1+) tricuspid valve insufficiency. Mild focal aortic valve calcification. The study was technically difficult. Contrast injection was performed. 5. Severe hypoalbuminemia of 1.8 g/dL present on admission suggestive of chronic moderate protein calorie malnutrition: BMI 25.6 kg/m? but patient is severely debilitated with multiple conditions as mentioned in assessment and plan. 6. Essential hypertension - Hold scheduled antihypertensives, currently patient on pressors 7. DM-2; of unknown control - Keep NPO for now. Fingerstick blood sugars every 6 hours plus lowest intensity sliding scale insulin. Check hemoglobin A1c to objectively evaluate quality of diabetic control. 8. History of diabetic foot ulcers - Noted. 9. History of stage III decubitus ulcer of buttock - Noted. 10. History of osteomyelitis of the toe - Noted. 11. History of Right lower extremity cellulitis - Noted. 12. History of bilateral lower extremity lymphedema - Stable. 13. History of tobacco abuse; with subsequent COPD - Stable with no evidence of acute flare at this time. Continue as needed nebulizers. 14. History of urinary retention; with chronic indwelling Zapata catheter - Noted and linked to infection outlined in #1. 15. History of medical noncompliance - Noted. 16. Spondylosis of lumbar spine and osteoarthritis - Give Tylenol as needed. 17. Depression - Continue home regimen when patient is able to tolerate it. 18. DVT prophylaxis -on therapeutic dose of Lovenox Clinical Impression(s) from Imaging Studies Brain CT 06/29/23 20:26 IMPRESSION: Negative head/brain CT without intravenous contrast. Electronically Signed: Shay Dee MD at 21:07 EDT , Chest X-Ray 06/29/23 20:50 IMPRESSION: There are no acute findings. Electronically Signed: Shay Dee MD at 21:14 EDT , Echocardiogram 06/29/23 23:45 Interpretation Summary The estimated ejection fraction is 65 %. The left atrium is mildly enlarged. Mild-Moderate (1-2+) mitral valve insufficiency. Mild (1+) tricuspid valve insufficiency. Mild focal aortic valve calcification. The study was technically difficult. Contrast injection was performed. Ordering Physician: Andreas Chan Referring Physician: Scooter Siu Performed By: Jose Saeed RCS Abdomen/Pelvis CT 06/30/23 00:00 IMPRESSION: 1. There is a 4 mm stone in the distal right ureter just proximal to the UVJ, causing mild obstructive changes. 2. Multiple nonobstructing stones in the right intrarenal collecting system and right renal pelvis measuring up to 8 mm. Electronically Signed: Shay Mendoza MD at 2:00 EDT , Chest X-Ray 06/30/23 00:45 IMPRESSION: Right subclavian central line with the distal tip extending cranially within the right internal jugular vein. Recommend repositioning and reimaging. Electronically Signed: Shay Mendoza MD at 2:00 EDT , ADDENDUM: 06/30/23 0220 IMPRESSION: Right subclavian central line with the distal tip extending cranially within the right internal jugular vein. Recommend repositioning and reimaging. N.B. : ANDREAS TORRES MD, confirmed on 06/30/2023 02:13:16 (ET) that the healthcare facility has received the radiology report. Electronically Signed: Shay Mendoza MD at 2:00 EDT , Chest X-Ray 06/30/23 01:55 IMPRESSION: 1. Right jugular central line with tip at the cavoatrial junction. No pneumothorax or other complication. 2. Nodular density in the right mid lung field measuring 1.5 cm. A follow-up chest CT is recommended for further assessment. Electronically Signed: Shay Mendoza MD at 2:20 EDT , Charges/Coding Visit Charges Inpatient E&M: 97906 Subs Hosp L3
[2023-07-03 08:06] LABS: Absolute Lymphocyte Count 1.95 X10^3/uL (0.83-4.51); Absolute Neutrophil Count 12.7 X10^3/uL (2.0-7.7); Basophil# 0.03 X10^3/uL; Basophil% 0.2 % (0-1); Eosinophils% 1.9 % (0-5); Hematocrit 35.6 % (37-47); Hemoglobin 11.4 g/dL (12.0-15.0); Lymphocyte # 1.95 X10^3/ul (0.83-4.51); Lymphocyte % 12.2 % (19-41); Mean Corpuscular Hgb 28.6 pg (27.0-32.0); Mean Corpuscular Volume 89.2 fL (81-99); Monocyte# 0.91 X10^3/uL; Monocyte% 5.7 % (0-10); NRBC Flagged by Analyzer 0 % (0-5); Neutrophil # 12.71 X10^3/uL (2.7-7.7); Neutrophil % 79.4 % (47-70); POSITIVE COUNT YES; Platelet Count 70 K/mm3 (150-450); RBC Distribution Width CV 16.3 % (11.6-14.6); RBC Distribution Width SD 53.7 fl (35.1-43.9); Red Blood Count 3.99 M/mm3 (4.2-5.4)
[2023-07-03] MEDS: Pantoprazole Sodium 40 MG in 0.9% Normal Saline (100mL MB+) 100 ML 330 MG IV (08:43)
[2023-07-03] MEDS: Enoxaparin 60 MG/0.6 ML Syringe SC (08:44)
[2023-07-03] MEDS: Aspirin 325 MG Tablet PO (08:44)
[2023-07-03] MEDS: Clopidogrel Bisulfate 75 MG Tablet PO (08:44)
[2023-07-03] MEDS: Midodrine HCl 5 MG Tablet 10 MG PO ×3 (08:44→16:23)
[2023-07-03] MEDS: Menthol/Lanolin/Calamine/Znox 113 GM Tube 1 APPLIC TOPICAL ×2 (08:45→20:56)
[2023-07-03] MEDS: Nystatin Powder 15gm Bottle 1 APPLIC TOPICAL ×2 (08:45→20:59)
[2023-07-03] MEDS: Lactobacillis Acidophilus 2 CAP PO ×2 (08:45→20:56)
[2023-07-03 09:07] LABS: ALB/GLOB Ratio 0.7 RATIO (0.9-2.4); AST(SGOT) 23 U/L (15-37); Alanine Aminotransfer ALT/SGPT 17 U/L (13-56); Albumin, Serum 2.1 g/dL (3.2-5.0); Alkaline Phosphatase 106 U/L (45-117); Anion Gap 3 (5-15); BUN 11 mg/dL (7-18); BUN/Creat Ratio 19.9 RATIO (10-20); Calcium,Total 7.5 mg/dL (8.5-10.1); Chloride 119 mmol/L (98-107); Creatinine, Serum 0.55 mg/dL (0.55-1.02); EST Glomerular Filtration Rate 112 mL/min (>60); Est Glom Filt Rate - Afr Amer 135 mL/min (>60); Estimated Creatinine Clearance 47.67 ml/min; Globulin 3.1 g/dL (2.2-4.2); Glucose 146 mg/dL (74-106); Potassium 3.5 mmol/L (3.5-5.1); Protein, Total 5.2 g/dL (6.4-8.2); Sodium Level 145 mmol/L (136-145)
[2023-07-03] MEDS: Meropenem 1 GM in 0.9% Normal Saline (100mL MB+) 100 ML IV ×2 (09:18→20:59)
[2023-07-03] MEDS: Potassium Chloride Oral Soln 20 MEQ/15 ML UDC 40 MEQ PO (09:18)
--- NOTE | 2023-07-03 09:59 | PCM.PN.ID ---
Physical Exam Narrative Feeling better, no fever, no abd pain Const alert and no apparent distress Resp normal air movement and clear to auscultation bilaterally Cardio regular rate and regular rhythm GI soft to palpation, non-tender and non-distended Skin no rashes or lesions noted ID ID: Route of nutrition/ use of supplements: [] Nutritional Intake: [] IV Site: [] Zapata Catheter: [] Assessment & Plan Assessment/Plan (1) Septic shock: (2) Bacteremia due to Escherichia coli: PLAN: septic shock due to ESBL ecoli bacteremia from urinary source complicated by stone - BP improved. S/p OR 06/30/[address] Moreira for stent placement. Cont meropenem. Will follow
[2023-07-03 10:14] LABS: Pathologist Review Reviewed
--- NOTE | 2023-07-03 12:04 | PN.CC_ITS ---
Objective Data Objective Data Vital Signs: Vital Signs Last response 3 Temperature 36.2 C L 07/03/23 12:00 Temperature Source Temporal 07/03/23 12:00 Pulse Rate 75 07/03/23 12:00 Pulse Strength Weak (1+) 07/02/23 08:21 Respiratory Rate 21 H 07/03/23 12:00 Respiratory Effort Normal, Non-Labored 07/03/23 08:00 Respiratory Depth Normal 07/03/23 08:00 Respiratory Pattern Normal 07/03/23 08:00 Blood Pressure 101/48 L 07/03/23 12:00 Blood Pressure Mean 65 07/03/23 12:00 Blood Pressure Source Monitor 07/03/23 12:00 Blood Pressure Position Semi-Fowlers 07/03/23 12:00 Blood Pressure Location Left Arm 07/03/23 12:00 Baseline BP 129/59 06/30/23 13:20 Pulse Ox 97 07/03/23 12:00 Oxygen Delivery Method Room Air 07/03/23 12:00 I&O: I&O Last 24 Hours 3 07/02/23 07/03/23 07/03/23 23:59 11:59 23:59 Intake Total 164.64 / 462.22 489.0 / 489.0 0 / 489.0 Output Total 350 / 650 1450 / 1450 Balance -185.36 / -187.78 -961.0 / -961.0 0 / -961.0 I&O: Total Stay 3 06/29/23 20:08 thru 07/03/23 12:00 Intake Total 8294.6633 Output Total 5000 Balance 3294.6633 Current Meds Ordered / Administered: Current meds ordered / Administered 3 Generic Name Dose Route Start Last Admin Trade Name Freq PRN Reason Stop Dose Admin Albuterol Sulfate 2.5 mg 06/30/23 02:24 Albuterol 2.5 Mg/3 Ml Vial.Neb. INHALATION Q4H PRN Shortness Of Breath Aspirin 325 mg 06/30/23 08:00 07/03/23 08:44 Aspirin 325 Mg Tablet PO 325 mg DAILYCM MARY Administration Atorvastatin Calcium 20 mg 06/30/23 02:20 07/02/23 21:26 Atorvastatin Calcium 20 Mg Tablet PO 20 mg QHS [facility] Administration Calamine/Phenol 1 applic 07/02/23 22:00 07/03/23 08:45 Menthol/Lanolin/Calamine/Znox 113 Gm Tube TOPICAL 1 applic BID MARY Administration Protocol Clopidogrel Bisulfate 75 mg 06/30/23 10:00 07/03/23 08:44 Clopidogrel Bisulfate 75 Mg Tablet PO 75 mg DAILY MARY Administration Enoxaparin Sodium 60 mg 06/30/23 03:00 07/03/23 08:44 Enoxaparin 60 Mg/0.6 Ml Syringe SC 60 mg BID MARY Administration Norepinephrine Bitartrate 8 mg 250 mls @ 9.375 mls/hr 06/29/23 23:30 07/03/23 12:00 / Sodium Chloride CONT INF 0 mcg/min .[id number] MARY 0 mls/hr Titration Protocol 5 MCG/MIN Sodium Chloride 250 mls @ 15 mls/hr 06/30/23 02:17 IV .[id number] PRN Additional IVPB Infusion Sodium Chloride 250 mls @ 15 mls/hr 06/30/23 02:17 IV .[id number] PRN Saline Flush Pantoprazole Sodium 40 mg/ 110 mls @ 330 mls/hr 06/30/23 10:00 07/03/23 09:04 Sodium Chloride IV Infused DAILY MARY Infusion Meropenem 1 gm/ Sodium 120 mls @ 33 mls/hr 06/30/23 10:00 07/03/23 09:18 Chloride IV 33 mls/hr Q12 MARY Administration Insulin Glargine 6 unit 06/30/23 22:00 07/02/23 21:31 Insulin Glargine-Yfgn 100 Unit/Ml Pen SC 6 unit QHS MARY Administration Midodrine 10 mg 07/02/23 08:00 07/03/23 11:14 Midodrine Hcl 5 Mg Tablet PO 10 mg TIDCM MARY Administration Nystatin 1 applic 06/30/23 10:00 07/03/23 08:45 Nystatin Powder 15gm Bottle TOPICAL 1 applic BID MARY Administration Protocol Polyethylene Glycol 17 gm 06/30/23 10:00 07/03/23 08:36 Polyethylene Glycol 3350 17 Gm Packet PO Not Given DAILY MARY Potassium Chloride 40 meq 06/30/23 10:00 07/03/23 09:18 Potassium Chloride Oral Soln 20 Meq/15 Ml Udc PO 40 meq DAILY MARY Administration Senna/Docusate Sodium 1 tablet 06/30/23 02:20 Senna/Docusate Sodium 1 Tablet PO BID PRN constipation Sodium Chloride 10 - 40 ml 06/30/23 02:17 06/30/23 06:26 0.9% Saline Lock 10 Ml Syringe IV 20 ml UD PRN Administration SALINE FLUSH Lab / Micro Data 07/03/23 06:20 07/03/23 06:20 Labs: Laboratory Results - last 24 hr 07/02/23 05:25: Diff Path Review Reviewed 07/02/23 21:28: POC Glucose 157 H 07/03/23 06:20: WBC 16.0 H, RBC 3.99 L, Hgb 11.4 L, Hct 35.6 L, MCV 89.2, MCH 28.6, MCHC 32.0, RDW Std Deviation 53.7 H, RDW Coeff of Ricardo 16.3 H, Plt Count 70 L, Immature Gran % (Auto) 0.600, Neut % (Auto) 79.4 H, Lymph % (Auto) 12.2 L, [place] % (Auto) 5.7, Eos % (Auto) 1.9, Baso % (Auto) 0.2, Absolute Neuts (auto) 12.7 H, Absolute Lymphs (auto) 1.95, Nucleated RBC % 0, Sodium 145, Potassium 3.5, Chloride 119 H, Carbon Dioxide 23.0, Anion Gap 3 L, BUN 11, Creatinine 0.55, Estim Creat Clear Calc 47.67, Est GFR (MDRD) Af Amer 135, Est GFR (MDRD) Non-Af 112, BUN/Creatinine Ratio 19.9, Glucose 146 H, Calcium 7.5 L, Total Bilirubin 0.80, AST 23, ALT 17, Alkaline Phosphatase 106, Total Protein 5.2 L, A lbumin 2.1 L, Globulin 3.1, Albumin/Globulin Ratio 0.7 L Micro: Microbiology 06/29/23 20:30 Blood Culture (Wb) - Left Hand Blood Culture - Final GNR lactose playground official 06/29/23 20:43 Blood Culture (Wb) - Right Wrist Blood Culture - Final Escherichia coli Rhythm Strip Rhythm Strip: Sinus Rhythm Rate: 100 Ectopy: PVC(s) Assessment and Plan . Assessment and plan: Patient seen and examined Chart and data reviewed She is awake and alert, NAD Breathing RA comfortably NE has been off for a few hours UOP is adequate EXAM GEN NAD VS as above HEENT o/p clear NECK no JVD COR RRR CHEST CTA ABD soft EXT minimal edema MARK NF ASSESSMENT/REC 1. Severe sepsis 2. Complicated UTI w/ ESBL-producing bacteremia 3. Nephrolithiasis w/ ureteral obstruction, s/p ureteral stent placement 4. Thrombocytopenia 5. DM -continue ABX - defer to ID -I would reduce LMWH to prophylactic doses -follow PLT We will be available as needed. Critical Care Time: 50 min The entirety of this encounter was done via Telemedicine
--- NOTE | 2023-07-03 12:58 | PN.URO_ITS ---
Subjective Subjective Comfortable. Resting peacefully. Objective Data Objective Data Vital Signs: Vital Signs Temp Pulse Resp BP Pulse Ox O2 Del Method 97.1 F L 75 21 H 101/48 L 97 Room Air 07/03/23 12:00 07/03/23 12:00 07/03/23 12:00 07/03/23 12:00 07/03/23 12:00 07/03/23 12:00 Oxygen Delivery Method Room Air Weight: 62.9 kg Body Mass Index (BMI) 26.2 Intake & Output: Intake and Output for Last 24 Hours 07/01/23 07/02/23 07/03/23 23:59 23:59 23:59 Intake Total 1594.95 / 1604.35 460.32 / 462.22 489.0 / 489.0 Output Total 1400 / 1400 650 / 650 1450 / 1450 Balance 194.95 / 204.35 -189.68 / -187.78 -961.0 / -961.0 Lab / Micro Data 07/03/23 06:20 07/03/23 06:20 Labs: Laboratory Results - last 24 hr 07/02/23 05:25: Diff Path Review Reviewed 07/02/23 21:28: POC Glucose 157 H 07/03/23 06:20: WBC 16.0 H, RBC 3.99 L, Hgb 11.4 L, Hct 35.6 L, MCV 89.2, MCH 28.6, MCHC 32.0, RDW Std Deviation 53.7 H, RDW Coeff of Ricardo 16.3 H, Plt Count 70 L, Immature Gran % (Auto) 0.600, Neut % (Auto) 79.4 H, Lymph % (Auto) 12.2 L, [place] % (Auto) 5.7, Eos % (Auto) 1.9, Baso % (Auto) 0.2, Absolute Neuts (auto) 12.7 H, Absolute Lymphs (auto) 1.95, Nucleated RBC % 0, Sodium 145, Potassium 3.5, Chloride 119 H, Carbon Dioxide 23.0, Anion Gap 3 L, BUN 11, Creatinine 0.55, Estim Creat Clear Calc 47.67, Est GFR (MDRD) Af Amer 135, Est GFR (MDRD) Non-Af 112, BUN/Creatinine Ratio 19.9, Glucose 146 H, Calcium 7.5 L, Total Bilirubin 0.80, AST 23, ALT 17, Alkaline Phosphatase 106, Total Protein 5.2 L, A lbumin 2.1 L, Globulin 3.1, Albumin/Globulin Ratio 0.7 L Micro: Microbiology 06/29/23 20:30 Blood Culture (Wb) - Left Hand Blood Culture - Final GNR lactose track worker 06/29/23 20:43 Blood Culture (Wb) - Right Wrist Blood Culture - Final Escherichia coli 06/30/23 13:00 Urine Catheter - Burns Urine Culture - Final Escherichia coli 06/29/23 22:03 Urine Catheter - Catheter Urine Culture - Final ESBL Escherichia coli 06/29/23 21:08 Mucosa - Nose SARS-CoV-2, Influenza & RSV (PCR) - Final Rhythm Strip Rhythm Strip: Sinus Rhythm Rate: 100 Ectopy: PVC(s) Physical Exam Narrative Urine is draining clear yellow. Const no apparent distress General Appearance: comfortable HEENT normocephalic Eyes General Eye: normal appearance of both eyes Neck supple Lymph Lymphatic: no lymphedema noted Chest inspection of chest normal Resp normal respiratory effort, normal air movement and no retractions Cardio regular rate GI soft to palpation Narrative: Urine is draining clear yellow. Neuro CN's II-XII intact bilaterally Assessment & Plan Assessment/Plan (1) Kidney stone on right side: (2) Calculus of ureterovesical junction (UVJ): (3) Bacteremia due to Escherichia coli: (4) Chronic indwelling Burns catheter: PLAN: Plan continue antibiotics continue burns and stent continue supportive care will need to have stone management after she is better, arrangements as outpatient available if needed during the remainder of the hospital stay, please call with any other urologic issues.
[2023-07-03 16:47] LABS: Bedside Glucose 89 mg/dL (74-106)
[2023-07-03] MEDS: Atorvastatin Calcium 20 MG Tablet PO (20:56)
[2023-07-03] MEDS: 0.9% Saline Lock 10 ML Syringe IV (21:36)
[2023-07-03 21:38] LABS: Bedside Glucose 72 mg/dL (74-106)
[2023-07-04] VITALS (45 sets, daily range): BP systolic 89–137; BP diastolic 40–65; PULSE 40–79; RESP 14–25; TEMP 36.1–36.6; O2SAT 92–97; BMI 25.8
[2023-07-04] MEDS: Norepinephrine 8 MG in 0.9% Normal Saline (250mL Bag) 242 ML 5.6 MG CONT INF (03:01)
[2023-07-04] MEDS: 0.9% Saline Lock 10 ML Syringe IV ×3 (05:27→15:42)
[2023-07-04 05:38] LABS: Absolute Lymphocyte Count 2.53 X10^3/uL (0.83-4.51); Absolute Neutrophil Count 11.4 X10^3/uL (2.0-7.7); Basophil# 0.08 X10^3/uL; Basophil% 0.5 % (0-1); Eosinophil# 0.73 X10^3/uL; Eosinophils% 4.6 % (0-5); Hematocrit 36.4 % (37-47); Hemoglobin 11.7 g/dL (12.0-15.0); Lymphocyte # 2.53 X10^3/ul (0.83-4.51); Lymphocyte % 15.9 % (19-41); Mean Corp Hgb Conc 32.1 g/dL (32-36); Mean Corpuscular Hgb 28.5 pg (27.0-32.0); Mean Corpuscular Volume 88.8 fL (81-99); Mean Platelet Vol. 12.7 fl (6.2-12.0); Monocyte# 1.02 X10^3/uL; Monocyte% 6.4 % (0-10); NRBC Flagged by Analyzer 0 % (0-5); Neutrophil # 11.39 X10^3/uL (2.7-7.7); Neutrophil % 71.5 % (47-70); POSITIVE COUNT YES; Platelet Count 87 K/mm3 (150-450); RBC Distribution Width SD 52.9 fl (35.1-43.9); White Blood Count 15.9 K/mm3 (4.4-11.0)
[2023-07-04 06:03] LABS: Anion Gap 3 (5-15); BUN 12 mg/dL (7-18); BUN/Creat Ratio 28.5 RATIO (10-20); Calcium,Total 7.9 mg/dL (8.5-10.1); Chloride 117 mmol/L (98-107); Creatinine, Serum 0.42 mg/dL (0.55-1.02); EST Glomerular Filtration Rate 154 mL/min (>60); Est Glom Filt Rate - Afr Amer 186 mL/min (>60); Estimated Creatinine Clearance 47.39 ml/min; Glucose 99 mg/dL (74-106); Potassium 4.3 mmol/L (3.5-5.1); Sodium Level 146 mmol/L (136-145)
[2023-07-04] MEDS: Pantoprazole Sodium 40 MG in 0.9% Normal Saline (100mL MB+) 100 ML 330 MG IV (08:25)
[2023-07-04] MEDS: Polyethylene Glycol 3350 17 GM PACKET PO (08:26)
[2023-07-04] MEDS: Clopidogrel Bisulfate 75 MG Tablet PO (08:26)
[2023-07-04] MEDS: Potassium Chloride Oral Soln 20 MEQ/15 ML UDC 40 MEQ PO (08:26)
[2023-07-04] MEDS: Midodrine HCl 5 MG Tablet 10 MG PO ×3 (08:26→15:42)
[2023-07-04] MEDS: Aspirin 325 MG Tablet PO (08:26)
[2023-07-04] MEDS: Lactobacillis Acidophilus 2 CAP PO ×2 (08:27→20:46)
[2023-07-04] MEDS: Menthol/Lanolin/Calamine/Znox 113 GM Tube 1 APPLIC TOPICAL ×2 (08:27→20:47)
[2023-07-04] MEDS: Nystatin Powder 15gm Bottle 1 APPLIC TOPICAL ×2 (08:27→20:47)
[2023-07-04] MEDS: Meropenem 1 GM in 0.9% Normal Saline (100mL MB+) 100 ML IV ×2 (09:15→20:46)
--- NOTE | 2023-07-04 10:41 | CASEMGMT ---
Patient is not medically ready for discharge yet. However, [facility] was able to obtain pre-cert. Green sheet on patient's chart should patient be ready over the weekend. Plan: d/c back to [facility] under skilled level of care. Marielle Ku [employer]
--- NOTE | 2023-07-04 11:23 | PCM.PN.HOSP ---
Reason for Visit Reason for Visit: Diagnoses Sepsis, unspecified organism (06/29/23) Unspecified Escherichia coli [E. coli] as the cause of diseases classified elsewhere (06/29/23) Hypokalemia (06/29/23) Metabolic encephalopathy (06/29/23) Other forms of acute ischemic heart disease (06/29/23) Calculus of kidney (06/29/23) Calculus of ureter (06/29/23) Urinary tract infection, site not specified (06/29/23) Severe sepsis with septic shock (06/29/23) Bacteremia (06/29/23) Presence of other specified devices (06/29/23) Objective Data Objective Data Vital Signs: Vital Signs Temp Pulse Resp BP Pulse Ox O2 Del Method 97 F L 73 18 101/51 L 96 Room Air 07/04/23 10:00 07/04/23 11:00 07/04/23 11:00 07/04/23 11:15 07/04/23 11:00 07/04/23 11:10 Oxygen Delivery Method Room Air Weight: 136 lb 14.513 oz Body Mass Index (BMI) 25.8 Intake & Output: Intake and Output for Last 24 Hours 07/02/23 07/03/23 07/04/23 23:59 23:59 23:59 Intake Total 460.32 / 462.22 804.35 / 808.10 478.38 / 478.38 Output Total 650 / 650 2285 / 2285 945 / 945 Balance -189.68 / -187.78 -1480.65 / -1476.90 -466.62 / -466.62 Lab / Micro Data 07/04/23 05:25 07/04/23 05:25 Labs: Laboratory Results - last 24 hr 07/03/23 16:21: POC Glucose 89 07/03/23 20:54: POC Glucose 72 L 07/04/23 05:25: WBC 15.9 H, RBC 4.10 L, Hgb 11.7 L, Hct 36.4 L, MCV 88.8, MCH 28.5, MCHC 32.1, RDW Std Deviation 52.9 H, RDW Coeff of Ricardo 16.0 H, Plt Count 87 L, MPV 12.7 H, Immature Gran % (Auto) 1.100 H, Neut % (Auto) 71.5 H, Lymph % (Auto) 15.9 L, [place] % (Auto) 6.4, Eos % (Auto) 4.6, Baso % (Auto) 0.5, Absolute Neuts (auto) 11.4 H, Absolute Lymphs (auto) 2.53, Nucleated RBC % 0, Sodium 146 H, Potassium 4.3, Chloride 117 H, Carbon Dioxide 26.0, Anion Gap 3 L, BUN 12, Creatinine 0.42 L, Estim Creat Clear Calc 47.39, Est GFR (MDRD) Af Amer 186, Est GFR (MDRD) Non-Af 154, BUN/Creatinine Ratio 28.5 H, Glucose 99, Calcium 7.9 L Micro: Microbiology 06/29/23 20:30 Blood Culture (Wb) - Left Hand Blood Culture - Final GNR lactose collections curator 06/29/23 20:43 Blood Culture (Wb) - Right Wrist Blood Culture - Final Escherichia coli 06/30/23 13:00 Urine Catheter - Zapata Urine Culture - Final Escherichia coli 06/29/23 22:03 Urine Catheter - Catheter Urine Culture - Final ESBL Escherichia coli 06/29/23 21:08 Mucosa - Nose SARS-CoV-2, Influenza & RSV (PCR) - Final Rhythm Strip Rhythm Strip: Sinus Rhythm Rate: 100 Ectopy: PVC(s) Physical Exam Narrative Seen and examined. Yesterday patient was temporarily off Levophed drip but her blood pressure dropped therefore started back on levo drip. Lovenox discontinued because of severe thrombocytopenia. Patient is a mcc she was not walking or moving much. She is more communicative today. Physical exam: General: Awake, alert and oriented HEENT: Atraumatic, PERRLA, EOMI, Normocephalic Oral: Oral mucosa moist. No Gingival or Mucosal Lesions/ Ulcerations Neck: Right neck TLC. Neck is bent on the right side. Supple, No JVD, Negative Carotid Bruits Chest wall/Lungs: Air entry diminished in bilateral lung bases. No crepitation/rhonchi. On room air Cardiovascular: Regular rate, Regular Rhythm, Normal S1, Normal S2, No M/G/R Abdomen: Bowel Sounds Present, Soft, Non Tender, Non-Distended : Zapata catheter clear urine. No renal angle tenderness. No suprapubic tenderness. Extremities: No edema, Capillary Refill Less than 3 Seconds Skin: Some redness over coccyx area warm and moist stage I decubitus ulcer, present on admission. RLE scaly lesions with dryness. Excoriation in the groin. Chronic thickening of his skin greenish-yellow crust over lower legs. Musculoskeletal: Chronic weakness. Both lower extremity knees and hip joints are very stiff with the skin thickening Neurological: Cranial nerves II-XII grossly intact, DTR 2+/4. No acute focal neurological deficit. Psych/Mental Status: flat affect. Assessment & Plan Assessment/Plan (1) Septic shock: (2) Acute UTI: (3) Chronic indwelling Zapata catheter: (4) Calculus of ureterovesical junction (UVJ): (5) Acute hypokalemia: (6) Septic encephalopathy: (7) Subendocardial ischemia: PLAN: Plan This is a 82-year-old female admitted with altered mental status and hypotension from mcc. She was found to be confused more than his baseline with history of dementia. BP was 74 systolic on the evening prior to admission. 1. Sepsis with septic shock; she needs CAUTI ESBL E. coli with bacteremia, complicated UTI from chronic indwelling Zapata catheter and obstructing 4 mm Right UVJ stone: Patient is admitted in ICU. On vasopressor drip through right IJ. Chest x-ray initially reviewed and shows tip of right IJ in the right atrium. Previously x-ray showed right subclavian line going cranially to right IJ which has since been corrected. 06/29: UA positive of nitrite, LE, WBC 50?100 cells, microscopic hematuria 10-25 cells 2+ bacteria. The patient presented with septic shock with clinical indicators Altered mental status, tachycardia, tachypnea, hypotension, leukocytosis, acute encephalopathy of due to obstructive CAUTI with acute sepsis-related organ dysfunction as evidenced by hypotension requiring vasopressor, lactic acidosis, coagulopathy INR 2.0. Patient is admitted to ICU.Patient on IV meropenem and vancomycin. Patient has anaphylaxis allergic history to penicillin. Educational Speech Language Clinician consulted. Urologist consulted. CT scan individually reviewed shows 4 mm stone in the distal right ureter just proximal to the UVJ, causing mild obstructive changes and multiple nonobstructing stones in the right intrarenal collecting system and right renal pelvis measuring up to 8 mm. 06/30: Patient is still on Levophed drip. Patient has critically high WBC count 32,000, 72,010 today 50,000. Immature granulocyte 3.4% consistent with left shift mainly neutrophils, lymphopenia with bandemia 11% 07/01: Patient is still on Levophed drip. Started on midodrine. Urine culture from 06/28 shows ESBL E. coli [id number] colonies. Blood culture from 06/28 also positive of E. coli, ESBL negative. Later on urine culture from 07/01 shows E. coli more than 1000 colonies, ESBL negative. With inconsistent reporting of urine culture and blood culture, ID is consulted for further opinion. Leukocytosis improving. 07/02: Patient is still on Levophed drip, although tapered down to 1 tom per minute 07/03: 2. Acute encephalopathy mainly due to sepsis/infection and metabolic encephalopathy on baseline chronic dementia - Continue supportive care outlined above and monitor for improvement. 06/30: Patient is still not very verbal or communicative. Does not seem very irritable 07/01: Patient is more verbal and communicative. She states he did not walk for long time. On wheelchair in mcc. : It is improving but he still gets sometimes irritable in the morning. 3. Critical hypokalemia of 2.2 mmol/L present on admission, hypophosphatemia, and hypomagnesemia: On IV potassium phosphate and magnesium sulfate replacement. 06/30: Hypokalemia. Hyponatremia. 07/03: Sodium 146 normal. K 4.3. 4. Highly elevated troponin of 677 pg/mL present on admission likely due to demand ischemia/acute myocardial necrosis: Patient has any creed cardiac demand resulting into ischemia from septic shock. Patient was given aspirin, atorvastatin and full-dose Lovenox. Troponins on decreasing trend check echocardiogram to evaluate LVEF. 07/01: 2D echo was done: The estimated ejection fraction is 65 %. The left atrium is mildly enlarged. Mild-Moderate (1-2+) mitral valve insufficiency. Mild (1+) tricuspid valve insufficiency. Mild focal aortic valve calcification. The study was technically difficult. Contrast injection was performed. 5. Severe hypoalbuminemia of 1.8 g/dL present on admission suggestive of chronic moderate protein calorie malnutrition: BMI 25.6 kg/m? but patient is severely debilitated with multiple conditions as mentioned in assessment and plan. 6. Essential hypertension - Hold scheduled antihypertensives, currently patient on pressors 7. DM-2; of unknown control - Keep NPO for now. Fingerstick blood sugars every 6 hours plus lowest intensity sliding scale insulin. Check hemoglobin A1c to objectively evaluate quality of diabetic control. 8. History of diabetic foot ulcers - Noted. 9. History of stage III decubitus ulcer of buttock - Noted. 10. History of osteomyelitis of the toe - Noted. 11. History of Right lower extremity cellulitis - Noted. 12. History of bilateral lower extremity lymphedema - Stable. 13. History of tobacco abuse; with subsequent COPD - Stable with no evidence of acute flare at this time. Continue as needed nebulizers. 14. History of urinary retention; with chronic indwelling Zapata catheter - Noted and linked to infection outlined in #1. 15. History of medical noncompliance - Noted. 16. Spondylosis of lumbar spine and osteoarthritis - Give Tylenol as needed. 17. Depression - Continue home regimen when patient is able to tolerate it. 18. DVT prophylaxis -severe thrombocytopenia: Platelet count decreased to 87,000. Lovenox discontinued. Clinical Impression(s) from Imaging Studies Brain CT 06/29/23 20:26 IMPRESSION: Negative head/brain CT without intravenous contrast. Electronically Signed: Shay Dee MD at 21:07 EDT , Chest X-Ray 06/29/23 20:50 IMPRESSION: There are no acute findings. Electronically Signed: Shay Dee MD at 21:14 EDT , Echocardiogram 06/29/23 23:45 Interpretation Summary The estimated ejection fraction is 65 %. The left atrium is mildly enlarged. Mild-Moderate (1-2+) mitral valve insufficiency. Mild (1+) tricuspid valve insufficiency. Mild focal aortic valve calcification. The study was technically difficult. Contrast injection was performed. Ordering Physician: Andreas Chan Referring Physician: Scooter Siu Performed By: Jose Saeed RCS Abdomen/Pelvis CT 06/30/23 00:00 IMPRESSION: 1. There is a 4 mm stone in the distal right ureter just proximal to the UVJ, causing mild obstructive changes. 2. Multiple nonobstructing stones in the right intrarenal collecting system and right renal pelvis measuring up to 8 mm. Electronically Signed: Shay Mendoza MD at 2:00 EDT Reading Location ID and State: [facility] / [place] Tel , Service support , Chest X-Ray 06/30/23 00:45 IMPRESSION: Right subclavian central line with the distal tip extending cranially within the right internal jugular vein. Recommend repositioning and reimaging. Electronically Signed: Shay Mendoza MD at 2:00 EDT Reading Location ID and State: [facility] / [place] Tel , Service support , ADDENDUM: 06/30/23 0220 IMPRESSION: Right subclavian central line with the distal tip extending cranially within the right internal jugular vein. Recommend repositioning and reimaging. N.B. : ANDREAS TORRES MD, confirmed on 06/30/2023 02:13:16 (ET) that the healthcare facility has received the radiology report. Electronically Signed: Shay Mendoza MD at 2:00 EDT Reading Location ID and State: [facility] / [place] Tel , Service support , Chest X-Ray 06/30/23 01:55 IMPRESSION: 1. Right jugular central line with tip at the cavoatrial junction. No pneumothorax or other complication. 2. Nodular density in the right mid lung field measuring 1.5 cm. A follow-up chest CT is recommended for further assessment. Electronically Signed: Shay Mendoza MD at 2:20 EDT , Charges/Coding Visit Charges Inpatient E&M: 22822 Subs Hosp L3
--- NOTE | 2023-07-04 11:58 | PN.CC_ITS ---
Objective Data Objective Data Vital Signs: Vital Signs Last response 3 Temperature 36.1 C L 07/04/23 10:00 Temperature Source Temporal 07/04/23 10:00 Pulse Rate 73 07/04/23 11:00 Pulse Strength Normal (2+) 07/03/23 20:49 Respiratory Rate 18 07/04/23 11:00 Respiratory Effort Normal, Non-Labored 07/04/23 11:10 Respiratory Depth Normal 07/04/23 11:10 Respiratory Pattern Normal 07/04/23 11:10 Blood Pressure 101/51 L 07/04/23 11:15 Blood Pressure Mean 67 07/04/23 11:15 Blood Pressure Source Monitor 07/04/23 07:00 Blood Pressure Position Semi-Fowlers 07/04/23 11:00 Blood Pressure Location Right Arm 07/04/23 11:00 Baseline BP 129/59 06/30/23 13:20 Pulse Ox 96 07/04/23 11:00 Oxygen Delivery Method Room Air 07/04/23 11:10 I&O: I&O Last 24 Hours 3 07/03/23 07/03/23 07/04/23 11:59 23:59 11:59 Intake Total 489.0 / 808.10 315.35 / 808.10 478.38 / 478.38 Output Total 1450 / 2285 835 / 2285 945 / 945 Balance -961.0 / -1476.90 -519.65 / -1476.90 -466.62 / -466.62 I&O: Total Stay 3 06/29/23 20:08 thru 07/04/23 11:15 Intake Total 9088.3933 Output Total 6780 Balance 2308.3933 Current Meds Ordered / Administered: Current meds ordered / Administered 3 Generic Name Dose Route Start Last Admin Trade Name Freq PRN Reason Stop Dose Admin Albuterol Sulfate 2.5 mg 06/30/23 02:24 Albuterol 2.5 Mg/3 Ml Vial.Neb. INHALATION Q4H PRN Shortness Of Breath Atorvastatin Calcium 20 mg 06/30/23 02:20 07/03/23 20:56 Atorvastatin Calcium 20 Mg Tablet PO 20 mg QHS MARY Administration Calamine/Phenol 1 applic 07/02/23 22:00 07/04/23 08:27 Menthol/Lanolin/Calamine/Znox 113 Gm Tube TOPICAL 1 applic BID MARY Administration Protocol Clopidogrel Bisulfate 75 mg 06/30/23 10:00 07/04/23 08:26 Clopidogrel Bisulfate 75 Mg Tablet PO 75 mg DAILY MARY Administration Hydrocortisone Sodium Succinate 50 mg 07/04/23 14:00 Hydrocortisone Sod Succinate 100 Mg/2 Ml Vial IV Q8 MARY Norepinephrine Bitartrate 8 mg 250 mls @ 9.375 mls/hr 06/29/23 23:30 07/04/23 11:15 / Sodium Chloride CONT INF 1 mcg/min .[id number] MARY 1.9 mls/hr Titration Protocol 5 MCG/MIN Sodium Chloride 250 mls @ 15 mls/hr 06/30/23 02:17 IV .[id number] PRN Additional IVPB Infusion Sodium Chloride 250 mls @ 15 mls/hr 06/30/23 02:17 IV .[id number] PRN Saline Flush Pantoprazole Sodium 40 mg/ 110 mls @ 330 mls/hr 06/30/23 10:00 07/04/23 08:49 Sodium Chloride IV Infused DAILY MARY Infusion Meropenem 1 gm/ Sodium 120 mls @ 33 mls/hr 06/30/23 10:00 07/04/23 09:15 Chloride IV 33 mls/hr Q12 MARY Administration Insulin Glargine 6 unit 06/30/23 22:00 07/03/23 20:56 Insulin Glargine-Yfgn 100 Unit/Ml Pen SC Not Given QHS MARY Midodrine 10 mg 07/02/23 08:00 07/04/23 11:20 Midodrine Hcl 5 Mg Tablet PO 10 mg TIDCM MARY Administration Nystatin 1 applic 06/30/23 10:00 07/04/23 08:27 Nystatin Powder 15gm Bottle TOPICAL 1 applic BID MARY Administration Protocol Polyethylene Glycol 17 gm 06/30/23 10:00 07/04/23 08:26 Polyethylene Glycol 3350 17 Gm Packet PO 17 gm DAILY MARY Administration Potassium Chloride 40 meq 06/30/23 10:00 07/04/23 08:26 Potassium Chloride Oral Soln 20 Meq/15 Ml Udc PO 40 meq DAILY MARY Administration Senna/Docusate Sodium 1 tablet 06/30/23 02:20 Senna/Docusate Sodium 1 Tablet PO BID PRN constipation Sodium Chloride 10 - 40 ml 06/30/23 02:17 07/04/23 05:27 0.9% Saline Lock 10 Ml Syringe IV 10 ml UD PRN Administration SALINE FLUSH Lab / Micro Data 07/04/23 05:25 07/04/23 05:25 Labs: Laboratory Results - last 24 hr 07/03/23 16:21: POC Glucose 89 07/03/23 20:54: POC Glucose 72 L 07/04/23 05:25: WBC 15.9 H, RBC 4.10 L, Hgb 11.7 L, Hct 36.4 L, MCV 88.8, MCH 28.5, MCHC 32.1, RDW Std Deviation 52.9 H, RDW Coeff of Ricardo 16.0 H, Plt Count 87 L, MPV 12.7 H, Immature Gran % (Auto) 1.100 H, Neut % (Auto) 71.5 H, Lymph % (Auto) 15.9 L, [place] % (Auto) 6.4, Eos % (Auto) 4.6, Baso % (Auto) 0.5, Absolute Neuts (auto) 11.4 H, Absolute Lymphs (auto) 2.53, Nucleated RBC % 0, Sodium 146 H, Potassium 4.3, Chloride 117 H, Carbon Dioxide 26.0, Anion Gap 3 L, BUN 12, C reatinine 0.42 L, Estim Creat Clear Calc 47.39, Est GFR (MDRD) Af Amer 186, Est GFR (MDRD) Non-Af 154, BUN/Creatinine Ratio 28.5 H, Glucose 99, Calcium 7.9 L Rhythm Strip Rhythm Strip: Sinus Rhythm Rate: 100 Ectopy: PVC(s) Assessment and Plan . Assessment and plan: Patient seen and examined Chart and data reviewed She is awake and alert, NAD Breathing RA comfortably NE back on at low dose today UOP is adequate EXAM GEN NAD VS as above HEENT o/p clear NECK no JVD COR RRR CHEST CTA ABD soft EXT minimal edema MARK NF ASSESSMENT/REC 1. Severe sepsis 2. Complicated UTI w/ ESBL-producing bacteremia 3. Nephrolithiasis w/ ureteral obstruction, s/p ureteral stent placement 4. Thrombocytopenia 5. DM -continue ABX - defer to ID -try IV hydrocortisone for BP support Critical Care Time: 50 min The entirety of this encounter was done via Telemedicine
[2023-07-04] MEDS: Hydrocortisone Sod Succinate 100 MG/2 ML Vial 50 MG IV ×2 (12:30→20:46)
[2023-07-04 16:13] LABS: Magnesium 1.7 mg/dL (1.6-2.6)
[2023-07-04] MEDS: Na Biphos/Potassium Phosphate PACKET 1 PACKET PO ×2 (18:31→20:46)
[2023-07-04] MEDS: Insulin Glargine-YFGN 100 UNIT/ML Pen 6 UNIT SC (20:46)
[2023-07-04] MEDS: Atorvastatin Calcium 20 MG Tablet PO (20:46)
[2023-07-04 21:02] LABS: Bedside Glucose 159 mg/dL (74-106)
[2023-07-05] VITALS (33 sets, daily range): BP systolic 87–137; BP diastolic 36–75; PULSE 43–77; RESP 12–22; TEMP 35.9–36.6; O2SAT 93–98; BMI 25.9
[2023-07-05 04:23] LABS: Absolute Lymphocyte Count 1.97 X10^3/uL (0.83-4.51); Absolute Neutrophil Count 11.1 X10^3/uL (2.0-7.7); Basophil# 0.06 X10^3/uL; Basophil% 0.4 % (0-1); Hematocrit 36.8 % (37-47); Hemoglobin 11.8 g/dL (12.0-15.0); Lymphocyte # 1.97 X10^3/ul (0.83-4.51); Lymphocyte % 14.5 % (19-41); Mean Corp Hgb Conc 32.1 g/dL (32-36); Mean Corpuscular Hgb 28.7 pg (27.0-32.0); Mean Corpuscular Volume 89.5 fL (81-99); Mean Platelet Vol. 12.5 fl (6.2-12.0); Monocyte% 1.5 % (0-10); NRBC Flagged by Analyzer 0 % (0-5); Neutrophil # 11.11 X10^3/uL (2.7-7.7); Neutrophil % 82.1 % (47-70); POSITIVE MORPHOLOGY YES; Platelet Count 126 K/mm3 (150-450); RBC Distribution Width CV 15.8 % (11.6-14.6); RBC Distribution Width SD 51.8 fl (35.1-43.9); Red Blood Count 4.11 M/mm3 (4.2-5.4); White Blood Count 13.5 K/mm3 (4.4-11.0)
[2023-07-05 04:37] LABS: Anion Gap 9 (5-15); BUN 14 mg/dL (7-18); BUN/Creat Ratio 36.5 RATIO (10-20); Calcium,Total 7.9 mg/dL (8.5-10.1); Chloride 112 mmol/L (98-107); Creatinine, Serum 0.38 mg/dL (0.55-1.02); EST Glomerular Filtration Rate 171 mL/min (>60); Est Glom Filt Rate - Afr Amer 207 mL/min (>60); Estimated Creatinine Clearance 47.39 ml/min; Glucose 169 mg/dL (74-106); Potassium 4.2 mmol/L (3.5-5.1); Sodium Level 144 mmol/L (136-145)
[2023-07-05 04:46] LABS: Differential Indicated SCAN CRITERIA MET
[2023-07-05] MEDS: Na Biphos/Potassium Phosphate PACKET 1 PACKET PO ×3 (05:05→20:19)
[2023-07-05] MEDS: Hydrocortisone Sod Succinate 100 MG/2 ML Vial 50 MG IV ×3 (05:05→20:18)
[2023-07-05] MEDS: 0.9% Normal Saline (250mL Bag) 250 ML 15 ML IV (05:06)
[2023-07-05] MEDS: 0.9% Saline Lock 10 ML Syringe IV ×2 (05:06→20:18)
[2023-07-05 05:25] LABS: Atypical Lymphocyte 1+ %; Reactive Lymphocyte RARE
[2023-07-05] MEDS: Midodrine HCl 5 MG Tablet 10 MG PO ×3 (08:07→16:35)
[2023-07-05] MEDS: Menthol/Lanolin/Calamine/Znox 113 GM Tube 1 APPLIC TOPICAL ×2 (08:08→20:17)
[2023-07-05] MEDS: Lactobacillis Acidophilus 2 CAP PO ×2 (08:08→20:17)
[2023-07-05] MEDS: Potassium Chloride Oral Soln 20 MEQ/15 ML UDC 40 MEQ PO (08:08)
[2023-07-05] MEDS: Polyethylene Glycol 3350 17 GM PACKET PO (08:09)
[2023-07-05] MEDS: Nystatin Powder 15gm Bottle 1 APPLIC TOPICAL ×2 (08:09→20:16)
[2023-07-05] MEDS: Clopidogrel Bisulfate 75 MG Tablet PO (08:10)
[2023-07-05] MEDS: Pantoprazole Sodium 40 MG in 0.9% Normal Saline (100mL MB+) 100 ML 330 MG IV (08:19)
[2023-07-05] MEDS: Meropenem 1 GM in 0.9% Normal Saline (100mL MB+) 100 ML IV ×2 (08:39→20:16)
[2023-07-05] MEDS: Lactated Ringers 1,000 ML 999 ML IV (09:56)
--- NOTE | 2023-07-05 12:29 | PN.CC_ITS ---
Objective Data Objective Data Vital Signs: Vital Signs Last response 3 Temperature 36.3 C L 07/05/23 12:00 Temperature Source Temporal 07/05/23 12:00 Pulse Rate 72 07/05/23 12:00 Pulse Strength Normal (2+) 07/05/23 10:00 Respiratory Rate 21 H 07/05/23 12:00 Respiratory Effort Normal 07/05/23 08:00 Respiratory Depth Shallow 07/05/23 03:04 Respiratory Pattern Normal 07/05/23 03:04 Blood Pressure 118/64 07/05/23 12:00 Blood Pressure Mean 82 07/05/23 12:00 Blood Pressure Source Monitor 07/05/23 12:00 Blood Pressure Position Semi-Fowlers 07/05/23 12:00 Blood Pressure Location Right Arm 07/05/23 12:00 Baseline BP 129/59 06/30/23 13:20 Pulse Ox 96 07/05/23 12:00 Oxygen Delivery Method Room Air 07/05/23 12:00 I&O: I&O Last 24 Hours 3 07/04/23 07/05/23 07/05/23 23:59 11:59 23:59 Intake Total 398.76 / 881.90 1634.60 / 1634.60 Output Total 300 / 1445 350 / 350 Balance 98.76 / -563.10 1284.60 / 1284.60 I&O: Total Stay 3 06/29/23 20:08 thru 07/05/23 11:00 Intake Total 83213.7133 Output Total 7430 Balance 3692.7133 Current Meds Ordered / Administered: Current meds ordered / Administered 3 Generic Name Dose Route Start Last Admin Trade Name Freq PRN Reason Stop Dose Admin Albuterol Sulfate 2.5 mg 06/30/23 02:24 Albuterol 2.5 Mg/3 Ml Vial.Neb. INHALATION Q4H PRN Shortness Of Breath Atorvastatin Calcium 20 mg 06/30/23 02:20 07/04/23 20:46 Atorvastatin Calcium 20 Mg Tablet PO 20 mg QHS MARY Administration Calamine/Phenol 1 applic 07/02/23 22:00 07/05/23 08:08 Menthol/Lanolin/Calamine/Znox 113 Gm Tube TOPICAL 1 applic BID MARY Administration Protocol Clopidogrel Bisulfate 75 mg 06/30/23 10:00 07/05/23 08:10 Clopidogrel Bisulfate 75 Mg Tablet PO 75 mg DAILY MARY Administration Hydrocortisone Sodium Succinate 50 mg 07/04/23 14:00 07/05/23 05:05 Hydrocortisone Sod Succinate 100 Mg/2 Ml Vial IV 50 mg Q8 MARY Administration Norepinephrine Bitartrate 8 mg 250 mls @ 9.375 mls/hr 06/29/23 23:30 07/05/23 11:00 / Sodium Chloride CONT INF 3 mcg/min .[id number] MARY 5.6 mls/hr Titration Protocol 5 MCG/MIN Sodium Chloride 250 mls @ 15 mls/hr 06/30/23 02:17 07/05/23 05:06 IV 15 mls/hr .[id number] PRN Administration Additional IVPB Infusion Sodium Chloride 250 mls @ 15 mls/hr 06/30/23 02:17 IV .[id number] PRN Saline Flush Pantoprazole Sodium 40 mg/ 110 mls @ 330 mls/hr 06/30/23 10:00 07/05/23 08:40 Sodium Chloride IV Infused DAILY MARY Infusion Meropenem 1 gm/ Sodium 120 mls @ 33 mls/hr 06/30/23 10:00 07/05/23 08:39 Chloride IV 33 mls/hr Q12 MARY Administration Insulin Glargine 6 unit 06/30/23 22:00 07/04/23 20:46 Insulin Glargine-Yfgn 100 Unit/Ml Pen SC 6 unit QHS MARY Administration Midodrine 10 mg 07/02/23 08:00 07/05/23 11:35 Midodrine Hcl 5 Mg Tablet PO 10 mg TIDCM MARY Administration Nystatin 1 applic 06/30/23 10:00 07/05/23 08:09 Nystatin Powder 15gm Bottle TOPICAL 1 applic BID MARY Administration Protocol Polyethylene Glycol 17 gm 06/30/23 10:00 07/05/23 08:09 Polyethylene Glycol 3350 17 Gm Packet PO 17 gm DAILY MARY Administration Potassium Chloride 40 meq 06/30/23 10:00 07/05/23 08:08 Potassium Chloride Oral Soln 20 Meq/15 Ml Udc PO 40 meq DAILY MARY Administration Potassium Phos/Sodium Phos 1 packet 07/04/23 16:30 07/05/23 05:05 Na Biphos/Potassium Phosphate Packet PO 1 packet TID MARY Administration Senna/Docusate Sodium 1 tablet 06/30/23 02:20 Senna/Docusate Sodium 1 Tablet PO BID PRN constipation Sodium Chloride 10 - 40 ml 06/30/23 02:17 07/05/23 05:06 0.9% Saline Lock 10 Ml Syringe IV 20 ml UD PRN Administration SALINE FLUSH Medical Records Data Attestation: I reviewed the patient's medical records Lab / Micro Data Attestation: I reviewed the patient's lab results. 07/05/23 04:16 07/05/23 04:16 Labs: Laboratory Results - last 24 hr 07/04/23 15:44: Phosphorus 2.0 L, Magnesium 1.7 07/04/23 20:41: POC Glucose 159 H 07/05/23 04:16: WBC 13.5 H, RBC 4.11 L, Hgb 11.8 L, Hct 36.8 L, MCV 89.5, MCH 28.7, MCHC 32.1, RDW Std Deviation 51.8 H, RDW Coeff of Ricardo 15.8 H, Plt Count 126 L, MPV 12.5 H, Immature Gran % (Auto) 1.500 H, Neut % (Auto) 82.1 H, Lymph % (Auto) 14.5 L, [place] % (Auto) 1.5, Eos % (Auto) 0.0, Baso % (Auto) 0.4, Absolute Neuts (auto) 11.1 H, Absolute Lymphs (auto) 1.97, Nucleated RBC % 0, Atypical Lymphocytes 1+, Reactive Lymphocytes RARE, Sodium 144, Potassium 4.2, Chloride 112 H, Carbon Dioxide 23.0, Anion Gap 9, BUN 14, Creatinine 0.38 L, Estim Creat Clear Calc 47.39, Est GFR (MDRD) Af Amer 207, Est GFR (MDRD) Non-Af 171, B UN/Creatinine Ratio 36.5 H, Glucose 169 H, Calcium 7.9 L Rhythm Strip Rhythm Strip: Sinus Rhythm Rate: 100 Ectopy: PVC(s) Assessment and Plan . Assessment and plan: 1. Severe sepsis, still with shock/ requiring vasopressors, reasons unclear. On midodrine, would have considered adding Florinef if hydrocortisone helped (but hasn't made much difference yet) 2. Complicated UTI w/ ESBL-producing bacteremia 3. Nephrolithiasis w/ ureteral obstruction, s/p ureteral stent placement 4. Thrombocytopenia 5. DM Critical Care Time: 50 minutes The entirety of this encounter was done via Telemedicine Physical Exam Const alert General Appearance: comfortable Orientation / Consciousness: awake HEENT normocephalic Head and Scalp: normal to inspection Eyes PERRL Neck full ROM and no lymphadenopathy Resp normal respiratory effort Cardio regular rate GI normal to inspection, nondistended, normoactive bowel sounds Subjective Subjective Offers little conversation or interaction. remains on norepinephrine.
--- NOTE | 2023-07-05 13:42 | PCM.PN.HOSP ---
Reason for Visit Reason for Visit: Diagnoses Sepsis, unspecified organism (06/29/23) Unspecified Escherichia coli [E. coli] as the cause of diseases classified elsewhere (06/29/23) Hypokalemia (06/29/23) Metabolic encephalopathy (06/29/23) Other forms of acute ischemic heart disease (06/29/23) Calculus of kidney (06/29/23) Calculus of ureter (06/29/23) Urinary tract infection, site not specified (06/29/23) Severe sepsis with septic shock (06/29/23) Bacteremia (06/29/23) Presence of other specified devices (06/29/23) Objective Data Objective Data Vital Signs: Vital Signs Temp Pulse Resp BP Pulse Ox O2 Del Method 97.3 F L 72 21 H 118/64 96 Room Air 07/05/23 12:00 07/05/23 12:00 07/05/23 12:00 07/05/23 12:00 07/05/23 12:00 07/05/23 12:00 Oxygen Delivery Method Room Air Weight: 137 lb 9.095 oz Body Mass Index (BMI) 25.9 Intake & Output: Intake and Output for Last 24 Hours 07/03/23 07/04/23 07/05/23 23:59 23:59 23:59 Intake Total 804.35 / 808.10 878.10 / 881.90 1634.60 / 1634.60 Output Total 2285 / 2285 1245 / 1445 350 / 350 Balance -1480.65 / -1476.90 -366.90 / -563.10 1284.60 / 1284.60 Lab / Micro Data 07/05/23 04:16 07/05/23 04:16 Labs: Laboratory Results - last 24 hr 07/04/23 15:44: Phosphorus 2.0 L, Magnesium 1.7 07/04/23 20:41: POC Glucose 159 H 07/05/23 04:16: WBC 13.5 H, RBC 4.11 L, Hgb 11.8 L, Hct 36.8 L, MCV 89.5, MCH 28.7, MCHC 32.1, RDW Std Deviation 51.8 H, RDW Coeff of Ricardo 15.8 H, Plt Count 126 L, MPV 12.5 H, Immature Gran % (Auto) 1.500 H, Neut % (Auto) 82.1 H, Lymph % (Auto) 14.5 L, Morehouse % (Auto) 1.5, Eos % (Auto) 0.0, Baso % (Auto) 0.4, Absolute Neuts (auto) 11.1 H, Absolute Lymphs (auto) 1.97, Nucleated RBC % 0, Atypical Lymphocytes 1+, Reactive Lymphocytes RARE, Sodium 144, Potassium 4.2, Chloride 112 H, Carbon Dioxide 23.0, Anion Gap 9, BUN 14, Creatinine 0.38 L, Estim Creat Clear Calc 47.39, Est GFR (MDRD) Af Amer 207, Est GFR (MDRD) Non-Af 171, BUN/Creatinine Ratio 36.5 H, Glucose 169 H, Calcium 7.9 L Micro: Microbiology 06/29/23 20:30 Blood Culture (Wb) - Left Hand Blood Culture - Final GNR 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 Yesterday patient was temporarily off Levophed drip but her blood pressure dropped therefore started back on levo drip. Lovenox discontinued because of severe thrombocytopenia. Patient is a residential she was not walking or moving much. She is more communicative today. Seen and examined patient is still on Levophed drip. Urine output was low 200 mL since last night. 1 L Ringer lactate bolus ordered Physical exam: General: Awake, alert and oriented HEENT: Atraumatic, PERRLA, EOMI, Normocephalic Oral: Oral mucosa moist. No Gingival or Mucosal Lesions/ Ulcerations Neck: Right neck TLC. Neck is bent on the right side. Supple, No JVD, Negative Carotid Bruits Chest wall/Lungs: Air entry diminished in bilateral lung bases. No crepitation/rhonchi. On room air Cardiovascular: Regular rate, Regular Rhythm, Normal S1, Normal S2, No M/G/R Abdomen: Bowel Sounds Present, Soft, Non Tender, Non-Distended : Zapata catheter clear urine. No renal angle tenderness. No suprapubic tenderness. Extremities: No edema, Capillary Refill Less than 3 Seconds Skin: Improvement in redness over coccyx area warm and moist stage I decubitus ulcer, present on admission. RLE scaly lesions with dryness. Excoriation in the groin. Chronic thickening of his skin greenish-yellow crust over lower legs. Musculoskeletal: Chronic weakness. Both lower extremity knees and hip joints are very stiff with the skin thickening and patient gets irritable examination Neurological: Cranial nerves II-XII grossly intact, DTR 2+/4. No acute focal neurological deficit. Psych/Mental Status: flat affect. Assessment & Plan Assessment/Plan (1) Septic shock: (2) Acute UTI: (3) Chronic indwelling Zapata catheter: (4) Calculus of ureterovesical junction (UVJ): (5) Acute hypokalemia: (6) Septic encephalopathy: (7) Subendocardial ischemia: PLAN: Plan This is a 82-year-old female admitted with altered mental status and hypotension from residential. She was found to be confused more than his baseline with history of dementia. BP was 74 systolic on the evening prior to admission. 1. Sepsis with septic shock; she needs CAUTI ESBL E. coli with bacteremia, complicated UTI from chronic indwelling Zapata catheter and obstructing 4 mm Right UVJ stone: Patient is admitted in ICU. On vasopressor drip through right IJ. Chest x-ray initially reviewed and shows tip of right IJ in the right atrium. Previously x-ray showed right subclavian line going cranially to right IJ which has since been corrected. 06/29: UA positive of nitrite, LE, WBC 50?100 cells, microscopic hematuria 10-25 cells 2+ bacteria. The patient presented with septic shock with clinical indicators Altered mental status, tachycardia, tachypnea, hypotension, leukocytosis, acute encephalopathy of due to obstructive CAUTI with acute sepsis-related organ dysfunction as evidenced by hypotension requiring vasopressor, lactic acidosis, coagulopathy INR 2.0. Patient is admitted to ICU.Patient on IV meropenem and vancomycin. Patient has anaphylaxis allergic history to penicillin. Client Technical Professional consulted. Urologist consulted. CT scan individually reviewed shows 4 mm stone in the distal right ureter just proximal to the UVJ, causing mild obstructive changes and multiple nonobstructing stones in the right intrarenal collecting system and right renal pelvis measuring up to 8 mm. 06/30: Patient is still on Levophed drip. Patient has critically high WBC count 32,000, 72,010 today 50,000. Immature granulocyte 3.4% consistent with left shift mainly neutrophils, lymphopenia with bandemia 11% 07/01: Patient is still on Levophed drip. Started on midodrine. Urine culture from 06/28 shows ESBL E. coli [id number] colonies. Blood culture from 06/28 also positive of E. coli, ESBL negative. Later on urine culture from 07/01 shows E. coli more than 1000 colonies, ESBL negative. With inconsistent reporting of urine culture and blood culture, ID is consulted for further opinion. Leukocytosis improving. 07/02: Patient is still on Levophed drip, although tapered down to 1 tom per minute 07/04: Patient is still on Levophed drip. Not increasing creatinine but urine output was low therefore 1 L Ringer lactate ordered. Monitor urine output. Patient has Zapata catheter urine is deep yellow color 2. Acute encephalopathy mainly due to sepsis/infection and metabolic encephalopathy on baseline chronic dementia - Continue supportive care outlined above and monitor for improvement. 06/30: Patient is still not very verbal or communicative. Does not seem very irritable 07/01: Patient is more verbal and communicative. She states he did not walk for long time. On wheelchair in residential. : It is improving but he still gets sometimes irritable in the morning. 07/04: Seems on baseline. Although patient has irritable nature 3. Critical hypokalemia of 2.2 mmol/L present on admission, hypophosphatemia, and hypomagnesemia: On IV potassium phosphate and magnesium sulfate replacement. 06/30: Hypokalemia. Hyponatremia. 07/03: Sodium 146 normal. K 4.3. 4. Highly elevated troponin of 677 pg/mL present on admission likely due to demand ischemia/acute myocardial necrosis/type II ND: Subsequent troponin 650 shows decrease. Patient had increased cardiac demand resulting into ischemia from septic shock. Patient was given aspirin, atorvastatin and full-dose Lovenox. Troponins on decreasing trend check echocardiogram to evaluate LVEF. 07/01: 2D echo was done: The estimated ejection fraction is 65 %. The left atrium is mildly enlarged. Mild-Moderate (1-2+) mitral valve insufficiency. Mild (1+) tricuspid valve insufficiency. Mild focal aortic valve calcification. The study was technically difficult. Contrast injection was performed. 5. Severe hypoalbuminemia of 1.8 g/dL present on admission suggestive of chronic moderate protein calorie malnutrition: BMI 25.6 kg/m? but patient is severely debilitated with multiple conditions as mentioned in assessment and plan. 6. Essential hypertension - Hold scheduled antihypertensives, currently patient on pressors 7. DM-2; of unknown control - Keep NPO for now. Fingerstick blood sugars every 6 hours plus lowest intensity sliding scale insulin. Check hemoglobin A1c to objectively evaluate quality of diabetic control. 8. History of diabetic foot ulcers - Noted. 9. History of stage III decubitus ulcer of buttock - Noted. 10. History of osteomyelitis of the toe - Noted. 11. History of Right lower extremity cellulitis - Noted. 12. History of bilateral lower extremity lymphedema - Stable. 13. History of tobacco abuse; with subsequent COPD - Stable with no evidence of acute flare at this time. Continue as needed nebulizers. 14. History of urinary retention; with chronic indwelling Zapata catheter - Noted and linked to infection outlined in #1. 15. History of medical noncompliance - Noted. 16. Spondylosis of lumbar spine and osteoarthritis - Give Tylenol as needed. 17. Depression - Continue home regimen when patient is able to tolerate it. 18. DVT prophylaxis -severe thrombocytopenia: Platelet count decreased to 87,000. Lovenox discontinued. Clinical Impression(s) from Imaging Studies Brain CT 06/29/23 20:26 IMPRESSION: Negative head/brain CT without intravenous contrast. Electronically Signed: Shay Dee MD at 21:07 EDT , Chest X-Ray 06/29/23 20:50 IMPRESSION: There are no acute findings. Electronically Signed: Shay Dee MD at 21:14 EDT , Echocardiogram 06/29/23 23:45 Interpretation Summary The estimated ejection fraction is 65 %. The left atrium is mildly enlarged. Mild-Moderate (1-2+) mitral valve insufficiency. Mild (1+) tricuspid valve insufficiency. Mild focal aortic valve calcification. The study was technically difficult. Contrast injection was performed. Ordering Physician: Andreas Chan Referring Physician: Scooter Siu Performed By: Jose Saeed RCS Abdomen/Pelvis CT 06/30/23 00:00 IMPRESSION: 1. There is a 4 mm stone in the distal right ureter just proximal to the UVJ, causing mild obstructive changes. 2. Multiple nonobstructing stones in the right intrarenal collecting system and right renal pelvis measuring up to 8 mm. Electronically Signed: Shay Mendoza MD at 2:00 EDT Reading Location ID and State: [facility] / [place] Tel , Service support , Chest X-Ray 06/30/23 00:45 IMPRESSION: Right subclavian central line with the distal tip extending cranially within the right internal jugular vein. Recommend repositioning and reimaging. Electronically Signed: Shay Mendoza MD at 2:00 EDT , ADDENDUM: 06/30/23 0220 IMPRESSION: Right subclavian central line with the distal tip extending cranially within the right internal jugular vein. Recommend repositioning and reimaging. N.B. : ANDREAS TORRES MD, confirmed on 06/30/2023 02:13:16 (ET) that the healthcare facility has received the radiology report. Electronically Signed: Shay Mendoza MD at 2:00 EDT Reading Location ID and State: [facility] / [place] Tel , Service support , Chest X-Ray 06/30/23 01:55 IMPRESSION: 1. Right jugular central line with tip at the cavoatrial junction. No pneumothorax or other complication. 2. Nodular density in the right mid lung field measuring 1.5 cm. A follow-up chest CT is recommended for further assessment. Electronically Signed: Shay Mendoza MD at 2:20 EDT , Charges/Coding Visit Charges Inpatient E&M: 47399 Subs Hosp L3
[2023-07-05] MEDS: Atorvastatin Calcium 20 MG Tablet PO (20:18)
[2023-07-05] MEDS: Insulin Glargine-YFGN 100 UNIT/ML Pen 6 UNIT SC (20:22)
[2023-07-05 20:40] LABS: Bedside Glucose 177 mg/dL (74-106)
[2023-07-06] VITALS (32 sets, daily range): BP systolic 85–147; BP diastolic 42–80; PULSE 38–63; RESP 14–20; TEMP 36.2–36.6; O2SAT 90–98; BMI 26.0
[2023-07-06] MEDS: 0.9% Saline Lock 10 ML Syringe IV ×3 (04:13→20:16)
[2023-07-06] MEDS: CHLORHEXIDINE GLUC 2% CLOTH 1 EACH TOWELETTE TOPICAL (04:16)
[2023-07-06 04:30] LABS: Hematocrit 34.8 % (37-47); Hemoglobin 11.4 g/dL (12.0-15.0); Mean Corp Hgb Conc 32.8 g/dL (32-36); Mean Corpuscular Hgb 29.2 pg (27.0-32.0); Mean Platelet Vol. 12.2 fl (6.2-12.0); POSITIVE MORPHOLOGY YES; Platelet Count 186 K/mm3 (150-450); RBC Distribution Width CV 15.6 % (11.6-14.6); RBC Distribution Width SD 50.4 fl (35.1-43.9); Red Blood Count 3.91 M/mm3 (4.2-5.4); White Blood Count 13.7 K/mm3 (4.4-11.0)
[2023-07-06 04:32] LABS: Differential Indicated MANUAL DIFF
[2023-07-06 04:44] LABS: Anion Gap 2 (5-15); BUN 12 mg/dL (7-18); BUN/Creat Ratio 30.5 RATIO (10-20); Calcium,Total 8.1 mg/dL (8.5-10.1); Chloride 114 mmol/L (98-107); Creatinine, Serum 0.39 mg/dL (0.55-1.02); EST Glomerular Filtration Rate 166 mL/min (>60); Est Glom Filt Rate - Afr Amer 201 mL/min (>60); Estimated Creatinine Clearance 47.49 ml/min; Glucose 182 mg/dL (74-106); Potassium 3.9 mmol/L (3.5-5.1); Sodium Level 145 mmol/L (136-145)
[2023-07-06] MEDS: Na Biphos/Potassium Phosphate PACKET 1 PACKET PO ×3 (04:55→20:16)
[2023-07-06] MEDS: Hydrocortisone Sod Succinate 100 MG/2 ML Vial 50 MG IV ×3 (04:55→20:22)
[2023-07-06 05:02] LABS: Lymphocyte 14 % (19-41); Monocyte 9 % (0-10); Neutrophil-Segmented 75 % (47-70); Other WBC Type 1 %; Promyelocyte 1 % (0-0); Total Cells Counted 100 (MANUAL DIFF)
[2023-07-06 05:04] LABS: Polychromasia 1+
[2023-07-06 05:05] LABS: Anisocytosis 1+; Platelet Estimate ADEQUATE (ADEQ)
[2023-07-06 05:07] LABS: Absolute Neutrophil Count 10.3 X10^3/uL (2.0-7.7)
[2023-07-06] MEDS: Potassium Chloride Oral Soln 20 MEQ/15 ML UDC 40 MEQ PO (07:39)
[2023-07-06] MEDS: Menthol/Lanolin/Calamine/Znox 113 GM Tube 1 APPLIC TOPICAL ×2 (07:40→20:15)
[2023-07-06] MEDS: Polyethylene Glycol 3350 17 GM PACKET PO (07:40)
[2023-07-06] MEDS: Midodrine HCl 5 MG Tablet 10 MG PO ×3 (07:40→16:10)
[2023-07-06] MEDS: Lactobacillis Acidophilus 2 CAP PO ×2 (07:42→20:16)
[2023-07-06] MEDS: Nystatin Powder 15gm Bottle 1 APPLIC TOPICAL ×2 (07:42→20:15)
[2023-07-06] MEDS: Pantoprazole Sodium 40 MG in 0.9% Normal Saline (100mL MB+) 100 ML 330 MG IV (07:43)
[2023-07-06] MEDS: Clopidogrel Bisulfate 75 MG Tablet PO (07:43)
[2023-07-06] MEDS: 0.9% Normal Saline (250mL Bag) 250 ML 15 ML IV (07:45)
[2023-07-06] MEDS: Meropenem 1 GM in 0.9% Normal Saline (100mL MB+) 100 ML IV ×2 (08:36→20:16)
--- NOTE | 2023-07-06 10:11 | PN.HOSP_ITS ---
Reason for Visit Reason for Visit: Diagnoses Sepsis, unspecified organism (06/29/23) Unspecified Escherichia coli [E. coli] as the cause of diseases classified elsewhere (06/29/23) Hypokalemia (06/29/23) Metabolic encephalopathy (06/29/23) Other forms of acute ischemic heart disease (06/29/23) Calculus of kidney (06/29/23) Calculus of ureter (06/29/23) Urinary tract infection, site not specified (06/29/23) Severe sepsis with septic shock (06/29/23) Bacteremia (06/29/23) Presence of other specified devices (06/29/23) Objective Data Objective Data Vital Signs: Vital Signs Temp Pulse Resp BP Pulse Ox O2 Del Method 97.1 F L 43 L 16 117/54 L 90 Room Air 07/06/23 04:00 07/06/23 07:00 07/06/23 07:00 07/06/23 07:00 07/06/23 07:27 07/06/23 07:27 Oxygen Delivery Method Room Air Weight: 137 lb 12.623 oz Body Mass Index (BMI) 26.0 Intake & Output: Intake and Output for Last 24 Hours 07/04/23 07/05/23 07/06/23 23:59 23:59 23:59 Intake Total 878.10 / 881.90 2625.24 / 2627.14 258.03 / 258.03 Output Total 1245 / 1445 397 / 449 155 / 155 Balance -366.90 / -563.10 2228.24 / 2178.14 103.03 / 103.03 Lab / Micro Data 07/06/23 04:17 07/06/23 04:17 Labs: Laboratory Results - last 24 hr 07/05/23 20:21: POC Glucose 177 H 07/06/23 04:17: WBC 13.7 H, RBC 3.91 L, Hgb 11.4 L, Hct 34.8 L, MCV 89.0, MCH 29.2, MCHC 32.8, RDW Std Deviation 50.4 H, RDW Coeff of Ricardo 15.6 H, Plt Count 186, MPV 12.2 H, Neut % (Auto) Not Reportable, Absolute Neuts (auto) 10.3 H, Absolute Lymphs (auto) 1.90, Total Counted 100, Neutrophils % (Manual) 75 H, L ymphocytes % (Manual) 14 L, Monocytes % (Manual) 9, Promyelocytes % 1 H, Other Cells % 1, Diff Path Review June, Platelet Estimate ADEQUATE, Polychromasia 1+, Anisocytosis 1+, Sodium 145, Potassium 3.9, Chloride 114 H, Carbon Dioxide 29.0, Anion Gap 2 L, BUN 12, Creatinine 0.39 L, Estim Creat Clear Calc 47.49, Est GFR (MDRD) Af Amer 201, Est GFR (MDRD) Non-Af 166, BUN/Creatinine Ratio 30.5 H, Glucose 182 H, Calcium 8.1 L Micro: Microbiology 06/29/23 20:30 Blood Culture (Wb) - Left Hand Blood Culture - 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 Patient is still on Levophed drip although was temporarily off yesterday evening. No major change in patient's clinical mental status. Urine output low 395 mL. Lovenox Haldol discontinued because of severe thrombocytopenia. Physical exam: General: Awake, alert and oriented. Not very communicative. HEENT: Atraumatic, PERRLA, EOMI, Normocephalic Oral: Oral mucosa dry. No Gingival or Mucosal Lesions/ Ulcerations Neck: Right neck TLC. Neck is bent on the right side. Supple, No JVD, Negative Carotid Bruits Chest wall/Lungs: Air entry diminished in bilateral lung bases. No crepitation/rhonchi. On room air Cardiovascular: Regular rate, Regular Rhythm, Normal S1, Normal S2, No M/G/R Abdomen: Bowel Sounds Present, Soft, Non Tender, Non-Distended : Zapata catheter clear urine. No renal angle tenderness. No suprapubic tenderness. Extremities: No edema, Capillary Refill Less than 3 Seconds Skin: Mild redness over coccyx area warm and moist stage I decubitus ulcer, present on admission getting better. RLE scaly lesions with dryness. Excoriation in the groin. Chronic thickening of his skin greenish-yellow crust over lower legs. Musculoskeletal: Chronic weakness. Both lower extremity knees and hip joints are very stiff with the skin thickening. Neurological: Cranial nerves II-XII grossly intact, DTR 2+/4. No acute focal neurological deficit. Psych/Mental Status: flat affect. Assessment & Plan Assessment/Plan (1) Septic shock: (2) Acute UTI: (3) Chronic indwelling Zapata catheter: (4) Calculus of ureterovesical junction (UVJ): (5) Acute hypokalemia: (6) Septic encephalopathy: (7) Subendocardial ischemia: PLAN: Plan This is a 82-year-old female admitted with altered mental status and hypotension from long term. She was found to be confused more than his baseline with history of dementia. BP was 74 systolic on the evening prior to admission. 1. Sepsis with septic shock; she needs CAUTI ESBL E. coli with bacteremia, complicated UTI from chronic indwelling Zapata catheter and obstructing 4 mm Right UVJ stone: Patient is admitted in ICU. On vasopressor drip through right IJ. Chest x-ray initially reviewed and shows tip of right IJ in the right atrium. Previously x-ray showed right subclavian line going cranially to right IJ which has since been corrected. 06/29: UA positive of nitrite, LE, WBC 50?100 cells, microscopic hematuria 10-25 cells 2+ bacteria. The patient presented with septic shock with clinical indicators Altered mental status, tachycardia, tachypnea, hypotension, leukocytosis, acute encephalopathy of due to obstructive CAUTI with acute sepsis-related organ dysfunction as evidenced by hypotension requiring vasopressor, lactic acidosis, coagulopathy INR 2.0. Patient is admitted to ICU.Patient on IV meropenem and vancomycin. Patient has anaphylaxis allergic history to penicillin. Corporate Vp Advertising & Online consulted. Urologist consulted. CT scan individually reviewed shows 4 mm stone in the distal right ureter just proximal to the UVJ, causing mild obstructive changes and multiple nonobstructing stones in the right intrarenal collecting system and right renal pelvis measuring up to 8 mm. 06/30: Patient is still on Levophed drip. Patient has critically high WBC count 32,000, 72,010 today 50,000. Immature granulocyte 3.4% consistent with left shift mainly neutrophils, lymphopenia with bandemia 11% 07/01: Patient is still on Levophed drip. Started on midodrine. Urine culture from 06/28 shows ESBL E. coli [id number] colonies. Blood culture from 06/28 also positive of E. coli, ESBL negative. Later on urine culture from 07/01 shows E. coli more than 1000 colonies, ESBL negative. With inconsistent reporting of urine culture and blood culture, ID is consulted for further opinion. L eukocytosis improving. 07/02: Patient is still on Levophed drip, although tapered down to 1 tom per minute 07/04: Patient is still on Levophed drip. Not increasing creatinine but urine output was low therefore 1 L Ringer lactate ordered. Monitor urine output. Patient has Zapata catheter urine is deep yellow color 07/05 patient is still on Levophed drip. Urine output was 395 mill yesterday. Urine light yellow color. Patient not motivated to get better or water intake 2. Acute encephalopathy mainly due to sepsis/infection and metabolic encephalopathy on baseline chronic dementia - Continue supportive care outlined above and monitor for improvement. 06/30: Patient is still not very verbal or communicative. Does not seem very irritable 07/01: Patient is more verbal and communicative. She states he did not walk for long time. On wheelchair in long term. : It is improving but he still gets sometimes irritable in the morning. 07/04: Seems on baseline. Although patient has irritable nature 3. Critical hypokalemia of 2.2 mmol/L present on admission, hypophosphatemia, and hypomagnesemia: On IV potassium phosphate and magnesium sulfate replacement. 06/30: Hypokalemia. Hyponatremia. 07/03: Sodium 146 normal. K 4.3. 4. Highly elevated troponin of 677 pg/mL present on admission likely due to demand ischemia/acute myocardial necrosis/type II [place]: Subsequent troponin 650 shows decrease. Patient had increased cardiac demand resulting into ischemia from septic shock. Patient was given aspirin, atorvastatin and full-dose Lovenox. Troponins on decreasing trend check echocardiogram to evaluate LVEF. 07/01: 2D echo was done: The estimated ejection fraction is 65 %. The left atrium is mildly enlarged. Mild-Moderate (1-2+) mitral valve insufficiency. Mild (1+) tricuspid valve insufficiency. Mild focal aortic valve calcification. The study was technically difficult. Contrast injection was performed. 5. Severe hypoalbuminemia of 1.8 g/dL present on admission suggestive of chronic moderate protein calorie malnutrition: BMI 25.6 kg/m? but patient is severely debilitated with multiple conditions as mentioned in assessment and plan. 6. Essential hypertension - Hold scheduled antihypertensives, currently patient on pressors 7. DM-2; of unknown control - Keep NPO for now. Fingerstick blood sugars every 6 hours plus lowest intensity sliding scale insulin. Check hemoglobin A1c to objectively evaluate quality of diabetic control. 8. History of diabetic foot ulcers - Noted. 9. History of stage III decubitus ulcer of buttock - Noted. 10. History of osteomyelitis of the toe - Noted. 11. History of Right lower extremity cellulitis - Noted. 12. History of bilateral lower extremity lymphedema - Stable. 13. History of tobacco abuse; with subsequent COPD - Stable with no evidence of acute flare at this time. Continue as needed nebulizers. 14. History of urinary retention; with chronic indwelling Zapata catheter - Noted and linked to infection outlined in #1. 15. History of medical noncompliance - Noted. 16. Spondylosis of lumbar spine and osteoarthritis - Give Tylenol as needed. 17. Depression - Continue home regimen when patient is able to tolerate it. 18. DVT prophylaxis -severe thrombocytopenia: Platelet count decreased to 87,000. Lovenox discontinued. 07/05: Platelet count has improved it is 186,000. Lovenox scheduled. Clinical Impression(s) from Imaging Studies Brain CT 06/29/23 20:26 IMPRESSION: Negative head/brain CT without intravenous contrast. Electronically Signed: Shay Dee MD at 21:07 EDT , Chest X-Ray 06/29/23 20:50 IMPRESSION: There are no acute findings. Electronically Signed: Shay Dee MD at 21:14 EDT , Echocardiogram 06/29/23 23:45 Interpretation Summary The estimated ejection fraction is 65 %. The left atrium is mildly enlarged. Mild-Moderate (1-2+) mitral valve insufficiency. Mild (1+) tricuspid valve insufficiency. Mild focal aortic valve calcification. The study was technically difficult. Contrast injection was performed. Ordering Physician: Andreas Chan Referring Physician: Scooter Siu Performed By: Jose Saeed RCS Abdomen/Pelvis CT 06/30/23 00:00 IMPRESSION: 1. There is a 4 mm stone in the distal right ureter just proximal to the UVJ, causing mild obstructive changes. 2. Multiple nonobstructing stones in the right intrarenal collecting system and right renal pelvis measuring up to 8 mm. Electronically Signed: Shay Mendoza MD at 2:00 EDT Reading Location ID and State: [facility] / [place] Tel , Service support , Chest X-Ray 06/30/23 00:45 IMPRESSION: Right subclavian central line with the distal tip extending cranially within the right internal jugular vein. Recommend repositioning and reimaging. Electronically Signed: Shay Mendoza MD at 2:00 EDT , ADDENDUM: 06/30/23 0220 IMPRESSION: Right subclavian central line with the distal tip extending cranially within the right internal jugular vein. Recommend repositioning and reimaging. N.B. : ANDREAS TORRES MD, confirmed on 06/30/2023 02:13:16 (ET) that the healthcare facility has received the radiology report. Electronically Signed: Shay Mendoza MD at 2:00 EDT , Chest X-Ray 06/30/23 01:55 IMPRESSION: 1. Right jugular central line with tip at the cavoatrial junction. No pneumothorax or other complication. 2. Nodular density in the right mid lung field measuring 1.5 cm. A follow-up chest CT is recommended for further assessment. Electronically Signed: Shay Mendoza MD at 2:20 EDT , Charges/Coding Visit Charges Inpatient E&M: 65064 Subs Hosp L3
[2023-07-06] MEDS: Enoxaparin 40 MG/0.4 ML Syringe SC (12:13)
[2023-07-06] MEDS: Norepinephrine 8 MG in 0.9% Normal Saline (250mL Bag) 242 ML 1.9 MG CONT INF (13:08)
[2023-07-06] MEDS: Atorvastatin Calcium 20 MG Tablet PO (20:16)
[2023-07-06 20:46] LABS: Magnesium 1.6 mg/dL (1.6-2.6)
[2023-07-07] VITALS (25 sets, daily range): BP systolic 90–137; BP diastolic 42–73; PULSE 38–100; RESP 11–21; TEMP 36.1–36.5; O2SAT 92–97
[2023-07-07] MEDS: Magnesium Sulfate 2 GM in Dextrose 5%-Water (100mL Bag) 100 ML IV (00:05)
[2023-07-07] MEDS: 0.9% Saline Lock 10 ML Syringe IV ×2 (04:34→20:47)
[2023-07-07] MEDS: Hydrocortisone Sod Succinate 100 MG/2 ML Vial 50 MG IV ×3 (04:35→20:45)
[2023-07-07] MEDS: Na Biphos/Potassium Phosphate PACKET 1 PACKET PO (04:35)
[2023-07-07 04:41] LABS: Absolute Neutrophil Count 4.2 X10^3/uL (2.0-7.7); Basophil# 0.01 X10^3/uL; Basophil% 0.2 % (0-1); Hematocrit 32.8 % (37-47); Hemoglobin 10.5 g/dL (12.0-15.0); Lymphocyte % 27.2 % (19-41); Mean Corpuscular Hgb 28.8 pg (27.0-32.0); Mean Corpuscular Volume 89.9 fL (81-99); Mean Platelet Vol. 12.5 fl (6.2-12.0); Monocyte# 0.54 X10^3/uL; Monocyte% 8.2 % (0-10); NRBC Flagged by Analyzer 0 % (0-5); Neutrophil # 4.15 X10^3/uL (2.7-7.7); Neutrophil % 62.6 % (47-70); POSITIVE MORPHOLOGY YES; Platelet Count 147 K/mm3 (150-450); RBC Distribution Width CV 15.9 % (11.6-14.6); RBC Distribution Width SD 51.4 fl (35.1-43.9); Red Blood Count 3.65 M/mm3 (4.2-5.4); White Blood Count 6.6 K/mm3 (4.4-11.0)
[2023-07-07 05:14] LABS: Anion Gap 3 (5-15); BUN 12 mg/dL (7-18); Calcium,Total 7.9 mg/dL (8.5-10.1); Chloride 113 mmol/L (98-107); EST Glomerular Filtration Rate 227 mL/min (>60); Est Glom Filt Rate - Afr Amer 275 mL/min (>60); Estimated Creatinine Clearance 47.53 ml/min; Glucose 153 mg/dL (74-106); Potassium 3.7 mmol/L (3.5-5.1); Sodium Level 146 mmol/L (136-145)
[2023-07-07 06:31] LABS: Differential Indicated SCAN CRITERIA MET
[2023-07-07 06:40] LABS: Differential Comment SCANNED
--- NOTE | 2023-07-07 06:42 | PCM.PN.INT ---
Assessment & Plan Assessment/Plan (1) Septic shock: PLAN: Plan RECOMMENDATIONS: 1. Continue antimicrobials to address ESBL E. coli. 2. Restart Levophed only if systolic blood pressure drops below 90 mmHg. 3. Continue scheduled midodrine as ordered. 4. Wean stress dose steroids beginning tomorrow, if the patient remains hemodynamically stable. 5. Continue PPI therapy. 6. Encourage incentive spirometer use and mobilize patient as tolerated. IMPRESSIONS: 1. Gram-negative septic shock The patient presented with sepsis due to ESBL E. coli urinary tract source of infection with acute sepsis related organ dysfunction as evidenced by altered mental status, lactic acidemia and fluid nonresponsive hypotension, requiring vasopressor support. CT abdomen/pelvis demonstrated a stone in the distal right ureter with obstructive changes. Accordingly, the patient was evaluated by urology and underwent cystoscopy with ureteral stent insertion. Overall, the patient is improving from a clinical perspective. The patient will be continued on antimicrobials and stress dose steroids. Levophed should only be initiated once again if systolic blood pressure drops below 90 mmHg. Otherwise, plan to continue scheduled midodrine as ordered. If the patient remains hemodynamically stable over the next 24 hours, stress dose steroids will begin to be weaned tomorrow. 2. Metabolic encephalopathy Improved. Most likely secondary to #1 coupled with underlying dementia. Continue current supportive measures. Avoid sedating medications. Encourage participation with physical therapy. 3. Troponin elevation Most likely secondary to demand ischemia in the setting #1. Echocardiogram was unrevealing. 4. History of diabetes mellitus/hypertension/history of urinary retention/depression/advanced age Complicates care, management, recovery and prognosis. Continue supportive measures as noted above. Physical therapy to work with the patient. This note was generated with [employer] dictation software. It may contain incorrect words, spelling, and punctuation that were not noted in checking the note before signing. Subjective Subjective The patient was seen and examined at the bedside this morning. Events from the last 24 hours have been reviewed. The patient is currently afebrile, hemodynamically stable and maintaining appropriate oxygen saturations on room air. The patient has been off of Levophed since 8 PM last night. Her blood pressures are somewhat borderline this morning. According to nursing report, the patient also had episodes of bradycardia overnight. Morning labs are stable. The patient has been refusing physical therapy. Objective Data Objective Data The patient's most recent lab work, culture data and imaging studies have all been personally reviewed. Urine culture was positive for presumptive E. coli. Blood cultures dated June 28 were positive for E. coli. Vital Signs: Vital Signs Temp Pulse Resp BP Pulse Ox O2 Del Method 97.2 F L 40 L 16 93/52 L 93 Room Air 07/07/23 06:00 07/07/23 06:00 07/07/23 06:00 07/07/23 06:16 07/07/23 06:00 07/07/23 06:00 Oxygen Delivery Method Room Air Weight: 137 lb 12.623 oz Body Mass Index (BMI) 26.0 Intake & Output: Intake and Output for Last 24 Hours 07/05/23 07/06/23 07/07/23 23:59 23:59 23:59 Intake Total 2625.24 / 2627.14 1234.53 / 1234.53 224 / 224 Output Total 397 / 449 660 / 735 185 / 185 Balance 2228.24 / 2178.14 574.53 / 499.53 39 / 39 Lab / Micro Data Attestation: I reviewed the patient's lab results. 07/07/23 04:31 07/07/23 04:31 Labs: Laboratory Results - last 24 hr 07/06/23 20:10: Magnesium 1.6 07/07/23 04:31: WBC 6.6, RBC 3.65 L, Hgb 10.5 L, Hct 32.8 L, MCV 89.9, MCH 28.8, MCHC 32.0, RDW Std Deviation 51.4 H, RDW Coeff of Ricardo 15.9 H, Plt Count 147 L, MPV 12.5 H, Immature Gran % (Auto) 1.800 H, Neut % (Auto) 62.6, Lymph % (Auto) 27.2, [place] % (Auto) 8.2, Eos % (Auto) 0.0, Baso % (Auto) 0.2, Absolute Neuts (auto) 4.2, Absolute Lymphs (auto) 1.80, Nucleated RBC % 0, Differential Comment SCANNED, Sodium 146 H, Potassium 3.7, Chloride 113 H, Carbon Dioxide 30.0, Anion Gap 3 L, BUN 12, Creatinine 0.30 L, Estim Creat Clear Calc 47.53, Est GFR (MDRD) Af Amer 275, Est GFR (MDRD) Non-Af 227, BUN/Creatinine Ratio 40.0 H, Glucose 153 H, Calcium 7.9 L Micro: Microbiology 06/29/23 20:30 Blood Culture (Wb) - Left Hand Blood Culture - Final GNR lactose ct scan technologist 06/29/23 20:43 Blood Culture (Wb) - Right Wrist Blood Culture - Final Escherichia coli 06/30/23 13:00 Urine Catheter - Zapata Urine Culture - Final Escherichia coli 06/29/23 22:03 Urine Catheter - Catheter Urine Culture - Final ESBL Escherichia coli 06/29/23 21:08 Mucosa - Nose SARS-CoV-2, Influenza & RSV (PCR) - Final Radiography Diagnostic Testing: Radiology Impression Echocardiogram 06/29/23 23:45 Interpretation Summary The estimated ejection fraction is 65 %. The left atrium is mildly enlarged. Mild-Moderate (1-2+) mitral valve insufficiency. Mild (1+) tricuspid valve insufficiency. Mild focal aortic valve calcification. The study was technically difficult. Contrast injection was performed. Ordering Physician: Joo Chan Referring Physician: Scooter Siu Performed By: Jose Saeed RCS Rhythm Strip Rhythm Strip: Sinus Rhythm Rate: 100 Ectopy: PVC(s) Physical Exam Const alert and no apparent distress Constitutional Narrative: Chronically ill-appearing. Remains confused and disoriented. HEENT normocephalic and head/scalp atraumatic Eyes PERRL, EOMs intact bilaterally and conjunctivae normal Neck supple General: trachea midline Chest inspection of chest normal Resp normal respiratory effort Auscultation: diminished lung sounds Cardio S1 normal heart sound and S2 normal heart sound Rate: bradycardia GI normal to inspection, nondistended, normoactive bowel sounds Extremity General Extremity: Negative for clubbing or edema Neuro CN's II-XII intact bilaterally and moves all extremities Psych Mood & Affect: flat affect Charges/Coding Visit Charges Inpatient E&M: 23116 Subs Hosp L3
--- NOTE | 2023-07-07 07:09 | PN.HOSP_ITS ---
Reason for Visit Reason for Visit: Altered mental status/hypotension Subjective Subjective Ms. Pop is an 82-year-old white female who presented to the emergency department at [facility] on 06/29/2023 from a local nursing facility with altered mental status and hypotension. At baseline she is alert and oriented x 3 despite some baseline dementia however she was noted to be hypotensive with a systolic pressure of 74 at the ECF at which she lives. Upon presentation she only complained of nausea. Vital signs on presentation showed a temperature of 99, heart rate 101, respiratory rate 19, blood pressure was 99/49 and pulse ox was 97% on room air. Her lowest systolic pressure was 74. CBC on presentation showed a leukocytosis at 32,000 with thrombocytopenia having a platelet count of 145,000. Her coagulation profile was notable for an INR of 2.0 and she is not anticoagulated at baseline. Her chemistry panel revealed a potassium of 2.2, serum creatinine of 1.15 and a lactate of 7.7. Her initial troponin was 677. UA was performed and positive for nitrites, leuk esterase, white cells and had 2+ bacteria. CT of the brain was unremarkable. CT of the abdomen pelvis demonstrated a 4 mm stone in the distal right ureter causing mild obstructive changes and multiple other nonobstructing stones were noted in the right intrarenal collecting system. Blood and urine cultures were collected. COVID, flu, RSV PCR were negative. The patient was treated with sepsis protocol of IV fluids and started on antimicrobial therapy. A central venous catheter was subsequently placed and she was placed on Levophed. Cultures grew out an ESBL E. coli in her blood and urine. Urology was consulted and took her for cystoscopy with right ureteral stent insertion due to the obstructing stone and she was admitted to the intensive care unit. Echocardiogram on 06/30/2023 showed EF of 65% with mild to moderate mitral valve insufficiency, mild tricuspid valve insufficiency and mild focal aortic valve calcification. Given her ESBL producing organism, ID was consulted. Antibiotics were transitioned to meropenem once cultures are resulted. Despite antimicrobial therapy she has remained on Levophed due to persistent hypotension. Midodrine and hydrocortisone were added but neither have produced much significant change in her baseline blood pressure. Patient has been off pressors since yesterday afternoon. Evidently she lives in ECF at baseline and is fairly nonfunctional. ICU has suggested possible hospice consultation but will need discussed with family [facility]. Patient denies any complaints currently. Is eating better today per nursing staff. Objective Data Objective Data Vital Signs: Vital Signs Temp Pulse Resp BP Pulse Ox O2 Del Method 97.2 F L 40 L 14 99/42 L 95 Room Air 07/07/23 06:00 07/07/23 07:00 07/07/23 07:00 07/07/23 07:00 07/07/23 07:00 07/07/23 07:00 Oxygen Delivery Method Room Air Weight: 62.5 kg Body Mass Index (BMI) 26.0 Intake & Output: Intake and Output for Last 24 Hours 07/05/23 07/06/23 07/07/23 23:59 23:59 23:59 Intake Total 2625.24 / 2627.14 1234.53 / 1234.53 224 / 224 Output Total 397 / 449 660 / 735 185 / 185 Balance 2228.24 / 2178.14 574.53 / 499.53 39 / 39 Lab / Micro Data 07/07/23 04:31 07/07/23 04:31 Labs: Laboratory Results - last 24 hr 07/06/23 20:10: Magnesium 1.6 07/07/23 04:31: WBC 6.6, RBC 3.65 L, Hgb 10.5 L, Hct 32.8 L, MCV 89.9, MCH 28.8, MCHC 32.0, RDW Std Deviation 51.4 H, RDW Coeff of Ricardo 15.9 H, Plt Count 147 L, M PV 12.5 H, Immature Gran % (Auto) 1.800 H, Neut % (Auto) 62.6, Lymph % (Auto) 27.2, [place] % (Auto) 8.2, Eos % (Auto) 0.0, Baso % (Auto) 0.2, Absolute Neuts (auto) 4.2, Absolute Lymphs (auto) 1.80, Nucleated RBC % 0, Differential Comment SCANNED, Sodium 146 H, Potassium 3.7, Chloride 113 H, Carbon Dioxide 30.0, Anion Gap 3 L, BUN 12, Creatinine 0.30 L, Estim Creat Clear Calc 47.53, Est GFR (MDRD) Af Amer 275, Est GFR (MDRD) Non-Af 227, BUN/Creatinine Ratio 40.0 H, Glucose 153 H, Calcium 7.9 L Micro: Microbiology 06/29/23 20:30 Blood Culture (Wb) - Left Hand Blood Culture - Final GNR lactose 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 06/29/23 20:43 Blood Culture (Wb) - Right Wrist Blood Culture - Final Escherichia coli 06/30/23 13:00 Urine Catheter - Zapata Urine Culture - Final Escherichia coli 06/29/23 22:03 Urine Catheter - Catheter Urine Culture - Final ESBL Escherichia coli 06/29/23 21:08 Mucosa - Nose SARS-CoV-2, Influenza & RSV (PCR) - Final Rhythm Strip Rhythm Strip: Sinus Rhythm Rate: 100 Ectopy: PVC(s) Physical Exam Const alert, no apparent distress, average body habitus and well nourished; Negative for healthy appearing Constitutional Narrative: Elderly, white female, sitting up in bed leaning to the right, eating breakfast and watching television, appears much older than stated age, does not currently appear toxic and able to interact but is slightly confused oriented only to self and place at this time. HEENT head/scalp atraumatic, moist oral mucous membranes and oropharynx normal HEENT Narrative: Dentition is poor, Mallampati is 2, no thrush Resp normal respiratory effort, no retractions, no use of accessory muscles and clear to auscultation bilaterally Auscultation: Negative for rales, rhonchi or wheezes Cardio regular rhythm, S1 normal heart sound, S2 normal heart sound, no murmurs, no rub, no gallops and no clicks Cardio Narrative: Bradycardic GI normal to inspection, nondistended, normoactive bowel sounds, soft to palpation and non-tender Extremity no clubbing, cyanosis or edema Extremity Narrative: Pedal pulses are 2+ Neuro moves all extremities and no focal motor deficits Sensorium / Orientation: awake, alert, oriented to person and oriented to place; Negative for oriented to time Speech: speech normal Psych Psych Narrative: Affect is flat but patient will interact and makes decent eye contact Assessment & Plan Assessment/Plan (1) Bacteremia due to Escherichia coli: (2) Kidney stone on right side: (3) Calculus of ureterovesical junction (UVJ): (4) Subendocardial ischemia: (5) Septic encephalopathy: (6) Acute hypokalemia: (7) Septic shock: (8) ROMI (acute kidney injury): PLAN: Plan ESBL E. coli septic shock -Patient remains on pressors intermittently -Currently not on any Levophed but did require some later in the afternoon yesterday after it had been off for several hours -Keep MAP greater than 65 -Midodrine 10 mg 3 times daily -Patient is on stress dose steroids 50 mg every 8 hours without any significant improvement after starting these -Continue meropenem per infectious disease -Patient did have obstructing stone and patient underwent cystoscopy with ureteral stent insertion by Dr. Moreira -Leukocytosis has resolved Toxic/metabolic encephalopathy -Patient also has underlying dementia -Likely related to the above -Continue to monitor -CT head was unremarkable -Avoid sedating medications as able Troponin elevation -Suspect related to demand ischemia in the setting of septic shock -Echocardiogram showed an EF of 65% with no wall motion abnormalities -Stop Plavix Anemia -Slowly trending down -1 g drop in the last 24 hours -No overt signs of bleeding -Continue to monitor -If further drop consider further workup Hyperchloremia/hypernatremia -Only mild at this point -Patient may not be obtaining a free water -Repeat lab in a.m. ROMI -Serum creatinine admission was 1.15 -Now normalized at 0.30 -Monitor with antimicrobial use and blood pressure issues and avoid nephrotoxins Hypokalemia -2.2 on admission -Resolved Hypertension -Home Lasix is on hold due to hypotension DM-2 -AM fasting blood sugars are fairly well-controlled with this morning being 153 despite steroid use -Lantus and Humalog are on her home medication list however it is indicated she has not been taking them -Continue Lantus 60 units at at bedtime -Depending on control could consider bolus insulin with meals -Patient is on cardiac/carb controlled diet Debility -Patient is very nonfunctional at baseline and sounds as if she is fairly bedbound -Consider hospice consultation if family is agreeable History of stage III decubitus ulcer on buttocks -Will monitor Chronic bilateral lower extremity lymphedema -Lasix on hold -Continue to monitor 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
[2023-07-07] MEDS: Midodrine HCl 5 MG Tablet 10 MG PO ×3 (08:11→17:33)
[2023-07-07] MEDS: Menthol/Lanolin/Calamine/Znox 113 GM Tube 1 APPLIC TOPICAL ×2 (08:11→20:46)
[2023-07-07] MEDS: Lactobacillis Acidophilus 2 CAP PO ×2 (08:11→20:45)
[2023-07-07] MEDS: Nystatin Powder 15gm Bottle 1 APPLIC TOPICAL ×2 (08:11→20:46)
[2023-07-07] MEDS: Potassium Chloride Oral Soln 20 MEQ/15 ML UDC 40 MEQ PO (08:12)
[2023-07-07] MEDS: Enoxaparin 40 MG/0.4 ML Syringe SC (08:12)
[2023-07-07] MEDS: Pantoprazole Sodium 40 MG in 0.9% Normal Saline (100mL MB+) 100 ML 330 MG IV (08:14)
[2023-07-07] MEDS: Meropenem 1 GM in 0.9% Normal Saline (100mL MB+) 100 ML IV ×2 (08:49→20:46)
[2023-07-07] MEDS: Glucerna Shake 120 ML LIQUID PO ×3 (13:07→20:46)
[2023-07-07 13:29] LABS: Pathologist Review Reviewed
--- NOTE | 2023-07-07 14:02 | PCM.PN.ID ---
Physical Exam Narrative Feeling ok, off pressor, no fever, no abd pain Const alert and no apparent distress General Appearance: cooperative Resp normal air movement and clear to auscultation bilaterally Cardio regular rate and regular rhythm GI soft to palpation, non-tender and non-distended Skin no rashes or lesions noted ID ID: Route of nutrition/ use of supplements: [] Nutritional Intake: [] IV Site: [] Zapata Catheter: [] Assessment & Plan Assessment/Plan (1) Septic shock: (2) Bacteremia due to Escherichia coli: PLAN: septic shock due to ESBL ecoli bacteremia from urinary source complicated by stone - BP improved. S/p OR 06/30/[address] Moreira for stent placement. Cont meropenem. Plan on stop date 07/10/23. Will follow
[2023-07-07] MEDS: Insulin Glargine-YFGN 100 UNIT/ML Pen 6 UNIT SC (20:45)
[2023-07-07] MEDS: Atorvastatin Calcium 20 MG Tablet PO (20:45)
[2023-07-07 21:21] LABS: Bedside Glucose 160 mg/dL (74-106)
[2023-07-08] VITALS (21 sets, daily range): BP systolic 94–127; BP diastolic 34–55; PULSE 37–66; RESP 14–18; TEMP 36.1–36.5; O2SAT 93–98
[2023-07-08] MEDS: CHLORHEXIDINE GLUC 2% CLOTH 1 EACH TOWELETTE TOPICAL (02:17)
[2023-07-08 03:14] LABS: Absolute Lymphocyte Count 1.36 X10^3/uL (0.83-4.51); Absolute Neutrophil Count 4.7 X10^3/uL (2.0-7.7); Basophil# 0.02 X10^3/uL; Basophil% 0.3 % (0-1); Hematocrit 33.4 % (37-47); Hemoglobin 10.7 g/dL (12.0-15.0); Lymphocyte # 1.36 X10^3/ul (0.83-4.51); Lymphocyte % 20.5 % (19-41); Mean Corpuscular Hgb 28.8 pg (27.0-32.0); Mean Corpuscular Volume 89.8 fL (81-99); Mean Platelet Vol. 12.3 fl (6.2-12.0); Monocyte# 0.42 X10^3/uL; Monocyte% 6.3 % (0-10); NRBC Flagged by Analyzer 0 % (0-5); Neutrophil # 4.68 X10^3/uL (2.7-7.7); Neutrophil % 70.6 % (47-70); Platelet Count 170 K/mm3 (150-450); RBC Distribution Width CV 15.9 % (11.6-14.6); RBC Distribution Width SD 50.6 fl (35.1-43.9); Red Blood Count 3.72 M/mm3 (4.2-5.4); White Blood Count 6.6 K/mm3 (4.4-11.0)
[2023-07-08 03:28] LABS: Anion Gap 2 (5-15); BUN 13 mg/dL (7-18); BUN/Creat Ratio 39.3 RATIO (10-20); Calcium,Total 7.9 mg/dL (8.5-10.1); Chloride 114 mmol/L (98-107); Creatinine, Serum 0.33 mg/dL (0.55-1.02); EST Glomerular Filtration Rate 203 mL/min (>60); Est Glom Filt Rate - Afr Amer 245 mL/min (>60); Estimated Creatinine Clearance 47.53 ml/min; Glucose 147 mg/dL (74-106); Potassium 3.5 mmol/L (3.5-5.1); Sodium Level 147 mmol/L (136-145)
[2023-07-08] MEDS: 0.9% Saline Lock 10 ML Syringe IV ×2 (05:52→21:35)
[2023-07-08] MEDS: Hydrocortisone Sod Succinate 100 MG/2 ML Vial 50 MG IV ×2 (05:52→08:50)
--- NOTE | 2023-07-08 06:28 | PCM.PN.INT ---
Assessment & Plan Assessment/Plan (1) Septic shock: PLAN: Plan RECOMMENDATIONS: 1. Continue antimicrobials to address ESBL E. coli. 2. Continue scheduled midodrine as ordered. 3. Wean stress dose steroids as ordered. 4. Continue PPI therapy. 5. Encourage incentive spirometer use and mobilize patient as tolerated. IMPRESSIONS: 1. Gram-negative septic shock The patient presented with sepsis due to ESBL E. coli urinary tract source of infection with acute sepsis related organ dysfunction as evidenced by altered mental status, lactic acidemia and fluid nonresponsive hypotension, requiring vasopressor support. CT abdomen/pelvis demonstrated a stone in the distal right ureter with obstructive changes. Accordingly, the patient was evaluated by urology and underwent cystoscopy with ureteral stent insertion. Overall, the patient is improving from a clinical perspective. The patient will be continued on antimicrobials and stress dose steroids, which will be weaned as tolerated. Otherwise, the patient will remain on scheduled midodrine. 2. Metabolic encephalopathy Improved. Most likely secondary to #1 coupled with underlying dementia. Continue current supportive measures. Avoid sedating medications. Encourage participation with physical therapy. 3. Troponin elevation Most likely secondary to demand ischemia in the setting #1. Echocardiogram was unrevealing. 4. History of diabetes mellitus/hypertension/history of urinary retention/depression/advanced age Complicates care, management, recovery and prognosis. Continue supportive measures as noted above. Physical therapy to work with the patient. This note was generated with [employer] dictation software. It may contain incorrect words, spelling, and punctuation that were not noted in checking the note before signing. Subjective Subjective The patient was seen and examined at the bedside this morning. Events from the last 24 hours have been reviewed. The patient is currently afebrile, hemodynamically stable and maintaining appropriate oxygen saturations on room air. The patient remains off of vasopressor support. She continues to receive scheduled midodrine and stress dose steroids. White count remains normal. Hemoglobin is stable. Objective Data Objective Data The patient's most recent lab work, culture data and imaging studies have all been personally reviewed. Urine culture was positive for ESBL E. coli. Blood cultures dated June 28 were positive for E. coli. Vital Signs: Vital Signs Temp Pulse Resp BP Pulse Ox O2 Del Method 96.9 F L 38 L 15 101/44 L 94 Room Air 07/08/23 04:00 07/08/23 06:00 07/08/23 06:00 07/08/23 06:00 07/08/23 06:00 07/08/23 06:00 Oxygen Delivery Method Room Air Weight: 137 lb 12.623 oz Body Mass Index (BMI) 26.0 Intake & Output: Intake and Output for Last 24 Hours 07/06/23 07/07/23 07/08/23 23:59 23:59 23:59 Intake Total 1234.53 / 1234.53 754 / 754 120 / 120 Output Total 660 / 735 425 / 425 90 / 90 Balance 574.53 / 499.53 329 / 329 30 / 30 Lab / Micro Data Attestation: I reviewed the patient's lab results. 07/08/23 03:06 07/08/23 03:06 Labs: Laboratory Results - last 24 hr 07/06/23 04:17: Diff Path Review Reviewed 07/07/23 04:31: WBC 6.6, RBC 3.65 L, Hgb 10.5 L, Hct 32.8 L, MCV 89.9, MCH 28.8, MCHC 32.0, RDW Std Deviation 51.4 H, RDW Coeff of Ricardo 15.9 H, Plt Count 147 L, MPV 12.5 H, Immature Gran % (Auto) 1.800 H, Neut % (Auto) 62.6, Lymph % (Auto) 27.2, [place] % (Auto) 8.2, Eos % (Auto) 0.0, Baso % (Auto) 0.2, Absolute Neuts (auto) 4.2, Absolute Lymphs (auto) 1.80, Nucleated RBC % 0, Differential Comment SCANNED 07/07/23 20:44: POC Glucose 160 H 07/08/23 03:06: WBC 6.6, RBC 3.72 L, Hgb 10.7 L, Hct 33.4 L, MCV 89.8, MCH 28.8, MCHC 32.0, RDW Std Deviation 50.6 H, RDW Coeff of Ricardo 15.9 H, Plt Count 170, MPV 12.3 H, Immature Gran % (Auto) 2.300 H, Neut % (Auto) 70.6 H, Lymph % (Auto) 20.5, [place] % (Auto) 6.3, Eos % (Auto) 0.0, Baso % (Auto) 0.3, Absolute Neuts (auto) 4.7, Absolute Lymphs (auto) 1.36, Nucleated RBC % 0, Sodium 147 H, Potassium 3.5, Chloride 114 H, Carbon Dioxide 31.0, Anion Gap 2 L, BUN 13, Creatinine 0.33 L, Estim Creat Clear Calc 47.53, Est GFR (MDRD) Af Amer 245, Est GFR (MDRD) Non-Af 203, BUN/Creatinine Ratio 39.3 H, Glucose 147 H, Calcium 7.9 L Micro: Microbiology 06/29/23 20:30 Blood Culture (Wb) - Left Hand Blood Culture - Final GNR lactose 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 The left atrium is mildly enlarged. Mild-Moderate (1-2+) mitral valve insufficiency. Mild (1+) tricuspid valve insufficiency. Mild focal aortic valve calcification. The study was technically difficult. Contrast injection was performed. Ordering Physician: Joo Chan Referring Physician: Scooter Siu Performed By: Jose Saeed RCS Rhythm Strip Rhythm Strip: Sinus Rhythm Rate: 100 Ectopy: PVC(s) Physical Exam Const alert and no apparent distress Constitutional Narrative: Chronically ill-appearing. Generally weak and frail. HEENT normocephalic and head/scalp atraumatic Eyes PERRL, EOMs intact bilaterally and conjunctivae normal Neck supple General: trachea midline Chest inspection of chest normal Resp normal respiratory effort Auscultation: diminished lung sounds Cardio S1 normal heart sound and S2 normal heart sound Rate: bradycardia GI normal to inspection, nondistended, normoactive bowel sounds Extremity General Extremity: Negative for clubbing or edema Neuro CN's II-XII intact bilaterally and moves all extremities Psych Mood & Affect: flat affect Charges/Coding Visit Charges Inpatient E&M: 23148 Subs Hosp L2
[2023-07-08] MEDS: Midodrine HCl 5 MG Tablet 10 MG PO ×3 (07:42→17:12)
[2023-07-08] MEDS: Pantoprazole Sodium 40 MG in 0.9% Normal Saline (100mL MB+) 100 ML 330 MG IV (07:42)
[2023-07-08] MEDS: Lactobacillis Acidophilus 2 CAP PO ×2 (07:42→21:33)
[2023-07-08] MEDS: Enoxaparin 40 MG/0.4 ML Syringe SC (07:44)
[2023-07-08] MEDS: Potassium Chloride Oral Soln 20 MEQ/15 ML UDC 40 MEQ PO (07:45)
[2023-07-08] MEDS: Glucerna Shake 120 ML LIQUID PO ×3 (07:45→17:12)
[2023-07-08] MEDS: Menthol/Lanolin/Calamine/Znox 113 GM Tube 1 APPLIC TOPICAL ×2 (07:46→21:33)
[2023-07-08] MEDS: Nystatin Powder 15gm Bottle 1 APPLIC TOPICAL ×2 (07:46→21:34)
[2023-07-08] MEDS: Meropenem 1 GM in 0.9% Normal Saline (100mL MB+) 100 ML IV ×2 (08:05→21:34)
--- NOTE | 2023-07-08 10:21 | CASEMGMT ---
DC planning Updates sent to [facility] via [employer]. Jagruti Farmer, [employer] ASSEMBLER, P[employer]ER [employer]ER
--- NOTE | 2023-07-08 15:34 | PCM.PN.HOSP ---
Reason for Visit Reason for Visit: Altered mental status/hypotension Subjective Subjective No significant changes overnight. It was reported in her history that she is typically alert and oriented x 3 however she is still not and I doubt she is at baseline since clinically she is much improved. No complaints at this time. P.o. intake is still not great however improved from previous. Objective Data Objective Data Vital Signs: Vital Signs Temp Pulse Resp BP Pulse Ox O2 Del Method 97.5 F L 63 17 124/50 H 97 Room Air 07/08/23 12:00 07/08/23 14:00 07/08/23 14:00 07/08/23 14:00 07/08/23 14:00 07/08/23 14:00 Oxygen Delivery Method Room Air Weight: 62.5 kg Body Mass Index (BMI) 26.0 Intake & Output: Intake and Output for Last 24 Hours 07/06/23 07/07/23 07/08/23 23:59 23:59 23:59 Intake Total 1234.53 / 1234.53 754 / 754 750 / 750 Output Total 660 / 735 425 / 425 240 / 240 Balance 574.53 / 499.53 329 / 329 510 / 510 Lab / Micro Data 07/08/23 03:06 07/08/23 03:06 Labs: Laboratory Results - last 24 hr 07/07/23 20:44: POC Glucose 160 H 07/08/23 03:06: WBC 6.6, RBC 3.72 L, Hgb 10.7 L, Hct 33.4 L, MCV 89.8, MCH 28.8, MCHC 32.0, RDW Std Deviation 50.6 H, RDW Coeff of Ricardo 15.9 H, Plt Count 170, MPV 12.3 H, Immature Gran % (Auto) 2.300 H, Neut % (Auto) 70.6 H, Lymph % (Auto) 20.5, Taliaferro % (Auto) 6.3, Eos % (Auto) 0.0, Baso % (Auto) 0.3, Absolute Neuts (auto) 4.7, Absolute Lymphs (auto) 1.36, Nucleated RBC % 0, Sodium 147 H, Potassium 3.5, Chloride 114 H, Carbon Dioxide 31.0, Anion Gap 2 L, BUN 13, Creatinine 0.33 L, Estim Creat Clear Calc 47.53, Est GFR (MDRD) Af Amer 245, Est GFR (MDRD) Non-Af 203, BUN/Creatinine Ratio 39.3 H, Glucose 147 H, Calcium 7.9 L Micro: Microbiology 06/29/23 20:30 Blood Culture (Wb) - Left Hand Blood Culture - 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 06/29/23 20:43 Blood Culture (Wb) - Right Wrist Blood Culture - Final Escherichia coli 06/30/23 13:00 Urine Catheter - Zapata Urine Culture - Final Escherichia coli 06/29/23 22:03 Urine Catheter - Catheter Urine Culture - Final ESBL Escherichia coli 06/29/23 21:08 Mucosa - Nose SARS-CoV-2, Influenza & RSV (PCR) - Final Rhythm Strip Rhythm Strip: Sinus Rhythm Rate: 100 Ectopy: PVC(s) Physical Exam Const alert, no apparent distress, average body habitus and well nourished; Negative for healthy appearing Constitutional Narrative: Elderly, white female, sitting up in bed napping, awakens easily, remains still only oriented to self Orientation / Consciousness: confused HEENT normocephalic, head/scalp atraumatic and moist oral mucous membranes HEENT Narrative: Moderate to severe hearing loss, dentition is poor, Mallampati is 2, no thrush Resp normal respiratory effort, no retractions, no use of accessory muscles and clear to auscultation bilaterally Auscultation: Negative for rales, rhonchi or wheezes Cardio regular rate, regular rhythm, S1 normal heart sound, S2 normal heart sound, no murmurs, no rub, no gallops and no clicks Cardio Narrative: Bradycardic GI normal to inspection, nondistended, normoactive bowel sounds, soft to palpation and non-tender Extremity no clubbing, cyanosis or edema Extremity Narrative: Pedal pulses are 2+, decreased lean muscle mass Neuro moves all extremities and no focal motor deficits Neuro Narrative: Marked generalized weakness noted Speech: speech normal Psych affect normal Psych Narrative: A bit more interactive today, pleasant Assessment & Plan Assessment/Plan (1) Bacteremia due to Escherichia coli: (2) Kidney stone on right side: (3) Calculus of ureterovesical junction (UVJ): (4) Subendocardial ischemia: (5) Septic encephalopathy: (6) Acute hypokalemia: (7) Septic shock: (8) ROMI (acute kidney injury): PLAN: Plan ESBL E. coli septic shock -Levophed has now been off for 24 hours and blood pressure is improving -Continue midodrine 10 mg 3 times daily for now and wean as able -Stress dose steroids weaned to 50 mg daily with stop date of 07/10/2023 -Continue meropenem per infectious disease -Patient did have obstructing stone and patient underwent cystoscopy with ureteral stent insertion by Dr. Moreira Toxic/metabolic encephalopathy -Patient also has underlying dementia -Likely related to the above -Appears to be stable -Continue to monitor -CT head was unremarkable -Avoid sedating medications as able Troponin elevation -Suspect related to demand ischemia in the setting of septic shock -Echocardiogram showed an EF of 65% with no wall motion abnormalities Anemia -hemoglobin currently stable between and 11 -No overt signs of bleeding -Continue to monitor -If further drop consider further workup Hyperchloremia/hypernatremia -Only mild at this point -Patient may not be obtaining a free water -Repeat lab in a.m. ROMI -Serum creatinine admission was 1.15 -Now normalized at 0.33 -Monitor with antimicrobial use and blood pressure issues and avoid nephrotoxins Hypertension -Home Lasix is on hold due to hypotension DM-2 -Fasting blood sugars remain well-controlled with fasting this morning 147 -Lantus and Humalog are on her home medication list however it is indicated she has not been taking them -Continue Lantus 6 units at at bedtime -Patient is on cardiac/carb controlled diet Debility -Patient is very nonfunctional at baseline and sounds as if she is fairly bedbound History of stage III decubitus ulcer on buttocks -Will monitor Chronic bilateral lower extremity lymphedema -Lasix on hold -Continue to monitor 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
[2023-07-08] MEDS: Atorvastatin Calcium 20 MG Tablet PO (21:34)
[2023-07-08] MEDS: Insulin Glargine-YFGN 100 UNIT/ML Pen 6 UNIT SC (21:34)
[2023-07-08 21:58] LABS: Bedside Glucose 178 mg/dL (74-106)
[2023-07-09 02:00] VITALS: BP 103/45; PULSE 46; RESP 15; TEMP 36.2; O2SAT 96
[2023-07-09 03:47] LABS: Hematocrit 35.2 % (37-47); Hemoglobin 11.2 g/dL (12.0-15.0); Mean Corp Hgb Conc 31.8 g/dL (32-36); Mean Corpuscular Hgb 28.9 pg (27.0-32.0); Mean Corpuscular Volume 90.7 fL (81-99); Mean Platelet Vol. 12.5 fl (6.2-12.0); Platelet Count 210 K/mm3 (150-450); RBC Distribution Width CV 16.1 % (11.6-14.6); RBC Distribution Width SD 51.5 fl (35.1-43.9); Red Blood Count 3.88 M/mm3 (4.2-5.4); White Blood Count 15.4 K/mm3 (4.4-11.0)
[2023-07-09 03:58] LABS: Anion Gap 4 (5-15); BUN 12 mg/dL (7-18); BUN/Creat Ratio 27.5 RATIO (10-20); Calcium,Total 7.7 mg/dL (8.5-10.1); Chloride 116 mmol/L (98-107); Creatinine, Serum 0.44 mg/dL (0.55-1.02); EST Glomerular Filtration Rate 148 mL/min (>60); Est Glom Filt Rate - Afr Amer 179 mL/min (>60); Estimated Creatinine Clearance 47.53 ml/min; Glucose 146 mg/dL (74-106); Sodium Level 147 mmol/L (136-145)
[2023-07-09] MEDS: Potassium Chloride Oral Tablet 20 MEQ 60 MEQ PO (04:50)
--- NOTE | 2023-07-09 06:38 | PN.CC_ITS ---
Assessment & Plan Assessment/Plan (1) Septic shock: PLAN: Plan RECOMMENDATIONS: 1. Continue antimicrobials to address ESBL E. coli. (Stop date of 07/09) 2. Continue scheduled midodrine as ordered. 3. Stop stress dose steroids today. 4. Continue PPI therapy. 5. Encourage incentive spirometer use and mobilize patient as tolerated. 6. Will sign off from a pulmonary/critical care perspective. Please call with any additional questions. IMPRESSIONS: 1. Gram-negative septic shock The patient presented with sepsis due to ESBL E. coli urinary tract source of infection with acute sepsis related organ dysfunction as evidenced by altered mental status, lactic acidemia and fluid nonresponsive hypotension, requiring vasopressor support. CT abdomen/pelvis demonstrated a stone in the distal right ureter with obstructive changes. Accordingly, the patient was evaluated by urology and underwent cystoscopy with ureteral stent insertion. Overall, the patient has improved from a clinical perspective. The patient will be continued on antimicrobials to complete treatment course per ID recommendations. The patient stress dose steroids will be discontinued today. Otherwise, the patient will remain on scheduled midodrine. 2. Metabolic encephalopathy Improved. Most likely secondary to #1 coupled with underlying dementia. Continue current supportive measures. Avoid sedating medications. Encourage participation with physical therapy. 3. Troponin elevation Most likely secondary to demand ischemia in the setting #1. Echocardiogram was unrevealing. 4. History of diabetes mellitus/hypertension/history of urinary retention/depression/advanced age Complicates care, management, recovery and prognosis. Continue supportive measures as noted above. Physical therapy to work with the patient. This note was generated with [employer] dictation software. It may contain incorrect words, spelling, and punctuation that were not noted in checking the note before signing. Subjective Subjective The patient was seen and examined at the bedside this morning. Events from the last 24 hours have been reviewed. The patient is currently afebrile, hemodynamically stable and maintaining appropriate oxygen saturations on room air. No overnight issues were identified by the nursing staff. Potassium is low this morning at 3.0. Objective Data Objective Data The patient's most recent lab work, culture data and imaging studies have all been personally reviewed. Urine culture was positive for ESBL E. coli. Blood cultures dated June 28 were positive for E. coli. Vital Signs: Vital Signs Temp Pulse Resp BP Pulse Ox O2 Del Method 97.2 F L 46 L 15 103/45 L 96 Room Air 05/22/24 02:00 07/09/23 02:00 07/09/23 02:00 07/09/23 02:00 07/09/23 02:00 07/09/23 02:00 Oxygen Delivery Method Room Air Weight: 137 lb 12.623 oz Body Mass Index (BMI) 26.0 Intake & Output: Intake and Output for Last 24 Hours 07/07/23 07/08/23 07/09/23 23:59 23:59 23:59 Intake Total 754 / 754 950 / 950 120 / 120 Output Total 425 / 425 340 / 460 120 / 120 Balance 329 / 329 610 / 490 0 / 0 Lab / Micro Data Attestation: I reviewed the patient's lab results. 07/09/23 03:31 07/09/23 03:31 Labs: Laboratory Results - last 24 hr 07/08/23 21:32: POC Glucose 178 H 07/09/23 03:31: WBC 15.4 H, RBC 3.88 L, Hgb 11.2 L, Hct 35.2 L, MCV 90.7, MCH 28.9, MCHC 31.8 L, RDW Std Deviation 51.5 H, RDW Coeff of Ricardo 16.1 H, Plt Count 210, MPV 12.5 H, Sodium 147 H, Potassium 3.0 L, Chloride 116 H, Carbon Dioxide 27.0, Anion Gap 4 L, BUN 12, Creatinine 0.44 L, Estim Creat Clear Calc 47.53, Est GFR (MDRD) Af Amer 179, Est GFR (MDRD) Non-Af 148, BUN/Creatinine Ratio 27.5 H, Glucose 146 H, Calcium 7.7 L Micro: Microbiology 06/29/23 20:30 Blood Culture (Wb) - Left Hand Blood Culture - 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 The left atrium is mildly enlarged. Mild-Moderate (1-2+) mitral valve insufficiency. Mild (1+) tricuspid valve insufficiency. Mild focal aortic valve calcification. The study was technically difficult. Contrast injection was performed. Ordering Physician: Joo Chan Referring Physician: Scooter Siu Performed By: Jose Saeed RCS Rhythm Strip Rhythm Strip: Sinus Rhythm Rate: 100 Ectopy: PVC(s) Physical Exam Const alert and no apparent distress Constitutional Narrative: Chronically ill-appearing. Generally weak and frail. HEENT normocephalic and head/scalp atraumatic Eyes PERRL, EOMs intact bilaterally and conjunctivae normal Neck supple General: trachea midline Chest inspection of chest normal Resp normal respiratory effort Auscultation: diminished lung sounds Cardio S1 normal heart sound and S2 normal heart sound Rate: bradycardia GI normal to inspection, nondistended, normoactive bowel sounds Extremity General Extremity: Negative for clubbing or edema Neuro CN's II-XII intact bilaterally and moves all extremities Psych Mood & Affect: flat affect Charges/Coding Visit Charges Inpatient E&M: 61057 Subs Hosp L2
[2023-07-09 08:00] VITALS: BP 110/65; PULSE 72; RESP 20; TEMP 36.5; O2SAT 95
[2023-07-09] MEDS: Pantoprazole Sodium 40 MG in 0.9% Normal Saline (100mL MB+) 100 ML 330 MG IV (08:00)
[2023-07-09] MEDS: Lactobacillis Acidophilus 2 CAP PO ×2 (08:03→20:22)
[2023-07-09] MEDS: Menthol/Lanolin/Calamine/Znox 113 GM Tube 1 APPLIC TOPICAL ×2 (08:03→20:21)
[2023-07-09] MEDS: Midodrine HCl 5 MG Tablet 10 MG PO ×3 (08:03→17:14)
[2023-07-09] MEDS: Glucerna Shake 120 ML LIQUID PO ×3 (08:04→17:15)
[2023-07-09] MEDS: Nystatin Powder 15gm Bottle 1 APPLIC TOPICAL ×2 (08:04→20:23)
[2023-07-09] MEDS: Potassium Chloride Oral Soln 20 MEQ/15 ML UDC 40 MEQ PO (08:04)
[2023-07-09] MEDS: Enoxaparin 40 MG/0.4 ML Syringe SC (08:05)
--- NOTE | 2023-07-09 08:21 | PN.HOSP_ITS ---
Reason for Visit Reason for Visit: Altered mental status/hypotension Subjective Subjective Patient did well over the night. Has been more interactive and more participatory. Appears to be at baseline. Oral intake is improved per discussion with nursing. I did discuss with the patient that we will likely be able to discharge her back to her [facility] tomorrow and she was pleased. I did tell her we just need to finish her antibiotics with a stop date being tomorrow. Objective Data Objective Data Vital Signs: Vital Signs Temp Pulse Resp BP Pulse Ox O2 Del Method 97.2 F L 46 L 15 103/45 L 96 Room Air 07/09/23 02:00 07/09/23 02:00 07/09/23 02:00 07/09/23 02:00 07/09/23 02:00 07/09/23 02:00 Oxygen Delivery Method Room Air Weight: 62.5 kg Body Mass Index (BMI) 26.0 Intake & Output: Intake and Output for Last 24 Hours 07/07/23 07/08/23 07/09/23 23:59 23:59 23:59 Intake Total 754 / 754 950 / 950 120 / 120 Output Total 425 / 425 340 / 460 120 / 120 Balance 329 / 329 610 / 490 0 / 0 Lab / Micro Data 07/09/23 03:31 07/09/23 03:31 Labs: Laboratory Results - last 24 hr 07/08/23 21:32: POC Glucose 178 H 07/09/23 03:31: WBC 15.4 H, RBC 3.88 L, Hgb 11.2 L, Hct 35.2 L, MCV 90.7, MCH 28.9, MCHC 31.8 L, RDW Std Deviation 51.5 H, RDW Coeff of Ricardo 16.1 H, Plt Count 210, MPV 12.5 H, Sodium 147 H, Potassium 3.0 L, Chloride 116 H, Carbon Dioxide 27.0, Anion Gap 4 L, BUN 12, Creatinine 0.44 L, Estim Creat Clear Calc 47.53, Est GFR (MDRD) Af Amer 179, Est GFR (MDRD) Non-Af 148, BUN/Creatinine Ratio 27.5 H, Glucose 146 H, Calcium 7.7 L Micro: Microbiology 06/29/23 20:30 Blood Culture (Wb) - Left Hand Blood Culture - 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 06/29/23 20:43 Blood Culture (Wb) - Right Wrist Blood Culture - Final Escherichia coli 06/30/23 13:00 Urine Catheter - [place]ap[place] Urine Culture - Final Escherichia coli 06/29/23 22:03 Urine Catheter - Catheter Urine Culture - Final ESBL Escherichia coli 06/29/23 21:08 Mucosa - Nose SARS-CoV-2, Influenza & RSV (PCR) - Final Rhythm Strip Rhythm Strip: Sinus Rhythm Rate: 100 Ectopy: PVC(s) Physical Exam Const alert, no apparent distress and average body habitus; Negative for healthy appearing or well nourished Constitutional Narrative: Elderly, white female, sitting up in bed drinking coffee and watching television, awakens easily, remains still only oriented to self, nursing at bedside Orientation / Consciousness: confused HEENT normocephalic, head/scalp atraumatic and moist oral mucous membranes HEENT Narrative: Dentition is poor, Mallampati is 2, no thrush, patient is extremely hard of hearing Resp normal respiratory effort, no retractions, no use of accessory muscles and clear to auscultation bilaterally Auscultation: Negative for rales, rhonchi or wheezes Cardio regular rate, regular rhythm, S1 normal heart sound, S2 normal heart sound, no murmurs, no rub, no gallops and no clicks GI normal to inspection, nondistended, normoactive bowel sounds, soft to palpation and non-tender Extremity full ROM and no clubbing, cyanosis or edema Extremity Narrative: Pedal pulses are 2+, decreased lean muscle mass Neuro moves all extremities and no focal motor deficits Neuro Narrative: Marked generalized weakness noted Sensorium / Orientation: awake, alert, oriented to person and oriented to place; Negative for oriented to time Speech: speech normal Psych affect normal Psych Narrative: Considerably more interactive, very pleasantly confused Assessment & Plan Assessment/Plan (1) Bacteremia due to Escherichia coli: (2) Kidney stone on right side: (3) Calculus of ureterovesical junction (UVJ): (4) Subendocardial ischemia: (5) Septic encephalopathy: (6) Acute hypokalemia: (7) Septic shock: (8) ROMI (acute kidney injury): PLAN: Plan ESBL E. coli septic shock -No pressors now for 48 hours -Continue midodrine 10 mg 3 times daily for now and will likely start weaning tomorrow as long as blood pressures remained stable -Stress dose steroids discontinued -Continue meropenem per infectious disease--> stop date is tomorrow -Patient did have obstructing stone and patient underwent cystoscopy with ureteral stent insertion by Dr. Moreira Toxic/metabolic encephalopathy -Patient also has underlying dementia -Resolved -Continue to monitor -CT head was unremarkable -Avoid sedating medications Leukocytosis -Likely stress dose steroid related and these have been discontinued -Will repeat in a.m. -No signs of new infection Hypokalemia -40 mill colons p.o. potassium -Repeat lab in a.m. -Check a.m. magnesium level Troponin elevation -Suspect related to demand ischemia in the setting of septic shock -Echocardiogram showed an EF of 65% with no wall motion abnormalities Anemia -hemoglobin currently stable between 10 and 11 -No overt signs of bleeding -Continue to monitor -If further drop consider further workup Hyperchloremia/hypernatremia -Mild and remained stable -Repeat lab in a.m. ROMI -Resolved Hypertension -Home Lasix is on hold due to hypotension -Will likely discontinue at discharge DM-2 -Fasting blood sugars remain well-controlled with fasting this morning 146 -Lantus and Humalog are on her home medication list however it is indicated she has not been taking them -Continue Lantus 6 units at at bedtime--> will likely not continue on discharge as I expect her blood sugars to improve dramatically now that she is off steroids -Patient is on cardiac/carb controlled diet Debility -Patient is very nonfunctional at baseline and sounds as if she is fairly bedbound History of stage III decubitus ulcer on buttocks -Will monitor Chronic bilateral lower extremity lymphedema -Lasix on hold--> discontinue at discharge -Continue to monitor 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
[2023-07-09] MEDS: Meropenem 1 GM in 0.9% Normal Saline (100mL MB+) 100 ML IV ×2 (08:59→20:20)
[2023-07-09 13:56] VITALS: BP 109/64; PULSE 88; RESP 12; TEMP 35.8; O2SAT 94
[2023-07-09 14:00] VITALS: PULSE 88
[2023-07-09 20:00] VITALS: BP 100/68; PULSE 76; RESP 19; TEMP 36.1; O2SAT 96
[2023-07-09] MEDS: Insulin Glargine-YFGN 100 UNIT/ML Pen 6 UNIT SC (20:20)
[2023-07-09] MEDS: Atorvastatin Calcium 20 MG Tablet PO (20:22)
[2023-07-09 20:47] LABS: Bedside Glucose 156 mg/dL (74-106)
[2023-07-10] VITALS: BP 100/55; PULSE 73; RESP 16; TEMP 36.2; O2SAT 95
[2023-07-10 03:54] LABS: Hematocrit 36.1 % (37-47); Hemoglobin 11.5 g/dL (12.0-15.0); Mean Corp Hgb Conc 31.9 g/dL (32-36); Mean Corpuscular Volume 91.2 fL (81-99); Mean Platelet Vol. 12.4 fl (6.2-12.0); Platelet Count 195 K/mm3 (150-450); RBC Distribution Width CV 16.8 % (11.6-14.6); RBC Distribution Width SD 52.4 fl (35.1-43.9); Red Blood Count 3.96 M/mm3 (4.2-5.4)
[2023-07-10 04:00] VITALS: BP 94/48; PULSE 80; RESP 16; TEMP 36.3; O2SAT 96
[2023-07-10 04:13] LABS: Anion Gap 1 (5-15); BUN 11 mg/dL (7-18); BUN/Creat Ratio 27.6 RATIO (10-20); Calcium,Total 7.7 mg/dL (8.5-10.1); Chloride 117 mmol/L (98-107); EST Glomerular Filtration Rate 163 mL/min (>60); Est Glom Filt Rate - Afr Amer 198 mL/min (>60); Estimated Creatinine Clearance 47.53 ml/min; Glucose 116 mg/dL (74-106); Potassium 3.8 mmol/L (3.5-5.1); Sodium Level 147 mmol/L (136-145)
[2023-07-10] MEDS: Meropenem 1 GM in 0.9% Normal Saline (100mL MB+) 100 ML IV (07:47)
[2023-07-10 08:00] VITALS: BP 90/54; PULSE 85; RESP 15; TEMP 36.4; O2SAT 96
[2023-07-10] MEDS: Menthol/Lanolin/Calamine/Znox 113 GM Tube 1 APPLIC TOPICAL (08:09)
[2023-07-10] MEDS: Midodrine HCl 5 MG Tablet 10 MG PO ×2 (08:09→11:27)
[2023-07-10] MEDS: Lactobacillis Acidophilus 2 CAP PO (08:09)
[2023-07-10] MEDS: Glucerna Shake 120 ML LIQUID PO (08:10)
[2023-07-10] MEDS: Potassium Chloride Oral Soln 20 MEQ/15 ML UDC 40 MEQ PO (08:10)
[2023-07-10] MEDS: Nystatin Powder 15gm Bottle 1 APPLIC TOPICAL (08:10)
[2023-07-10] MEDS: CHLORHEXIDINE GLUC 2% CLOTH 1 EACH TOWELETTE TOPICAL (08:13)
[2023-07-10] MEDS: Pantoprazole Sodium 40 MG in 0.9% Normal Saline (100mL MB+) 100 ML 330 MG IV (08:13)
[2023-07-10] MEDS: Enoxaparin 40 MG/0.4 ML Syringe SC (08:13)
--- NOTE | 2023-07-10 08:14 | PCM.DC.SUM ---
Providers Date of Admission: 06/29/23 Date of Discharge: 07/10/23 Primary Care Physician: Dr. Scooter Siu MD Consultations 06/30/23 02:18 Consult: Urology Routine Consulting Provider: Patti Moreira Reason for Consult: Right ~4 mm UVJ stone with mild obstruction. EMERGENT Consult: No MD Notified: Yes Date Notified: 06/30/23 Time Notified: 02:18 Method of Notification: Answering Service 06/30/23 02:20 Consult: Jig Builder Helper / Pulmonary Medicine Routine Consulting Provider: Intensivists/Pulmonary Med Reason for Consult: Sepsis with Septic Shock due to UTI. EMERGENT Consult: No MD Notified: Yes Date Notified: 06/29/23 Time Notified: 06:38 Method of Notification: Text 07/02/23 09:24 Consult: Infectious Disease Routine Consulting Provider: Jose Juan Smith Reason for Consult: esbl UTI, Bacteremia EMERGENT Consult: No MD Notified: Yes Date Notified: 07/02/23 Time Notified: 09:24 Method of Notification: Text Reason For Visit: SEPSIS WITH SEPTIC SHOCK & SEPTIC ENCECPHALOPATHY Diagnosis Discharge Diagnosis (1) Bacteremia due to Escherichia coli: Status: Acute Code(s): R78.81 - Bacteremia; B96.20 - Unspecified Escherichia coli [E. coli] as the cause of diseases classified elsewhere (2) Kidney stone on right side: Status: Acute Code(s): N20.0 - Calculus of kidney (3) Calculus of ureterovesical junction (UVJ): Status: Acute Code(s): N20.1 - Calculus of ureter (4) Subendocardial ischemia: Status: Acute Code(s): I24.89 - Other forms of acute ischemic heart disease (5) Septic encephalopathy: Status: Acute Code(s): G93.41 - Metabolic encephalopathy (6) Acute hypokalemia: Status: Acute Code(s): E87.6 - Hypokalemia (7) Septic shock: Status: Acute Code(s): A41.9 - Sepsis, unspecified organism; R65.21 - Severe sepsis with septic shock (8) ROMI (acute kidney injury): Status: Acute Code(s): N17.9 - Acute kidney failure, unspecified Medications at Discharge Home Medications nystatin 100,000 unit/gram topical powder 1 applic topical BID fungal 12/11/18 polyethylene glycol 3350 17 gram/dose oral powder (Miralax) 17 g PO DAILY constipation #238 grams 06/23/20 sennosides 8.6 mg-docusate sodium 50 mg tablet (Senna-S) 1 tab-cap PO BID PRN constipation #60 tabs 06/23/20 menthol 0.44 %-zinc oxide 20.6 % topical ointment (Calmoseptine) 1 applic topical BID #0 grams 07/10/23 midodrine 5 mg tablet 10 mg (2 x 5 mg) PO TIDCM #0 tabs 07/10/23 nutrition tx glu intol,lac-free,soy-fiber 0.06 gram-1.2 kcal/mL liquid (Glucerna 1.2 Wes) 120 ml PO 4X/DAY #0 mL 07/10/23 Hospital Course Operations - (Cystoscopy with right ureteral stent insertion) Procedures 2-D Echocardiogram, Central line placement, EKG and - (Zapata insertion/CT brain/chest x-ray/CT abdomen and pelvis) Summary of Care Provided Minutes Spent on Discharge: 45 Hospital Course: Ms. Pop is an 82-year-old white female who presented to the emergency department at [facility] on 06/29/2023 from a local nursing facility with altered mental status and hypotension. At baseline she is alert and oriented x 3 despite some baseline dementia however she was noted to be hypotensive with a systolic pressure of 74 at the [facility] at which she lives. Upon presentation she only complained of nausea. Vital signs on presentation showed a temperature of 99, heart rate 101, respiratory rate 19, blood pressure was 99/49 and pulse ox was 97% on room air. Her lowest systolic pressure was 74. CBC on presentation showed a leukocytosis at 32,000 with thrombocytopenia having a platelet count of 145,000. Her coagulation profile was notable for an INR of 2.0 and she is not anticoagulated at baseline. Her chemistry panel revealed a potassium of 2.2, serum creatinine of 1.15 and a lactate of 7.7. Her initial troponin was 677. UA was performed and positive for nitrites, leuk esterase, white cells and had 2+ bacteria. CT of the brain was unremarkable. CT of the abdomen pelvis demonstrated a 4 mm stone in the distal right ureter causing mild obstructive changes and multiple other nonobstructing stones were noted in the right intrarenal collecting system. Blood and urine cultures were collected. COVID, flu, RSV PCR were negative. The patient was treated with sepsis protocol of IV fluids and started on antimicrobial therapy. A central venous catheter was subsequently placed and she was placed on Levophed. Cultures grew out an ESBL E. coli in her blood and urine. Urology was consulted and took her for cystoscopy with right ureteral stent insertion due to the obstructing stone and she was admitted to the intensive care unit. Echocardiogram on 06/30/2023 showed EF of 65% with mild to moderate mitral valve insufficiency, mild tricuspid valve insufficiency and mild focal aortic valve calcification. Given her ESBL producing organism, ID was consulted. Antibiotics were transitioned to meropenem once cultures are resulted. Despite antimicrobial therapy she has remained on Levophed due to persistent hypotension. Midodrine and hydrocortisone were added. Her blood pressure slowly did improve and we do think that she is chronically low at baseline with systolics running 90-100 predominantly. We trended her systolics rather than MAP because her MAP was consistently on the low side but her renal function was normal she had a normalized lactate and she was perfusing well with improved mentation and interaction. Hydrocortisone was able to be discontinued and we will continue the midodrine at the time of discharge. She will be on 10 mg 3 times daily. Her finalized culture results showed ESBL producing E. coli and patient was treated throughout her hospital course with meropenem and received a complete course prior to discharge. Her oral intake slowly improved at this her mentation. At the time of discharge she was at her baseline mentation as well as her functional status. It sounds as if her overall quality of life and functional status is extremely poor and that hospice may be able to be considered when she is back at her nursing facility if family desires to pursue this. Her central line and Zapata were removed prior to discharge and the patient was discharged back to her ECF at [facility] on 07/10/2023 after the completion of her last antibiotic dose. Discharge diagnoses: Septic shock ESBL E. coli bacteremia ESBL E. 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 History of osteoarthritis History of constipation Dementia-type unknown Physical Exam Const alert, no apparent distress and average body habitus; Negative for no limitations, healthy appearing or well nourished Constitutional Narrative: Elderly, white female, watching television, oriented to self, appears comfortable, nontoxic, nursing staff at bedside General Appearance: cooperative, comfortable, well kempt, well developed and uncooperative Orientation / Consciousness: awake, oriented to person and confused HEENT normocephalic, head/scalp atraumatic and moist oral mucous membranes; Negative for hearing grossly normal bilaterally HEENT Narrative: Dentition is poor, Mallampati is 2, patient with marked hearing loss Eyes PERRL, EOMs intact bilaterally and conjunctivae normal Eyes Narrative: No scleral icterus Neck no lymphadenopathy and supple Resp normal respiratory effort, no retractions, no use of accessory muscles and clear to auscultation bilaterally Auscultation: Negative for rales, rhonchi or wheezes Cardio regular rate, regular rhythm, S1 normal heart sound, S2 normal heart sound, no murmurs, no rub, no gallops and no clicks GI normal to inspection, nondistended, normoactive bowel sounds, soft to palpation and non-tender Extremity no clubbing, cyanosis or edema Extremity Narrative: Pedal pulses are 2+, decreased lean muscle mass Skin skin turgor normal and no jaundice Neuro CN's II-XII intact bilaterally, moves all extremities and no focal motor deficits Neuro Narrative: Marked generalized weakness noted Sensorium / Orientation: awake, alert and oriented to person Speech: speech normal Psych affect normal Psych Narrative: Interacts appropriately, very pleasantly confused, conversation is limited due to marked hearing loss Weight / BMI Weight Weight: 62.5 kg Body Mass Index (BMI) 26.0 ABG / Lab / Microbiology Data 07/10/23 03:40 07/10/23 03:40 Laboratory: Laboratory Results - last 24 hr 07/09/23 20:17: POC Glucose 156 H 07/10/23 03:40: WBC 23.0 H, RBC 3.96 L, Hgb 11.5 L, Hct 36.1 L, MCV 91.2, MCH 29.0, MCHC 31.9 L, RDW Std Deviation 52.4 H, RDW Coeff of Ricardo 16.8 H, Plt Count 195, MPV 12.4 H, Sodium 147 H, Potassium 3.8, Chloride 117 H, Carbon Dioxide 29.0, Anion Gap 1 L, BUN 11, Creatinine 0.40 L, Estim Creat Clear Calc 47.53, Est GFR (MDRD) Af Amer 198, Est GFR (MDRD) Non-Af 163, BUN/Creatinine Ratio 27.6 H, Glucose 116 H, Calcium 7.7 L Microbiology: Microbiology 06/29/23 20:30 Blood Culture (Wb) - Left Hand Blood Culture - Final GNR lactose pre billing clinician 06/29/23 20:43 Blood Culture (Wb) - Right Wrist Blood Culture - Final Escherichia coli 06/30/23 13:00 Urine Catheter - Zapata Urine Culture - Final Escherichia coli 06/29/23 22:03 Urine Catheter - Catheter Urine Culture - Final ESBL Escherichia coli 06/29/23 21:08 Mucosa - Nose SARS-CoV-2, Influenza & RSV (PCR) - Final Meaningful Use Info Meaningful Use Meaningful Use Diagnoses (Choose all that apply): None applicable Ischemic Stroke Statin Dosing Therapy Reference: STATIN DOSE THERAPY REFERENCE: * Patients > 75 years receive moderate or high dose statin therapy. * Patients 75 years or YOUNGER should receive HIGH intensity statin dose unless contraindicated. You will be required to document reason for non-treatment if statin daily dose does not meet guidelines. HIGH DOSE STATIN THERAPY DAILY Atorvastatin > than or = to 40 mg Rosuvastatin > than or = to 20 mg Amlodipine + Atorvastatin > than or = to 2.5/40 mg Ezetimibe + Simvastatin 10/80 mg Simvastatin 80mg Discharge Plan Admission Admit Date/Time: 06/29/23 23:34 Primary Reason for Your Visit: Altered mental status/hypotension Attending Provider: Karuna Mccoy Primary Care Provider: Scooter Siu Consulting Providers: Joo Chan; Bib Patterson; Jose Juan Smith; Patti Moreira Discharge Orders/Prescriptions Prescriptions: New midodrine 5 mg Tablet 10 mg PO TIDCM Qty: 0 0RF menthol-zinc oxide [Calmoseptine] 0.44-20.6 % Ointment 1 applic topical BID Qty: 0 0RF Protocol: *Topical Application Instructions APPLICATION INSTRUCTIONS: apply to affected area Glucerna 1.2 Wes 0.06-1.2 gram-kcal/mL Liquid 120 ml PO 4X/DAY Qty: 0 0RF Continued nystatin 1 APPLIC bottle 1 applic topical BID Rx Instructions: TO BREATS, GROIN AND FOLDS sennosides-docusate sodium [Senna-S] 8.6-50 mg tablet 1 tab-cap PO BID PRN (Reason: constipation) Qty: 60 0RF polyethylene glycol 3350 [Miralax] 17 gram/dose powder 17 g PO DAILY Qty: 238 0RF Discontinued furosemide 40 mg Tablet 40 mg PO BID potassium chloride 40 mEq/15 mL Liquid 40 meq PO DAILY albuterol sulfate [ProAir HFA] 90 mcg/actuation HFA aerosol inhaler 90 mcg INHALATION Q4H PRN PRN (Reason: Shortness Of Breath) insulin lispro [Humalog KwikPen Insulin] 100 unit/mL Insulin Pen 1 - 100 unit SUBCUT TID Protocol: 6. Sliding Scale Insulin Custom Condition: 151-200 mg/dl range Dose/Route: 4 Condition: 201-205 Dose/Route: 6 Condition: 251-300 Dose/Route: 8 Condition: 301-350 Dose/Route: 10 Condition: 351-400 Dose/Route: 12 Condition: 451-999 Dose/Route: 15 Protocol Text: Custom Sliding Scale insulin glargine [Lantus Solostar U-100 Insulin] 100 unit/mL (3 mL) Insulin Pen 10 unit SUBCUT QHS Referrals / Follow Up: Cary Bill MD [Med Staff - Cigar Binder] - Scooter Siu MD [Primary Care Provider] - Within 1 Week Patti Moreira MD [Med Staff - Active Staff] - Within 2 Weeks Disposition Disposition (needs filled in before D/C Order can be placed): NonSkilled NH/Intermed Care Charges/Coding Visit Charges Inpatient E&M: 19642 Disch Hosp >30min
--- NOTE | 2023-07-10 08:31 | TREXTCAR_ITS ---
Diet Diet Order/Speech Therapy: 06/30/23 16:10 Diet: Consistent Carb - Calorie Controlled Is pt able to select menu?: Yes How many daily calories?: 1800 calorie Routine Orders/Code Status Suppository Frequency: Daily PRN O2 Frequency: PRN Keep PO Greater than or Equal to (%): 89 Routine Lab Work: CBC (1 week) and BMP (1 week) Code Status: Full Code Wound(s) groin: Wound Type: excoriation Suggestions for Active Care Change Position every (hours): 2 Hours to sit in a chair: 3 Times a day to sit in chair: 2 Problem/Diagnosis (1) Bacteremia due to Escherichia coli: Status: Acute Code(s): R78.81 - Bacteremia; B96.20 - Unspecified Escherichia coli [E. coli] as the cause of diseases classified elsewhere (2) Kidney stone on right side: Status: Acute Code(s): N20.0 - Calculus of kidney (3) Calculus of ureterovesical junction (UVJ): Status: Acute Code(s): N20.1 - Calculus of ureter (4) Subendocardial ischemia: Status: Acute Code(s): I24.89 - Other forms of acute ischemic heart disease (5) Septic encephalopathy: Status: Acute Code(s): G93.41 - Metabolic encephalopathy (6) Acute hypokalemia: Status: Acute Code(s): E87.6 - Hypokalemia (7) Septic shock: Status: Acute Code(s): A41.9 - Sepsis, unspecified organism; R65.21 - Severe sepsis with septic shock (8) ROMI (acute kidney injury): Status: Acute Code(s): N17.9 - Acute kidney failure, unspecified Allergies/Procedures Done in Hospital Allergies acetaminophen (From Darvocet-N) Allergy (Unknown, Verified 06/29/23 20:51) unknown propoxyphene (From Darvocet-N) Allergy (Unknown, Verified 06/29/23 20:51) unknown amoxicillin Allergy (Verified 12/11/18 11:58) Unknown mushroom Allergy (Verified 12/29/21 16:23) NEEDS FOLLOW-UP Penicillins Allergy (Verified 12/11/18 11:57) Anaphylaxis Procedures: 2-D Echocardiogram, Central line placement, EKG and - (Cystoscopy with stents placement, CT abdomen pelvis, chest x-ray) Type of Care/Length of Stay Estimated LOS: More Than 30 Days Type of Care Needed: Intermediate Rehab Potential: Poor Prognosis: Fair Additional Orders/Day of Discharge Day of Discharge: 07/10/23 Dietary and Speech Recommendations Dietitian Recommendations/Changes: Continue 1800 calorie controlled, consistent CHO diet as tolerated; Will order 4 oz Glucerna Shake 4x/day w/ medpass for increased nutrition if consumed. Discharge Plan Admission Admit Date/Time: 06/29/23 23:34 Primary Reason for Your Visit: Altered mental status/hypotension Attending Provider: Karuna Mccoy Primary Care Provider: Scooter Siu Consulting Providers: Joo Chan; Bib Patterson; Jose Juan Smith; Patti Moreira Discharge Orders/Prescriptions Prescriptions: New midodrine 5 mg Tablet 10 mg PO TIDCM Qty: 0 0RF menthol-zinc oxide [Calmoseptine] 0.44-20.6 % Ointment 1 applic topical BID Qty: 0 0RF Protocol: *Topical Application Instructions APPLICATION INSTRUCTIONS: apply to affected area Glucerna 1.2 Wes 0.06-1.2 gram-kcal/mL Liquid 120 ml PO 4X/DAY Qty: 0 0RF Continued nystatin 1 APPLIC bottle 1 applic topical BID Rx Instructions: TO BREATS, GROIN AND FOLDS sennosides-docusate sodium [Senna-S] 8.6-50 mg tablet 1 tab-cap PO BID PRN (Reason: constipation) Qty: 60 0RF polyethylene glycol 3350 [Miralax] 17 gram/dose powder 17 g PO DAILY Qty: 238 0RF Discontinued furosemide 40 mg Tablet 40 mg PO BID potassium chloride 40 mEq/15 mL Liquid 40 meq PO DAILY albuterol sulfate [ProAir HFA] 90 mcg/actuation HFA aerosol inhaler 90 mcg INHALATION Q4H PRN PRN (Reason: Shortness Of Breath) insulin lispro [Humalog KwikPen Insulin] 100 unit/mL Insulin Pen 1 - 100 unit SUBCUT TID Protocol: 6. Sliding Scale Insulin Custom Condition: 151-200 mg/dl range Dose/Route: 4 Condition: 201-205 Dose/Route: 6 Condition: 251-300 Dose/Route: 8 Condition: 301-350 Dose/Route: 10 Condition: 351-400 Dose/Route: 12 Condition: 451-999 Dose/Route: 15 Protocol Text: Custom Sliding Scale insulin glargine [Lantus Solostar U-100 Insulin] 100 unit/mL (3 mL) Insulin Pen 10 unit SUBCUT QHS Referrals / Follow Up: Cary Bill MD [Med Staff - Area Development Manager] - Scooter Siu MD [Primary Care Provider] - Within 1 Week Patti Moreira MD [Med Staff - Active Staff] - Within 2 Weeks Disposition Disposition (needs filled in before D/C Order can be placed): NonSkilled NH/Intermed Care
[2023-07-10 10:00] VITALS: BP 104/59; PULSE 77; RESP 19; TEMP 36.3; O2SAT 95
--- NOTE | 2023-07-10 10:39 | CASEMGMT ---
Patient is ready for discharge back to [facility] today. Physicians will transport patient via cot. Plan: d/c back to [facility] under skilled level of care. Physicians will transport patient via cot. Marielle PARK
--- NOTE | 2023-07-10 11:12 | CASEMGMT ---
Discharge Planning Discharge orders, signed med list, covid results, and transport time sent via careport to [facility]. Physicians will transport patient by cot at 12:30p. Nursing and SW updated. VM was left for patients son (David). Gretchen Armstrong DC Planning Asst.
--- NOTE | 2023-07-10 11:44 | NURSING ---
report called to Basil RALPH at [facility] at this time
[2023-07-10 13:35] VITALS: BP 114/58; PULSE 78; RESP 15; O2SAT 95
== END 2023-07-10 13:38 | disposition skilled nursing facility (03) | DRG 659 ==
LOC: ED 23:34 → ICU 23:58
PROVIDERS: Internal Medicine; Internal Medicine Critical Care Medicine; Urology; Admitting Provider Internal Medicine; Emergency Provider Emergency Medicine; PCP Internal Medicine; Visit Provider Internal Medicine
PROC: 0T768DZ Dilation of Right Ureter with Intraluminal Device, Via Natural or Artificial Opening Endoscopic (ICD-10-PCS; principal; 2023-06-30 11:50)
DX: T83.511A Infection and inflammatory reaction due to indwelling urethral catheter, initial encounter (principal); A41.51 Sepsis due to Escherichia coli [E. coli]; R65.21 Severe sepsis with septic shock; G92.8 Other toxic encephalopathy; I24.89 Other forms of acute ischemic heart disease; E87.0 Hyperosmolality and hypernatremia; N30.01 Acute cystitis with hematuria; N20.1 Calculus of ureter; Z16.12 Extended spectrum beta lactamase (ESBL) resistance; E83.39 Other disorders of phosphorus metabolism; E11.9 Type 2 diabetes mellitus without complications; J44.9 Chronic obstructive pulmonary disease, unspecified; F03.90 Unspecified dementia, unspecified severity, without behavioral disturbance, psychotic disturbance, mood disturbance, and anxiety; Z79.4 Long term (current) use of insulin; I10 Essential (primary) hypertension; F32.A Depression, unspecified; D64.9 Anemia, unspecified; E88.09 Other disorders of plasma-protein metabolism, not elsewhere classified; E87.6 Hypokalemia; E87.8 Other disorders of electrolyte and fluid balance, not elsewhere classified; I95.89 Other hypotension; I89.0 Lymphedema, not elsewhere classified; M47.816 Spondylosis without myelopathy or radiculopathy, lumbar region; X58.XXXA Exposure to other specified factors, initial encounter; Z79.899 Other long term (current) drug therapy; Z87.891 Personal history of nicotine dependence
CPT/HCPCS: 36600; 70450; 71045; 74176; 76000; 80048; 80053; 80202; 81001; 82803; 82962; 83605; 83735; 84100; 84134; 84484; 85025; 85027; 85610; 85730; 87040; 87077; 87086; 87088; 87186; 87631; 87811; 93005; 93306; 97110; 97162; 97166; 97530; 97802; 97803; 99285; J2185; J7030; J7040; J7050; J7120; P9047; Q9957; A4216; C1751; C8929; J2405

== ENCOUNTER 2023-07-23 09:11 | Inpatient (IN) | payer MEDICARE, MEDICAID, SELFPAY ==
[2023-07-23] VITALS (47 sets, daily range): BP systolic 53–135; BP diastolic 20–80; PULSE 88–136; RESP 17–35; TEMP 30.4–36.6; O2SAT 80–100; BMI 25.5; BMI 24.0
--- NOTE | 2023-07-23 09:14 | EDS_ITS ---
HPI History of Present Illness Chief Complaint: GI Bleed [facility] Medical History Kidney stone on right side Insomnia Hypotension COPD (chronic obstructive pulmonary disease) Lymphedema Spondylosis of lumbar spine Failure to thrive Mood disorder Decubitus ulcer of buttock, stage 3 Wound cellulitis Depression Chronic indwelling Zapata catheter Hypertension Dementia Home Medications ?Medication ?Instructions ?Recorded ?Last Taken ?Type nystatin 100,000 unit/gram topical 1 applic topical BID fungal 12/11/18 12/11/18 History powder polyethylene glycol 3350 17 17 g PO DAILY constipation #238 06/23/20 Unknown Rx gram/dose oral powder (Miralax) grams sennosides 8.6 mg-docusate sodium 1 tab-cap PO BID PRN constipation 06/23/20 Unknown Rx 50 mg tablet (Senna-S) #60 tabs midodrine 5 mg tablet 10 mg (2 x 5 mg) PO TIDCM #0 tabs 07/10/23 Unknown Rx acetaminophen 500 mg capsule 1,000 mg PO Q6H PRN pain 07/23/23 Unknown History nutrition tx glu 120 ml PO 4X/DAY 07/23/23 Unknown History intol,lac-free,soy-fiber 0.07 gram-0.8 kcal/mL liquid (Boost Glucose Control) zinc oxide 20 % topical ointment 1 applic topical DAILY PRN skin 07/23/23 Unknown History irritation Allergy/AdvReac Type Severity Reaction Status Date / Time acetaminophen (From Allergy Unknown unknown Verified 06/29/23 20:51 Darvocet-N) propoxyphene (From Allergy Unknown unknown Verified 06/29/23 20:51 Darvocet-N) amoxicillin Allergy Unknown Verified 12/11/18 11:58 mushroom Allergy NEEDS Verified 12/29/21 16:23 FOLLOW-UP Penicillins Allergy Anaphylaxis Verified 12/11/18 11:57 Social History Smoking Status: Unknown if ever smoked EXAM Physical Exam Const Vital Signs: 07/23/23 09:12 07/23/23 09:28 07/23/23 09:47 Temperature 86.7 F L Temperature Source Temporal Pulse Rate 104 H 101 H Respiratory Rate 26 H Blood Pressure 69/43 L 75/59 L 53/39 L Blood Pressure Mean 51 64 43 Blood Pressure Source Pulse Ox 80 Oxygen Delivery Method Room Air Oxygen Flow Rate (L/min) 07/23/23 09:56 07/23/23 10:01 07/23/23 10:06 Temperature Temperature Source Pulse Rate 101 H Respiratory Rate 22 H Blood Pressure 69/36 L 69/43 L 62/20 L Blood Pressure Mean 47 51 34 Blood Pressure Source Pulse Ox Oxygen Delivery Method Nasal Cannula Oxygen Flow Rate (L/min) 2 07/23/23 10:33 07/23/23 10:37 07/23/23 10:44 Temperature 96.8 F L 96.8 F L 96.8 F L Temperature Source Rectal Rectal Rectal Pulse Rate 98 90 91 Respiratory Rate 23 H 24 H Blood Pressure 98/80 81/65 L 88/55 L Blood Pressure Mean 86 70 66 Blood Pressure Source Monitor Pulse Ox 82 Oxygen Delivery Method Nasal Cannula Oxygen Flow Rate (L/min) 07/23/23 10:52 07/23/23 10:56 07/23/23 11:31 Temperature 96.2 F L Temperature Source Rectal Pulse Rate 130 H 126 H 127 H Respiratory Rate 27 H 22 H Blood Pressure 101/56 L 103/52 L 86/60 L Blood Pressure Mean 71 69 68 Blood Pressure Source Pulse Ox 100 100 94 Oxygen Delivery Method Nasal Cannula Nasal Cannula Oxygen Flow Rate (L/min) 07/23/23 11:50 07/23/23 11:52 07/23/23 12:05 Temperature 97.1 F L 96.7 F L 96.2 F L Temperature Source Rectal Temporal Temporal Pulse Rate 130 H 130 H 128 H Respiratory Rate 19 H 23 H 17 Blood Pressure 78/57 L 79/41 L 75/47 L Blood Pressure Mean 64 53 56 Blood Pressure Source Pulse Ox 99 99 100 Oxygen Delivery Method Nasal Cannula Nasal Cannula Nasal Cannula Oxygen Flow Rate (L/min) 2 2 MDM MDM MDM Narrative Medical decision making narrative: HISTORY OF PRESENT ILLNESS: 82-year-old female presents concern for GI bleed. Noted blood in her stool. Patient is alert to person at baseline does not provide a liable history. She did not seem to be in any distress and had no complaints when asked a full review of systems. REVIEW OF SYSTEMS: Difficult obtain review of systems secondary to mental status PHYSICAL EXAM: Nursing triage notes reviewed, Vital signs reviewed Constitutional: please see mdm HENT: MMM Eyes: Pupils equal round and reactive to light, Extraocular muscles intact Neck: No stridor, no JVD, full neck ROM Lungs: Bilateral breath sounds, tachypnea noted, no respiratory distress Heart: Fast rate but regular, no murmurs gallops or rubs. 2+ distal pulses in all 4 extremity Abdomen: Soft, there is no tenderness, rigidity, rebound or guarding, no obvious peritoneal signs, no palpable pulsatile abdominal masses, no auscultated abdominal bruit : Normal-appearing genitalia Extremities: No edema Neuro: No f alert, oriented to person but not place or time. Moves all 4 extremities. Sensation all 4 extremities Skin: No rash or lesions noted MEDICAL DECISION MAKING: Chief Complaint: Concern for GI bleed External records reviewed: prior inpatient notes reviewed: Admitted from 06/29/2023 until 07/10/2023 Secondary to septic shock from UTI, urosepsis, nephrolithiasis. Noted that time to have chronically low blood pressures with systolics around 90-100. She is on midodrine. Baseline mental status awake alert oriented to person. discharged to extended-care facility at [facility]. Factors affecting care: COPD, hypertension, Social determinants of health: Elderly History obtained from others: EMS Consults: Internal Medicine (Dr. Millard), Critical Care, GI (Dr. Ayala) [facility] Narrative: Patient was initially hypotensive, tachycardic tachypneic and hypothermic. She was alert no specific complaints although was difficult to assess how much of the conversation she was following she did obey simple commands. She moves all 4 extremities and had sensation apparently intact in all 4 extremities to light or painful stimuli. Patient's initial extremis required emergent resuscitation including fluid resuscitation. She was difficult to obtain IV access peripherally so a right femoral central line was placed. She continued to be hypotensive. She was given a 30 cc/kg bolus. Home midodrine ordered, Levophed ordered. Call blood sample was positive so a unit of O- was started given presumed hemorrhagic shock. Labs showed normal hemoglobin which precludes hemorrhagic shock and central diagnosis I considered the following differential diagnosis: GI bleed, distributive shock, obstructive shock, cardiogenic shock, myxedema coma, ICH, metabolic acidosis, urosepsis I obtained a broad lab and imaging workup to further elucidate etiology of the patient's presentation ALL IMAGES (IF OBTAINED) HAVE BEEN PERSONALLY REVIEWED AND INTERPRETED BY MYSELF. CBC with marked leukocytosis suggestive of systemic inflammation, no anemia or thrombocytopenia Noted elevated INR and signs of coagulopathy VBG with signs of significant metabolic acidosis with pH 7.1 and a bicarb of 8 BMP with severe acute kidney injury, no significant electrolyte abnormalities, Lactate elevated consistent with endorgan hypoperfusion LFTs show no evidence of hepatobiliary pathology. TSH within normal limits, T3 and T4 not suggestive of myxedema coma or severe hypothyroidism Awaiting urine CT scan of the head was negative for ICH CT scan abdomen pelvis was concerning for multiple findings (of note prior CT scan from 06/30/2023 approximately 3 weeks ago showed a normal liver, homogeneous) radiologist notes patient has a focal area of decreased attenuation of the left liver lobe approximately 3 x 3 cm concerning for primary carcinoma or metastasis, there is a 4 x 4 soft tissue mass in the right side of the head of the pancreas also concerning for mass there is also concern for lymphadenopathy, The synthesis of the patient's initial labs suggest likely sepsis or distributive shock as her etiology. She was given a 30 cc/kg bolus and started on broad-spectrum antibiotics and continued on Levophed through her right femoral vein central venous catheter. Patient's vital stabilized although she remained an extremis and in guarded condition. She admitted to the intensive care unit for further antimicrobial therapy and to await blood cultures. Procedure: Central line placement. Indication: Venous Access Consent: Healthcare agent A time out was completed. Maximal sterile barrier technique was used including cap, gown, sterile gloves, large sheet, hand washing and chlorhexidine prep. Anesthesia: The area anesthetized with 1% lidocaine. Procedure: The right femoral vein was punctured with a 19 gauge finder needle, then a wire introducer was placed, a 7 Hebrew triple lumen catheter was placed using Seldinger technique. There were no complications. Blood return was low pressure and non-pulsatile dark blood. Line secured in place with suture, and a sterile bio-occlusive dressing was applied. Patient tolerated procedure well. The procedure was performed by Adolfo Mc DO Shared decision making: I will have a discussion with the patient and or visitors regarding risk/benefits of further testing or admission. They will be made aware of of the risk/benefits inherent in this decision they will be given the opportunity to voice understanding. Total critical care time today provided was at least 60 minutes. This excludes separately billable procedures. Critical care time (if documented) is secondary to the patient having high probability of clinically significant/life thre atening deterioration in the patient's condition which required my urgent intervention. Impression: 1. GI bleed 2. Hypothermia 3. Hypotension 4. Abdominal mass 5. Septic shock 6. Acute kidney injury Dispo: Admit This note was generated with [employer] dictation software. It may contain incorrect words, spelling, and punctuation that were not noted in review of the chart prior to signing. Lab Data Labs: Laboratory Results - last 24 hr 07/23/23 07/23/23 10:12 10:14 WBC 31.3 H* RBC 4.92 Hgb 14.2 Hct 46.3 MCV 94.1 MCH 28.9 MCHC 30.7 L RDW Std Deviation 57.1 H RDW Coeff of Ricardo 16.6 H Plt Count 176 MPV 12.6 H Immature Gran % (Auto) 2.600 H Neut % (Auto) 84.9 H Lymph % (Auto) 7.7 L [place] % (Auto) 4.6 Eos % (Auto) 0.0 Baso % (Auto) 0.2 Absolute Neuts (auto) 26.5 H Absolute Lymphs (auto) 2.42 Nucleated RBC % 0 Differential Comment COMMENT Diff Path Review May foll PT 27.4 H INR 2.6 APTT 38.5 H Sodium 138 Potassium 4.4 Chloride 104 Carbon Dioxide 15.0 L Anion Gap 19 H BUN 41 H Creatinine 2.17 H Estim Creat Clear Calc 17.37 Est GFR (MDRD) Af Amer 28 L Est GFR (MDRD) Non-Af 23 L BUN/Creatinine Ratio 18.9 Glucose 178 H Lactic Acid 12.0 H* Calcium 8.3 L Total Bilirubin 1.00 AST 90 H ALT 36 Alkaline Phosphatase 159 H Troponin I High Sens 10 B-Natriuretic Peptide 64.5 Total Protein 6.6 Albumin 1.7 L Globulin 4.9 H Albumin/Globulin Ratio 0.3 L Lipase < 10 L TSH 2.50 Free T4 1.44 Free T3 pg/dL 0.7 L Blood Type A POSITIVE Antibody Screen NEGATIVE Crossmatch See Detail ABG Data ABG results: ABG 07/23/23 10:50 Specimen Type DONNY Sample Site Not entered VBG pH 7.12 L* VBG pO2 60 H VBG HCO3 8 L VBG Total CO2 8 L VBG O2 Sat (Calc) 82 H VBG Base Excess -22 L POC Mix VBG pCO2 Pt Tmp 23.3 L O2 Delivery Device Not entered Crit Call To/Read Back Yes Blood Gas Notified Time 10:51:36 Radiography Diagnostic Testing: Clinical Impression(s) from Imaging Studies Chest X-Ray 07/23/23 11:00 IMPRESSION: Stable examination. No acute abnormality is seen. Electronically Signed: Demetrius Guzman MD at 11:13 EDT , Abdomen/Pelvis CT 07/23/23 11:18 IMPRESSION: Diffuse ascites. 4.6 cm x 4.7 cm rounded soft tissue mass in the right side of the midline just catheter that of the pancreas. Lymphadenopathy or possible mesenteric mass should be ruled out. Right-sided double-J stent catheter with the calculus seen in the lower pole calyx of the right kidney. Sigmoid diverticulosis. Increased markings in the subcutaneous tissues overlying the right lateral abdominal wall. Electronically Signed: Demetrius Guzman MD at 11:59 EDT , Brain CT 07/23/23 11:18 IMPRESSION: Chronic involutional changes of the brain. Electronically Signed: Demetrius Guzman MD at 11:50 EDT , Discharge Plan Disposition Disposition: Acute Care Hospital [facility] Discharge Date/Time: 07/23/23 13:38
--- NOTE | 2023-07-23 09:30 | ED.RN ---
dr. henderson at bedside, notified of we are unable to get blood work, only a 22g in left hand. Pt. very cold an has poor wavefrom with pulse ox.
--- NOTE | 2023-07-23 09:32 | ED.RN ---
dr. henderson notified 22 g in left hand infiltrated
--- NOTE | 2023-07-23 09:37 | ED.RN ---
RT as bedside for ABG
--- NOTE | 2023-07-23 09:37 | ED.RN ---
dr. henderson notified that pt. needs central line
--- NOTE | 2023-07-23 09:41 | ED.RN ---
vipul qureshi place on patient
--- NOTE | 2023-07-23 09:46 | ED.RN ---
beatriz at bedside to place central line
[2023-07-23] MEDS: 0.9% Normal Saline (1000mL) 1,000 ML 1000 ML IV (10:25)
[2023-07-23 10:35] LABS: Absolute Lymphocyte Count 2.42 X10^3/uL (0.83-4.51); Absolute Neutrophil Count 26.5 X10^3/uL (2.0-7.7); Basophil# 0.07 X10^3/uL; Basophil% 0.2 % (0-1); Eosinophil# 0.01 X10^3/uL; Hematocrit 46.3 % (37-47); Hemoglobin 14.2 g/dL (12.0-15.0); Lymphocyte # 2.42 X10^3/ul (0.83-4.51); Lymphocyte % 7.7 % (19-41); Mean Corp Hgb Conc 30.7 g/dL (32-36); Mean Corpuscular Hgb 28.9 pg (27.0-32.0); Mean Corpuscular Volume 94.1 fL (81-99); Mean Platelet Vol. 12.6 fl (6.2-12.0); Monocyte# 1.44 X10^3/uL; Monocyte% 4.6 % (0-10); NRBC Flagged by Analyzer 0 % (0-5); Neutrophil % 84.9 % (47-70); POSITIVE COUNT YES; POSITIVE DIFFERENTIAL YES; POSITIVE MORPHOLOGY YES; Platelet Count 176 K/mm3 (150-450); RBC Distribution Width CV 16.6 % (11.6-14.6); RBC Distribution Width SD 57.1 fl (35.1-43.9); Red Blood Count 4.92 M/mm3 (4.2-5.4)
[2023-07-23 10:42] LABS: Differential Indicated SCAN CRITERIA MET; White Blood Count 31.3 K/mm3 (4.4-11.0)
--- NOTE | 2023-07-23 10:43 | ED.RN ---
blood started at 1037
--- NOTE | 2023-07-23 10:44 | ED.RN ---
unable to place burns catheter at this time, multiple attempts
[2023-07-23] MEDS: 0.9% Normal Saline (1000mL) 1,000 ML 999 ML IV (10:51)
[2023-07-23 10:53] LABS: Blood Gas Specimen Type VEN; O2 Delivery Device Not entered; SITE Not entered; Time Given 10:51:36; VBG BASE EXCESS -22 mmol/L (-1.0-3.5); VBG Bicarbonate 8 mmol/L (22-26); VBG PO2 60 mmHg (25-40); VBG SO2 82 % (50-70); VBG TCO2 8 mmol/L (23-33); VBG pCO2 23.3 mmHg (41-51); VBG pH 7.12 (7.32-7.42)
[2023-07-23 10:54] LABS: International Normalized Ratio 2.6; Prothrombin Time (Protime)PT. 27.4 SECONDS (11.7-14.9)
[2023-07-23 10:55] LABS: Partial Thromboplast Time 38.5 Seconds (24.1-36.2)
--- NOTE | 2023-07-23 10:56 | CPS ---
[facility]ERTOG critical pH results handed to Dr. Pak
--- NOTE | 2023-07-23 11:00 | RAD_ITS ---
STUDY: X-RAY CHEST REASON FOR EXAM: Female, 82 years old. Hypotension TECHNIQUE: Single AP portable view of the chest. COMPARISON: Comparison is made with prior study June 30, 2023. FINDINGS: EKG electrodes are seen. There is a 1.6 cm x 1.4 cm well-defined nodule in the right midlung. This is unchanged. There is no demonstrated pleural abnormality. Normal size heart. Normal mediastinum and eh. Normal visualized pulmonary arteries. There is atherosclerotic tortuosity of the aortic arch and descending thoracic aorta. There are diffuse degenerative changes of the visualized thoracic spine. There is degenerative osteoarthritis of the bilateral shoulders. There is no demonstrated abnormality of the visualized soft tissue structures of the upper abdomen. RAD/Chest 1 View (Portable) IMPRESSION: Stable examination. No acute abnormality is seen. Electronically Signed: Demetrius Guzman MD at 11:13 EDT ,
[2023-07-23 11:14] LABS: ALB/GLOB Ratio 0.3 RATIO (0.9-2.4); AST(SGOT) 90 U/L (15-37); Alanine Aminotransfer ALT/SGPT 36 U/L (13-56); Albumin, Serum 1.7 g/dL (3.2-5.0); Alkaline Phosphatase 159 U/L (45-117); Anion Gap 19 (5-15); BUN 41 mg/dL (7-18); BUN/Creat Ratio 18.9 RATIO (10-20); Calcium,Total 8.3 mg/dL (8.5-10.1); Chloride 104 mmol/L (98-107); Creatinine, Serum 2.17 mg/dL (0.55-1.02); EST Glomerular Filtration Rate 23 mL/min (>60); Est Glom Filt Rate - Afr Amer 28 mL/min (>60); Estimated Creatinine Clearance 17.37 ml/min; Free T3 0.7 pg/mL (2.18-3.98); Globulin 4.9 g/dL (2.2-4.2); Glucose 178 mg/dL (74-106); Lipase < 10 U/L (13-75); Potassium 4.4 mmol/L (3.5-5.1); Protein, Total 6.6 g/dL (6.4-8.2); Sodium Level 138 mmol/L (136-145); T4 Free Direct 1.44 ng/dL (0.76-1.46); Troponin-I HS 10 pg/mL (3.0-54.0)
--- NOTE | 2023-07-23 11:18 | CT_ITS ---
STUDY: CT ABDOMEN AND PELVIS WITHOUT CONTRAST REASON FOR EXAM: Female, 82 years old. sepsis recent ureteral stent placement RADIATION DOSAGE (If Supplied By Facility): CTDIvol = ( 9.84 ) mGy, DLP = ( 531.05 ) mGycm TECHNIQUE: Transaxial images were obtained from the dome of the diaphragm to the symphysis pubis without oral contrast, and without intravenous contrast. Sagittal and coronal images were reconstructed. Individualized dose optimization techniques were used for this CT. COMPARISON: Comparison is made with prior study dated June 30, 2023. FINDINGS: There are small bilateral pleural effusions right greater than left with the bibasilar atelectasis. Coronary artery calcification. There is evidence of free fluid in the perisplenic and perihepatic region as well as in the abdomen and pelvis in keeping with the ascites. There is a focal area of decreased attenuation in the left lobe of liver measuring 2.9 cm x 3.4 cm. This may represent either a primary carcinoma versus metastatic deposits. The gallbladder is not seen. Normal spleen. There is diffuse atrophy of the pancreas. Scattered calcifications are seen within the pancreas. There is a 4.6 cm x 4.7 cm soft tissue mass in the right side of the midline just caudad to the head of the pancreas. This may represent lymphadenopathy versus a possible mesenteric mass. Normal bilateral adrenal glands. A right-sided double-J stent catheter is seen with the proximal tip in the right renal pelvis and the distal tip in the bladder. I suspect a nonobstructive right intrarenal calculi. 2.8 cm cyst in the lateral aspect of the left kidney. Normal visualized stomach. Normal small intestine. There are multiple colonic diverticula consistent with diverticulosis. There is non-visualization of the appendix. There is atherosclerotic calcification of the abdominal aorta, without a demonstrated aneurysm. The right femoral/arterial line is seen. Normal inferior vena cava. Normal retroperitoneum. Normal urinary bladder. There is evidence of a right-sided Spigalian hernia. Increased markings are seen in the overlying subcutaneous tissues along the right lateral abdominal and pelvic wall. There are diffuse degenerative changes of the visualized lumbar spine. There is evidence of prior ORIF of the left intertrochanteric fracture. CT/Abdomen/Pelvis without Cont IMPRESSION: Diffuse ascites. 4.6 cm x 4.7 cm rounded soft tissue mass in the right side of the midline just catheter that of the pancreas. Lymphadenopathy or possible mesenteric mass should be ruled out. Right-sided double-J stent catheter with the calculus seen in the lower pole calyx of the right kidney. Sigmoid diverticulosis. Increased markings in the subcutaneous tissues overlying the right lateral abdominal wall. Electronically Signed: Demetrius Guzman MD at 11:59 EDT ,
--- NOTE | 2023-07-23 11:18 | CT_ITS ---
STUDY: CT BRAIN WITHOUT CONTRAST REASON FOR EXAM: Female, 82 years old. Altered mental status RADIATION DOSAGE (If Supplied By Facility): CTDIvol = ( 44.99 ) mGy, DLP = ( 779.24 ) mGycm TECHNIQUE: Transaxial CT imaging of the brain was performed without administration of intravenous contrast material. Individualized dose optimization techniques were used for this CT. COMPARISON: Comparison is made with prior study dated June 29, 2023. FINDINGS: Normal soft tissue structures. Normal calvarium. There is moderate cerebral atrophy with widening of the extra-axial spaces and ventricular dilatation. There are areas of decreased attenuation within the white matter tracts of the supratentorial brain, consistent with microvascular disease changes. Normal basal ganglia and thalami. Normal brainstem. Normal cerebellum. There is no intracranial hemorrhage. There are no findings of an acute ischemic infarction. Atherosclerotic calcification of the cavernous portions of the internal carotid arteries bilaterally. Normal visualized paranasal sinuses. CT/Brain/Head without Contrast IMPRESSION: Chronic involutional changes of the brain. Electronically Signed: Demetrius Guzman MD at 11:50 EDT ,
[2023-07-23 11:25] LABS: BNP,B-Type NATRIURETIC PEPTIDE 64.5 pg/mL (0-100)
[2023-07-23] MEDS: Meropenem 2 GM in 0.9% Normal Saline (100mL Bag) 100 ML IV (11:35)
--- NOTE | 2023-07-23 11:36 | ED.RN ---
dr. henderson notified of WBC, lactic of 12, and inability of this Rn to catheterize patient.
[2023-07-23] MEDS: Norepinephrine 8 MG in 0.9% Normal Saline (250mL Bag) 242 ML 3.8 MG CONT INF (11:54)
--- NOTE | 2023-07-23 11:56 | ED.RN ---
THIS RN NOTIFITED DR ALEXANDER THAT I BEGAN LEVOPHED, PER DR. ALEXANDER TITRATE TO MAP OF 65 OR GREATER
--- NOTE | 2023-07-23 12:43 | HP.PCM.HOS_ITS ---
HPI - General General Date of Service: 07/23/23 Chief Complaint: hypotension HPI Narrative MAIKEL DANIEL, is a 82 F who presents to the emergency room hypotensive, tachycardic, tachypneic and hypothermic. There was concern for GI bleed patient was heme positive. There was concern the patient was having hemorrhagic shock and was ordered a unit of packed red blood cells. She was an extremely difficult IV stick and IV access was only obtained after a right femoral central line was placed. Subsequently, her hemoglobin came back at 14 but patient still did receive the vast majority of the units (the last few milliliters was discontinued when I arrived on site). Patient received 30 cc/kg of IV fluid, was subsequently started on norepinephrine and received meropenem. Patient had a CAT scan that showed diffuse ascites, a 4.6 x 4.7 cm rounded soft tissue mass in the right side of the midline just above the pancreas. Noted increased markings in the subcutaneous tissue overlying the right lateral abdominal wall. Patient is alert and oriented x 1 and is a terrible historian. Patient denies any complaints though. [facility] Medical History Kidney stone on right side Insomnia Hypotension COPD (chronic obstructive pulmonary disease) Lymphedema Spondylosis of lumbar spine Failure to thrive Mood disorder Decubitus ulcer of buttock, stage 3 Wound cellulitis Depression Chronic indwelling Zapata catheter Hypertension Dementia Home Medications ?Medication ?Instructions ?Recorded ?Last Taken ?Type nystatin 100,000 unit/gram topical 1 applic topical BID fungal 12/11/18 12/11/18 History powder polyethylene glycol 3350 17 17 g PO DAILY constipation #238 06/23/20 Unknown Rx gram/dose oral powder (Miralax) grams sennosides 8.6 mg-docusate sodium 1 tab-cap PO BID PRN constipation 06/23/20 Unknown Rx 50 mg tablet (Senna-S) #60 tabs midodrine 5 mg tablet 10 mg (2 x 5 mg) PO TIDCM #0 tabs 07/10/23 Unknown Rx acetaminophen 500 mg capsule 1,000 mg PO Q6H PRN pain 07/23/23 Unknown History nutrition tx glu 120 ml PO 4X/DAY 07/23/23 Unknown History intol,lac-free,soy-fiber 0.07 gram-0.8 kcal/mL liquid (Boost Glucose Control) zinc oxide 20 % topical ointment 1 applic topical DAILY PRN skin 07/23/23 Unknown History irritation Allergy/AdvReac Type Severity Reaction Status Date / Time acetaminophen (From Allergy Unknown unknown Verified 06/29/23 20:51 Darvocet-N) propoxyphene (From Allergy Unknown unknown Verified 06/29/23 20:51 Darvocet-N) amoxicillin Allergy Unknown Verified 12/11/18 11:58 mushroom Allergy NEEDS Verified 12/29/21 16:23 FOLLOW-UP Penicillins Allergy Anaphylaxis Verified 12/11/18 11:57 Family History unable to obtain unable to obtain Surgical History unable to obtain unable to obtain Social History Smoking Status: Unknown if ever smoked ROS Review of Systems ROS Unobtainable: due to encephalopathy Vital Signs Vital Signs Vital Signs: 07/23/23 09:12 07/23/23 09:28 07/23/23 09:47 Temperature 30.4 C L Temperature Source Temporal Pulse Rate 104 H 101 H Respiratory Rate 26 H Blood Pressure 69/43 L 75/59 L 53/39 L Blood Pressure Mean 51 64 43 Blood Pressure Source Pulse Ox 80 Oxygen Delivery Method Room Air Oxygen Flow Rate (L/min) 07/23/23 09:56 07/23/23 10:01 07/23/23 10:06 Temperature Temperature Source Pulse Rate 101 H Respiratory Rate 22 H Blood Pressure 69/36 L 69/43 L 62/20 L Blood Pressure Mean 47 51 34 Blood Pressure Source Pulse Ox Oxygen Delivery Method Nasal Cannula Oxygen Flow Rate (L/min) 2 07/23/23 10:33 07/23/23 10:37 07/23/23 10:44 Temperature 36.0 C L 36.0 C L 36.0 C L Temperature Source Rectal Rectal Rectal Pulse Rate 98 90 91 Respiratory Rate 23 H 24 H Blood Pressure 98/80 81/65 L 88/55 L Blood Pressure Mean 86 70 66 Blood Pressure Source Monitor Pulse Ox 82 Oxygen Delivery Method Nasal Cannula Oxygen Flow Rate (L/min) 07/23/23 10:52 07/23/23 10:56 07/23/23 11:31 Temperature 35.7 C L Temperature Source Rectal Pulse Rate 130 H 126 H 127 H Respiratory Rate 27 H 22 H Blood Pressure 101/56 L 103/52 L 86/60 L Blood Pressure Mean 71 69 68 Blood Pressure Source Pulse Ox 100 100 94 Oxygen Delivery Method Nasal Cannula Nasal Cannula Oxygen Flow Rate (L/min) 07/23/23 11:50 07/23/23 11:52 07/23/23 12:05 Temperature 36.2 C L 35.9 C L 35.7 C L Temperature Source Rectal Temporal Temporal Pulse Rate 130 H 130 H 128 H Respiratory Rate 19 H 23 H 17 Blood Pressure 78/57 L 79/41 L 75/47 L Blood Pressure Mean 64 53 56 Blood Pressure Source Pulse Ox 99 99 100 Oxygen Delivery Method Nasal Cannula Nasal Cannula Nasal Cannula Oxygen Flow Rate (L/min) 2 2 Weight Weight: 61.3 kg Body Mass Index (BMI) 25.5 Physical Exam Const Constitutional Narrative: Alert to self. Flat affect. Establishes eye contact. Appears unwell. HEENT normocephalic HEENT Narrative: Poor dentition. Mucous members dry. Eyes PERRL and EOMs intact bilaterally Neck no lymphadenopathy Resp normal respiratory effort, no retractions and no use of accessory muscles Cardio regular rate, regular rhythm, S1 normal heart sound and S2 normal heart sound GI normal to inspection, nondistended, normoactive bowel sounds, soft to palpation and non-tender GI Narrative: Tender to palpation. No rebound Extremity Extremity Narrative: Marked atrophy in lower extremities. Skin Skin Narrative: Post diffuse scaling on her anterior shins and feet bilaterally. Does appear to be some area on the right gonzalez that has been denuded of these scales showing very thin skin. Onychomycosis Neuro Sensorium / Orientation: awake and oriented to person; Negative for oriented to place or oriented to time Psych Psych Narrative: Flat affect Results Lab / Micro Data Attestation: I reviewed the patient's lab results. 07/23/23 10:12 07/23/23 10:12 Labs: Laboratory Results - last 24 hr 07/23/23 10:12: WBC 31.3 H*, RBC 4.92, Hgb 14.2, Hct 46.3, MCV 94.1, MCH 28.9, M CHC 30.7 L, RDW Std Deviation 57.1 H, RDW Coeff of Ricardo 16.6 H, Plt Count 176, M PV 12.6 H, Immature Gran % (Auto) 2.600 H, Neut % (Auto) 84.9 H, Lymph % (Auto) 7.7 L, [place] % (Auto) 4.6, Eos % (Auto) 0.0, Baso % (Auto) 0.2, Absolute Neuts (auto) 26.5 H, Absolute Lymphs (auto) 2.42, Nucleated RBC % 0, Differential Comment COMMENT, Diff Path Review June foll, PT 27.4 H, INR 2.6, APTT 38.5 H, Sodium 138, Potassium 4.4, Chloride 104, Carbon Dioxide 15.0 L, Anion Gap 19 H, BUN 41 H, Creatinine 2.17 H, Estim Creat Clear Calc 17.37, Est GFR (MDRD) Af Amer 28 L, Est GFR (MDRD) Non-Af 23 L, BUN/Creatinine Ratio 18.9, Glucose 178 H, Lactic Acid 12.0 H*, Calcium 8.3 L, Total Bilirubin 1.00, AST 90 H, ALT 36, A lkaline Phosphatase 159 H, Troponin I High Sens 10, B-Natriuretic Peptide 64.5, Total Protein 6.6, Albumin 1.7 L, Globulin 4.9 H, Albumin/Globulin Ratio 0.3 L, Lipase < 10 L, TSH 2.50, Free T4 1.44, Free T3 pg/dL 0.7 L, Blood Type A POSITIVE, Antibody Screen NEGATIVE 07/23/23 10:14: Crossmatch See Detail Micro: Microbiology 07/23/23 09:30 Stool Stool Occult Blood (RONAK) - Final Occult Blood Positive ABG Data ABG results: ABG 07/23/23 10:50 Specimen Type DONNY Sample Site Not entered VBG pH 7.12 L* VBG pO2 60 H VBG HCO3 8 L VBG Total CO2 8 L VBG O2 Sat (Calc) 82 H VBG Base Excess -22 L POC Mix VBG pCO2 Pt Tmp 23.3 L O2 Delivery Device Not entered Crit Call To/Read Back Yes Blood Gas Notified Time 10:51:36 EKG Initial EKG: Attestation: I personally reviewed and interpreted this EKG as follows: EKG Rhythm Intrepretation: Sinus Rhythm Imaging Radiology Impression Chest X-Ray 07/23/23 11:00 IMPRESSION: Stable examination. No acute abnormality is seen. Electronically Signed: Demetrius Guzman MD at 11:13 EDT , Abdomen/Pelvis CT 07/23/23 11:18 IMPRESSION: Diffuse ascites. 4.6 cm x 4.7 cm rounded soft tissue mass in the right side of the midline just catheter that of the pancreas. Lymphadenopathy or possible mesenteric mass should be ruled out. Right-sided double-J stent catheter with the calculus seen in the lower pole calyx of the right kidney. Sigmoid diverticulosis. Increased markings in the subcutaneous tissues overlying the right lateral abdominal wall. Electronically Signed: Demetrius Guzman MD at 11:59 EDT , Brain CT 07/23/23 11:18 IMPRESSION: Chronic involutional changes of the brain. Electronically Signed: Demetrius Guzman MD at 11:50 EDT , Assessment & Plan Assessment/Plan (1) Septic shock: PLAN: Plan Septic shock * Initially felt to be hemorrhagic shock as patient was heme positive, however later it was found her hemoglobin was 14. Patient received unit of trauma blood before information was available. Patient received most of that unit but I discontinued it with only prior about 10 to 20 cc still left. * Sources not identified at this time. Urinalysis has not been able to be performed as catheter has not been able to be effectively placed. Blood cultures drawn and pending. 1 area of concern is her abdomen. CAT scan showing 4.6 x 4.7 cm tissue mass in the right side of the abdomen this was not noted on imaging from June 29. Possibilities could be lymphadenopathy versus abscess versus malignancy. * Follow-up cultures * Antibiotics with meropenem and vancomycin. * Right femoral triple-lumen catheter placed in the emergency room. Patient will need to be on bedrest while that is in place. Patient did receive 30 cc/kg of IV fluids in the emergency room and has since been started on norepinephrine. * Consult critical care medicine. * Check random cortisol. Patient has been on hydrocortisone with her recent bout of septic shock. ROMI * Suspect prerenal. Patient's creatinine was 0.4 on July 09 and was 2.17. * Continue IV fluids * Monitor. * No need for renal replacement therapy at this time. If continues get worse, consider nephrology consultation. Heme positive stools * Hemoglobin stable, if anything likely hemoconcentrated. Hemoglobin was 14.2 and baseline appears to be around 1.5, which is where she was July 09. * Patient received most of 1 unit of packed red blood cells. No need for additional transfusions at this time. Monitor hemoglobin. Given the patient's stability, she is not a candidate for endoscopy at this time. Coagulopathy * INR is 2.6 and she does not take anticoagulation * It has been elevated before. Likely component of her sepsis as well as severe protein calorie malnutrition. Cannot rule out underlying DIC. Will hold off on ordering other tests such as D-dimer as it will not change her current management. * Monitor for now. Leukocytosis * Secondary to septic shock. Of note, her white count started going up during her last admission from 6.6-15 0.4-23. Though it is far lower than it was during the admission where he got up to 72.3. * Monitor for now. Severe protein calorie malnutrition * Patient to be n.p.o. right now to get speech therapy to see her * Will consult nutrition as patient clinically is profoundly malnourished with marked cachexia. Debility * Patient has a poor performance status at baseline. * PT OT evaluate and treat. VTE prophylaxis: SCDs CODE STATUS: Verified with the patient's son through the emergency room physician. Patient is to be full code. Prognosis: Guarded to poor. Charges/Coding Visit Charges Inpatient E&M: 54666 Init Hosp L3
[2023-07-23 12:57] LABS: Mucous, Urine 0 SEEN /hpf (<or=2+); Red Blood Cells-Urine 0 SEEN /hpf (0-5)
--- NOTE | 2023-07-23 13:02 | NURSING ---
ICU [facility]
--- NOTE | 2023-07-23 13:06 | ED.RN ---
CALLED REPORT TO GIDEON
[2023-07-23 13:18] LABS: Color, Urine Yellow (Yellow); Glucose, Dipstick Normal (Normal); Ketone-Dipstick Negative (Negative); Leukocyte Esterase-Dipstick Negative /ul (Negative); Nitrite-Dipstick Negative (Negative); Occult Blood-Urine Negative /ul (Negative); Protein-Dipstick Negative (Negative); Urine Bilirubin Dipstick Negative (Negative); Urine Clarity Clear (Clear); Urine Urobilinogen Normal (Normal)
[2023-07-23 13:23] LABS: Troponin-I HS 15 pg/mL (3.0-54.0)
[2023-07-23 13:32] LABS: Lactic Acid 8.9 mmol/L (0.4-1.9)
[2023-07-23 13:50] LABS: White Blood Cells >100 SEEN /hpf (0-5)
[2023-07-23 13:51] LABS: Bacteria 4+ /hpf (None Seen); Squamous Epithelial Cells - UA 10-25 SEEN /hpf (5-10); Yeast-Urine 2+ /hpf (None Seen)
[2023-07-23 14:27] LABS: Reflex Lactate? Y
[2023-07-23] MEDS: 0.9% Normal Saline (1000mL) 1,000 ML 150 ML IV ×2 (14:30→20:36)
[2023-07-23] MEDS: Vancomycin HCl 1,500 MG in 0.9% Normal Saline (500mL Bag) 500 ML 250 MG IV (15:22)
[2023-07-23 15:31] LABS: Lactic Acid 7.7 mmol/L (0.4-1.9)
--- NOTE | 2023-07-23 16:07 | CON.PCM.CC_ITS ---
HPI Consult Data Date of Consult: 07/23/23 HPI Narrative HPI Narrative: MAIKEL DANIEL, is a [address] [facility] Medical History Kidney stone on right side Insomnia Hypotension COPD (chronic obstructive pulmonary disease) Lymphedema Spondylosis of lumbar spine Failure to thrive Mood disorder Decubitus ulcer of buttock, stage 3 Wound cellulitis Depression Chronic indwelling Zapata catheter Hypertension Dementia Home Medications ?Medication ?Instructions ?Recorded ?Last Taken ?Type nystatin 100,000 unit/gram topical 1 applic topical BID fungal 12/11/18 12/11/18 History powder polyethylene glycol 3350 17 17 g PO DAILY constipation #238 06/23/20 Unknown Rx gram/dose oral powder (Miralax) grams sennosides 8.6 mg-docusate sodium 1 tab-cap PO BID PRN constipation 06/23/20 Unknown Rx 50 mg tablet (Senna-S) #60 tabs midodrine 5 mg tablet 10 mg (2 x 5 mg) PO TIDCM #0 tabs 07/10/23 Unknown Rx acetaminophen 500 mg capsule 1,000 mg PO Q6H PRN pain 07/23/23 Unknown History nutrition tx glu 120 ml PO 4X/DAY 07/23/23 Unknown History intol,lac-free,soy-fiber 0.07 gram-0.8 kcal/mL liquid (Boost Glucose Control) zinc oxide 20 % topical ointment 1 applic topical DAILY PRN skin 07/23/23 Unknown History irritation Allergy/AdvReac Type Severity Reaction Status Date / Time acetaminophen (From Allergy Unknown unknown Verified 06/29/23 20:51 Darvocet-N) propoxyphene (From Allergy Unknown unknown Verified 06/29/23 20:51 Darvocet-N) amoxicillin Allergy Unknown Verified 12/11/18 11:58 mushroom Allergy NEEDS Verified 12/29/21 16:23 FOLLOW-UP Penicillins Allergy Anaphylaxis Verified 12/11/18 11:57 Family History unable to obtain Surgical History unable to obtain Social History Smoking Status: Unknown if ever smoked Objective Data Objective Data Vital Signs: Vital Signs Last response 3 Temperature 35.8 C L 07/23/23 15:00 Temperature Source Rectal 07/23/23 15:00 Pulse Rate 132 H 07/23/23 15:00 Respiratory Rate 22 H 07/23/23 15:00 Blood Pressure 85/55 L 07/23/23 15:15 Blood Pressure Mean 65 07/23/23 15:15 Blood Pressure Source Monitor 07/23/23 15:15 Blood Pressure Position Semi-Fowlers 07/23/23 15:15 Blood Pressure Location Left Arm 07/23/23 15:15 Pulse Ox 97 07/23/23 15:03 Oxygen Delivery Method Room Air 07/23/23 15:03 Oxygen Flow Rate (L/min) 2 07/23/23 12:05 I&O: I&O Last 24 Hours 3 07/22/23 07/23/23 07/23/23 23:59 11:59 23:59 Intake Total 1999. 163.34 / 2163.34 Balance 1999 163.34 / 2163.34 I&O: Total Stay 3 07/23/23 09:11 thru 07/23/23 15:15 Intake Total 2162. Balance 2162.34 Current Meds Ordered / Administered: Current meds ordered / Administered 3 Generic Name Dose Route Start Last Admin Trade Name Freq PRN Reason Stop Dose Admin Dextrose 0 gm 07/23/23 14:02 Dextrose 50%-Water 25 Gm/50 Ml Disp.Syrin IV X1 PRN HYPOGLYCEMIA Protocol Glucagon 1 mg 07/23/23 14:02 Glucagon 1 Mg/Ml Syringe IM X1 PRN HYPOGLYCEMIA Norepinephrine Bitartrate 8 mg 250 mls @ 9.375 mls/hr 07/23/23 10:30 07/23/23 15:15 / Sodium Chloride CONT INF 6 mcg/min .[id number] MARY 11.3 mls/hr Titration Protocol 5 MCG/MIN Sodium Chloride 1,000 mls @ 150 mls/hr 07/23/23 14:02 07/23/23 14:30 IV 150 mls/hr .[id number] MARY Administration Vancomycin IV-PHARMACY TO DOSE 500 mls @ 250 mls/hr 07/23/23 14:02 1 each/ Sodium Chloride IV X1 PRN Rx to Dose Protocol Vancomycin HCl 1,500 mg/ 530 mls @ 250 mls/hr 07/23/23 15:00 07/23/23 15:22 Sodium Chloride IV 07/23/23 17:07 250 mls/hr X1 ONE Administration Meropenem 500 mg/ Sodium 60 mls @ 100 mls/hr 07/23/23 22:00 Chloride IV Q12 [facility] Insulin Human Lispro 0 unit 07/23/23 18:00 Insulin Lispro 100 Unit/Ml Insuln.Pen SC Q6 [facility] Protocol Ondansetron HCl 4 mg 07/23/23 14:02 Ondansetron 4 Mg/2 Ml Vial IV Q8H PRN PRN NAUSEA/VOMITING Sodium Chloride 10 - 40 ml 07/23/23 14:56 0.9 % Nacl (Sterile) Posiflush 10 Ml IV UD PRN Port access or dressing change Sodium Chloride 10 - 40 ml 07/23/23 14:56 0.9% Saline Lock 10 Ml Syringe IV UD PRN Multilumen/Wise Flush Lab / Micro Data 07/23/23 10:12 07/23/23 10:12 Labs: Laboratory Results - last 24 hr 07/23/23 10:12: WBC 31.3 H*, RBC 4.92, Hgb 14.2, Hct 46.3, MCV 94.1, MCH 28.9, M CHC 30.7 L, RDW Std Deviation 57.1 H, RDW Coeff of Ricardo 16.6 H, Plt Count 176, M PV 12.6 H, Immature Gran % (Auto) 2.600 H, Neut % (Auto) 84.9 H, Lymph % (Auto) 7.7 L, [place] % (Auto) 4.6, Eos % (Auto) 0.0, Baso % (Auto) 0.2, Absolute Neuts (auto) 26.5 H, Absolute Lymphs (auto) 2.42, Nucleated RBC % 0, Differential Comment COMMENT, Diff Path Review June foll, PT 27.4 H, INR 2.6, APTT 38.5 H, Sodium 138, Potassium 4.4, Chloride 104, Carbon Dioxide 15.0 L, Anion Gap 19 H, BUN 41 H, Creatinine 2.17 H, Estim Creat Clear Calc 17.37, Est GFR (MDRD) Af Amer 28 L, Est GFR (MDRD) Non-Af 23 L, BUN/Creatinine Ratio 18.9, Glucose 178 H, Lactic Acid 12.0 H*, Calcium 8.3 L, Total Bilirubin 1.00, AST 90 H, ALT 36, A lkaline Phosphatase 159 H, Troponin I High Sens 10, B-Natriuretic Peptide 64.5, Total Protein 6.6, Albumin 1.7 L, Globulin 4.9 H, Albumin/Globulin Ratio 0.3 L, Lipase < 10 L, TSH 2.50, Free T4 1.44, Free T3 pg/dL 0.7 L, Blood Type A POSITIVE, Antibody Screen NEGATIVE 07/23/23 10:14: Crossmatch See Detail 07/23/23 12:47: Lactic Acid 8.9 H* 07/23/23 12:52: Troponin I High Sens 15, Urine Color Yellow, Urine Clarity Clear, Urine pH 7.0, Ur Specific [place] 1.010, Urine Protein Negative, Urine Glucose (UA) Normal, Urine Ketones Negative, Urine Occult Blood Negative, Urine Nitrite Negative, Urine Bilirubin Negative, Urine Urobilinogen Normal, Ur Leukocyte Esterase Negative, Urine RBC 0 SEEN, Urine WBC >100 SEEN, Ur Squamous Epith Cells 10-25 SEEN, Urine Bacteria 4+, Urine Mucus 0 SEEN, Urine Yeast 2+ 07/23/23 14:40: Lactic Acid 7.7 H*, Cortisol 108.80 H Micro: Microbiology 07/23/23 09:30 Stool Stool Occult Blood (RONAK) - Final Occult Blood Positive ABG Data ABG results: ABG 07/23/23 10:50 Specimen Type DONNY Sample Site Not entered VBG pH 7.12 L* VBG pO2 60 H VBG HCO3 8 L VBG Total CO2 8 L VBG O2 Sat (Calc) 82 H VBG Base Excess -22 L POC Mix VBG pCO2 Pt Tmp 23.3 L O2 Delivery Device Not entered Crit Call To/Read Back Yes Blood Gas Notified Time 10:51:36 Imaging Radiology Impression Chest X-Ray 07/23/23 11:00 IMPRESSION: Stable examination. No acute abnormality is seen. Electronically Signed: Demetrius Guzman MD at 11:13 EDT , Abdomen/Pelvis CT 07/23/23 11:18 IMPRESSION: Diffuse ascites. 4.6 cm x 4.7 cm rounded soft tissue mass in the right side of the midline just catheter that of the pancreas. Lymphadenopathy or possible mesenteric mass should be ruled out. Right-sided double-J stent catheter with the calculus seen in the lower pole calyx of the right kidney. Sigmoid diverticulosis. Increased markings in the subcutaneous tissues overlying the right lateral abdominal wall. Electronically Signed: Demetrius Guzman MD at 11:59 EDT , Brain CT 07/23/23 11:18 IMPRESSION: Chronic involutional changes of the brain. Electronically Signed: Demetrius Guzman MD at 11:50 EDT , Assessment and Plan . Assessment and plan: 82 yo chronically ill and debilitated woman admitted from chronic care facility 07/23/23 w/ hypothermia and hypotension. Despite IVF in the ED, she required placement of CVC and NE infusion for BP support. Lab significant for leukocytosis, elevated creatinine, AGMA, LA 12 initially, albumin 1.7 UA reveals pyuria and bacteruria CT A/P reveals a left lobe liver lesion as well as a masslike density adjacent to the pancreatic head She also has noted grossly red stool She is in the ICU. She is awake but not very interactive or cooperative. NE for BP support. HR 106 BPM. Prior UCX in the past reveals ESBL-producing GNR. PHYSICAL EXAM GEN NAD, hypoactive VS as above HEENT o/p clear NECK supple COR tachy, reg CHEST CTA ABD soft EXT thin SKIN w/d MARK NF ASSESSMENT 1. Severe sepsis w/ shock 2. Lactic acidosis 3. ROMI w/ oliguria 4. Pyuria 5. H/O ESBL-producing pathogen 6. Hypoalbuminemia 7. (?) intra-abdominal malignancy 8. GI bleeding TREATMENT PLAN -volume expansion -meropenem -f/u CX -hold all A/C -PPI -follow HGB, renal function, LA -care planning Critical Care Time: 60 min The entirety of this encounter was done via Telemedicine
[2023-07-23 16:58] LABS: Reflex Lactate? Y
[2023-07-23] MEDS: Insulin Lispro 100 UNIT/ML INSULN.PEN SC (18:32)
[2023-07-23] MEDS: Albumin Human 25% (100 mL) 25 GM/100 ML BAG IV ×2 (18:33→20:36)
[2023-07-23 18:36] LABS: Bedside Glucose 172 mg/dL (74-106)
--- NOTE | 2023-07-23 19:14 | PHA.PHARE_ITS ---
Consult Antibiotic Management Pharmacy has been consulted to manage selected antibiotic: Vancomycin Type of Intervention Type of Consult: New start Suspected Infection Suspected Infection: Sepsis Labs Labs: Sodium 138 mmol/L (136-145) 07/23/23 10:12 Potassium 4.4 mmol/L (3.5-5.1) 07/23/23 10:12 Chloride 104 mmol/L (98-107) 07/23/23 10:12 Carbon Dioxide 15.0 mmol/L (21.0-32.0) L 07/23/23 10:12 Anion Gap 19 (5-15) H 07/23/23 10:12 BUN 41 mg/dL (7-18) H 07/23/23 10:12 Creatinine 2.17 mg/dL (0.55-1.02) H 07/23/23 10:12 Est GFR (MDRD) Af Amer 28 mL/min (>60) L 07/23/23 10:12 Est GFR (MDRD) Non-Af 23 mL/min (>60) L 07/23/23 10:12 BUN/Creatinine Ratio 18.9 RATIO (10-20) 07/23/23 10:12 Glucose 178 mg/dL (74-106) H 07/23/23 10:12 Microbiology Microbiology: Microbiology 07/23/23 09:30 Stool Stool Occult Blood (RONAK) - Final Occult Blood Positive Goal Trough Goal Trough: 15-20 mcg/mL Pharmacy Plan for Drug Dosing Pharmacy Plan for Drug Dosing: NEW START IV VANCOMYCIN Consulting Physician: Dr. Millard Indication: Septic Shock Goal Trough: 15-20 SrCr: 2.17 CrCl: 17 mL/min Comments: Patient had loading dose of 1500mg IV x1 ordered and administered 07/22 @1522 Vancomycin Dose: Patient with impaired renal function, not on HD. Since CrCl is <20, will hold of on scheduled dosing at this time. Will obtain a random vancomycin trough and dose based on that until renal function improves or stab ilizes. Pending Level: *RANDOM* level 07/25/23 @ 0600 Pharmacy Service will continue to monitor and adjust dosing as required.
[2023-07-23] MEDS: Meropenem 500 MG in 0.9% Normal Saline (50mL MB+) 50 ML 100 MG IV (20:36)
[2023-07-23] MEDS: Pantoprazole Sodium 40 MG in 0.9% Normal Saline (100mL MB+) 100 ML 330 MG IV (22:09)
[2023-07-23 23:36] LABS: Bedside Glucose 155 mg/dL (74-106)
--- NOTE | 2023-07-23 23:52 | CON.PCM.GI_ITS ---
HPI Consult Data Date of Consult: 07/23/23 HPI Narrative Reason for Consultation: GI bleed HPI Narrative: MAIKEL DANIEL, is a 82 F who presented to the emergency department at [facility] on 06/29/2023 from a local nursing facility with altered mental status and hypotension. At baseline she is alert and oriented x 3 despite some baseline dementia however she was noted to be hypotensive with a systolic pressure of 74 at the [facility] at which she lives. Upon presentation she only complained of nausea. Vital signs on presentation showed a temperature of 99, heart rate 101, respiratory rate 19, blood pressure was 99/49 and pulse ox was 97% on room air. Her lowest systolic pressure was 74. CBC on presentation showed a leukocytosis at 15,000 with thrombocytopenia having a platelet count of 101,000. Her coagulation profile was notable for an INR of 7.2 and she is not anticoagulated at baseline. Her chemistry panel revealed a potassium of 2.2, serum creatinine of 1.15 and a lactate of 7.7. She is having alot of lower GI bleeding. Admitted from 06/29/2023 until 07/10/2023 Secondary to septic shock from UTI, urosepsis, nephrolithiasis. Noted that time to have chronically low blood pressures with systolics around 90-100. She is on midodrine. Baseline mental status awake alert oriented to person. discharged to extended-care facility at [facility]. Patient was initially hypotensive, tachycardic tachypneic and hypothermic. She was sent the ICU and started on Levophed. CBC with marked leukocytosis suggestive of systemic inflammation, no anemia or thrombocytopenia Noted elevated INR and signs of coagulopathy VBG with signs of significant metabolic acidosis with pH 7.1 and a bicarb of 8 BMP with severe acute kidney injury, no significant electrolyte abnormalities, Lactate elevated consistent with endorgan hypoperfusion LFTs show no evidence of hepatobiliary pathology. TSH within normal limits, T3 and T4 not suggestive of myxedema coma or severe hypothyroidism Awaiting urine CT scan of the head was negative for ICH CT scan abdomen pelvis was concerning for multiple findings (of note prior CT scan from 06/30/2023 approximately 3 weeks ago showed a normal liver, homogeneous) radiologist notes patient has a focal area of decreased attenuation of the left liver lobe approximately 3 x 3 cm concerning for primary carcinoma or metastasis, there is a 4 x 4 soft tissue mass in the right side of the head of the pancreas also concerning for mass there is also concern for lymphadenopathy, PFSH Medical History Kidney stone on right side Insomnia Hypotension COPD (chronic obstructive pulmonary disease) Lymphedema Spondylosis of lumbar spine Failure to thrive Mood disorder Decubitus ulcer of buttock, stage 3 Wound cellulitis Depression Chronic indwelling Zapata catheter Hypertension Dementia Home Medications ?Medication ?Instructions ?Recorded ?Last Taken ?Type nystatin 100,000 unit/gram topical 1 applic topical BID fungal 12/11/18 12/11/18 History powder polyethylene glycol 3350 17 17 g PO DAILY constipation #238 06/23/20 Unknown Rx gram/dose oral powder (Miralax) grams sennosides 8.6 mg-docusate sodium 1 tab-cap PO BID PRN constipation 06/23/20 Unknown Rx 50 mg tablet (Senna-S) #60 tabs midodrine 5 mg tablet 10 mg (2 x 5 mg) PO TIDCM #0 tabs 07/10/23 Unknown Rx acetaminophen 500 mg capsule 1,000 mg PO Q6H PRN pain 07/23/23 Unknown History nutrition tx glu 120 ml PO 4X/DAY 07/23/23 Unknown History intol,lac-free,soy-fiber 0.07 gram-0.8 kcal/mL liquid (Boost Glucose Control) zinc oxide 20 % topical ointment 1 applic topical DAILY PRN skin 07/23/23 Unknown History irritation Allergy/AdvReac Type Severity Reaction Status Date / Time acetaminophen (From Allergy Unknown unknown Verified 06/29/23 20:51 Darvocet-N) propoxyphene (From Allergy Unknown unknown Verified 06/29/23 20:51 Darvocet-N) amoxicillin Allergy Unknown Verified 12/11/18 11:58 mushroom Allergy NEEDS Verified 12/29/21 16:23 FOLLOW-UP Penicillins Allergy Anaphylaxis Verified 12/11/18 11:57 Family History unable to obtain Surgical History unable to obtain Social History Smoking Status: Unknown if ever smoked ROS Review of Systems ROS Unobtainable: due to encephalopathy Physical Exam Const alert Constitutional Narrative: Alert to person and place General Appearance: cooperative and ill appearing Positive for chronically HEENT normocephalic and head/scalp atraumatic Eyes PERRL and EOMs intact bilaterally Neck supple General: trachea midline Chest inspection of chest normal Resp normal respiratory effort Auscultation: Negative for rales, rhonchi or wheezes Cardio regular rate and regular rhythm GI normal to inspection, nondistended, normoactive bowel sounds Extremity no clubbing, cyanosis or edema Neuro CN's II-XII intact bilaterally and no focal motor deficits Psych Mood & Affect: flat affect Lab / Micro Data 07/24/23 08:15 07/24/23 03:00 Labs: Laboratory Results - last 24 hr 07/23/23 10:14: Crossmatch See Detail 07/23/23 17:45: Lactic Acid 6.0 H* 07/23/23 18:16: POC Glucose 172 H 07/23/23 23:16: POC Glucose 155 H 07/24/23 03:00: WBC 19.4 H, RBC 2.27 L, Hgb 6.8 L, Hct 20.7 L, MCV 91.2, MCH 30.0, MCHC 32.9 D, RDW Std Deviation 53.2 H, RDW Coeff of Ricardo 16.0 H, Plt Count TNP, MPV 11.5, Immature Gran % (Auto) 1.300 H, Neut % (Auto) 83.0 H, Lymph % (Auto) 9.4 L, Swift % (Auto) 5.3, Eos % (Auto) 0.7, Baso % (Auto) 0.3, Absolute Neuts (auto) 16.1 H, Absolute Lymphs (auto) 1.83, Nucleated RBC % 0, Differential Comment SCANNED, Platelet Estimate ADEQUATE, Plt Morphology Comment CLUMPED, PT 60.8 H, INR 7.2 H*, Sodium 145, Potassium 3.0 L, Chloride 115 H, C arbon Dioxide 17.0 L, Anion Gap 13, BUN 44 H, Creatinine 1.60 H, Estim Creat Clear Calc 22.93, Est GFR (MDRD) Af Amer 40 L, Est GFR (MDRD) Non-Af 33 L, B UN/Creatinine Ratio 27.5 H, Glucose 149 H, Calcium 7.7 L, Magnesium 1.7, Total Bilirubin 3.60 H, AST 265 H, ALT 77 H, Alkaline Phosphatase 66, Total Protein 5.2 L, Albumin 3.4, Globulin 1.8 L, Albumin/Globulin Ratio 1.9 07/24/23 08:15: WBC 25.2 H, RBC 2.81 L, Hgb 8.3 L, Hct 25.7 L, MCV 91.5, MCH 29.5, MCHC 32.3, RDW Std Deviation 51.8 H, RDW Coeff of Ricardo 15.6 H, Plt Count 101 L, MPV 11.9, Immature Gran % (Auto) 1.600 H, Neut % (Auto) 84.3 H, Lymph % (Auto) 8.2 L, Swift % (Auto) 5.1, Eos % (Auto) 0.6, Baso % (Auto) 0.2, Absolute Neuts (auto) 21.2 H, Absolute Lymphs (auto) 2.05, Nucleated RBC % 0, Differential Comment SCANNED, PT 51.5 H, INR 5.8 H* 07/24/23 : Crossmatch See Detail Micro: Microbiology 07/23/23 12:52 Urine Catheter - Zapata Urine Culture - Preliminary Yeast Like Organism Assessment & Plan Assessment/Plan (1) GI bleed: PLAN: 82-year-old with history of COPD, CKD, diabetes presents with lower GI bleeding. CT scan abdomen pelvis that showed a mass in the thyroid near the pancreas. Differential diagnosis for lower GI bleeding does include upper GI bleeding with rapid transit, lower GI bleeding secondary to diverticular disease. She is to undergo an upper or lower endoscopy evaluate upper or lower GI tract. Recommend to give FFP for elevated INR as also differential diagnosis is DIC. Continue PPI therapy. Charges/Coding Visit Charges Inpatient E&M: 49725 Init Hosp L3
[2023-07-24] VITALS (46 sets, daily range): BP systolic 86–128; BP diastolic 37–70; PULSE 67–136; RESP 20–29; TEMP 36–36.6; O2SAT 98–100; BMI 25.0
--- NOTE | 2023-07-24 | COLBX_PTH ---
PATIENT: MAIKEL DANIEL LOC: ICU U#:[id number] AGE/SX: 82/F ROOM: ICU06 RE07/23/[address]: Dr. Scooter Millard DO : 1940 BED: 1 DIS: 07/28/2023 SPEC #: [id number] RECD: 07/24/23 14:40 STATUS: KIMBERLEE REQ #: [id number] DASHA: 07/24/23 00:[address]: Jacob Ayala DEPT: SURGICAL PATHOLOGY RECD BY: Ge Chang ENTERED: 07/25/23 07:21 SP TYPE: COLON BX OTHR DR: MD Dr. Anil Page MD Dr. Derek Brown, DO Dr. Eric Jopperi, DO Dr. Edward Matheis, MD Dr. Efewongbe Oleghe, MD Dr. Gautam Baskaran, MD Dr. Yordanos Habtegebriel, MD Dr. Hemant Dand, MD Dr. Kimber Foust, MD Dr. Lamia Aljundi, MD Dr. Pritam Ghosh, MD Dr. Pavan Irukulla, MD Dr. Saad Farooqi, MD Dr. Vikram Anand, MD Dr. 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 See comment. NANCY/ 07/28/2023 COMMENT Immunohistochemistry ([id number]) supports the above diagnosis. Case has been reviewed in consultation with Dr. Wells who concurs with the above diagnosis. IDC:[id number] MICROSCOPIC DESCRIPTION Slides are reviewed. GROSS DESCRIPTION Received in fixative is one container labeled with the patient's name and designated Duodenal mass biopsy. The specimen consists of multiple irregular fragments of light hagan soft tissue that in aggregate measure 1.5 x 0.5 x 0.1 cm. The specimen is totally submitted in one cassette. SUZY/ 07/25/2023 TC:0 CPT:30842
--- NOTE | 2023-07-24 | IMM_PTH ---
PATIENT: MAIKEL DANIEL LOC: ICU U#:[id number] AGE/SX: 82/F ROOM: ICU06 RE07/23/[address]: Dr. Scooter Millard DO : 1940 BED: 1 DIS: 07/28/2023 SPEC #: [id number] RECD: 07/29/23 11:24 STATUS: KIMBERLEE REQ #: [id number] DASHA: 07/24/23 00:[address]: Jacob Ayala DEPT: IMMUNOHISTOCHEMISTRY RECD BY: Basil Ojeda ENTERED: 07/29/23 11:25 SP TYPE: IMMUNO OTHR DR: MD Dr. Anil Page MD Dr. Derek Brown, DO Dr. Eric Jopperi, DO Dr. Edward Matheis, MD Dr. Efewongbe Oleghe, MD Dr. Gautam Baskaran, MD Dr. Yordanos Habtegebriel, MD Dr. Hemant Dand, MD Dr. Holly Wyneski, MD Dr. Kimber Foust, MD Dr. Lamia Aljundi, MD Dr. Pritam Ghosh, MD Dr. Pavan Irukulla, MD Dr. Robert Leininger, MD Dr. Saad Farooqi, MD Dr. Vikram Anand, MD Dr. William Haden, MD Tissues: Duodenum, NOS Procedures: MSH2 (add) MLH-1 (add) MSH6 (add) Anti-PMS2 (add) HER2 MARK (add) KI-67 (add) P53 (add) MOC-31 (add) Comments: @ Ordering doctor for MSH2. edited from to @ by TIFFANY at 07/29/23 1125 @ Ordering doctor for MLH1. edited from to @ by TIFFANY at 07/29/23 1125 @ Ordering doctor for MSH6. edited from to @ by MRMCKENNA at 07/29/23 1125 @ Ordering doctor for PMS2. edited from to @ by TIFFANY at 07/29/23 1125 @ Ordering doctor for HER2. edited from to @ by TIFFANY at 07/29/23 1125 @ Ordering doctor for KI67. edited from to @ by TIFFANY at 07/29/23 1125 @ Ordering doctor for P53. edited from to @ by TIFFANY at 07/29/23 1125 @ Ordering doctor for MOC31 edited from to @ by TIFFANY at 07/29/23 1125 @ Submitting doctor edited from to @ by TIFFANY at 07/29/23 1125 PHYSICIAN & [place] [id number] SPECIMEN INFORMATION: Tissue Source: Duodenal mass biopsy Clinical Info: GI bleed Specimen Number: [id number] CPT code: 44706 METHODOLOGY: Deparaffinized sections of prefer/formalin-fixed tissue or PAP/DQ stained slides are incubated with monoclonal/polyclonal antibodies/oligonucleotide probes. Localization is made via biotin free immunoperoxidase method. Appropriate controls are performed and reacted as expected. Results on target cell population are indicated in the following table: RESULTS: ANTIBODY / CLONE RESULT MLH1 (M1) positive MSH2 (25D12) positive MSH6 (44) positive PMS2 ([id number]) positive Ki-67 (30-9) positive, 85% P53 (DO-7) positive, missense type Her-2neu (CB11) negative MOC-31 (4561) positive INTERPRETATION: Duodenal mass, biopsy: Invasive adenocarcinoma. Result of Microsatellite Instability Study: Negative (no loss of mismatch protein; no microsatellite instability detected) AM/mr 07/30/2023
[2023-07-24] MEDS: Albumin Human 25% (100 mL) 25 GM/100 ML BAG IV ×2 (01:07→04:43)
[2023-07-24] MEDS: CHLORHEXIDINE GLUC 2% CLOTH 1 EACH TOWELETTE TOPICAL (01:07)
[2023-07-24] MEDS: Insulin Lispro 100 UNIT/ML INSULN.PEN SC ×2 (01:08→23:39)
[2023-07-24 03:16] LABS: Absolute Lymphocyte Count 1.83 X10^3/uL (0.83-4.51); Absolute Neutrophil Count 16.1 X10^3/uL (2.0-7.7); Basophil# 0.06 X10^3/uL; Basophil% 0.3 % (0-1); Eosinophil# 0.14 X10^3/uL; Eosinophils% 0.7 % (0-5); Hematocrit 20.7 % (37-47); Hemoglobin 6.8 g/dL (12.0-15.0); Lymphocyte # 1.83 X10^3/ul (0.83-4.51); Lymphocyte % 9.4 % (19-41); Mean Corp Hgb Conc 32.9 g/dL (32-36); Mean Corpuscular Volume 91.2 fL (81-99); Mean Platelet Vol. 11.5 fl (6.2-12.0); Monocyte# 1.03 X10^3/uL; Monocyte% 5.3 % (0-10); NRBC Flagged by Analyzer 0 % (0-5); Neutrophil # 16.08 X10^3/uL (2.7-7.7); POSITIVE COUNT YES; POSITIVE MORPHOLOGY YES; RBC Distribution Width SD 53.2 fl (35.1-43.9); Red Blood Count 2.27 M/mm3 (4.2-5.4); White Blood Count 19.4 K/mm3 (4.4-11.0)
[2023-07-24 03:32] LABS: Prothrombin Time (Protime)PT. 60.8 SECONDS (11.7-14.9)
[2023-07-24] MEDS: 0.9% Normal Saline (1000mL) 1,000 ML 150 ML IV ×4 (03:35→23:39)
[2023-07-24 03:58] LABS: ALB/GLOB Ratio 1.9 RATIO (0.9-2.4); AST(SGOT) 265 U/L (15-37); Alanine Aminotransfer ALT/SGPT 77 U/L (13-56); Albumin, Serum 3.4 g/dL (3.2-5.0); Alkaline Phosphatase 66 U/L (45-117); Anion Gap 13 (5-15); BUN 44 mg/dL (7-18); BUN/Creat Ratio 27.5 RATIO (10-20); Calcium,Total 7.7 mg/dL (8.5-10.1); Chloride 115 mmol/L (98-107); EST Glomerular Filtration Rate 33 mL/min (>60); Est Glom Filt Rate - Afr Amer 40 mL/min (>60); Estimated Creatinine Clearance 22.93 ml/min; Globulin 1.8 g/dL (2.2-4.2); Glucose 149 mg/dL (74-106); Protein, Total 5.2 g/dL (6.4-8.2); Sodium Level 145 mmol/L (136-145)
[2023-07-24 04:05] LABS: International Normalized Ratio 7.2
[2023-07-24 04:12] LABS: Differential Indicated SCAN CRITERIA MET
[2023-07-24] MEDS: Phytonadione (Vit K1) 5 MG TABLET 2.5 MG PO (04:43)
[2023-07-24 05:40] LABS: Differential Comment SCANNED
[2023-07-24 05:41] LABS: Platelet Estimate ADEQUATE (ADEQ); Platelet Morphology CLUMPED
--- NOTE | 2023-07-24 07:06 | PCM.PN.HOSP ---
Reason for Visit Reason for Visit: Diagnoses Sepsis, unspecified organism (07/23/23) Severe sepsis with septic shock (07/23/23) Subjective Subjective Denies complaints. Still with hematochezia in the unit. Hg dropped to 6. 8. Ordered 2 units PRBCs. Objective Data Objective Data Vital Signs: Vital Signs Temp Pulse Resp BP Pulse Ox O2 Del Method O2 Flow Rate 36.3 C L 103 H 26 H 110/52 L 100 Room Air 2 07/24/23 06:35 07/24/23 06:50 07/24/23 06:50 07/24/23 06:50 07/24/23 06:50 07/24/23 06:50 07/23/23 12:05 Oxygen Flow Rate (L/min) 2 Oxygen Delivery Method Room Air Weight: 60 kg Body Mass Index (BMI) 25.0 Intake & Output: Intake and Output for Last 24 Hours 07/22/23 07/23/23 07/24/23 23:59 23:59 23:59 Intake Total 4085.47 / 4088.30 1263.84 / 1263.84 Output Total 250 / 250 Balance 4060.47 / 4063.30 1013.84 / 1013.84 Lab / Micro Data 07/24/23 08:15 07/24/23 03:00 Labs: Laboratory Results - last 24 hr 07/23/23 10:12: WBC 31.3 H*, RBC 4.92, Hgb 14.2, Hct 46.3, MCV 94.1, MCH 28.9, MCHC 30.7 L, RDW Std Deviation 57.1 H, RDW Coeff of Ricardo 16.6 H, Plt Count 176, MPV 12.6 H, Immature Gran % (Auto) 2.600 H, Neut % (Auto) 84.9 H, Lymph % (Auto) 7.7 L, [place] % (Auto) 4.6, Eos % (Auto) 0.0, Baso % (Auto) 0.2, Absolute Neuts (auto) 26.5 H, Absolute Lymphs (auto) 2.42, Nucleated RBC % 0, Differential Comment COMMENT, Diff Path Review June, PT 27.4 H, INR 2.6, APTT 38.5 H, Sodium 138, Potassium 4.4, Chloride 104, Carbon Dioxide 15.0 L, Anion Gap 19 H, BUN 41 H, Creatinine 2.17 H, Estim Creat Clear Calc 17.37, Est GFR (MDRD) Af Amer 28 L, Est GFR (MDRD) Non-Af 23 L, BUN/Creatinine Ratio 18.9, Glucose 178 H, Lactic Acid 12.0 H*, Calcium 8.3 L, Total Bilirubin 1.00, AST 90 H, ALT 36, Alkaline Phosphatase 159 H, Troponin I High Sens 10, B-Natriuretic Peptide 64.5, Total Protein 6.6, Albumin 1.7 L, Globulin 4.9 H, Albumin/Globulin Ratio 0.3 L, Lipase < 10 L, TSH 2.50, Free T4 1.44, Free T3 pg/dL 0.7 L, Blood Type A POSITIVE, Antibody Screen NEGATIVE 07/23/23 10:14: Crossmatch See Detail 07/23/23 12:47: Lactic Acid 8.9 H* 07/23/23 12:52: Troponin I High Sens 15, Urine Color Yellow, Urine Clarity Clear, Urine pH 7.0, Ur Specific Gifford 1.010, Urine Protein Negative, Urine Glucose (UA) Normal, Urine Ketones Negative, Urine Occult Blood Negative, Urine Nitrite Negative, Urine Bilirubin Negative, Urine Urobilinogen Normal, Ur Leukocyte Esterase Negative, Urine RBC 0 SEEN, Urine WBC >100 SEEN, Ur Squamous Epith Cells 10-25 SEEN, Urine Bacteria 4+, Urine Mucus 0 SEEN, Urine Yeast 2+ 07/23/23 14:40: Lactic Acid 7.7 H*, Cortisol 108.80 H 07/23/23 17:45: Lactic Acid 6.0 H* 07/23/23 18:16: POC Glucose 172 H 07/23/23 23:16: POC Glucose 155 H 07/24/23 03:00: WBC 19.4 H, RBC 2.27 L, Hgb 6.8 L, Hct 20.7 L, MCV 91.2, MCH 30.0, MCHC 32.9 D, RDW Std Deviation 53.2 H, RDW Coeff of Ricardo 16.0 H, Plt Count TNP, MPV 11.5, Immature Gran % (Auto) 1.300 H, Neut % (Auto) 83.0 H, Lymph % (Auto) 9.4 L, [place] % (Auto) 5.3, Eos % (Auto) 0.7, Baso % (Auto) 0.3, Absolute Neuts (auto) 16.1 H, Absolute Lymphs (auto) 1.83, Nucleated RBC % 0, Differential Comment SCANNED, Platelet Estimate ADEQUATE, Plt Morphology Comment CLUMPED, PT 60.8 H, INR 7.2 H*, Sodium 145, Potassium 3.0 L, Chloride 115 H, Carbon Dioxide 17.0 L, Anion Gap 13, BUN 44 H, Creatinine 1.60 H, Estim Creat Clear Calc 22.93, Est GFR (MDRD) Af Amer 40 L, Est GFR (MDRD) Non-Af 33 L, BUN/Creatinine Ratio 27.5 H, Glucose 149 H, Calcium 7.7 L, Total Bilirubin 3.60 H, AST 265 H, ALT 77 H, Alkaline Phosphatase 66, Total Protein 5.2 L, Albumin 3.4, Globulin 1.8 L, Albumin/Globulin Ratio 1.9 07/24/23 : Crossmatch See Detail Micro: Microbiology 07/23/23 09:30 Stool Stool Occult Blood (RONAK) - Final Occult Blood Positive ABG Data ABG results: ABG 07/23/23 10:50 Specimen Type DONNY Sample Site Not entered VBG pH 7.12 L* VBG pO2 60 H VBG HCO3 8 L VBG Total CO2 8 L VBG O2 Sat (Calc) 82 H VBG Base Excess -22 L POC Mix VBG pCO2 Pt Tmp 23.3 L O2 Delivery Device Not entered Crit Call To/Read Back Yes Blood Gas Notified Time 10:51:36 Radiography Diagnostic Testing: Radiology Impression Chest X-Ray 07/23/23 11:00 IMPRESSION: Stable examination. No acute abnormality is seen. Electronically Signed: Demetrius Guzman MD at 11:13 EDT , Abdomen/Pelvis CT 07/23/23 11:18 IMPRESSION: Diffuse ascites. 4.6 cm x 4.7 cm rounded soft tissue mass in the right side of the midline just catheter that of the pancreas. Lymphadenopathy or possible mesenteric mass should be ruled out. Right-sided double-J stent catheter with the calculus seen in the lower pole calyx of the right kidney. Sigmoid diverticulosis. Increased markings in the subcutaneous tissues overlying the right lateral abdominal wall. Electronically Signed: Demetrius Guzman MD at 11:59 EDT , Brain CT 07/23/23 11:18 IMPRESSION: Chronic involutional changes of the brain. Electronically Signed: Demetrius Guzman MD at 11:50 EDT , Physical Exam Const alert Constitutional Narrative: non-toxic. afebrile. flat affect. HEENT head/scalp atraumatic and moist oral mucous membranes Resp normal respiratory effort and no retractions Cardio regular rate, regular rhythm, S1 normal heart sound and S2 normal heart sound GI normal to inspection, nondistended, normoactive bowel sounds, soft to palpation, non-tender and non-distended Extremity normal to inspection and no clubbing, cyanosis or edema Extremity Narrative: tlc in right groin Neuro Sensorium / Orientation: awake and alert Psych affect normal Assessment & Plan Assessment/Plan (1) Septic shock: PLAN: Plan Septic shock Initially felt to be hemorrhagic shock as patient was heme positive, however later it was found her hemoglobin was 14. Patient received unit of trauma blood before information was available. Patient received most of that unit but I discontinued it with only prior about 10 to 20 cc still left. Sources not identified at this time. Urinalysis has not been able to be performed as catheter has not been able to be effectively placed. Blood cultures drawn and pending. 1 area of concern is her abdomen. CAT scan showing 4.6 x 4.7 cm tissue mass in the right side of the abdomen this was not noted on imaging from June 29. Possibilities could be lymphadenopathy versus abscess versus malignancy. Follow-up cultures Antibiotics with meropenem and vancomycin. Right femoral triple-lumen catheter placed in the emergency room. Patient will need to be on bedrest while that is in place. Patient did receive 30 cc/kg of IV fluids in the emergency room and has since been started on norepinephrine. Consult critical care medicine. Random cortisol 108.8. ROMI Suspect prerenal. Patient's creatinine was 0.4 on July 09 and was 2.17 on admission, now down to 1.6. Continue IV fluids Monitor. No need for renal replacement therapy at this time. If continues get worse, consider nephrology consultation. Acute blood loss anemia Hg dropped from 14.2 to 6.8. Ordered 1 unit PRBCs. Will follow up. Hemoglobin was 14.2 and baseline appears to be around 1.5, which is where she was July 09. Patient received most of 1 unit of packed red blood cells. No need for additional transfusions at this time. Monitor hemoglobin. Given the patient's stability, she is not a candidate for endoscopy at this time. Coagulopathy INR is 2.6 and she does not take anticoagulation. Now up to 7.2. Suspect underlying DIC. Pt received Vitamin K. Leukocytosis Secondary to septic shock. Of note, her white count started going up during her last admission from 6.6-15 0.4-23. Though it is far lower than it was during the admission where he got up to 72.3. Monitor for now. Severe protein calorie malnutrition Patient to be n.p.o. right now to get speech therapy to see her Will consult nutrition as patient clinically is profoundly malnourished with marked cachexia. Hypokalemia replace check Magnesium. Debility Patient has a poor performance status at baseline. PT OT evaluate and treat. VTE prophylaxis: SCDs CODE STATUS: Verified with the patient's son through the emergency room physician. Patient is to be full code. Prognosis: Guarded to poor. Charges/Coding Visit Charges Inpatient E&M: 92521 Subs Hosp L3
--- NOTE | 2023-07-24 07:17 | PN.CC_ITS ---
Assessment & Plan Assessment/Plan (1) Shock: PLAN: Plan RECOMMENDATIONS: 1. Continue Levophed to maintain mean arterial pressure at or above 65 mmHg. 2. Continue empiric broad-spectrum antimicrobials. 3. Transfuse blood products to maintain a hemoglobin at or above 7 g/dL. 4. Continue PPI therapy. 5. Administer vitamin K. 6. Await gastroenterology evaluation. IMPRESSIONS: 1. Multifactorial shock The patient's current hypotension is likely multifactorial in etiology with presenting sepsis and hemorrhagic shock contributing. The patient is currently being maintained on empiric antimicrobials along with vasopressor support to maintain mean arterial pressure at or above 65 mmHg. The patient does have a known history of ESBL E. coli in her urine. 2. Acute blood loss anemia/thrombocytopenia/coagulopathy/hyperbilirubinemia/intra-abdominal mass The patient does not appear to be on any systemic form of anticoagulation at baseline. Unfortunately, CT imaging of the abdomen did reveal possible intra- abdominal mass. The patient also had evidence of hyperbilirubinemia with associated coagulopathy. Accordingly, gastroenterology has been consulted to evaluate the patient. She will be transfused blood products to maintain a hemoglobin at or above 7 g/dL. PPI therapy has been initiated. 3. Acute kidney injury/hypokalemia Most likely prerenal in etiology in the setting #1. The patient did receive IV fluid resuscitation and has been initiated on appropriate vasopressor support. Creatinine has improved somewhat from yesterday. Will continue to monitor urine output. There is no current indication for renal replacement therapy. Electrolyte repletion will be administered as needed. 4. History of diabetes mellitus/hypertension/history of urinary retention/depression/advanced age and deconditioning Complicates care, management, recovery and prognosis. Continue supportive measures as noted above. Will need to once again discuss goals of care with the patient's son. TIME: 35 minutes of critical care time, independent of procedures, was spent addressing the patient's multifactorial shock, acute blood loss anemia, coagulopathy, hyperbilirubinemia, intra-abdominal mass, acute kidney injury, review of all data and collaboration with the care team. Subjective Subjective The patient was seen and examined at the bedside this morning. Events from the last 24 hours have been reviewed. The patient is currently afebrile. She remains on Levophed at 8 mcg/min to maintain hemodynamic stability. White count is elevated at 19,000. Hemoglobin dropped to 6.8 g/dL this morning. INR is elevated at 7.2. Chemistry profile was notable for a potassium of 3.0, bicarbonate of 17, BUN of 44 and creatinine of 1.6. Total bilirubin is increased at 3.6. The patient is currently receiving transfusion of blood products. Gastroenterology has been consulted to evaluate the patient. The patient remains on empiric antimicrobials, including meropenem and vancomycin. Objective Data Objective Data The patient's most recent lab work, culture data and imaging studies have all been personally reviewed. Surface echocardiogram from June 2023 demonstrated normal LV size and function with an ejection fraction of 65%. Blood and urine cultures are pending. Vital Signs: Vital Signs Temp Pulse Resp BP Pulse Ox O2 Del Method O2 Flow Rate 97.3 F L 78 22 H 109/55 L 98 Room Air 2 07/24/23 06:35 07/24/23 07:00 07/24/23 07:00 07/24/23 07:00 07/24/23 07:00 07/24/23 07:00 07/23/23 12:05 Oxygen Flow Rate (L/min) 2 Oxygen Delivery Method Room Air Weight: 132 lb 4.438 oz Body Mass Index (BMI) 25.0 Intake & Output: Intake and Output for Last 24 Hours 07/22/23 07/23/23 07/24/23 23:59 23:59 23:59 Intake Total 4085.47 / 4088.30 1278.84 / 1278.84 Output Total 250 / 250 Balance 4060.47 / 4063.30 1028.84 / 1028.84 Lab / Micro Data Attestation: I reviewed the patient's lab results. 07/24/23 08:15 07/24/23 03:00 Labs: Laboratory Results - last 24 hr 07/23/23 10:12: WBC 31.3 H*, RBC 4.92, Hgb 14.2, Hct 46.3, MCV 94.1, MCH 28.9, M CHC 30.7 L, RDW Std Deviation 57.1 H, RDW Coeff of Ricardo 16.6 H, Plt Count 176, M PV 12.6 H, Immature Gran % (Auto) 2.600 H, Neut % (Auto) 84.9 H, Lymph % (Auto) 7.7 L, [place] % (Auto) 4.6, Eos % (Auto) 0.0, Baso % (Auto) 0.2, Absolute Neuts (auto) 26.5 H, Absolute Lymphs (auto) 2.42, Nucleated RBC % 0, Differential Comment COMMENT, Diff Path Review June, PT 27.4 H, INR 2.6, APTT 38.5 H, Sodium 138, Potassium 4.4, Chloride 104, Carbon Dioxide 15.0 L, Anion Gap 19 H, BUN 41 H, Creatinine 2.17 H, Estim Creat Clear Calc 17.37, Est GFR (MDRD) Af Amer 28 L, Est GFR (MDRD) Non-Af 23 L, BUN/Creatinine Ratio 18.9, Glucose 178 H, Lactic Acid 12.0 H*, Calcium 8.3 L, Total Bilirubin 1.00, AST 90 H, ALT 36, A lkaline Phosphatase 159 H, Troponin I High Sens 10, B-Natriuretic Peptide 64.5, Total Protein 6.6, Albumin 1.7 L, Globulin 4.9 H, Albumin/Globulin Ratio 0.3 L, Lipase < 10 L, TSH 2.50, Free T4 1.44, Free T3 pg/dL 0.7 L, Blood Type A POSITIVE, Antibody Screen NEGATIVE 07/23/23 10:14: Crossmatch See Detail 07/23/23 12:47: Lactic Acid 8.9 H* 07/23/23 12:52: Troponin I High Sens 15, Urine Color Yellow, Urine Clarity Clear, Urine pH 7.0, Ur Specific [place] 1.010, Urine Protein Negative, Urine Glucose (UA) Normal, Urine Ketones Negative, Urine Occult Blood Negative, Urine Nitrite Negative, Urine Bilirubin Negative, Urine Urobilinogen Normal, Ur Leukocyte Esterase Negative, Urine RBC 0 SEEN, Urine WBC >100 SEEN, Ur Squamous Epith Cells 10-25 SEEN, Urine Bacteria 4+, Urine Mucus 0 SEEN, Urine Yeast 2+ 07/23/23 14:40: Lactic Acid 7.7 H*, Cortisol 108.80 H 07/23/23 17:45: Lactic Acid 6.0 H* 07/23/23 18:16: POC Glucose 172 H 07/23/23 23:16: POC Glucose 155 H 07/24/23 03:00: WBC 19.4 H, RBC 2.27 L, Hgb 6.8 L, Hct 20.7 L, MCV 91.2, MCH 30.0, MCHC 32.9 D, RDW Std Deviation 53.2 H, RDW Coeff of Ricardo 16.0 H, Plt Count TNP, MPV 11.5, Immature Gran % (Auto) 1.300 H, Neut % (Auto) 83.0 H, Lymph % (Auto) 9.4 L, [place] % (Auto) 5.3, Eos % (Auto) 0.7, Baso % (Auto) 0.3, Absolute Neuts (auto) 16.1 H, Absolute Lymphs (auto) 1.83, Nucleated RBC % 0, Differential Comment SCANNED, Platelet Estimate ADEQUATE, Plt Morphology Comment CLUMPED, PT 60.8 H, INR 7.2 H*, Sodium 145, Potassium 3.0 L, Chloride 115 H, C arbon Dioxide 17.0 L, Anion Gap 13, BUN 44 H, Creatinine 1.60 H, Estim Creat Clear Calc 22.93, Est GFR (MDRD) Af Amer 40 L, Est GFR (MDRD) Non-Af 33 L, B UN/Creatinine Ratio 27.5 H, Glucose 149 H, Calcium 7.7 L, Total Bilirubin 3.60 H , AST 265 H, ALT 77 H, Alkaline Phosphatase 66, Total Protein 5.2 L, Albumin 3.4, Globulin 1.8 L, Albumin/Globulin Ratio 1.9 07/24/23 : Crossmatch See Detail Micro: Microbiology 07/23/23 09:30 Stool Stool Occult Blood (RONAK) - Final Occult Blood Positive ABG Data ABG results: ABG 07/23/23 10:50 Specimen Type DONNY Sample Site Not entered VBG pH 7.12 L* VBG pO2 60 H VBG HCO3 8 L VBG Total CO2 8 L VBG O2 Sat (Calc) 82 H VBG Base Excess -22 L POC Mix VBG pCO2 Pt Tmp 23.3 L O2 Delivery Device Not entered Crit Call To/Read Back Yes Blood Gas Notified Time 10:51:36 Radiography Diagnostic Testing: Radiology Impression Chest X-Ray 07/23/23 11:00 IMPRESSION: Stable examination. No acute abnormality is seen. Electronically Signed: Demetrius Guzman MD at 11:13 EDT , Abdomen/Pelvis CT 07/23/23 11:18 IMPRESSION: Diffuse ascites. 4.6 cm x 4.7 cm rounded soft tissue mass in the right side of the midline just catheter that of the pancreas. Lymphadenopathy or possible mesenteric mass should be ruled out. Right-sided double-J stent catheter with the calculus seen in the lower pole calyx of the right kidney. Sigmoid diverticulosis. Increased markings in the subcutaneous tissues overlying the right lateral abdominal wall. Electronically Signed: Demetrius Guzman MD at 11:59 EDT , Brain CT 07/23/23 11:18 IMPRESSION: Chronic involutional changes of the brain. Electronically Signed: Demetrius Guzman MD at 11:50 EDT , Physical Exam Const alert Constitutional Narrative: Alert to person and place General Appearance: cooperative and ill appearing Positive for chronically HEENT normocephalic and head/scalp atraumatic Eyes PERRL and EOMs intact bilaterally Neck supple General: trachea midline Chest inspection of chest normal Resp normal respiratory effort Auscultation: Negative for rales, rhonchi or wheezes Cardio regular rate and regular rhythm GI normal to inspection, nondistended, normoactive bowel sounds Extremity no clubbing, cyanosis or edema Neuro CN's II-XII intact bilaterally and no focal motor deficits Psych Mood & Affect: flat affect Charges/Coding Procedures Hospitalists Procedures: 58722 Critical Care 1st Hr
[2023-07-24] MEDS: Potassium Chloride 20mEq/100mL 20 MEQ/100 ML IV.SOLN. 100 MEQ IV BOLUS ×2 (08:21→09:29)
[2023-07-24 08:28] LABS: Absolute Lymphocyte Count 2.05 X10^3/uL (0.83-4.51); Absolute Neutrophil Count 21.2 X10^3/uL (2.0-7.7); Basophil# 0.06 X10^3/uL; Basophil% 0.2 % (0-1); Eosinophil# 0.14 X10^3/uL; Eosinophils% 0.6 % (0-5); Hematocrit 25.7 % (37-47); Hemoglobin 8.3 g/dL (12.0-15.0); Lymphocyte # 2.05 X10^3/ul (0.83-4.51); Lymphocyte % 8.2 % (19-41); Mean Corp Hgb Conc 32.3 g/dL (32-36); Mean Corpuscular Hgb 29.5 pg (27.0-32.0); Mean Corpuscular Volume 91.5 fL (81-99); Mean Platelet Vol. 11.9 fl (6.2-12.0); Monocyte# 1.28 X10^3/uL; Monocyte% 5.1 % (0-10); NRBC Flagged by Analyzer 0 % (0-5); Neutrophil # 21.23 X10^3/uL (2.7-7.7); Neutrophil % 84.3 % (47-70); POSITIVE DIFFERENTIAL YES; POSITIVE MORPHOLOGY YES; Platelet Count 101 K/mm3 (150-450); RBC Distribution Width CV 15.6 % (11.6-14.6); RBC Distribution Width SD 51.8 fl (35.1-43.9); Red Blood Count 2.81 M/mm3 (4.2-5.4); White Blood Count 25.2 K/mm3 (4.4-11.0)
[2023-07-24 08:29] LABS: Differential Indicated SCAN CRITERIA MET
[2023-07-24 08:30] LABS: Magnesium 1.7 mg/dL (1.6-2.6)
[2023-07-24] MEDS: Meropenem 500 MG in 0.9% Normal Saline (50mL MB+) 50 ML 100 MG IV ×2 (08:30→20:14)
[2023-07-24 08:37] LABS: Prothrombin Time (Protime)PT. 51.5 SECONDS (11.7-14.9)
[2023-07-24 08:41] LABS: International Normalized Ratio 5.8
--- NOTE | 2023-07-24 09:20 | CASEMGMT ---
Addendum entered by Oriana Zee 07/24/23 10:05: Social Work As per [facility] son is POA and they will fax over the documents. They also will want to skill pt if possible. SW will send PT/OT once pt is able to participate. MELECIO Ruffin Addendum entered by Oriana Zee 07/24/23 09:37: Social Work SW reviewed SNF paperwork found another phone number for son David--[phone]. SW called, reached David. He states this is his work number and the best number to reach him. SW updated demographics so this number appears. Son confirms plan will be for pt to return to [facility] when able, so a SNF list is not needed at this time. SW will continue to follow for return to [facility] as appropriate. MELECIO Ruffin Original Note: Social Work Pt is here from [facility]. SW called son on both numbers listed, however unable to leave messages as voicemails not set up. Updates sent to [facility] via [employer], also requested POA papers be faxed over, as we do not have them on file. MELECIO Ruffin
[2023-07-24 09:41] LABS: Differential Comment SCANNED
[2023-07-24] MEDS: Norepinephrine 8 MG in 0.9% Normal Saline (250mL Bag) 242 ML 11.3 MG CONT INF (09:56)
--- NOTE | 2023-07-24 10:13 | CASEMGMT ---
Social Work [facility] faxed over pt's POA for healthcare, son David is pt's healthcare POA. Form placed on the chart. MELECIO Ruffin
[2023-07-24] MEDS: Pantoprazole Sodium 40 MG in 0.9% Normal Saline (100mL MB+) 100 ML 330 MG IV ×2 (10:18→21:14)
[2023-07-24] MEDS: Phytonadione (Vit K) 5 MG in 0.9% Normal Saline (50mL Bag) 50 ML 150 MG IV (10:18)
--- NOTE | 2023-07-24 12:33 | OP.CCLET_ITS ---
07/24/2023 Scooter Siu MD [address] [place] [address] [place] [address] Re : Upper GI endoscopy procedure for Chloe Pop Dear Dr. Siu This procedure was performed on July. My impressions and recommendations are as follows: Impressions : - LA Grade A reflux esophagitis with no bleeding. - Bilious gastric fluid. - Rule out malignancy, duodenal mass. Biopsied. 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 Recommendations : - Return patient to ICU. - Clear liquid diet. She would likely need a duodenal stent as she is showing signs of gastric outlet obstruction. - Continue present medications. - Await pathology results. - Repeat upper endoscopy for surveillance. My findings are described in the full procedure note, which is enclosed. If I can be of further assistance, please feel free to contact me at . Sincerely, Jacob Ayala, 07/24/2023 12:33:11 PM This report has been signed electronically.
--- NOTE | 2023-07-24 12:33 | OP.EGD_ITS ---
Patient Name: hCloe Pop Procedure Date: 07/24/2023 11:10 AM Date of : 1940 Age: 82 Procedure: Upper GI endoscopy Indications: Epigastric abdominal pain Providers: Jacob Ayala DO Medicines: Monitored Anesthesia Care Patient Profile: This is an 82 year old female. Refer to note in patient chart for documentation of history and physical. Patient has symptoms of acute abdominal distention, acute nausea and acute vomiting. Complications: No immediate complications. Procedure: Pre-Anesthesia Assessment: - Prior to the procedure, a History and Physical was performed, and patient medications and allergies were reviewed. The patient is competent. The risks and benefits of the procedure and the sedation options and risks were discussed with the patient. All questions were answered and informed consent was obtained. Patient identification and proposed procedure were verified by the physician in the pre-procedure area. Mental Status Examination: alert and oriented. Airway Examination: normal oropharyngeal airway and neck mobility. Respiratory Examination: clear to auscultation. CV Examination: normal. Prophylactic Antibiotics: The patient does not require prophylactic antibiotics. Prior Anticoagulants: The patient has taken no anticoagulant or antiplatelet agents. ASA Grade Assessment: IV - A patient with severe systemic disease that is a constant threat to life. After reviewing the risks and benefits, the patient was deemed in satisfactory condition to undergo the procedure. The anesthesia plan was to use monitored anesthesia care (MAC). Immediately prior to administration of medications, the patient was re-assessed for adequacy to receive sedatives. The heart rate, respiratory rate, oxygen saturations, blood pressure, adequacy of pulmonary ventilation, and response to care were monitored throughout the procedure. The physical status of the patient was re-assessed after the procedure. After obtaining informed consent, the endoscope was passed under direct vision. Throughout the procedure, the patient's blood pressure, pulse, and oxygen saturations were monitored continuously. The Colonoscope was introduced through the mouth, and advanced to the third part of duodenum. The upper GI endoscopy was accomplished without difficulty. The patient tolerated the procedure well. Scope In: 11:35:48 AM Scope Out: 11:49:57 AM Total Procedure Duration Time 0 hours 14 minutes 9 seconds Findings: LA Grade A (one or more mucosal breaks less than 5 mm, not extending between tops of 2 mucosal folds) esophagitis with no bleeding was found 34 to 40 cm from the incisors. Bilious fluid was found in the entire examined stomach. A large ulcerated mass with bleeding was found in the second portion of the duodenum. Biopsies were taken with a cold forceps for histology. Verification of patient identification for the specimen was done. Estimated blood loss was minimal. Impression: - LA Grade A reflux esophagitis with no bleeding. - Bilious gastric fluid. - Rule out malignancy, duodenal mass. Biopsied. 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 Recommendation: - Return patient to ICU. - Clear liquid diet. She would likely need a duodenal stent as she is showing signs of gastric outlet obstruction. - Continue present medications. - Await pathology results. - Repeat upper endoscopy for surveillance. Procedure Code(s): --- Professional --- 28957, Esophagogastroduodenoscopy, flexible, transoral; with biopsy, single or multiple CPT copyright 2021 [employer]. All rights reserved. The codes documented in this report are preliminary and upon building service worker review may be revised to meet current compliance requirements. Jacob Ayala DO 07/24/2023 12:33:11 PM This report has been signed electronically. Number of Addenda: 0 Note Initiated On: 07/24/2023 11:10 AM
--- NOTE | 2023-07-24 12:37 | OP.CCLET_ITS ---
07/24/2023 Scooter Siu MD [address] [place] [address] [place] [address] Re : Colonoscopy procedure for Chloe Pop Dear Dr. Siu This procedure was performed on July. My impressions and recommendations are as follows: Impressions : - Diverticulosis in the rectum, in the recto-sigmoid colon and in the sigmoid colon. - Blood in the entire examined colon. - Exudate in the distal ileum. - No specimens collected. Recommendations : - [facility]. - Clear liquid diet PRN. - Continue present medications. - No repeat colonoscopy due to age. My findings are described in the full procedure note, which is enclosed. If I can be of further assistance, please feel free to contact me at . Sincerely, Jacob Ayala, 07/24/2023 12:37:16 PM This report has been signed electronically.
--- NOTE | 2023-07-24 12:37 | OP.COLON_ITS ---
Patient Name: Chloe Pop Procedure Date: 07/24/2023 11:52 AM Date of : 1940 Age: 82 Procedure: Colonoscopy Indications: Hematochezia Providers: Jacob Ayala DO Medicines: Monitored Anesthesia Care Patient Profile: This is an 82 year old female. Refer to note in patient chart for documentation of history and physical. Patient has symptoms of acute abdominal distention, acute nausea and acute vomiting. Last Colonoscopy: date unknown. Unable to locate last colonoscopy report. Complications: No immediate complications. Procedure: Pre-Anesthesia Assessment: - Prior to the procedure, a History and Physical was performed, and patient medications and allergies were reviewed. The patient is competent. The risks and benefits of the procedure and the sedation options and risks were discussed with the patient. All questions were answered and informed consent was obtained. Patient identification and proposed procedure were verified by the physician in the pre-procedure area. Mental Status Examination: alert and oriented. Airway Examination: normal oropharyngeal airway and neck mobility. Respiratory Examination: clear to auscultation. CV Examination: normal. Prophylactic Antibiotics: The patient does not require prophylactic antibiotics. Prior Anticoagulants: The patient has taken no anticoagulant or antiplatelet agents. ASA Grade Assessment: IV - A patient with severe systemic disease that is a constant threat to life. After reviewing the risks and benefits, the patient was deemed in satisfactory condition to undergo the procedure. The anesthesia plan was to use monitored anesthesia care (MAC). Immediately prior to administration of medications, the patient was re-assessed for adequacy to receive sedatives. The heart rate, respiratory rate, oxygen saturations, blood pressure, adequacy of pulmonary ventilation, and response to care were monitored throughout the procedure. The physical status of the patient was re-assessed after the procedure. After I obtained informed consent, the scope was passed under direct vision. Throughout the procedure, the patient's blood pressure, pulse, and oxygen saturations were monitored continuously. The Colonoscope was introduced through the anus and advanced to the terminal ileum. The colonoscopy was performed without difficulty. The patient tolerated the procedure well. The quality of the bowel preparation was {Okay. The patient did not receive a prep due to massive GI bleeding. Skip}. The entire colon was examined. Scope In: 11:54:12 AM Scope Withdrawal Time 0 hours 9 minutes 26 seconds Scope Out: 12:06:59 PM Total Procedure Duration Time 0 hours 12 minutes 47 seconds Findings: The perianal and digital rectal examinations were normal. Multiple small and large-mouthed diverticula were found in the rectum, recto-sigmoid colon and sigmoid colon. Hematin (altered blood/[id number] material) was found in the entire colon. The distal ileum contained an exudate. Estimated blood loss: none. Impression: - Diverticulosis in the rectum, in the recto-sigmoid colon and in the sigmoid colon. - Blood in the entire examined colon. - Exudate in the distal ileum. - No specimens collected. Recommendation: - [facility]. - Clear liquid diet PRN. - Continue present medications. - No repeat colonoscopy due to age. Procedure Code(s): --- Professional --- G0121, Colorectal cancer screening; colonoscopy on individual not meeting criteria for high risk CPT copyright 2021 [employer]. All rights reserved. The codes documented in this report are preliminary and upon breeder hen service technician review may be revised to meet current compliance requirements. Jacob Ayala DO 07/24/2023 12:37:16 PM This report has been signed electronically. Number of Addenda: 0 Note Initiated On: 07/24/2023 11:52 AM
--- NOTE | 2023-07-24 15:36 | PRO.PCM_ITS ---
Procedure Report Date of Procedure: 07/24/23 Assessment & Plan Assessment/Plan (1) Shock: Procedures Radiology Radiology Access Procedures: PICC PICC Line Consent Screening tool completed:: Yes Consent obtained:: Yes Consent given by (patient or responsible alliance party):: patient's son via phone Line successful (if no, document why in comments):: Yes Insertion Reason for Insertion: vesicant Date of Insertion: 07/24/23 Ok to use: Yes Type of PICC inserted: Dual Power PICC PICC Lot #: [id number] PICC Reference #: [id number] Microintroducer Used: Yes (in kit) Ultrasound/Equipment Used: Probe Cover Kit Trimmed Length (cm): 44 Insertion Length (cm): 44 Exposed Length (cm): 0 Tip Placement: Caval Atrial Junction Placement Confirmation: 3CG Insertion Vein: Left Brachial Insertion Attempts: 1 Local Anesthesia Used: Lidocaine 1% (in kit) Dressing Applied: Statlock and Tegaderm CHG Arm Measurement above site (in cm): 26 Patient Tolerated Procedure: Well Threading Difficulties: No Comments Comment: Patient identity was verified with two patient identifiers. Informed consent was obtained and time-out was completed. Hands were sanitized. The patient was positioned supine with left arm at 90 degrees. The patient's upper arm vasculature was assessed using ultrasound. Patency of the left brachial vein was confirmed and the vein was externally marked. An external measurement was obtained of 44 cm. External leads were applied to the patient's right upper chest and laterally and inferior of the umbilicus on the mid axillary line. Cap, mask, and prep gloves were donned. The underdrape was placed under the patient's arm. The site was prepped with chlorhexidine, and tourniquet was loosely applied. Prep gloves were discarded, and hands were sanitized. The sterile kit was opened with additional supplies dropped in. Sterile gown and gloves were donned, and the patient was draped. The sterile kit was assembled with needle, introducer, needless connectors, and each catheter lumen flushed with sterile normal saline. The marked site of insertion was anesthetized with 1% lidocaine from the kit. Patient tolerated well. The left brachial vein was then accessed using ultrasound guidance and guidewire was inserted to safety sarita. The tourniquet was released. The access needle was removed while securing the guidewire in place. The site was again anesthetized with 1% lidocaine, prior to insertion of introducer sheath and dilator. Patient tolerated the insertion well. The catheter was trimmed to a length of 44 cm. Using 3C guidance, the catheter was then inserted through the introducer sheath, slowly. There was no resistance on insertion. The catheter followed the expected course of the vessel using 3CG tracking. The introducer sheath was retracted and peeled away, incrementally, while keeping the catheter secured. Maximal p-wave, without deflection, confirming placement in the cavoatrial junction, was obtained at an insertion length of 44 cm, leaving 0 cm external. The stylet was removed. A flushed needleless connector was attached to the lumen. Aspiration of the lumen was performed to remove any air and confirm blood return. Blood return was verified and each lumen was flushed with 10 ml of sterile normal saline in a pulsatile fashion. The each lumen was clamped with the last pulsed flush. Total sterile flushes used for the insertion was 8 10 ml syringes, 2 from the kit. Finally, the insertion site was cleaned with chlorhexidine, and the catheter was secured using a StatLock. The site was covered with a Tegaderm CHG Dressing and disinfecting caps were applied. Baseline arm circumference was obtained at the insertion site and measured 26 cm. The patient was provided with a patient education handout on PICC line care of infection prevention, heavy lifting restriction, maintaining mobility, and watching for any signs of infection. The primary nurse is aware that the PICC line is ready for use. Procedure Time Out Time Out Informed consent given: Yes Consent signed: Yes Time out checklist: patient, procedure, site marked/identified, positioning of patient, supplies available and allergies confirmed Time out verified: Yes Time out date: 07/24/23 Time out time: 14:30
--- NOTE | 2023-07-24 16:01 | CHAPLAIN ---
Type of Pastoral Visit ___ Initial Visit ___ Follow-up Visit ___ On-call Visit ___ General Patient Visit ___ Spiritual Assessment ___ Family Conference ___ Bereavement ___ Rapid Response ___ Code Blue ___ Other (describe below) Pastoral Care Referral From ___ Patient ___ Family ___ Nurse ___ Physician ___ Pegger ___ Director Customer ___ Other (describe below) Sacrament/Intervention ___ Active listening ___ Anointing ___ Nondenominational ___ Bereavement ___ Communion ___ Paige exploration ___ ___ Life review ___ Prayer ___ Reconciliation ___ Sacrament of Sick ___ Supportive presence ___ Wedding ___ Other (describe below) Pastoral Comments patient was not available at time of attempted visit; second attempt and pt was being attended to by staff
[2023-07-24 16:11] LABS: Pathologist Review Reviewed
[2023-07-24] MEDS: TITRATION PARAMETER CHANGE 1 EACH IV (16:24)
[2023-07-24 17:00] LABS: Bedside Glucose 147 mg/dL (74-106)
[2023-07-24] MEDS: 0.9 % NaCl (Sterile) Posiflush 10 mL IV (20:14)
[2023-07-25] VITALS (30 sets, daily range): BP systolic 79–120; BP diastolic 52–89; PULSE 90–157; RESP 14–26; TEMP 36.1–36.6; O2SAT 96–100; BMI 25.4
[2023-07-25 00:09] LABS: Bedside Glucose 169 mg/dL (74-106)
[2023-07-25 05:45] LABS: Absolute Lymphocyte Count 2.29 X10^3/uL (0.83-4.51); Absolute Neutrophil Count 29.6 X10^3/uL (2.0-7.7); Basophil% 0.3 % (0-1); Hematocrit 28.4 % (37-47); Hemoglobin 9.4 g/dL (12.0-15.0); Lymphocyte # 2.29 X10^3/ul (0.83-4.51); Lymphocyte % 6.7 % (19-41); Mean Corp Hgb Conc 33.1 g/dL (32-36); Mean Corpuscular Hgb 29.7 pg (27.0-32.0); Mean Corpuscular Volume 89.6 fL (81-99); Mean Platelet Vol. 12.2 fl (6.2-12.0); Monocyte# 1.72 X10^3/uL; NRBC Flagged by Analyzer 0 % (0-5); Neutrophil # 29.58 X10^3/uL (2.7-7.7); Neutrophil % 86.6 % (47-70); POSITIVE COUNT YES; POSITIVE DIFFERENTIAL YES; Platelet Count 79 K/mm3 (150-450); RBC Distribution Width CV 15.4 % (11.6-14.6); RBC Distribution Width SD 50.5 fl (35.1-43.9); Red Blood Count 3.17 M/mm3 (4.2-5.4)
[2023-07-25 05:51] LABS: International Normalized Ratio 2.4; Prothrombin Time (Protime)PT. 25.9 SECONDS (11.7-14.9)
[2023-07-25] MEDS: Insulin Lispro 100 UNIT/ML INSULN.PEN SC ×4 (05:54→23:01)
[2023-07-25] MEDS: Vancomycin Trough/Random Due 1 LAB MC (05:54)
[2023-07-25] MEDS: 0.9% Normal Saline (1000mL) 1,000 ML 150 ML IV (05:55)
[2023-07-25 06:11] LABS: Differential Indicated SCAN CRITERIA MET; Vancomycin, Random Level 13.8 ug/mL (0.0-15.0); White Blood Count 34.2 K/mm3 (4.4-11.0)
[2023-07-25 06:15] LABS: AST(SGOT) 120 U/L (15-37); Alanine Aminotransfer ALT/SGPT 80 U/L (13-56); Albumin, Serum 2.5 g/dL (3.2-5.0); Alkaline Phosphatase 103 U/L (45-117); Anion Gap 8 (5-15); BUN 37 mg/dL (7-18); BUN/Creat Ratio 27.4 RATIO (10-20); Calcium,Total 7.6 mg/dL (8.5-10.1); Chloride 121 mmol/L (98-107); Creatinine, Serum 1.35 mg/dL (0.55-1.02); EST Glomerular Filtration Rate 40 mL/min (>60); Est Glom Filt Rate - Afr Amer 48 mL/min (>60); Estimated Creatinine Clearance 27.87 ml/min; Globulin 2.5 g/dL (2.2-4.2); Glucose 193 mg/dL (74-106); Potassium 2.9 mmol/L (3.5-5.1); Sodium Level 146 mmol/L (136-145)
[2023-07-25 06:17] LABS: Bedside Glucose 181 mg/dL (74-106)
--- NOTE | 2023-07-25 06:26 | PCM.RX.CS ---
Consult Antibiotic Management Pharmacy has been consulted to manage selected antibiotic: Vancomycin Type of Intervention Type of Consult: Follow-up Suspected Infection Suspected Infection: Sepsis Labs Labs: Sodium 146 mmol/L (136-145) H 07/25/23 05:20 Potassium 2.9 mmol/L (3.5-5.1) L 07/25/23 05:20 Chloride 121 mmol/L (98-107) H 07/25/23 05:20 Carbon Dioxide 17.0 mmol/L (21.0-32.0) L 07/25/23 05:20 Anion Gap 8 (5-15) 07/25/23 05:20 BUN 37 mg/dL (7-18) H 07/25/23 05:20 Creatinine 1.35 mg/dL (0.55-1.02) H 07/25/23 05:20 Est GFR (MDRD) Af Amer 48 mL/min (>60) L 07/25/23 05:20 Est GFR (MDRD) Non-Af 40 mL/min (>60) L 07/25/23 05:20 BUN/Creatinine Ratio 27.4 RATIO (10-20) H 07/25/23 05:20 Glucose 193 mg/dL (74-106) H 07/25/23 05:20 Random Vancomycin 13.8 ug/mL (0.0-15.0) 07/25/23 05:20 Microbiology Microbiology: Microbiology 07/23/23 10:14 Blood Culture (Wb) - Central Line Blood Culture - Preliminary No growth in 48 hours. 07/23/23 10:42 Blood Culture (Wb) - Other Blood Culture - Preliminary 07/23/23 12:52 Urine Catheter - Zapata Urine Culture - Preliminary Yeast Like Organism 07/23/23 09:30 Stool Stool Occult Blood (RONAK) - Final Occult Blood Positive Dosing Weight Weight used for dosin kg Estimated Creatinine Clearance Estimated Creatinine Clearance: 28 Goal Trough Goal Trough: 15-20 mcg/mL Pharmacy Plan for Drug Dosing Pharmacy Plan for Drug Dosing: Random vancomycin level was 13.8. Renal function improved - CrCl=28, so routine vancomycin will be started at 750mg q24h. A trough level will be drawn prior to the third dose. Pharmacy Service will continue to monitor and adjust dosing as required. Follow-Up Labs Follow-Up Labs: Trough: Vancomycin Date/Time Labs Ordered Labs to be done on [date and time ordered]: 07/27/23 @3630
[2023-07-25] MEDS: Vancomycin HCl 750 MG in 0.9% Normal Saline (250mL Bag) 250 ML 250 MG IV (06:44)
--- NOTE | 2023-07-25 07:26 | PCM.PN.INT ---
Assessment & Plan Assessment/Plan (1) Shock: PLAN: Plan RECOMMENDATIONS: 1. Continue Levophed to maintain a systolic blood pressure at or above 90 mmHg. 2. Start scheduled midodrine. 3. Continue empiric broad-spectrum antimicrobials. Obtain ID consultation. 4. Transfuse blood products to maintain a hemoglobin at or above 7 g/dL. 5. Continue PPI therapy. 6. Additional intervention per gastroenterology. IMPRESSIONS: 1. Multifactorial shock The patient's current hypotension is likely multifactorial in etiology with presenting sepsis and hemorrhagic shock contributing. The patient is currently being maintained on empiric antimicrobials along with vasopressor support to maintain a systolic blood pressure at or above 90 mmHg. The patient does have a known history of ESBL E. coli in her urine. 2. Acute blood loss anemia/thrombocytopenia/coagulopathy/hyperbilirubinemia/intra-abdominal mass The patient does not appear to be on any systemic form of anticoagulation at baseline. Unfortunately, CT imaging of the abdomen did reveal possible intra-abdominal mass. The patient also had evidence of hyperbilirubinemia with associated coagulopathy. Gastroenterology is following to assist with medical management. She did have evidence of a bleeding duodenal mass, which was biopsied and will likely require stenting as she was demonstrating signs of gastric outlet obstruction. She will be transfused blood products to maintain a hemoglobin at or above 7 g/dL. PPI therapy will be continued, while awaiting additional intervention by GI. 3. Acute kidney injury/hypokalemia Most likely prerenal in etiology in the setting #1. The patient did receive IV fluid resuscitation and has been initiated on appropriate vasopressor support. Creatinine has improved from admission. Will continue to monitor urine output. There is no current indication for renal replacement therapy. Electrolyte repletion will be administered as needed. 4. History of diabetes mellitus/hypertension/history of urinary retention/depression/advanced age and deconditioning Complicates care, management, recovery and prognosis. Continue supportive measures as noted above. Will need to once again discuss goals of care with the patient's son. TIME: 32 minutes of critical care time, independent of procedures, was spent addressing the patient's multifactorial shock, acute blood loss anemia, coagulopathy, hyperbilirubinemia, intra-abdominal mass, acute kidney injury, review of all data and collaboration with the care team. Subjective Subjective The patient was seen and examined at the bedside this morning. Events from the last 24 hours have been reviewed. The patient modesta on Levophed at 5 mcg/min to maintain hemodynamic stability. The patient underwent a scopic evaluation yesterday which revealed reflux esophagitis without bleeding. However, a large ulcerated mass with bleeding was found in the second portion of the duodenum, which was ultimately biopsied. White count is elevated at 34,000. Potassium is low at 2.9 with a chloride of 121, bicarbonate of 17 and creatinine of 1.35. Total bilirubin has increased to 2.8. Platelet count is low at 79,000. INR has improved to 2.4. Objective Data Objective Data The patient's most recent lab work, culture data and imaging studies have all been personally reviewed. Surface echocardiogram from June 2023 demonstrated normal LV size and function with an ejection fraction of 65%. Blood and urine cultures are pending. Vital Signs: Vital Signs Temp Pulse Resp BP Pulse Ox O2 Del Method O2 Flow Rate 96.9 F L 128 H 19 H 93/52 L 100 Room Air 2 07/25/23 00:00 07/25/23 07:04 07/25/23 07:04 07/25/23 07:04 07/25/23 07:04 07/25/23 07:04 07/23/23 12:05 Oxygen Flow Rate (L/min) 2 Oxygen Delivery Method Room Air Weight: 134 lb 11.239 oz Body Mass Index (BMI) 25.4 Intake & Output: Intake and Output for Last 24 Hours 07/23/23 07/24/23 07/25/23 23:59 23:59 23:59 Intake Total 4085.47 / 4088.30 5230.80 / 5292.70 1015.83 / 1015.83 Output Total 1050 / 1350 400 / 400 Balance 4060.47 / 4063.30 4180.80 / 3942.70 615.83 / 615.83 Lab / Micro Data Attestation: I reviewed the patient's lab results. 07/25/23 05:20 07/25/23 05:20 Labs: Laboratory Results - last 24 hr 07/23/23 10:12: Diff Path Review Reviewed 07/24/23 03:00: Magnesium 1.7 07/24/23 08:15: WBC 25.2 H, RBC 2.81 L, Hgb 8.3 L, Hct 25.7 L, MCV 91.5, MCH 29.5, MCHC 32.3, RDW Std Deviation 51.8 H, RDW Coeff of Ricardo 15.6 H, Plt Count 101 L, MPV 11.9, Immature Gran % (Auto) 1.600 H, Neut % (Auto) 84.3 H, Lymph % (Auto) 8.2 L, [place] % (Auto) 5.1, Eos % (Auto) 0.6, Baso % (Auto) 0.2, Absolute Neuts (auto) 21.2 H, Absolute Lymphs (auto) 2.05, Nucleated RBC % 0, Differential Comment SCANNED, PT 51.5 H, INR 5.8 H* 07/24/23 16:42: POC Glucose 147 H 07/24/23 23:37: POC Glucose 169 H 07/25/23 05:20: WBC 34.2 H*, RBC 3.17 L, Hgb 9.4 L, Hct 28.4 L, MCV 89.6, MCH 29.7, MCHC 33.1, RDW Std Deviation 50.5 H, RDW Coeff of Ricardo 15.4 H, Plt Count 79 L, MPV 12.2 H, Immature Gran % (Auto) 1.400 H, Neut % (Auto) 86.6 H, Lymph % (Auto) 6.7 L, [place] % (Auto) 5.0, Eos % (Auto) 0.0, Baso % (Auto) 0.3, Absolute Neuts (auto) 29.6 H, Absolute Lymphs (auto) 2.29, Nucleated RBC % 0, PT 25.9 H, INR 2.4, Sodium 146 H, Potassium 2.9 L, Chloride 121 H, Carbon Dioxide 17.0 L, Anion Gap 8, BUN 37 H, Creatinine 1.35 H, Estim Creat Clear Calc 27.87, Est GFR (MDRD) Af Amer 48 L, Est GFR (MDRD) Non-Af 40 L, BUN/Creatinine Ratio 27.4 H, Glucose 193 H, Calcium 7.6 L, Total Bilirubin 2.80 H, AST 120 H, ALT 80 H, Alkaline Phosphatase 103, Total Protein 5.0 L, Albumin 2.5 L, Globulin 2.5, Albumin/Globulin Ratio 1.0, Random Vancomycin 13.8 07/25/23 05:52: POC Glucose 181 H Micro: Microbiology 07/23/23 10:14 Blood Culture (Wb) - Central Line Blood Culture - Preliminary No growth in 48 hours. 07/23/23 10:42 Blood Culture (Wb) - Other Blood Culture - Preliminary 07/23/23 12:52 Urine Catheter - Zapata Urine Culture - Preliminary Yeast Like Organism 07/23/23 09:30 Stool Stool Occult Blood (RONAK) - Final Occult Blood Positive ABG Data ABG results: ABG 07/23/23 10:50 Specimen Type DONNY Sample Site Not entered VBG pH 7.12 L* VBG pO2 60 H VBG HCO3 8 L VBG Total CO2 8 L VBG O2 Sat (Calc) 82 H VBG Base Excess -22 L POC Mix VBG pCO2 Pt Tmp 23.3 L O2 Delivery Device Not entered Crit Call To/Read Back Yes Blood Gas Notified Time 10:51:36 Radiography Diagnostic Testing: Radiology Impression Chest X-Ray 07/23/23 11:00 IMPRESSION: Stable examination. No acute abnormality is seen. Electronically Signed: Demetrius Guzman MD at 11:13 EDT , Abdomen/Pelvis CT 07/23/23 11:18 IMPRESSION: Diffuse ascites. 4.6 cm x 4.7 cm rounded soft tissue mass in the right side of the midline just catheter that of the pancreas. Lymphadenopathy or possible mesenteric mass should be ruled out. Right-sided double-J stent catheter with the calculus seen in the lower pole calyx of the right kidney. Sigmoid diverticulosis. Increased markings in the subcutaneous tissues overlying the right lateral abdominal wall. Electronically Signed: Demetrius Guzman MD at 11:59 EDT , Brain CT 07/23/23 11:18 IMPRESSION: Chronic involutional changes of the brain. Electronically Signed: Demetrius Guzman MD at 11:50 EDT , Physical Exam Const alert and no apparent distress General Appearance: cooperative, ill appearing Positive for chronically and frail HEENT normocephalic and head/scalp atraumatic Eyes PERRL and EOMs intact bilaterally Neck supple General: trachea midline Chest inspection of chest normal Resp normal respiratory effort Auscultation: Negative for rales, rhonchi or wheezes Cardio regular rate and regular rhythm GI normal to inspection, nondistended, normoactive bowel sounds Extremity no clubbing, cyanosis or edema Neuro CN's II-XII intact bilaterally and no focal motor deficits Psych Mood & Affect: flat affect Charges/Coding Procedures Hospitalists Procedures: 51333 Critical Care 1st Hr
[2023-07-25 07:28] LABS: Platelet Estimate MOD DEC (ADEQ)
[2023-07-25] MEDS: Pantoprazole Sodium 40 MG in 0.9% Normal Saline (100mL MB+) 100 ML 330 MG IV ×2 (08:22→21:17)
[2023-07-25] MEDS: CHLORHEXIDINE GLUC 2% CLOTH 1 EACH TOWELETTE TOPICAL (08:24)
--- NOTE | 2023-07-25 09:08 | PN.HOSP_ITS ---
Reason for Visit Reason for Visit: Diagnoses Sepsis, unspecified organism (07/23/23) Gastrointestinal hemorrhage, unspecified (07/23/23) Shock, unspecified (07/23/23) Severe sepsis with septic shock (07/23/23) Subjective Subjective Pt denies complaints. Objective Data Objective Data Vital Signs: Vital Signs Temp Pulse Resp BP Pulse Ox O2 Del Method O2 Flow Rate 36.1 C L 128 H 19 H 93/52 L 100 Room Air 2 07/25/23 00:00 07/25/23 07:04 07/25/23 07:04 07/25/23 07:04 07/25/23 07:04 07/25/23 07:04 07/23/23 12:05 Oxygen Flow Rate (L/min) 2 Oxygen Delivery Method Room Air Weight: 61.1 kg Body Mass Index (BMI) 25.4 Intake & Output: Intake and Output for Last 24 Hours 07/23/23 07/24/23 07/25/23 23:59 23:59 23:59 Intake Total 4085.47 / 4088.30 5230.80 / 5292.70 1015.83 / 1015.83 Output Total 1050 / 1350 400 / 400 Balance 4060.47 / 4063.30 4180.80 / 3942.70 615.83 / 615.83 Lab / Micro Data 07/25/23 05:20 07/25/23 05:20 Labs: Laboratory Results - last 24 hr 07/23/23 10:12: Diff Path Review Reviewed 07/24/23 08:15: Differential Comment SCANNED 07/24/23 16:42: POC Glucose 147 H 07/24/23 23:37: POC Glucose 169 H 07/25/23 05:20: WBC 34.2 H*, RBC 3.17 L, Hgb 9.4 L, Hct 28.4 L, MCV 89.6, MCH 29.7, MCHC 33.1, RDW Std Deviation 50.5 H, RDW Coeff of Ricardo 15.4 H, Plt Count 79 L, MPV 12.2 H, Immature Gran % (Auto) 1.400 H, Neut % (Auto) 86.6 H, Lymph % (Auto) 6.7 L, [place] % (Auto) 5.0, Eos % (Auto) 0.0, Baso % (Auto) 0.3, Absolute Neuts (auto) 29.6 H, Absolute Lymphs (auto) 2.29, Nucleated RBC % 0, Differential Comment COMMENT, Diff Path Review May foll, Platelet Estimate MOD DEC, PT 25.9 H, INR 2.4, Sodium 146 H, Potassium 2.9 L, Chloride 121 H, Carbon Dioxide 17.0 L, Anion Gap 8, BUN 37 H, Creatinine 1.35 H, Estim Creat Clear Calc 27.87, Est GFR (MDRD) Af Amer 48 L, Est GFR (MDRD) Non-Af 40 L, BUN/Creatinine Ratio 27.4 H, Glucose 193 H, Calcium 7.6 L, Total Bilirubin 2.80 H, AST 120 H, A LT 80 H, Alkaline Phosphatase 103, Total Protein 5.0 L, Albumin 2.5 L, Globulin 2.5, Albumin/Globulin Ratio 1.0, Random Vancomycin 13.8 07/25/23 05:52: POC Glucose 181 H Micro: Microbiology 07/23/23 10:14 Blood Culture (Wb) - Central Line Blood Culture - Preliminary No growth in 48 hours. 07/23/23 10:42 Blood Culture (Wb) - Other Blood Culture - Preliminary 07/23/23 12:52 Urine Catheter - [place] Urine Culture - Preliminary Yeast Like Organism 07/23/23 09:30 Stool Stool Occult Blood (RONAK) - Final Occult Blood Positive Physical Exam Const Constitutional Narrative: awake. alert only to self. non-toxic. HEENT head/scalp atraumatic and moist oral mucous membranes Resp normal respiratory effort, no retractions, no use of accessory muscles and clear to auscultation bilaterally Cardio regular rate, regular rhythm, S1 normal heart sound and S2 normal heart sound GI normal to inspection, nondistended, normoactive bowel sounds, soft to palpation, non-tender and non-distended Extremity normal to inspection and full ROM Neuro Sensorium / Orientation: awake and alert Assessment & Plan Assessment/Plan (1) Septic shock: PLAN: Plan Septic shock * Initially felt to be hemorrhagic shock as patient was heme positive, however later it was found her hemoglobin was 14. Patient received unit of trauma blood before information was available. Patient received most of that unit but I discontinued it with only prior about 10 to 20 cc still left. * Sources not identified at this time. Urinalysis has not been able to be performed as catheter has not been able to be effectively placed. Blood cultures drawn and pending. 1 area of concern is her abdomen. CAT scan showing 4.6 x 4.7 cm tissue mass in the right side of the abdomen this was not noted on imaging from June 29. Possibilities could be lymphadenopathy versus abscess versus malignancy. * Follow-up cultures * Antibiotics with meropenem and vancomycin. * Right femoral triple-lumen catheter placed in the emergency room. Patient will need to be on bedrest while that is in place. Patient did receive 30 cc/kg of IV fluids in the emergency room and has since been started on norepinephrine. * CCM following * Random cortisol 108.8. * Resume midodrine when able to resume oral. ROMI * Suspect prerenal. Patient's creatinine was 0.4 on July 09 and was 2.17 on admission, now down to 1.6. * Continue IV fluids * Monitor. * No need for renal replacement therapy at this time. If continues get worse, consider nephrology consultation. Acute blood loss anemia * Hg dropped from 14.2 to 6.8. s/p 2 units PRBCs, now Hg stable at 9.4 GI bleed * EGD 07/23: showed grade A reflux esophagitis, bilious gastric fluid, bleeding duodenal stricture * on pantoprazole gtt Duodenal stricture * GI discussed with patient's, who wishes to proceed with duodenal stent. Coagulopathy * INR is 2.6 and she does not take anticoagulation. Now up to 7.2. Now down to 2.4 after vitamin K * Suspect underlying DIC, but complicated by poor nutrition. Leukocytosis * Secondary to septic shock. Of note, her white count started going up during her last admission from 6.6-15 0.4-23. Though it is far lower than it was during the admission where he got up to 72.3. * Monitor for now. Severe protein calorie malnutrition * Patient to be n.p.o. right now to get speech therapy to see her * Will consult nutrition as patient clinically is profoundly malnourished with marked cachexia. Hypokalemia * replace * check Magnesium. Debility * Patient has a poor performance status at baseline. * PT OT evaluate and treat. VTE prophylaxis: SCDs CODE STATUS: Verified with the patient's son through the emergency room physician. Patient is to be full code. Prognosis: Guarded to poor. Charges/Coding Visit Charges Inpatient E&M: 34651 Subs Hosp L2
[2023-07-25] MEDS: Meropenem 500 MG in 0.9% Normal Saline (50mL MB+) 50 ML 100 MG IV ×2 (09:47→21:17)
[2023-07-25] MEDS: Midodrine HCl 5 MG Tablet 10 MG PO (09:47)
[2023-07-25] MEDS: Potassium Chloride IVPB 40 MEQ 100 MEQ IV BOLUS ×4 (10:45→18:06)
[2023-07-25] MEDS: Norepinephrine 8 MG in 0.9% Normal Saline (250mL Bag) 242 ML 9.4 MG CONT INF (10:46)
--- NOTE | 2023-07-25 11:04 | NURSING ---
contacted son about egd with stents per Dr Ayala, consent given verified with Phuong Natarajan RN
--- NOTE | 2023-07-25 11:10 | CASEMGMT ---
Discharge Planning Updates sent to [facility] via [facility]. Gretchen Armstrong DC Planning Asst.
[2023-07-25 11:50] LABS: Bedside Glucose 209 mg/dL (74-106)
[2023-07-25 11:51] LABS: Pathologist Review Reviewed
--- NOTE | 2023-07-25 12:45 | EGD_PTH ---
PATIENT: MAIKEL DANIEL LOC: ICU U#:[id number] AGE/SX: 82/F ROOM: ICU06 RE07/23/[address]: Dr. Scooter Millard DO : 1940 BED: 1 DIS: 07/28/2023 SPEC #: [id number] RECD: 07/25/23 18:29 STATUS: KIMBERLEE REQ #: [id number] DASHA: 07/25/23 12:[address]: Jacob Ayala DEPT: SURGICAL PATHOLOGY RECD BY: Mary Humphrey ENTERED: 07/28/23 11:35 SP TYPE: EGD BIOPSY OTHR DR: MD Dr. Anil Page MD Dr. Derek Brown, DO Dr. Eric Jopperi, DO Dr. Edward Matheis, MD Dr. Efewongbe Oleghe, MD Dr. Gautam Baskaran, MD Dr. Yordanos Habtegebriel, MD Dr. Hemant Dand, MD Dr. Holly Wyneski, MD Dr. Kimber Foust, MD Dr. Lamia Aljundi, MD Dr. Pritam Ghosh, MD Dr. Pavan Irukulla, MD Dr. Robert Leininger, MD Dr. Saad Farooqi, MD Dr. Vikram Anand, MD Dr. 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 See comment. SUZY/ 07/29/23 COMMENT If further immunohistochemistry or molecular studies are needed, please notify the laboratory. Clinical correlation and appropriate follow up are necessary. Case has been reviewed in consultation with Dr. Jessica who concurs with the above diagnosis. IDC:AM MICROSCOPIC DESCRIPTION Slides are reviewed. GROSS DESCRIPTION Received in fixative is one container labeled with the patient's name and designated Small bowel stricture. The specimen consists of multiple irregular fragments of light hagan soft tissue that in aggregate measure 1.0 x 0.5 x 0.1 cm. The specimen is totally submitted in one cassette. SUZY/ 07/28/2023 TC:0 CPT:79243
--- NOTE | 2023-07-25 13:35 | RAD_ITS ---
STUDY: ERCPCHOLANGIOGRAM REASON FOR EXAM: Female, 82 years old. Flank pain FLUOROSCOPY TIME (if supplied): (1:56) minutes/seconds TECHNIQUE: Intraoperative fluoroscopy. For intraoperative views. COMPARISON: None. FINDINGS: There is opacification of the common bile duct. No residual filling defects are seen the common bile duct or in the intrahepatic biliary tree. Biliary stent is placed and is in good position. RAD/ERCP Biliary/Pancreas IMPRESSION: Biliary stent is placed and is in good position. Electronically Signed: Gagandeep Viveros MD at 7:49 EDT ,
--- NOTE | 2023-07-25 13:35 | RAD_ITS ---
STUDY: ERCPCHOLANGIOGRAM REASON FOR EXAM: Female, 82 years old. Flank pain FLUOROSCOPY TIME (if supplied): (1:56) minutes/seconds TECHNIQUE: Intraoperative fluoroscopy. For intraoperative views. COMPARISON: None. FINDINGS: There is opacification of the common bile duct. No residual filling defects are seen the common bile duct or in the intrahepatic biliary tree. RAD/Fluoroscopy 1 Hr or Less IMPRESSION: There is no evidence of retained stones in the common bile duct. Electronically Signed: Gagandeep Viveros MD at 7:52 EDT ,
--- NOTE | 2023-07-25 14:20 | CHAPLAIN ---
Type of Pastoral Visit _x__ Initial Visit ___ Follow-up Visit ___ On-call Visit ___ General Patient Visit ___ Spiritual Assessment ___ Family Conference ___ Bereavement ___ Rapid Response ___ Code Blue ___ Other (describe below) Pastoral Care Referral From _x__ Patient ___ Family ___ Nurse ___ Physician ___ Clinical Reviewer ___ Surg Tech ___ Other (describe below) Sacrament/Intervention ___ Active listening ___ Anointing ___ Faith ___ Bereavement ___ Communion ___ Paige exploration ___ ___ Life review _x__ Prayer ___ Reconciliation ___ Sacrament of Sick _x__ Supportive presence ___ Wedding ___ Other (describe below) Pastoral Comments reviewed situation of this patient with her RN; patient is very still in bed but opens her eyes when addressed by name; pt is given offer of presence, support, listening, and prayer; pt states that she wants water and repeats that; pt is told that due to procedure to happen in a couple hours that water is not approved; pt asks again for water; pt acknowledges that a prayer would be accepted; pt answers questions slowly and with minimum words; calm presence and quiet words of assurance to pt about her care and available help
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
--- NOTE | 2023-07-25 15:49 | OP.EGD_ITS ---
Patient Name: Chloe Pop Procedure Date: 07/25/2023 12:54 PM Date of : 1940 Age: 82 Procedure: Upper GI endoscopy Indications: Epigastric abdominal pain, Melena, For dilation and stenting of duodenal stenosis Providers: Jacob Ayala DO Medicines: Monitored Anesthesia Care Patient Profile: This is an 82 year old female. Refer to note in patient chart for documentation of history and physical. Patient has symptoms of acute abdominal distention, acute dyspepsia and acute nausea. Her most recent EGD for treatment of bleeding. Complications: No immediate complications., Hypotension, Hypoxia, Vasovagal reaction, treated with intubation, treated with IV fluids, treated with administration of oxygen, treated with ventilation Procedure: Pre-Anesthesia Assessment: - Prior to the procedure, a History and Physical was performed, and patient medications and allergies were reviewed. The patient is unable to give consent secondary to the patient's altered mental status. The risks and benefits of the procedure and the sedation options and risks were discussed with the patient's son. All questions were answered and informed consent was obtained. Patient identification and proposed procedure were verified by the nurse in the pre-procedure area. Mental Status Examination: alert but confused. Airway Examination: normal oropharyngeal airway and neck mobility. CV Examination: tachycardia noted. ASA Grade Assessment: IV - A patient with severe systemic disease that is a constant threat to life. After reviewing the risks and benefits, the patient was deemed in satisfactory condition to undergo the procedure. The anesthesia plan was to use monitored anesthesia care (MAC). Immediately prior to administration of medications, the patient was re-assessed for adequacy to receive sedatives. The heart rate, respiratory rate, oxygen saturations, blood pressure, adequacy of pulmonary ventilation, and response to care were monitored throughout the procedure. The physical status of the patient was re-assessed after the procedure. After obtaining informed consent, the endoscope was passed under direct vision. Throughout the procedure, the patient's blood pressure, pulse, and oxygen saturations were monitored continuously. The Endoscope was introduced through the mouth, and advanced to the duodenal bulb. The Endoscope was introduced through the mouth, and advanced to the fourth part of duodenum. After obtaining informed consent, the endoscope was passed under direct vision. Throughout the procedure, the patient's blood pressure, pulse, and oxygen saturations were monitored continuously.The upper GI endoscopy was technically difficult and complex due to narrowing. The patient tolerated the procedure poorly due to the patient's cardiovascular instability. The gastroscope was introduced through the mouth, and advanced to the second part of duodenum. Scope In: 1:45:29 PM Scope Out: 2:53:14 PM Total Procedure Duration Time 1 hour 7 minutes 45 seconds Findings: The bile duct was deeply cannulated with the short-nosed traction sphincterotome. Contrast was injected. I personally interpreted the bile duct images. There was brisk flow of contrast through the ducts. Image quality was excellent. Contrast extended to the main bile duct. Opacification of the main bile duct was successful. The maximum diameter of the ducts was 7 mm. The lower third of the main bile duct contained a single localized stenosis 6 mm in length. The lower third of the main bile duct was diffusely dilated, with extrinsic compression causing an obstruction. The largest diameter was 5 mm. A straight Roadrunner wire was passed into the biliary tree. A 5 mm biliary sphincterotomy was made with a traction (standard) sphincterotome using ERBE electrocautery. There was no post-sphincterotomy bleeding. The biliary tree was swept with a 7 mm balloon starting at the bifurcation. Sludge was swept from the duct. One 7 Fr by 5 cm temporary stent was placed 5 cm into the common bile duct. Bile flowed through the stent. The stent was in good position. Biopsy was performed in the second portion of the duodenum through the esophagogastroduodenoscope with a cold forceps for histology. This was stented with a 22 mm x 9 cm WallFlex stent under fluoroscopic guidance. One non-bleeding cratered duodenal ulcer with no stigmata of bleeding was found in the second portion of the duodenum. The lesion was 6 mm in largest dimension. Impression: - No gross lesions in the entire esophagus. - Gastroparesis. - Non-bleeding duodenal ulcer with no stigmata of bleeding. Biopsied. - Acquired duodenal stenosis. Prosthesis was not placed. - Sepsis - Respiratory decompensation status post intubation - Severe hypotension Recommendation: - Return patient to ICU for ongoing care. - NPO. -I called the son to give him an update and ask if he wanted to change her CODE STATUS but he could not be reached by the number that was in the medical record. For now she is still a full code and will remain intubated on pressors. - Continue present medications. - Await pathology results. Procedure Code(s): --- Professional --- 78460, 51, Endoscopic retrograde cholangiopancreatography (ERCP); with placement of endoscopic stent into biliary or pancreatic duct, including pre- and post-dilation and guide wire passage, when performed, including sphincterotomy, when performed, each stent 28998, Endoscopic retrograde cholangiopancreatography (ERCP); with removal of calculi/debris from biliary/pancreatic duct(s) 80194, 59, Esophagogastroduodenoscopy, flexible, transoral; diagnostic, including collection of specimen(s) by brushing or washing, when performed (separate procedure) CPT copyright 2021 [employer]. All rights reserved. The codes documented in this report are preliminary and upon heritage consultant review may be revised to meet current compliance requirements. Jacob Ayala DO 07/25/2023 3:48:51 PM This report has been signed electronically. Number of Addenda: 0 Note Initiated On: 07/25/2023 12:54 PM
--- NOTE | 2023-07-25 15:49 | OP.CCLET_ITS ---
07/25/2023 Scooter Siu MD [address] [place] [address] [place] [address] Re : Upper GI endoscopy procedure for Chloe Pop Dear Dr. Siu This procedure was performed on Tuesday, July 25, 2023. My impressions and recommendations are as follows: Impressions : - No gross lesions in the entire esophagus. - Gastroparesis. - Non-bleeding duodenal ulcer with no stigmata of bleeding. Biopsied. - Acquired duodenal stenosis. Prosthesis was not placed. - Sepsis - Respiratory decompensation status post intubation - Severe hypotension Recommendations : - Return patient to ICU for ongoing care. - NPO. -I called the son to give him an update and ask if he wanted to change her CODE STATUS but he could not be reached by the number that was in the medical record. For now she is still a full code and will remain intubated on pressors. - Continue present medications. - Await pathology results. My findings are described in the full procedure note, which is enclosed. If I can be of further assistance, please feel free to contact me at . Sincerely, Jacob Ayala, 07/25/2023 3:48:51 PM This report has been signed electronically.
--- NOTE | 2023-07-25 16:09 | PCM.HOSP.N ---
Hospitalist Note Notified by Drs. Ayala and Sahil that patient stop breathing during endoscopy. Dr. Ayala is plan to put a stent into her duodenum but before he was able to do so that, the patient stopped breathing. Patient was emergently intubated in the OR. It was noted that patient had pink frothy sputum when she was being intubated. Pulse ox dropped down into the 60s at that time. Blood pressure also dropped into the 60s and her Levophed was increased from 5 mics to 15. Patient was subsequently transferred back up to the intensive care unit. Blood pressure was improved into the 90s, was still tachycardic in the 150s to 160s. And FiO2 was able to be decreased down to 50%. I was able to speak with the patient's son and explained the case to him after unit discussed with Dr. Ayala. Explained to him that if she were to go into cardiac arrest that her chance of survival would be essentially extremely limited to essentially no survival. I strongly recommended no CPR. He was in agreement to that.Patient is now DNR Comfort Care arrest. Within 60 minutes overall, over which 50% of the time was at the bedside evaluating the patient after events in the PACU. Also discussing with specialist and also the patient's son. Visit Charges Inpatient E&M: 39139 Subs Hosp L3 ([place] [address] for 07/25/23)
[2023-07-25] MEDS: fentaNYL drip 100 ML 5 MCG CONT INF (16:17)
[2023-07-25] MEDS: Propofol 10MG/Ml 1,000 MG/100 ML Bottle 3.7 MG CONT INF (16:17)
--- NOTE | 2023-07-25 16:25 | RAD_ITS ---
EXAM: XR CHEST, 1 VIEW CLINICAL INDICATION: respiratory failure, ETT PLACEMENT TECHNIQUE: Frontal view of the chest. COMPARISON: No relevant prior studies available. FINDINGS: LUNGS AND PLEURAL SPACES: Unremarkable. No consolidation or edema. No pneumothorax. No effusion. HEART: Unremarkable. Cardiac silhouette not enlarged. MEDIASTINUM: Central airways and mediastinal contour are unremarkable. BONES/JOINTS: Unremarkable. No acute fracture. SOFT TISSUES: Unremarkable. TUBES, LINES AND DEVICES: Endotracheal tube is in place with the distal tip 4.1 cm above the valdemar. Nasogastric tube is in place with the distal tip in the mid stomach. Left-sided PICC line is in place with the distal tip overlying the superior vena cava. RAD/Chest 1 View (Portable) IMPRESSION: 1. No acute pulmonary abnormality. 2. Support structures in good position. Electronically Signed: Lenny Mosley MD at 17:18 EDT ,
--- NOTE | 2023-07-25 16:25 | RAD_ITS ---
EXAM: XR ABDOMEN, 1 VIEW CLINICAL INDICATION: OG PLACEMENT TECHNIQUE: Frontal supine view of the abdomen/pelvis. COMPARISON: No relevant prior studies available. FINDINGS: LOWER THORAX: No acute pathology. GASTROINTESTINAL TRACT: There are mildly dilated gas-filled loops of small bowel which may represent developing bowel obstruction. ORGANS: Unremarkable as visualized. No organomegaly. No abnormal calcifications. BONES/JOINTS: There is hardware across an old left hip fracture. SOFT TISSUES: No acute pathology. VASCULATURE: There is a right stent in place. There is a biliary stent. TUBES, LINES AND DEVICES: Nasogastric tube is in place with the distal tip in the mid stomach. RAD/Abdomen Single View IMPRESSION: Dilated gas-filled loops of bowel in the midabdomen compatible with a developing small bowel obstruction. Electronically Signed: Lenny Mosley MD at 17:29 EDT ,
[2023-07-25 16:45] LABS: Allen Test Positive; Base Excess -17 mmol/L (-2 to +2); Bicarbonate 12.9 mmol/L (22-26); Mode AC; O2 Delivery Device Adult Vent; PEEP 5; PO2 24 mmHG (75-100); RR 14; SITE R Brach; SO2 26 % (95-99); Time Given 16:42:32; Total Carbon Dioxide 14 mmol/L; pCO2 43.3 mmHg (35-45); pH 7.08 (7.35-7.45)
[2023-07-25 17:00] LABS: Allen Test Positive; Base Excess -16 mmol/L (-2 to +2); Bicarbonate 11.2 mmol/L (22-26); Blood Gas Specimen Type ART; Mode AC; O2 Delivery Device Adult Vent; PEEP 5; PO2 213 mmHG (75-100); RR 14; SITE R Radial; SO2 100 % (95-99); Total Carbon Dioxide 12 mmol/L; pCO2 26.5 mmHg (35-45); pH 7.24 (7.35-7.45)
[2023-07-25 17:02] LABS: Bedside Glucose 190 mg/dL (74-106)
[2023-07-25] MEDS: Chlorhexidine 15 ML PO (21:17)
[2023-07-25] MEDS: Norepinephrine 8 MG in 0.9% Normal Saline (250mL Bag) 242 ML 31.9 MG CONT INF (22:36)
[2023-07-26] VITALS (36 sets, daily range): BP systolic 40–106; BP diastolic 26–73; PULSE 90–153; RESP 14; TEMP 36.4–36.6; O2SAT 98–100; BMI 28.0
[2023-07-26 04:43] LABS: Absolute Lymphocyte Count 4.11 X10^3/uL (0.83-4.51); Absolute Neutrophil Count 39.6 X10^3/uL (2.0-7.7); Basophil# 0.15 X10^3/uL; Basophil% 0.3 % (0-1); Eosinophil# 0.15 X10^3/uL; Eosinophils% 0.3 % (0-5); Hematocrit 26.9 % (37-47); Hemoglobin 8.9 g/dL (12.0-15.0); Lymphocyte # 4.11 X10^3/ul (0.83-4.51); Lymphocyte % 8.6 % (19-41); Mean Corp Hgb Conc 33.1 g/dL (32-36); Mean Corpuscular Volume 90.6 fL (81-99); Mean Platelet Vol. 12.3 fl (6.2-12.0); Monocyte# 2.37 X10^3/uL; NRBC Flagged by Analyzer 0.3 % (0-5); Neutrophil # 39.64 X10^3/uL (2.7-7.7); Neutrophil % 83.5 % (47-70); POSITIVE COUNT YES; POSITIVE DIFFERENTIAL YES; POSITIVE MORPHOLOGY YES; Platelet Count 67 K/mm3 (150-450); RBC Distribution Width SD 52.9 fl (35.1-43.9); Red Blood Count 2.97 M/mm3 (4.2-5.4)
[2023-07-26 04:51] LABS: Bedside Glucose 159 mg/dL (74-106)
[2023-07-26] MEDS: Propofol 10MG/Ml 1,000 MG/100 ML Bottle 3.7 MG CONT INF ×2 (05:00→20:00)
[2023-07-26 05:08] LABS: Differential Indicated SCAN CRITERIA MET; White Blood Count 47.5 K/mm3 (4.4-11.0)
[2023-07-26 05:16] LABS: International Normalized Ratio 2.8
[2023-07-26 05:17] LABS: ALB/GLOB Ratio 0.7 RATIO (0.9-2.4); AST(SGOT) 67 U/L (15-37); Alanine Aminotransfer ALT/SGPT 63 U/L (13-56); Albumin, Serum 1.9 g/dL (3.2-5.0); Alkaline Phosphatase 115 U/L (45-117); Anion Gap 8 (5-15); BUN 36 mg/dL (7-18); BUN/Creat Ratio 25.4 RATIO (10-20); Calcium,Total 7.3 mg/dL (8.5-10.1); Chloride 124 mmol/L (98-107); Creatinine, Serum 1.42 mg/dL (0.55-1.02); EST Glomerular Filtration Rate 38 mL/min (>60); Est Glom Filt Rate - Afr Amer 46 mL/min (>60); Estimated Creatinine Clearance 27.77 ml/min; Globulin 2.7 g/dL (2.2-4.2); Glucose 181 mg/dL (74-106); Potassium 3.4 mmol/L (3.5-5.1); Protein, Total 4.6 g/dL (6.4-8.2); Sodium Level 146 mmol/L (136-145)
[2023-07-26 05:25] LABS: Differential Comment SCANNED; Smudge Cells 1+
[2023-07-26] MEDS: Insulin Lispro 100 UNIT/ML INSULN.PEN SC ×2 (05:37→11:25)
[2023-07-26] MEDS: 0.9% Normal Saline (1000mL) 1,000 ML 150 ML IV ×3 (05:37→20:22)
[2023-07-26] MEDS: Norepinephrine 8 MG in 0.9% Normal Saline (250mL Bag) 242 ML 33.8 MG CONT INF (06:00)
--- NOTE | 2023-07-26 06:58 | PN.HOSP_ITS ---
Reason for Visit Reason for Visit: Diagnoses Sepsis, unspecified organism (07/23/23) Gastrointestinal hemorrhage, unspecified (07/23/23) Shock, unspecified (07/23/23) Severe sepsis with septic shock (07/23/23) Subjective Subjective Still tachycardic. Still on pressors. Objective Data Objective Data Vital Signs: Vital Signs Temp Pulse Resp BP Pulse Ox O2 Del Method O2 Flow Rate 36.4 C L 91 14 85/56 L 100 Mechanical Ventilator 2 07/26/23 00:00 07/26/23 06:00 07/26/23 06:00 07/26/23 06:00 07/26/23 06:00 07/26/23 06:00 07/23/23 12:05 FiO2 25 07/26/23 06:00 Oxygen Flow Rate (L/min) 2 Oxygen Delivery Method Mechanical Ventilator Weight: 67.5 kg Body Mass Index (BMI) 28.0 Intake & Output: Intake and Output for Last 24 Hours 07/24/23 07/25/23 07/26/23 23:59 23:59 23:59 Intake Total 5230.80 / 5292.70 3093.55 / 3144.15 330.6 / 330.6 Output Total 1050 / 1350 850 / 850 250 / 250 Balance 4180.80 / 3942.70 2243.55 / 2294.15 80.6 / 80.6 Lab / Micro Data 07/26/23 04:25 07/26/23 04:25 Labs: Laboratory Results - last 24 hr 07/25/23 05:20: Differential Comment COMMENT, Diff Path Review Reviewed, Platelet Estimate MOD 07/25/23 11:29: POC Glucose 209 H 07/25/23 16:44: POC Glucose 190 H 07/26/23 04:25: WBC 47.5 H*, RBC 2.97 L, Hgb 8.9 L, Hct 26.9 L, MCV 90.6, MCH 30.0, MCHC 33.1, RDW Std Deviation 52.9 H, RDW Coeff of Ricardo 16.0 H, Plt Count 67 L, MPV 12.3 H, Immature Gran % (Auto) 2.300 H, Neut % (Auto) 83.5 H, Lymph % (Auto) 8.6 L, Wayne % (Auto) 5.0, Eos % (Auto) 0.3, Baso % (Auto) 0.3, Absolute Neuts (auto) 39.6 H, Absolute Lymphs (auto) 4.11, Nucleated RBC % 0.3, Differential Comment SCANNED, Diff Path Review May foll, Smudge Cells 1+ H, PT Cancelled, INR Cancelled, Sodium 146 H, Potassium 3.4 L, Chloride 124 H, Carbon Dioxide 14.0 L, Anion Gap 8, BUN 36 H, Creatinine 1.42 H, Estim Creat Clear Calc 27.77, Est GFR (MDRD) Af Amer 46 L, Est GFR (MDRD) Non-Af 38 L, BUN/Creatinine Ratio 25.4 H, Glucose 181 H, Calcium 7.3 L, Total Bilirubin 2.80 H, AST 67 H, A LT 63 H, Alkaline Phosphatase 115, Total Protein 4.6 L, Albumin 1.9 L, Globulin 2.7, Albumin/Globulin Ratio 0.7 L 07/26/23 04:30: POC Glucose 159 H 07/26/23 05:00: PT 29.0 H, INR 2.8 Micro: Microbiology 07/23/23 12:52 Urine Catheter - [place] Urine Culture - Preliminary Juli albicans GPC Poss Enterococcus sp 07/23/23 10:14 Blood Culture (Wb) - Central Line Blood Culture - Preliminary No growth in 48 hours. 07/23/23 10:42 Blood Culture (Wb) - Other Blood Culture - Preliminary 07/23/23 09:30 Stool Stool Occult Blood (RONAK) - Final Occult Blood Positive ABG Data ABG results: ABG 07/25/23 07/25/23 16:40 16:57 Specimen Type ART ART Sample Site R Brach R Radial pH 7.08 L* 7.24 L Bicarbonate Actual 12.9 L 11.2 L Total CO2 14 12 Base Excess -17 L -16 L O2 Saturation 26 L 100 H O2 % 50.0 50.0 ABG pCO2 43.3 26.5 L ABG pO2 24 L* 213 H [place] Test Positive Positive Respiration Rate 14 14 O2 Delivery Device Adult Vent Adult Vent Vent Mode AC AC Tidal Volume 450.0 450.0 POC PEEP 5 5 Crit Call To/Read Back Yes Blood Gas Notified Time 16:42:32 Radiography Diagnostic Testing: Radiology Impression Chest X-Ray 07/25/23 16:25 IMPRESSION: 1. No acute pulmonary abnormality. 2. Support structures in good position. Electronically Signed: Lenny Mosley MD at 17:18 EDT , KUB X-Ray 07/25/23 16:25 IMPRESSION: Dilated gas-filled loops of bowel in the midabdomen compatible with a developing small bowel obstruction. Electronically Signed: Lenny Mosley MD at 17:29 EDT , Physical Exam Const Constitutional Narrative: Intubated. Sedated. On the ventilator. HEENT head/scalp atraumatic HEENT Narrative: ET tube and OG in place. Resp normal respiratory effort and no retractions Resp Narrative: Coarse breath sounds Cardio Cardio Narrative: Tachycardic GI normal to inspection, nondistended, normoactive bowel sounds, soft to palpation, non-tender and non-distended Extremity Extremity Narrative: Pronounced atrophy. Scaling of the lower extremities. Assessment & Plan Assessment/Plan (1) Septic shock: PLAN: Plan Septic shock * Initially felt to be hemorrhagic shock as patient was heme positive, however later it was found her hemoglobin was 14. Patient received unit of trauma blood before information was available. Patient received most of that unit but I discontinued it with only prior about 10 to 20 cc still left. * Sources not identified at this time. Urinalysis has not been able to be performed as catheter has not been able to be effectively placed. Blood cultures drawn and pending. 1 area of concern is her abdomen. CAT scan showing 4.6 x 4.7 cm tissue mass in the right side of the abdomen this was not reported on imaging from June 29. Possibilities could be lymphadenopathy versus abscess versus malignancy. * Follow-up cultures * Antibiotics with meropenem and vancomycin. * Right femoral triple-lumen catheter placed in the emergency room. Patient will need to be on bedrest while that is in place. Patient did receive 30 cc/kg of IV fluids in the emergency room and has since been started on norepinephrine. * CCM following * Random cortisol 108.8. * Resume midodrine when able to resume oral. Acute hypoxic respiratory failure * Patient became apneic in the operating room. During intubation, patient was noted to have bloody frothy fluid. She did receive dose of IV furosemide. Pulse ox dropped down to the 60s. * Follow-up chest x-ray showed no acute process and patient was FiO2 was able to be weaned down fairly quickly after intubation. ROMI * Suspect prerenal. Patient's creatinine was 0.4 on July 09 and was 2.17 on admission, now down to 1.6. * Continue IV fluids * Monitor. * No need for renal replacement therapy at this time. If continues get worse, consider nephrology consultation. Acute blood loss anemia * Hg dropped from 14.2 to 6.8. s/p 2 units PRBCs, now Hg stable at 9.4 * Secondary GI bleed. GI bleed * EGD 07/23: showed grade A reflux esophagitis, bilious gastric fluid, bleeding duodenal stricture * on pantoprazole gtt Duodenal stricture * GI discussed with patient's, who wishes to proceed with duodenal stent. However given the patient's respiratory issues on the , it was not deployed. * Given the ulceration, would avoid tube feeds at this time. Coagulopathy * INR is 2.6 and she does not take anticoagulation. Now up to 7.2. Now down to 2.4 after vitamin K * Suspect underlying DIC, but complicated by poor nutrition. * Will administer additional vitamin K as INR continues to rise (complicated by nothing by NGT) Leukocytosis * Secondary to septic shock. Of note, her white count started going up during her last admission from 6.6-15 0.4-23. Though it is far lower than it was during the admission where he got up to 72.3. * Monitor for now. Severe protein calorie malnutrition * Patient to be n.p.o. right now to get speech therapy to see her * Will consult nutrition as patient clinically is profoundly malnourished with marked cachexia. Hypokalemia * replace * check Magnesium. Debility * Patient has a poor performance status at baseline. * PT OT evaluate and treat. VTE prophylaxis: SCDs CODE STATUS: Discussed with the patient's son on the , patient is DNR Comfort Care arrest. Prognosis: Guarded to poor. Advanced care planning: Spent additional 30 minutes where I spoke to the patient's son and updated her status to him. Explained that she appears overall stable though still on pressors and on the ventilator, however, her overall outlook is extremely poor. Explained that she has mass/ulceration in her duodenum that portends a very poor prognosis and given her overall poor performance status, she would not be a candidate for any kind of surgery. Explained that she could potentially have this stent placed but overall she may continue to deteriorate and may not survive all of this. I did recommend comfort measures, terminal extubation and comfort measures. He did not wish to proceed with that at this time. With that I did recommend speaking with hospice/palliative care. He said he knows someone at his denominational who works with hospice and said that he would prefer to speak that individual. Charges/Coding Visit Charges Inpatient E&M: 96861 Subs Hosp L2 Procedures Hospitalists Procedures: 15593 Advncd Care Plan 30 Min
[2023-07-26] MEDS: Ipratropium/Albuterol Sulfate 3 ML AMPUL.NEB INHALATION (07:14)
[2023-07-26] MEDS: Chlorhexidine 15 ML PO ×2 (08:07→20:53)
[2023-07-26] MEDS: Pantoprazole Sodium 40 MG in 0.9% Normal Saline (100mL MB+) 100 ML 330 MG IV ×2 (08:10→20:23)
[2023-07-26] MEDS: Meropenem 500 MG in 0.9% Normal Saline (50mL MB+) 50 ML 100 MG IV ×2 (08:42→20:52)
--- NOTE | 2023-07-26 11:14 | PN.CC_ITS ---
Objective Data Objective Data Vital Signs: Vital Signs Last response 3 Temperature 36.4 C L 07/26/23 08:48 Temperature Source Temporal 07/26/23 08:48 Pulse Rate 153 H 07/26/23 09:00 Pulse Strength Normal (2+) 07/25/23 22:00 Respiratory Rate 14 07/26/23 09:00 Respiratory Effort Mechanically Ventilated 07/26/23 08:00 Respiratory Depth Normal 07/26/23 08:00 Respiratory Pattern Normal 07/26/23 08:00 Blood Pressure 87/71 L 07/26/23 09:00 Blood Pressure Mean 76 07/26/23 09:00 Blood Pressure Source Monitor 07/26/23 09:00 Blood Pressure Position Semi-Fowlers 07/26/23 03:00 Blood Pressure Location Right Arm 07/26/23 00:00 Pulse Ox 100 07/26/23 09:00 Oxygen Delivery Method Mechanical Ventilator 07/26/23 09:00 Oxygen Flow Rate (L/min) 2 07/23/23 12:05 Fraction of Inspired Oxygen (FIO2) 25 07/26/23 09:00 I&O: I&O Last 24 Hours 3 07/25/23 07/25/23 07/26/23 11:59 23:59 11:59 Intake Total 1422.80 / 3314.15 1840.75 / 3314.15 1000.70 / 1000.70 Output Total 500 / 850 350 / 850 250 / 250 Balance 922.80 / 2464.15 1490.75 / 2464.15 750.70 / 750.70 I&O: Total Stay 3 07/23/23 09:11 thru 07/26/23 09:28 Intake Total 14486.52 Output Total 2175 Balance 01429.52 Current Meds Ordered / Administered: Current meds ordered / Administered 3 Generic Name Dose Route Start Last Admin Trade Name Freq PRN Reason Stop Dose Admin Albuterol Sulfate 2.5 mg 07/25/23 16:18 Albuterol 2.5 Mg/3 Ml Vial.Neb. INHALATION Q2H PRN PRN DYSPNEA/WHEEZING/SOB Albuterol/Ipratropium 3 ml 07/25/23 16:30 07/26/23 07:14 Ipratropium/Albuterol Sulfate 3 Ml Ampul.Neb INHALATION 3 ml Q6H.RT MARY Administration Chlorhexidine Gluconate 1 each 07/24/23 10:00 07/26/23 08:08 Chlorhexidine Gluc 2% Cloth 1 Each [place] TOPICAL Not Given DAILY MARY Chlorhexidine Gluconate 15 ml 07/25/23 22:00 07/26/23 08:07 Chlorhexidine 15 Ml PO 15 ml BID MARY Administration Dextrose 0 gm 07/23/23 14:02 Dextrose 50%-Water 25 Gm/50 Ml Disp.Syrin IV X1 PRN HYPOGLYCEMIA Protocol Glucagon 1 mg 07/23/23 14:02 Glucagon 1 Mg/Ml Syringe IM X1 PRN HYPOGLYCEMIA Norepinephrine Bitartrate 8 mg 250 mls @ 9.375 mls/hr 07/23/23 10:30 07/26/23 09:00 / Sodium Chloride CONT INF 20 mcg/min .[id number] MARY 37.5 mls/hr Titration Protocol 5 MCG/MIN Sodium Chloride 1,000 mls @ 150 mls/hr 07/23/23 14:02 07/26/23 09:28 IV Not Given .[id number] MARY Meropenem 500 mg/ Sodium 60 mls @ 100 mls/hr 07/23/23 22:00 07/26/23 09:28 Chloride IV Infused Q12 MARY Infusion Pantoprazole Sodium 40 mg/ 110 mls @ 330 mls/hr 07/23/23 22:00 07/26/23 08:42 Sodium Chloride IV Infused Q12 MARY Infusion Fluconazole 200 mg in 100 mls @ 100 mls/hr 07/25/23 16:00 07/26/23 10:02 IV 100 mls/hr Q24 MARY Administration Propofol 1,000 mg in 100 mls @ 3.666 mls/hr 07/25/23 16:05 07/26/23 07:00 Diprivan CONT INF 10 mcg/kg/min .Q12H MARY 3.7 mls/hr Titration Protocol 10 MCG/KG/MIN Fentanyl 100 mls @ 5 mls/hr 07/25/23 16:05 07/26/23 07:00 CONT INF 50 mcg/hr UD MARY 5 mls/hr Titration Protocol 50 MCG/HR Insulin Human Lispro 0 unit 07/23/23 18:00 07/26/23 05:37 Insulin Lispro 100 Unit/Ml Insuln.Pen SC 1 u Q6 MARY Administration Protocol Midodrine 10 mg 07/25/23 12:00 07/26/23 08:07 Midodrine Hcl 5 Mg Tablet PO Not Given TIDCM COUNTS INCLUDE 234 BEDS AT THE [facility] Ondansetron HCl 4 mg 07/23/23 14:02 Ondansetron 4 Mg/2 Ml Vial IV Q8H PRN PRN NAUSEA/VOMITING Sodium Chloride 10 - 40 ml 07/23/23 14:56 07/24/23 20:14 0.9 % Nacl (Sterile) Posiflush 10 Ml IV 30 ml UD PRN Administration Port access or dressing change Sodium Chloride 10 - 40 ml 07/23/23 14:56 0.9% Saline Lock 10 Ml Syringe IV UD PRN Multilumen/Wise Flush Lab / Micro Data Attestation: I reviewed the patient's lab results. 07/26/23 04:25 07/26/23 04:25 Labs: Laboratory Results - last 24 hr 07/25/23 05:20: Diff Path Review Reviewed 07/25/23 11:29: POC Glucose 209 H 07/25/23 16:44: POC Glucose 190 H 07/26/23 04:25: WBC 47.5 H*, RBC 2.97 L, Hgb 8.9 L, Hct 26.9 L, MCV 90.6, MCH 30.0, MCHC 33.1, RDW Std Deviation 52.9 H, RDW Coeff of Ricardo 16.0 H, Plt Count 67 L, MPV 12.3 H, Immature Gran % (Auto) 2.300 H, Neut % (Auto) 83.5 H, Lymph % (Auto) 8.6 L, [place] % (Auto) 5.0, Eos % (Auto) 0.3, Baso % (Auto) 0.3, Absolute Neuts (auto) 39.6 H, Absolute Lymphs (auto) 4.11, Nucleated RBC % 0.3, Differential Comment SCANNED, Diff Path Review May foll, Smudge Cells 1+ H, PT Cancelled, INR Cancelled, Sodium 146 H, Potassium 3.4 L, Chloride 124 H, Carbon Dioxide 14.0 L, Anion Gap 8, BUN 36 H, Creatinine 1.42 H, Estim Creat Clear Calc 27.77, Est GFR (MDRD) Af Amer 46 L, Est GFR (MDRD) Non-Af 38 L, BUN/Creatinine Ratio 25.4 H, Glucose 181 H, Calcium 7.3 L, Total Bilirubin 2.80 H, AST 67 H, A LT 63 H, Alkaline Phosphatase 115, Total Protein 4.6 L, Albumin 1.9 L, Globulin 2.7, Albumin/Globulin Ratio 0.7 L 07/26/23 04:30: POC Glucose 159 H 07/26/23 05:00: PT 29.0 H, INR 2.8 Micro: Microbiology 07/23/23 12:52 Urine Catheter - Zapata Urine Culture - Final Juli albicans Enterococcus faecalis ABG Data ABG results: ABG 07/25/23 07/25/23 16:40 16:57 Specimen Type ART ART Sample Site R Brach R Radial pH 7.08 L* 7.24 L Bicarbonate Actual 12.9 L 11.2 L Total CO2 14 12 Base Excess -17 L -16 L O2 Saturation 26 L 100 H O2 % 50.0 50.0 ABG pCO2 43.3 26.5 L ABG pO2 24 L* 213 H [place] Test Positive Positive Respiration Rate 14 14 O2 Delivery Device Adult Vent Adult Vent Vent Mode AC AC Tidal Volume 450.0 450.0 POC PEEP 5 5 Crit Call To/Read Back Yes Blood Gas Notified Time 16:42:32 Imaging Radiology Impression Endo Retro Cholangiopancreatogram 07/25/23 13:35 IMPRESSION: Biliary stent is placed and is in good position. Electronically Signed: Gagandeep Viveros MD at 7:49 EDT , Fluoroscopy 07/25/23 13:35 IMPRESSION: There is no evidence of retained stones in the common bile duct. Electronically Signed: Gagandeep Viveros MD at 7:52 EDT , Chest X-Ray 07/25/23 16:25 IMPRESSION: 1. No acute pulmonary abnormality. 2. Support structures in good position. Electronically Signed: Lenny Mosley MD at 17:18 EDT , KUB X-Ray 07/25/23 16:25 IMPRESSION: Dilated gas-filled loops of bowel in the midabdomen compatible with a developing small bowel obstruction. Electronically Signed: Lenny Mosley MD at 17:29 EDT , Assessment and Plan . Assessment and plan: RECOMMENDATIONS: 1. Continue Levophed / midodrine 2. Continue empiric broad-spectrum antimicrobials. FU ID recs. 4. Transfuse blood products PRN. 5. Continue PPI therapy. 6. Additional intervention per gastroenterology. IMPRESSIONS: 1. Multifactorial shock - contributions of sepsis but also ABLA, apparently malignancy as well - supporting with vaospressors as needed. 2. Acute blood loss anemia/thrombocytopenia/coagulopathy/hyperbilirubinemia/intra-abdominal mass - s/p duodenal stenting complicated by respiratory arrest requiring intubation. 3. Acute kidney injury/hypokalemia 4. apparent intestinal mass with obstruction - awaiting pathology from EGD biopsy - suspect the situation is irretrievable regardless of pathology and discussions with son are in order/ underway to address goals of care/ assess expectations. Son may be unrealistic but most importantly has been scarcely present to engage these discussions per staff. Currently DNR but comfort care would seem very reasonable Critical Care Time: 50 minutes The entirety of this encounter was done via Telemedicine Physical Exam Const General Appearance: lethargic, ill appearing and patient mechanically ventilated HEENT Mouth: endotracheal tube in place and OG tube in place Neck full ROM Cardio regular rate GI soft to palpation Neuro Sensorium / Orientation: sedated on vent Subjective Subjective Events reviewed. She looks moribund at present, required urgent intubation yesterday during the duodenal stent placements. Dark green/ bilious liquid drainign from NGT.
[2023-07-26] MEDS: fentaNYL drip 100 ML 5 MCG CONT INF (11:34)
[2023-07-26 11:44] LABS: Bedside Glucose 163 mg/dL (74-106)
[2023-07-26 11:52] LABS: Bedside Glucose 168 mg/dL (74-106)
[2023-07-26] MEDS: Norepinephrine 8 MG in 0.9% Normal Saline (250mL Bag) 242 ML 37.5 MG CONT INF (12:01)
[2023-07-26 12:06] LABS: Blood Gas Specimen Type VEN
[2023-07-26 12:09] LABS: Carbohydrate AG 19-9 127253 U/mL (0-35)
[2023-07-26 17:36] LABS: Bedside Glucose 136 mg/dL (74-106)
--- NOTE | 2023-07-26 17:54 | CON.PCM_ITS ---
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 if she recovers, will need stent change at some point due to the silvestre, along with delayed stone management. there is no plan to do this at the present time. will follow peripherally. please call if I can be of assistance. HPI Consult Data Date of Consult: 07/26/23 HPI Narrative Reason for Consultation: ureteral stent, stones with septic shock HPI Narrative: MAIKEL DANIEL, is a 82 F who is now intubated in the ICU with septic shock. Records reviewed. I placed a right ureteral stent for stone last month. [facility] Medical History (Updated 07/26/23 @ 17:[address] Patti Moreira MD) Kidney stone on right side Insomnia Hypotension COPD (chronic obstructive pulmonary disease) Lymphedema Spondylosis of lumbar spine Failure to thrive Mood disorder Decubitus ulcer of buttock, stage 3 Wound cellulitis Depression Chronic indwelling Burns catheter Hypertension Dementia Home Medications ?Medication ?Instructions ?Recorded ?Last Taken ?Type nystatin 100,000 unit/gram topical 1 applic topical BID fungal 12/11/18 12/11/18 History powder polyethylene glycol 3350 17 17 g PO DAILY constipation #238 06/23/20 Unknown Rx gram/dose oral powder (Miralax) grams sennosides 8.6 mg-docusate sodium 1 tab-cap PO BID PRN constipation 06/23/20 Unknown Rx 50 mg tablet (Senna-S) #60 tabs midodrine 5 mg tablet 10 mg (2 x 5 mg) PO TIDCM #0 tabs 07/10/23 Unknown Rx acetaminophen 500 mg capsule 1,000 mg PO Q6H PRN pain 07/23/23 Unknown History nutrition tx glu 120 ml PO 4X/DAY 07/23/23 Unknown History intol,lac-free,soy-fiber 0.07 gram-0.8 kcal/mL liquid (Boost Glucose Control) zinc oxide 20 % topical ointment 1 applic topical DAILY PRN skin 07/23/23 Unknown History irritation Allergy/AdvReac Type Severity Reaction Status Date / Time acetaminophen (From Allergy Unknown unknown Verified 06/29/23 20:51 Darvocet-N) propoxyphene (From Allergy Unknown unknown Verified 06/29/23 20:51 Darvocet-N) amoxicillin Allergy Unknown Verified 12/11/18 11:58 mushroom Allergy NEEDS Verified 12/29/21 16:23 FOLLOW-UP Penicillins Allergy Anaphylaxis Verified 12/11/18 11:57 Family History unable to obtain Surgical History unable to obtain Social History Smoking Status: Unknown if ever smoked ROS Review of Systems ROS Unobtainable: due to endotracheal tube Physical Exam Narrative patient is intubated burns catheter is draining concentrated yellow urine Lab / Micro Data 07/26/23 04:25 07/26/23 04:25 Labs: Laboratory Results - last 24 hr 07/24/23 15:55: CA 19-9 Antigen [id number] H 07/24/23 : Crossmatch See Detail 07/25/23 22:59: POC Glucose 168 H 07/26/23 04:25: WBC 47.5 H*, RBC 2.97 L, Hgb 8.9 L, Hct 26.9 L, MCV 90.6, MCH 30.0, MCHC 33.1, RDW Std Deviation 52.9 H, RDW Coeff of Ricardo 16.0 H, Plt Count 67 L, MPV 12.3 H, Immature Gran % (Auto) 2.300 H, Neut % (Auto) 83.5 H, Lymph % (Auto) 8.6 L, [place] % (Auto) 5.0, Eos % (Auto) 0.3, Baso % (Auto) 0.3, Absolute Neuts (auto) 39.6 H, Absolute Lymphs (auto) 4.11, Nucleated RBC % 0.3, Differential Comment SCANNED, Diff Path Review May foll, Smudge Cells 1+ H, PT Cancelled, INR Cancelled, Sodium 146 H, Potassium 3.4 L, Chloride 124 H, Carbon Dioxide 14.0 L, Anion Gap 8, BUN 36 H, Creatinine 1.42 H, Estim Creat Clear Calc 27.77, Est GFR (MDRD) Af Amer 46 L, Est GFR (MDRD) Non-Af 38 L, BUN/Creatinine Ratio 25.4 H, Glucose 181 H, Calcium 7.3 L, Total Bilirubin 2.80 H, AST 67 H, A LT 63 H, Alkaline Phosphatase 115, Total Protein 4.6 L, Albumin 1.9 L, Globulin 2.7, Albumin/Globulin Ratio 0.7 L 07/26/23 04:30: POC Glucose 159 H 07/26/23 05:00: PT 29.0 H, INR 2.8 07/26/23 11:23: POC Glucose 163 H 07/26/23 17:16: POC Glucose 136 H Micro: Microbiology 07/25/23 19:35 Sputum, Induced/Lukens Gram Stain - Final 07/23/23 10:42 Blood Culture (Wb) - Other Blood Culture - Preliminary Silvestre albicans 07/23/23 12:52 Urine Catheter - Burns Urine Culture - Final Silvestre albicans Enterococcus faecalis ABG Data ABG results: ABG 07/25/23 16:40 Specimen Type DONNY Imaging Radiology Impression Endo Retro Cholangiopancreatogram 07/25/23 13:35 IMPRESSION: Biliary stent is placed and is in good position. Electronically Signed: Gagandeep Viveros MD at 7:49 EDT , Fluoroscopy 07/25/23 13:35 IMPRESSION: There is no evidence of retained stones in the common bile duct. Electronically Signed: Gagandeep Viveros MD at 7:52 EDT , CT reviewed, stent appears to be in good position.
[2023-07-26] MEDS: Norepinephrine 8 MG in 0.9% Normal Saline (250mL Bag) 242 ML 45 MG CONT INF (18:23)
[2023-07-26] MEDS: 0.9 % NaCl (Sterile) Posiflush 10 mL IV (20:23)
[2023-07-26] MEDS: Vasopressin 20 UNITS in 0.9% Normal Saline (50mL Bag) 24 ML 3 UNITS CONT INF (22:44)
[2023-07-26] MEDS: Albumin Human 25% (100 mL) 25 GM/100 ML BAG IV (23:11)
[2023-07-26] MEDS: Norepinephrine 8 MG in 0.9% Normal Saline (250mL Bag) 242 ML 56.3 MG CONT INF (23:25)
[2023-07-26 23:59] LABS: Bedside Glucose 131 mg/dL (74-106)
[2023-07-27] VITALS (29 sets, daily range): BP systolic 74–114; BP diastolic 36–69; PULSE 72–145; RESP 13–24; TEMP 35.6–36.5; O2SAT 99–100; BMI 30.5
[2023-07-27] MEDS: Vasopressin 20 UNITS in 0.9% Normal Saline (50mL Bag) 24 ML 3 UNITS CONT INF ×3 (02:52→20:16)
[2023-07-27] MEDS: 0.9% Normal Saline (1000mL) 1,000 ML 150 ML IV ×2 (03:02→10:08)
[2023-07-27] MEDS: Norepinephrine 8 MG in 0.9% Normal Saline (250mL Bag) 242 ML 56.3 MG CONT INF ×5 (03:52→20:59)
[2023-07-27 06:37] LABS: Bedside Glucose 105 mg/dL (74-106)
[2023-07-27 06:43] LABS: Absolute Lymphocyte Count 3.15 X10^3/uL (0.83-4.51); Absolute Neutrophil Count 36.2 X10^3/uL (2.0-7.7); Basophil# 0.13 X10^3/uL; Basophil% 0.3 % (0-1); Eosinophil# 0.25 X10^3/uL; Eosinophils% 0.6 % (0-5); Hematocrit 22.5 % (37-47); Hemoglobin 7.3 g/dL (12.0-15.0); Lymphocyte # 3.15 X10^3/ul (0.83-4.51); Lymphocyte % 7.3 % (19-41); Mean Corp Hgb Conc 32.4 g/dL (32-36); Mean Corpuscular Hgb 30.5 pg (27.0-32.0); Mean Corpuscular Volume 94.1 fL (81-99); Mean Platelet Vol. 11.9 fl (6.2-12.0); Monocyte# 2.14 X10^3/uL; Monocyte% 4.9 % (0-10); NRBC Flagged by Analyzer 0.5 % (0-5); Neutrophil # 36.19 X10^3/uL (2.7-7.7); Neutrophil % 83.5 % (47-70); POSITIVE COUNT YES; POSITIVE DIFFERENTIAL YES; Platelet Count 71 K/mm3 (150-450); RBC Distribution Width CV 16.6 % (11.6-14.6); RBC Distribution Width SD 55.9 fl (35.1-43.9); Red Blood Count 2.39 M/mm3 (4.2-5.4)
[2023-07-27 06:45] LABS: Differential Indicated SCAN CRITERIA MET; White Blood Count 43.4 K/mm3 (4.4-11.0)
--- NOTE | 2023-07-27 06:51 | PN.HOSP_ITS ---
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 Patient remains intubated and sedated, though propofol has been weaned off. Objective Data Objective Data Vital Signs: Vital Signs Temp Pulse Resp BP Pulse Ox O2 Del Method O2 Flow Rate 36.2 C L 138 H 18 114/44 L 100 Mechanical Ventilator 2 07/27/23 00:00 07/27/23 06:00 07/27/23 06:00 07/27/23 06:00 07/27/23 06:00 07/27/23 06:00 07/23/23 12:05 FiO2 25 07/27/23 06:00 Oxygen Flow Rate (L/min) 2 Oxygen Delivery Method Mechanical Ventilator Weight: 73.3 kg Body Mass Index (BMI) 30.5 Intake & Output: Intake and Output for Last 24 Hours 07/25/23 07/26/23 07/27/23 23:59 23:59 23:59 Intake Total 3263.55 / 3314.15 3991.68 / 4577.52 1526.11 / 1526.11 Output Total 850 / 850 475 / 475 10 / 10 Balance 2413.55 / 2464.15 3516.68 / 4102.52 1516.11 / 1516.11 Lab / Micro Data 07/27/23 06:30 07/27/23 06:30 Labs: Laboratory Results - last 24 hr 07/24/23 15:55: CA 19-9 Antigen [id number] H 07/24/23 : Crossmatch See Detail 07/25/23 22:59: POC Glucose 168 H 07/26/23 11:23: POC Glucose 163 H 07/26/23 17:16: POC Glucose 136 H 07/26/23 23:39: POC Glucose 131 H 07/27/23 06:18: POC Glucose 105 07/27/23 06:30: WBC 43.4 H*, RBC 2.39 L, Hgb 7.3 L, Hct 22.5 L, MCV 94.1, MCH 30.5, MCHC 32.4, RDW Std Deviation 55.9 H, RDW Coeff of Ricardo 16.6 H, Plt Count 71 L, MPV 11.9, Immature Gran % (Auto) 3.400 H, Neut % (Auto) 83.5 H, Lymph % (Auto) 7.3 L, [place] % (Auto) 4.9, Eos % (Auto) 0.6, Baso % (Auto) 0.3, Absolute Neuts (auto) 36.2 H, Absolute Lymphs (auto) 3.15, Nucleated RBC % 0.5 Micro: Microbiology 07/25/23 19:35 Sputum, Induced/Lukens Gram Stain - Final 07/23/23 10:42 Blood Culture (Wb) - Other Blood Culture - Preliminary Silvestre albicans 07/23/23 12:52 Urine Catheter - Zapata Urine Culture - Final Silvestre albicans Enterococcus faecalis 07/23/23 10:14 Blood Culture (Wb) - Central Line Blood Culture - Preliminary No growth in 48 hours. 07/23/23 09:30 Stool Stool Occult Blood (RONAK) - Final Occult Blood Positive ABG Data ABG results: ABG 07/25/23 16:40 Specimen Type DONNY Radiography Diagnostic Testing: Radiology Impression Endo Retro Cholangiopancreatogram 07/25/23 13:35 IMPRESSION: Biliary stent is placed and is in good position. Electronically Signed: Gagandeep Viveros MD at 7:49 EDT , Fluoroscopy 07/25/23 13:35 IMPRESSION: There is no evidence of retained stones in the common bile duct. Electronically Signed: Gagandeep Viveros MD at 7:52 EDT , Physical Exam Const Constitutional Narrative: intubated. sedated. afebrile. HEENT HEENT Narrative: ETT OGT in place. Resp normal respiratory effort, no retractions, no use of accessory muscles and clear to auscultation bilaterally Cardio regular rate, regular rhythm, S1 normal heart sound and S2 normal heart sound GI normal to inspection, nondistended, normoactive bowel sounds, soft to palpation, non-tender and non-distended Extremity Extremity Narrative: Atrophy in lower extremities. Developing edema in upper extremities. Assessment & Plan Assessment/Plan (1) Septic shock: PLAN: Plan Septic shock * Ongoing. On norepi since admission. Vasopressin added on 07/25. Will add stress to steroids. * 2/2 fungemia with silvestre. * Antibiotics with meropenem, vancomycin and fluconazole. * Right femoral triple-lumen catheter placed in the emergency room. Patient will need to be on bedrest while that is in place. Patient did receive 30 cc/kg of IV fluids in the emergency room and has since been started on norepinephrine. * CCM following * Random cortisol 108.8. * Resume midodrine when able to resume oral. Acute hypoxic respiratory failure * Patient became apneic in the operating room. During intubation, patient was noted to have bloody frothy fluid. She did receive dose of IV furosemide. Pulse ox dropped down to the 60s. * Follow-up chest x-ray showed no acute process and patient was FiO2 was able to be weaned down fairly quickly after intubation. Candidemia * 2/2 silvestre. Also noted in urine. Concern indwelling catheter and stent could be nidus. * consulted. Recommend current mgmt. No imminent plans to change stent at this. * Fluconazole * ID consulted ROMI * Suspect prerenal. Patient's creatinine was 0.4 on July 09 and was 2.17 on admission, now down to 1.6. * Continue IV fluids * Monitor. * No need for renal replacement therapy at this time. If continues get worse, consider nephrology consultation. Acute blood loss anemia * Hg dropped from 14.2 to 6.8. s/p 2 units PRBCs, now Hg stable at 9.4 * Secondary GI bleed. GI bleed * EGD 07/23: showed grade A reflux esophagitis, bilious gastric fluid, bleeding duodenal stricture * on pantoprazole gtt Duodenal stricture * GI discussed with patient's, who wishes to proceed with duodenal stent. However given the patient's respiratory issues on the seventh, it was not deployed. * Given the ulceration, would avoid tube feeds at this time. Coagulopathy * Suspect underlying DIC, but complicated by poor nutrition. * Will administer additional vitamin K as INR continues to rise (complicated by nothing by NGT) Leukocytosis * Secondary to septic shock. Of note, her white count started going up during her last admission from 6.6-15 0.4-23. Though it is far lower than it was during the admission where he got up to 72.3. * Monitor for now. Severe protein calorie malnutrition * Will consult nutrition as patient clinically is profoundly malnourished with marked cachexia. * Patient with ulceration in her stomach as well as duodenal stricture. * Consider TPN. Hypokalemia * replace * check Magnesium. Debility * Patient has a poor performance status at baseline. * PT OT evaluate and treat. VTE prophylaxis: SCDs CODE STATUS: Discussed with the patient's son on the , patient is DNR Comfort Care arrest. Prognosis: Guarded to poor. 07/25: I spoke to the patient's son and updated her status to him. Explained that she appears overall stable though still on pressors and on the ventilator, however, her overall outlook is extremely poor. Explained that she has mass/ulceration in her duodenum that portends a very poor prognosis and given her overall poor performance status, she would not be a candidate for any kind of surgery. Explained that she could potentially have this stent placed but overall she may continue to deteriorate and may not survive all of this. I did recommend comfort measures, terminal extubation and comfort measures. He did not wish to proceed with that at this time. With that I did recommend speaking with hospice/palliative care. He said he knows someone at his religion who works with hospice and said that he would prefer to speak that individual. (Nursing later asked him when he was present in the room for a brief period time if he is spoken that person. He said he had not because it was not Friday). Charges/Coding Visit Charges Inpatient E&M: 45604 Subs Hosp L3
[2023-07-27 06:54] LABS: International Normalized Ratio 4.7
[2023-07-27 07:39] LABS: AST(SGOT) 694 U/L (15-37); Alanine Aminotransfer ALT/SGPT 159 U/L (13-56); Albumin, Serum 2.4 g/dL (3.2-5.0); Alkaline Phosphatase 112 U/L (45-117); Anion Gap 12 (5-15); BUN 36 mg/dL (7-18); BUN/Creat Ratio 19.7 RATIO (10-20); Calcium,Total 7.5 mg/dL (8.5-10.1); Chloride 127 mmol/L (98-107); Creatinine, Serum 1.83 mg/dL (0.55-1.02); EST Glomerular Filtration Rate 28 mL/min (>60); Est Glom Filt Rate - Afr Amer 34 mL/min (>60); Estimated Creatinine Clearance 22.45 ml/min; Globulin 2.4 g/dL (2.2-4.2); Glucose 116 mg/dL (74-106); Potassium 3.7 mmol/L (3.5-5.1); Protein, Total 4.8 g/dL (6.4-8.2); Sodium Level 147 mmol/L (136-145)
[2023-07-27] MEDS: Chlorhexidine 15 ML PO ×2 (07:57→20:27)
[2023-07-27] MEDS: Pantoprazole Sodium 40 MG in 0.9% Normal Saline (100mL MB+) 100 ML 330 MG IV ×2 (07:57→20:27)
[2023-07-27] MEDS: CHLORHEXIDINE GLUC 2% CLOTH 1 EACH TOWELETTE TOPICAL (08:08)
[2023-07-27] MEDS: Phytonadione (Vit K) 5 MG in 0.9% Normal Saline (50mL Bag) 50 ML 150 MG IV (08:34)
[2023-07-27] MEDS: fentaNYL drip 100 ML 5 MCG CONT INF (08:40)
--- NOTE | 2023-07-27 09:13 | PCM.PN.TICU ---
Objective Data Objective Data Vital Signs: Vital Signs Last response Temperature 36.5 C L 07/27/23 08:02 Temperature Source Oral 07/27/23 08:02 Pulse Rate 139 H 07/27/23 08:02 Pulse Strength Weak (1+) 07/26/23 22:00 Respiratory Rate 23 H 07/27/23 08:02 Respiratory Effort Mechanically Ventilated 07/27/23 03:51 Respiratory Depth Normal 07/27/23 03:51 Respiratory Pattern Normal 07/27/23 07:21 Blood Pressure 93/40 L 07/27/23 08:02 Blood Pressure Mean 57 07/27/23 08:02 Blood Pressure Source Monitor 07/27/23 00:00 Blood Pressure Position Semi-Fowlers 07/27/23 08:02 Blood Pressure Location Right Arm 07/27/23 08:02 Pulse Ox 100 07/27/23 08:02 Oxygen Delivery Method Mechanical Ventilator 07/27/23 08:02 Oxygen Flow Rate (L/min) 2 07/23/23 12:05 Fraction of Inspired Oxygen (FIO2) 25 07/27/23 08:02 I&O: I&O Last 24 Hours 07/26/23 07/26/23 07/27/23 11:59 23:59 11:59 Intake Total 1123.53 / 4577.52 2868.15 / 4577.52 1761.42 / 1761.42 Output Total 250 / 475 225 / 475 10 10 Balance 873.53 / 4102.52 2643.15 / 4102.52 1751.42 / 1751.42 I&O: Total Stay 07/23/23 09:11 thru 07/27/23 08:38 Intake Total 08397.92 Output Total 2410 Balance 69621.92 Current Meds Ordered / Administered: Current meds ordered / Administered Generic Name Dose Route Start Last Admin Trade Name Freq PRN Reason Stop Dose Admin Albuterol Sulfate 2.5 mg 07/25/23 16:18 Albuterol 2.5 Mg/3 Ml Vial.Neb. INHALATION Q2H PRN PRN DYSPNEA/WHEEZING/SOB Chlorhexidine Gluconate 1 each 07/24/23 10:00 07/27/23 08:08 Chlorhexidine Gluc 2% Cloth 1 Each [place] TOPICAL 1 each DAILY MARY Administration Chlorhexidine Gluconate 15 ml 07/25/23 22:00 07/27/23 07:57 Chlorhexidine 15 Ml PO 15 ml BID MARY Administration Dextrose 0 gm 07/23/23 14:02 Dextrose 50%-Water 25 Gm/50 Ml Disp.Syrin IV X1 PRN HYPOGLYCEMIA Protocol Glucagon 1 mg 07/23/23 14:02 Glucagon 1 Mg/Ml Syringe IM X1 PRN HYPOGLYCEMIA Norepinephrine Bitartrate 8 mg 250 mls @ 9.375 mls/hr 07/23/23 10:30 07/27/23 08:02 / Sodium Chloride CONT INF 30 mcg/min .[id number] MARY 56.3 mls/hr Administration Protocol 5 MCG/MIN Sodium Chloride 1,000 mls @ 150 mls/hr 07/23/23 14:02 07/27/23 03:02 IV 150 mls/hr .Q6H40M MARY Administration Meropenem 500 mg/ Sodium 60 mls @ 100 mls/hr 07/23/23 22:00 07/26/23 21:30 Chloride IV Infused Q12 MARY Infusion Pantoprazole Sodium 40 mg/ 110 mls @ 330 mls/hr 07/23/23 22:00 07/27/23 08:38 Sodium Chloride IV Infused Q12 MARY Infusion Fluconazole 200 mg in 100 mls @ 100 mls/hr 07/25/23 16:00 07/26/23 11:27 IV Infused Q24 MARY Infusion Propofol 1,000 mg in 100 mls @ 3.666 mls/hr 07/25/23 16:05 07/27/23 05:15 Diprivan CONT INF Not Given .Q12H MARY Protocol 10 MCG/KG/MIN Fentanyl 100 mls @ 5 mls/hr 07/25/23 16:05 07/27/23 08:40 CONT INF 50 mcg/hr UD MARY 5 mls/hr Administration Protocol 50 MCG/HR Vasopressin 20 units/ Sodium 25 mls @ 3 mls/hr 07/26/23 22:25 07/27/23 07:00 Chloride CONT INF 0.04 units/min .Q8H20M MARY 3 mls/hr Infusion 0.04 UNITS/MIN Insulin Human Lispro 0 unit 07/23/23 18:00 07/27/23 06:22 Insulin Lispro 100 Unit/Ml Insuln.Pen SC Not Given Q6 MARY Protocol Midodrine 10 mg 07/25/23 12:00 07/27/23 08:13 Midodrine Hcl 5 Mg Tablet PO Not Given TIDCM [facility] Ondansetron HCl 4 mg 07/23/23 14:02 Ondansetron 4 Mg/2 Ml Vial IV Q8H PRN PRN NAUSEA/VOMITING Sodium Chloride 10 - 40 ml 07/23/23 14:56 07/26/23 20:23 0.9 % Nacl (Sterile) Posiflush 10 Ml IV 30 ml UD PRN Administration Port access or dressing change Sodium Chloride 10 - 40 ml 07/23/23 14:56 0.9% Saline Lock 10 Ml Syringe IV UD PRN Multilumen/Wise Flush Lab / Micro Data Attestation: I reviewed the patient's lab results. 07/27/23 06:30 07/27/23 06:30 Labs: Laboratory Results - last 24 hr 07/24/23 15:55: CA 19-9 Antigen [id number] H 07/24/23 : Crossmatch See Detail 07/25/23 22:59: POC Glucose 168 H 07/26/23 11:23: POC Glucose 163 H 07/26/23 17:16: POC Glucose 136 H 07/26/23 23:39: POC Glucose 131 H 07/27/23 06:18: POC Glucose 105 07/27/23 06:30: WBC 43.4 H*, RBC 2.39 L, Hgb 7.3 L, Hct 22.5 L, MCV 94.1, MCH 30.5, MCHC 32.4, RDW Std Deviation 55.9 H, RDW Coeff of Ricardo 16.6 H, Plt Count 71 L, MPV 11.9, Immature Gran % (Auto) 3.400 H, Neut % (Auto) 83.5 H, Lymph % (Auto) 7.3 L, Lynn % (Auto) 4.9, Eos % (Auto) 0.6, Baso % (Auto) 0.3, Absolute Neuts (auto) 36.2 H, Absolute Lymphs (auto) 3.15, Nucleated RBC % 0.5, Diff Path Review June, PT 44.0 H, INR 4.7 H*, Sodium 147 H, Potassium 3.7, Chloride 127 H*, Carbon Dioxide 8.0 L*, Anion Gap 12, BUN 36 H, Creatinine 1.83 H, Estim Creat Clear Calc 22.45, Est GFR (MDRD) Af Amer 34 L, Est GFR (MDRD) Non-Af 28 L, BUN/Creatinine Ratio 19.7, Glucose 116 H, Calcium 7.5 L, Total Bilirubin 4.00 H, AST 694 H, ALT 159 H, Alkaline Phosphatase 112, Total Protein 4.8 L, Albumin 2.4 L, Globulin 2.4, Albumin/Globulin Ratio 1.0, Vancomycin Trough 15.0 Micro: Microbiology 07/25/23 19:35 Sputum, Induced/Lukens Gram Stain - Final 07/23/23 10:42 Blood Culture (Wb) - Other Blood Culture - Preliminary Juli albicans 07/23/23 12:52 Urine Catheter - Zapata Urine Culture - Final Juli albicans Enterococcus faecalis ABG Data ABG results: ABG 07/25/23 16:40 Specimen Type DONNY Assessment and Plan . Assessment and plan: RECOMMENDATIONS: 1. Continue Levophed / midodrine 2. Continue empiric broad-spectrum antimicrobials. FU ID recs. 4. Transfuse blood products PRN. 5. Continue PPI therapy. 6. Additional intervention per gastroenterology. IMPRESSIONS: 1. Septic shock - refractory, currently on max dose norepinephrine plus vasopressin added overnight - cause would appear to be candidemia - consider stress dose hydrocortisone if effort sot be continued. - prognosis grim given current maladies and condition - comfort care would certainly be a reasonable course of action if son chooses to do so; I am told he planned to confer with other prior to providing feedback/ changing current treatment plan 2. Acute blood loss anemia/thrombocytopenia/coagulopathy/hyperbilirubinemia/intra-abdominal mass - s/p duodenal stenting complicated by respiratory arrest requiring intubation - hemoglobin has stabilized mostly. 3. Acute kidney injury/hypokalemia 4. apparent intestinal mass with obstruction - awaiting pathology from EGD biopsy - suspect the situation is irretrievable regardless of pathology and discussions with son are in order/ underway to address goals of care/ assess expectations. Son may be unrealistic but most importantly has been scarcely present to engage these discussions per staff. Currently DNR but comfort care would seem very reasonable Critical Care Time: 50 minutes The entirety of this encounter was done via Telemedicine Physical Exam Const General Appearance: ill appearing and frail HEENT Mouth: endotracheal tube in place and OG tube in place Eyes General Eye: normal appearance of both eyes Neck full ROM Resp Effort and Inspection: respiratory distress and mechanically ventilated Cardio Rate: tachycardic GI soft to palpation Inspection: GI tube present Subjective Subjective Overall worsening noted- refractory shock attributed to fungemia now. Awakens some during sedation vacation. No change in terms of goals of treatment, son visited briefly yesterday.
[2023-07-27] MEDS: Meropenem 500 MG in 0.9% Normal Saline (50mL MB+) 50 ML 100 MG IV ×2 (10:09→20:52)
[2023-07-27 11:09] LABS: Bedside Glucose 75 mg/dL (74-106)
[2023-07-27] MEDS: Hydrocortisone Sod Succinate 100 MG/2 ML Vial IV ×2 (12:51→20:27)
--- NOTE | 2023-07-27 14:31 | NURSING ---
notified Dr Millard of seizure activity x1 minute heart rate decreased from 130 to 88, bp 54/33, orders received
[2023-07-27] MEDS: LORazepam 2 MG/ML Syringe IV (14:36)
[2023-07-27] MEDS: Dextrose 50%-Water 25 GM/50 ML DISP.SYRIN IV (17:05)
[2023-07-27] MEDS: Dextrose 5%-Water (1000mL Bag) 1,000 ML 100 ML IV (17:05)
[2023-07-27 17:20] LABS: Bedside Glucose 22 mg/dL (74-106)
[2023-07-27 17:45] LABS: Bedside Glucose 129 mg/dL (74-106)
[2023-07-27] MEDS: 0.9% Saline Lock 10 ML Syringe IV (20:53)
[2023-07-28] VITALS: BP 66/46; PULSE 67; RESP 15; TEMP 35.1; O2SAT 100
[2023-07-28 01:16] LABS: Bedside Glucose 113 mg/dL (74-106)
[2023-07-28] MEDS: Albumin Human 25% (100 mL) 25 GM/100 ML BAG IV (01:16)
[2023-07-28] MEDS: Norepinephrine 8 MG in 0.9% Normal Saline (250mL Bag) 242 ML 56.3 MG CONT INF (01:29)
[2023-07-28 02:00] VITALS: BP 76/48; PULSE 63; RESP 16; O2SAT 100
[2023-07-28 02:05] VITALS: PULSE 62; RESP 14; RESP 17; O2SAT 100
[2023-07-28 03:00] VITALS: BP 82/59; PULSE 65; RESP 16; O2SAT 97
[2023-07-28] MEDS: Dextrose 5%-Water (1000mL Bag) 1,000 ML 100 ML IV (03:12)
[2023-07-28 04:00] VITALS: BP 79/39; PULSE 64; RESP 15; O2SAT 99
[2023-07-28 04:16] VITALS: BMI 32.2
[2023-07-28 04:22] LABS: Hematocrit 17.2 % (37-47); Mean Corp Hgb Conc 29.1 g/dL (32-36); Mean Corpuscular Hgb 31.1 pg (27.0-32.0); Mean Corpuscular Volume 106.8 fL (81-99); Mean Platelet Vol. 11.6 fl (6.2-12.0); POSITIVE COUNT YES; POSITIVE DIFFERENTIAL YES; POSITIVE MORPHOLOGY YES; Platelet Count 70 K/mm3 (150-450); RBC Distribution Width CV 17.8 % (11.6-14.6); RBC Distribution Width SD 67.8 fl (35.1-43.9); Red Blood Count 1.61 M/mm3 (4.2-5.4)
[2023-07-28 04:31] LABS: Differential Indicated MANUAL DIFF; White Blood Count 64.4 K/mm3 (4.4-11.0)
[2023-07-28] MEDS: 0.9% Saline Lock 10 ML Syringe IV (04:54)
[2023-07-28] MEDS: Hydrocortisone Sod Succinate 100 MG/2 ML Vial IV (04:55)
[2023-07-28 05:16] LABS: Prothrombin Time (Protime)PT. > 120.0 SECONDS (11.7-14.9)
[2023-07-28 05:19] LABS: ALB/GLOB Ratio 1.2 RATIO (0.9-2.4); AST(SGOT) 7398 U/L (15-37); Alanine Aminotransfer ALT/SGPT 714 U/L (13-56); Albumin, Serum 2.3 g/dL (3.2-5.0); Alkaline Phosphatase 229 U/L (45-117); Anion Gap 18 (5-15); BUN 36 mg/dL (7-18); BUN/Creat Ratio 17.6 RATIO (10-20); Calcium,Total 7.5 mg/dL (8.5-10.1); Chloride 121 mmol/L (98-107); Creatinine, Serum 2.05 mg/dL (0.55-1.02); EST Glomerular Filtration Rate 25 mL/min (>60); Est Glom Filt Rate - Afr Amer 30 mL/min (>60); Estimated Creatinine Clearance 20.61 ml/min; Globulin 1.9 g/dL (2.2-4.2); Glucose 165 mg/dL (74-106); Potassium 6.3 mmol/L (3.5-5.1); Protein, Total 4.2 g/dL (6.4-8.2); Sodium Level 141 mmol/L (136-145)
[2023-07-28 05:22] LABS: International Normalized Ratio > 19.5
[2023-07-28 05:22] LABS: Bedside Glucose 105 mg/dL (74-106)
[2023-07-28 05:45] VITALS: PULSE 63; RESP 14; O2SAT 100
--- NOTE | 2023-07-28 05:51 | PCM.HOSP.N ---
Hospitalist Note I was called this morning and informed that this patient as expected at 5:48 AM.
--- NOTE | 2023-07-28 06:10 | NURSING ---
0546- pt hall monitor alarming asystole. This RN to bedside, pt without pulse. Jacey RN and Art from RT to bedside. Double verification of no pulses/ heart sounds w/ Jacey RALPH. TOD 0548. Dr. Sands notified at this time.
[2023-07-28 06:49] LABS: Neutrophil-Band 13 % (0-5); Neutrophil-Segmented 64 % (47-70); Total Cells Counted 100 (MANUAL DIFF)
[2023-07-28 06:50] LABS: Absolute Neutrophil Count 49.6 X10^3/uL (2.0-7.7); Lymphocyte 10 % (19-41); Monocyte 3 % (0-10); Myelocyte 9 % (0-0); Promyelocyte 2 % (0-0)
[2023-07-28 06:51] LABS: Absolute Lymphocyte Count 6.44 X10^3/uL (0.83-4.51)
[2023-07-28 06:52] LABS: Differential Comment SCANNED
[2023-07-28 06:53] LABS: Vacuolated Cells 2+
--- NOTE | 2023-07-28 06:56 | EXP.PCM_ITS ---
Preliminary Cause of Preliminary Cause of Preliminary Cause of : Septic Shock. Candidemia Principle Diagnosis Problem List: Septic shock * Ongoing. On norepi since admission. Vasopressin added on 07/25. Will add stress to steroids. * 2/2 fungemia with silvestre. * Antibiotics with meropenem, vancomycin and fluconazole. * Right femoral triple-lumen catheter placed in the emergency room. Patient will need to be on bedrest while that is in place. Patient did receive 30 cc/kg of IV fluids in the emergency room and has since been started on norepinephrine. * CCM following * Random cortisol 108.8. * Resume midodrine when able to resume oral. Acute hypoxic respiratory failure * Patient became apneic in the operating room. During intubation, patient was noted to have bloody frothy fluid. She did receive dose of IV furosemide. Pu lse ox dropped down to the 60s. * Follow-up chest x-ray showed no acute process and patient was FiO2 was able to be weaned down fairly quickly after intubation. Candidemia * 2/2 silvestre. Also noted in urine. Concern indwelling catheter and stent could be nidus. * consulted. Recommend current mgmt. No imminent plans to change stent at this. * Fluconazole * ID consulted ROMI * Suspect prerenal. Patient's creatinine was 0.4 on July 09 and was 2.17 on admission, now down to 1.6. * Continue IV fluids * Monitor. * No need for renal replacement therapy at this time. If continues get worse, consider nephrology consultation. Acute blood loss anemia * Hg dropped from 14.2 to 6.8. s/p 2 units PRBCs, now Hg stable at 9.4 * Secondary GI bleed. GI bleed * EGD 07/23: showed grade A reflux esophagitis, bilious gastric fluid, bleeding duodenal stricture * on pantoprazole gtt Duodenal stricture * GI discussed with patient's, who wishes to proceed with duodenal stent. However given the patient's respiratory issues on the , it was not deployed. * Given the ulceration, would avoid tube feeds at this time. Coagulopathy * Suspect underlying DIC, but complicated by poor nutrition. * Will administer additional vitamin K as INR continues to rise (complicated by nothing by NGT) Leukocytosis * Secondary to septic shock. Of note, her white count started going up during her last admission from 6.6-15 0.4-23. Though it is far lower than it was during the admission where he got up to 72.3. * Monitor for now. Severe protein calorie malnutrition * Will consult nutrition as patient clinically is profoundly malnourished with marked cachexia. * Patient with ulceration in her stomach as well as duodenal stricture. * Consider TPN. Hypokalemia * replace * check Magnesium. Hospital Course Chloe Pop is an 82-year-old female with history of dementia, debility presents with hypotension, tachycardia and hypothermia. Patient was felt to be in septic shock and was started on broad-spectrum antibiotics. In the emergency room, patient received 30 cc/kg of IV fluids, had a right femoral triple-lumen catheter placed and was started on norepinephrine. There is concern for hemorrhagic shock because patient had heme positive stools but her hemoglobin came back at 14. The following day, her hemoglobin dropped down to 6.8. She was transfused 2 units and hemoglobin improved to 8.3 and then 9.4 Patient underwent an EGD on the 6 that showed bilious gastric fluid, duodenal mass that was biopsied and had bleeding from the duodenal stricture. Dr. Ayala spoke with the patient's son and recommended a stent which the son was agreeable to. So on the seventh, patient underwent an EGD, patient underwent ERCP so they can put a stent in the biliary ducts so those would not be obstructed when this duodenal stent went was placed. However before a duodenal stent was to be deployed, patient became apneic. Patient was intubated emergently in the OR. He was noted that patient had pink frothy phlegm when they are intubating her and did give the patient dose of IV furosemide. Patient was transferred then back to the ICU. I spoke with the patient's son after he spoke with Dr. Bronson and talked about CODE STATUS with him and patient was made DNR Comfort Care arrest at that time. Subsequently, patient was found to have candidemia in addition to the antibiotics patient was started on fluconazole. Patient herself was very cachectic, pleasantly confused before she was intubated and also had coagulopathy. Feel the coagulopathy was likely due to underlying DIC as well as complicated by her very poor nutritional status. Patient continue to deteriorate and then on the nin, patient was started on vasopressin in addition to the norepinephrine. I had discussed with the patient's son on the about her overall poor prognosis and did recommend hospice. I did recommend they speak with hospice. He stated that he would talk to one of his fellow parishioners at his [employer] who worked with hospice instead and declined my offer to speak with hospice. He still wanted everything done stating that he is lost all his other family members and that his mother was only 1 he has left. Nursing spoke with the patient later on the eighth of he had spoken to that person. Informed the nurse that he had not because he does not go to [employer] on Friday. So the patient continued to deteriorate was continued on the ventilator. Patient did have event of noted seizures on the night and was ordered lorazepam. And patient at 0548 on July 27.
[2023-07-28 13:58] LABS: Pathologist Review Reviewed
[2023-07-28 13:59] LABS: Pathologist Review Reviewed
[2023-07-28 14:00] LABS: Pathologist Review Reviewed
== END 2023-07-28 05:48 | DRG 698 ==
LOC: ED 10:05 → ICU 12:51
PROVIDERS: Internal Medicine; Internal Medicine Critical Care Medicine; Internal Medicine Gastroenterology; Emergency Provider Emergency Medicine; PCP Internal Medicine
PROC: 0DJD8ZZ Inspection of Lower Intestinal Tract, Via Natural or Artificial Opening Endoscopic (ICD-10-PCS; CPT 45378; principal; 2023-07-24 11:25)
PROC: 0DJ08ZZ Inspection of Upper Intestinal Tract, Via Natural or Artificial Opening Endoscopic (ICD-10-PCS; CPT 43235; principal; 2023-07-25 12:40)
DX: T83.511A Infection and inflammatory reaction due to indwelling urethral catheter, initial encounter (principal); B37.7 Candidal sepsis; J96.01 Acute respiratory failure with hypoxia; D65 Disseminated intravascular coagulation [defibrination syndrome]; E43 Unspecified severe protein-calorie malnutrition; R65.21 Severe sepsis with septic shock; K57.31 Diverticulosis of large intestine without perforation or abscess with bleeding; K31.1 Adult hypertrophic pyloric stenosis; C22.9 Malignant neoplasm of liver, not specified as primary or secondary; N17.9 Acute kidney failure, unspecified; D62 Acute posthemorrhagic anemia; K31.5 Obstruction of duodenum; R57.8 Other shock; J44.9 Chronic obstructive pulmonary disease, unspecified; R56.9 Unspecified convulsions; I12.9 Hypertensive chronic kidney disease with stage 1 through stage 4 chronic kidney disease, or unspecified chronic kidney disease; N18.9 Chronic kidney disease, unspecified; T83.592A Infection and inflammatory reaction due to indwelling ureteral stent, initial encounter; E88.09 Other disorders of plasma-protein metabolism, not elsewhere classified; E87.6 Hypokalemia; K31.84 Gastroparesis; R19.5 Other fecal abnormalities; K20.90 Esophagitis, unspecified without bleeding; K26.9 Duodenal ulcer, unspecified as acute or chronic, without hemorrhage or perforation; Y73.2 Prosthetic and other implants, materials and accessory gastroenterology and urology devices associated with adverse incidents; R53.81 Other malaise; K86.89 Other specified diseases of pancreas; B95.2 Enterococcus as the cause of diseases classified elsewhere; N20.0 Calculus of kidney; Z79.899 Other long term (current) drug therapy; Z66 Do not resuscitate; Z68.28 Body mass index [BMI] 28.0-28.9, adult
CPT/HCPCS: 31720; 36569; 36600; 51702; 70450; 71045; 74018; 74176; 74330; 76000; 80053; 80202; 81001; 81002; 82274; 82533; 82803; 82962; 83605; 83690; 83735; 83880; 84439; 84443; 84481; 84484; 85025; 85610; 85730; 86301; 86850; 86900; 86901; 86920; 86922; 87040; 87070; 87077; 87086; 87088; 87186; 87205; 88305; 88341; 93005; 94002; 94003; 94799; 97163; 97166; 99285; J2185; J7030; J7040; J7050; P9016; P9047; A4216; C1751; J1940; J2405; J3490